=== PATIENT | female | born 1935 | race Caucasian/White ===

== ENCOUNTER 2018-02-02 09:24 | Inpatient (IN) | payer MEDICARE, BC ==
[2018-02-02] MEDS: Acetaminophen 500 MG Tab PO PRN (16:10)
[2018-02-02] MEDS ORDERED: traZODone 100 MG Tab PO SCH (21:00)
[2018-02-02] MEDS: Fluticasone Propionate Nasal Spray 16 GM Bottle NASBOTH SCH (21:22)
[2018-02-02] MEDS: Formoterol/Mometasone 200-5 MCG 8.8 GM Inhaler IH SCH (21:22)
[2018-02-03] MEDS: Acetaminophen 500 MG Tab PO PRN (05:30)
--- NOTE | 2018-02-03 08:58 | PCM.HP ---
H&P History of Present Illness - General Date of Service: 02/03/18 Admit Problem/Dx: Admission Diagnosis/Problem Admission Diagnosis/Problem Fracture of humerus - History of Present Illness Initial Comments - Free Text/Narative: Lily is a 82-year-old female who had a fracture of the right humerus last week.She was hospitalized and orthopedics was consulted at [place]. The treatment was conservative,with a sling. She had physical deconditioning and was admitted to swing bed for physical strengthening and rehabilitation for discharge.Her pain is well controlled. She has a history of COPD, stable hypertension, stable osteoporosis, stable and anemia with a hemoglobin of 9.2 at discharge with no acute blood loss. Right Shoulder Pain Score (Numeric/FACES): 0 right arm\shoulder Pain Score (Numeric/FACES): 7 - Related Data Allergies/Adverse Reactions: Allergies Allergy/AdvReac Type Severity Reaction Status Date / Time Penicillins Allergy Swelling Verified 06/02/15 13:59 Home Medications: Home Meds Budesonide/Formoterol [Symbicort 160-4.5 MCG] 2 puff INH BID 11/15/15 [History] Fluticasone Propionate 1 spray NASBOTH BID 11/15/15 [History] Losartan Potassium 25 mg PO DAILY 11/15/15 [History] Oxybutynin 2.5 mg PO TID PRN 11/15/15 [History] traZODone HCl [Trazodone HCl] 100 mg PO BEDTIME 11/15/15 [History] Acetaminophen 1,000 mg PO Q8H PRN 02/02/18 [History] Lidocaine 5% [Lidoderm 5%] 700 mg TOP DAILY 02/02/18 [History] Multivitamin [Daily Cory] 1 tab PO DAILY 02/02/18 [History] Sennosides/Docusate Sodium [Senna-S] 1 tab PO DAILY PRN 02/02/18 [History] atorvaSTATin [Lipitor] 20 mg PO DAILY 02/02/18 [History] hydroCHLOROthiazide [Hydrochlorothiazide] 12.5 mg PO DAILY 02/02/18 [History] Past Medical History HEENT History: Reports: Cataract, Other (See Below) Other HEENT History: Having some possible sinus problems recently, right side of head and face. Cardiovascular History: Reports: High Cholesterol, Hypertension Respiratory History: Reports: COPD, Other (See Below) Other Respiratory History: Uses CPAP at night. Genitourinary History: Reports: Other (See Below) Other Genitourinary History: Urinary frequency, has had for many years. 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 Broke head right shoulder/arm. Neurological History: Reports: Other (See Below) Other Neuro History: States she had an episode last summer with trouble speaking , nausea, and difficulty walking---this resolved in a short time. Psychiatric History: Reports: Other (See Below) Other Psychiatric History: Takes Trazodone. Endocrine/Metabolic History: Reports: Other (See Below) Other Endocrine/Metabolic History: States she is not a diabetic. Dermatologic History: Reports: None - Infectious Disease History Infectious Disease History: Reports: Other (See Below) Other Infectious Disease History: She is uncertain of her past diseases. - Past Surgical History HEENT Surgical History: Reports: Other (See Below) Social & Family History - Family History Family Medical History: Noncontributory - Tobacco Use Smoking Status *Q: Former Smoker Used Tobacco, but Quit: Yes Month/Year Tobacco Last Used: 2007 Second Hand Smoke Exposure: No - Caffeine Use Caffeine Use: Reports: None - Recreational Drug Use Recreational Drug Use: No H&P Review of Systems - Review of Systems: Review Of Systems: ROS reveals no pertinent complaints other than HPI. Exam - Exam Exam: See Below - Vital Signs Vital Signs: Last Vital Signs Temp 98.7 F 02/03/18 07:10 Pulse 68 02/03/18 07:10 Resp 18 02/03/18 07:10 BP 133/53 L 02/03/18 07:10 Pulse Ox 92 L 02/03/18 07:10 Weight: 60.373 kg - Exam General: Alert, Oriented, 4 HEENT: PERRLA, Hearing Intact, Mucosa Moist & Levan, Nares Patent, Normal Nasal Septum, Posterior Pharynx Clear, Conjunctiva Clear, EOMI, EACs Clear, TMs Clear Neck: Supple, Trachea Midline, 2 Lungs: Clear to Auscultation, Normal Respiratory Effort Cardiovascular: Regular Rate, Regular Rhythm GI/Abdominal Exam: Normal Bowel Sounds, Soft, Non-Tender, No Organomegaly, No Distention, No Abnormal Bruit, No Mass, Pelvis Stable (Female) Exam: Deferred Rectal (Female) Exam: Deferred Back Exam: Normal Inspection, Full Range of Motion, NT Extremities: Joint Swelling (R elbow.), Other (Rt elbow in a sling.Normal pulses peripherally) Skin: Warm, Dry, Intact Neurological: Cranial Nerves Intact, Reflexes Equal Bilateral Neuro Extensive - Mental Status: Alert, Oriented x3, Normal Mood/Affect, Normal Cognition Neuro Extensive - Motor, Sensory, Reflexes: CN II-XII Intact, Normal Gait, Normal Reflexes Psychiatric: Alert, Normal Affect, Normal Mood - Problem List (1) Humerus head fracture SNOMED Code(s): 700257019 ICD Code: S42.293A - OTH DISP FX OF UPPER END OF UNSP HUMERUS, INIT FOR CLOS FX Status: Acute Current Visit: Yes Qualifiers: Encounter type: subsequent encounter (2) HTN (hypertension) SNOMED Code(s): 52813443 ICD Code: I10 - ESSENTIAL (PRIMARY) HYPERTENSION Status: Chronic Current Visit: Yes Qualifiers: Hypertension type: essential hypertension Qualified Code(s): I10 - Essential (primary) hypertension (3) Anemia SNOMED Code(s): 859898930 ICD Code: D64.9 - ANEMIA, UNSPECIFIED Status: Chronic Current Visit: Yes (4) COPD (chronic obstructive pulmonary disease) SNOMED Code(s): 02066027 ICD Code: J44.9 - CHRONIC OBSTRUCTIVE PULMONARY DISEASE, UNSPECIFIED Status : Chronic Current Visit: Yes Qualifiers: COPD type: chronic bronchitis (5) Physical debility SNOMED Code(s): 18912456 ICD Code: R53.81 - OTHER MALAISE Status: Acute Current Visit: Yes (6) Insomnia SNOMED Code(s): 661690468 ICD Code: G47.00 - INSOMNIA, UNSPECIFIED Status: Acute Current Visit: Yes Qualifiers: Insomnia type: primary Qualified Code(s): F51.01 - Primary insomnia (7) Constipation SNOMED Code(s): 34796328 ICD Code: K59.00 - CONSTIPATION, UNSPECIFIED Status: Acute Current Visit : Yes Qualifiers: Constipation type: unspecified constipation type Qualified Code(s): K59.00 - Constipation, unspecified (8) HLD (hyperlipidemia) SNOMED Code(s): 56078883 ICD Code: E78.5 - HYPERLIPIDEMIA, UNSPECIFIED Status: Acute Current Visit : Yes Qualifiers: Hyperlipidemia type: unspecified Qualified Code(s): E78.5 - Hyperlipidemia , unspecified Problem List Initiated/Reviewed/Updated: Yes Orders Last 24hrs: Active Orders 24 hr Category Date Time Status Admission Status [Patient Status] [ADT] Routine ADT 02/02/18 12:10 Active Communication Order [RC] 08,16,00 Care 02/02/18 14:12 Active Communication Order [RC] 09 Care 02/03/18 06:22 Active Oxygen Therapy Adult [Oxygen Therapy] [RC] .PRN Care 02/02/18 16:07 Active OT Evaluation and Treatment [CONS] Routine Cons 02/02/18 13:24 Active PT Evaluation and Treatment [CONS] Routine Cons 02/02/18 13:24 Active Regular Diet [DIET] Diet 02/02/18 Dinner Active Acetaminophen [Tylenol Extra Strength] Med 02/02/18 13:33 Active 1,000 mg PO Q8H PRN Docusate Sodium/Sennosides [Senna Plus] Med 02/02/18 13:33 Active 1 tab PO DAILY PRN Fluticasone Propionate [Flonase] Med 02/02/18 21:00 Active 0 gm NASBOTH BID Lidocaine 5% [Lidoderm 5%] Med 02/03/18 09:00 Active 700 mg TOP DAILY Losartan [Cozaar] Med 02/03/18 09:00 Active 25 mg PO DAILY Mometasone/Formoterol [Dulera 200-5 MCG] Med 02/02/18 21:00 Active 2 puff IH BID Multivitamins [Tab-A-Cory] Med 02/03/18 09:00 Active 1 tab PO DAILY Oxybutynin Med 02/02/18 13:33 Active 2.5 mg PO TID PRN Remove Patch Med 02/02/18 21:00 Active 1 ea TRDERM BEDTIME atorvaSTATin [Lipitor] Med 02/03/18 09:00 Active 20 mg PO DAILY hydroCHLOROthiazide Med 02/03/18 09:00 Active 12.5 mg PO DAILY traZODone Med 02/02/18 21:00 Active 100 mg PO BEDTIME Code Status [Resuscitation Status] Routine Resus Stat 02/02/18 13:20 Ordered Medication Orders Acetaminophen (Tylenol Extra Strength) 1,000 mg PO Q8H PRN PRN Reason: mild pain Last Admin: 02/03/18 05:30 Dose: 1,000 mg Admin: 02/02/18 16:10 Dose: 1,000 mg Atorvastatin Calcium (Lipitor) 20 mg PO DAILY [facility] Fluticasone Propionate (Flonase) 0 gm NASBOTH BID [facility] Last Admin: 02/02/18 21:22 Dose: Not Given Hydrochlorothiazide (Hydrochlorothiazide) 12.5 mg PO DAILY [facility] Lidocaine (Lidoderm 5%) 700 mg TOP DAILY [facility] Losartan Potassium (Cozaar) 25 mg PO DAILY [facility] Miscellaneous Information (Remove Patch) 1 ea TRDERM BEDTIME [facility] Last Admin: 02/02/18 21:35 Dose: 1 ea Mometasone Furoate/Formoterol Fumar (Dulera 200-5 Mcg) 2 puff IH BID [facility] Last Admin: 02/02/18 21:22 Dose: 2 puff Multivitamins/Minerals/Vitamin C (Tab-A-Cory) 1 tab PO DAILY [facility] Oxybutynin Chloride (Oxybutynin) 2.5 mg PO TID PRN PRN Reason: overactive bladder Senna/Docusate Sodium (Senna Plus) 1 tab PO DAILY PRN PRN Reason: Constipation Trazodone HCl (Trazodone) 100 mg PO BEDTIME [facility] Last Admin: 02/02/18 22:57 Dose: 100 mg Assessment/Plan Comment:: Admit to swing bed, consult physical and occupational therapy. Pain is well controlled.Resume regular diet and home medications.
[2018-02-03] MEDS: Losartan 25 MG Tab PO SCH (10:19)
[2018-02-03] MEDS: Formoterol/Mometasone 200-5 MCG 8.8 GM Inhaler IH SCH ×2 (10:20→20:36)
[2018-02-03] MEDS: Fluticasone Propionate Nasal Spray 16 GM Bottle NASBOTH SCH ×2 (10:21→20:34)
[2018-02-03] MEDS: Hydrochlorothiazide 12.5 MG Cap PO SCH (10:22)
[2018-02-03] MEDS: atorvaSTATin 20 MG Tab PO SCH (10:23)
[2018-02-03] MEDS: Multivitamin Tab PO SCH (10:23)
[2018-02-03] MEDS: Lidocaine 5% 700 MG Patch TOP SCH (10:54)
[2018-02-03] MEDS: Ketorolac 10 MG Tab PO SCH ×3 (12:16→20:35)
[2018-02-04] MEDS ORDERED: traZODone 50 MG Tab ONE ×2 (00:04→00:08)
[2018-02-04] MEDS: traZODone 100 MG Tab PO SCH ×3 (00:09→23:26)
[2018-02-04] MEDS: Ketorolac 10 MG Tab PO SCH ×3 (07:39→20:54)
[2018-02-04] MEDS: Losartan 25 MG Tab PO SCH (09:19)
[2018-02-04] MEDS: Formoterol/Mometasone 200-5 MCG 8.8 GM Inhaler IH SCH ×2 (09:19→20:48)
[2018-02-04] MEDS: Fluticasone Propionate Nasal Spray 16 GM Bottle NASBOTH SCH ×2 (09:20→20:49)
[2018-02-04] MEDS: Lidocaine 5% 700 MG Patch TOP SCH (09:20)
[2018-02-04] MEDS: atorvaSTATin 20 MG Tab PO SCH (09:20)
[2018-02-04] MEDS: Hydrochlorothiazide 12.5 MG Cap PO SCH (09:20)
[2018-02-04] MEDS: Multivitamin Tab PO SCH (09:20)
[2018-02-05] MEDS: Ketorolac 10 MG Tab PO SCH ×3 (08:08→21:03)
[2018-02-05] MEDS: Hydrochlorothiazide 12.5 MG Cap PO SCH (09:18)
[2018-02-05] MEDS: atorvaSTATin 20 MG Tab PO SCH (09:19)
[2018-02-05] MEDS: Formoterol/Mometasone 200-5 MCG 8.8 GM Inhaler IH SCH ×2 (09:19→21:05)
[2018-02-05] MEDS: Losartan 25 MG Tab PO SCH (09:20)
[2018-02-05] MEDS: Multivitamin Tab PO SCH (09:20)
[2018-02-05] MEDS: Fluticasone Propionate Nasal Spray 16 GM Bottle NASBOTH SCH ×2 (09:22→21:05)
[2018-02-05] MEDS: Lidocaine 5% 700 MG Patch TOP SCH (09:25)
[2018-02-05] MEDS: traZODone 100 MG Tab PO SCH (22:47)
[2018-02-06] MEDS: Ketorolac 10 MG Tab PO SCH ×3 (08:24→21:21)
[2018-02-06] MEDS: Losartan 25 MG Tab PO SCH (08:25)
[2018-02-06] MEDS: Formoterol/Mometasone 200-5 MCG 8.8 GM Inhaler IH SCH ×2 (08:29→21:24)
[2018-02-06] MEDS: Multivitamin Tab PO SCH (08:29)
[2018-02-06] MEDS: Fluticasone Propionate Nasal Spray 16 GM Bottle NASBOTH SCH ×3 (08:29→22:43)
[2018-02-06] MEDS: Hydrochlorothiazide 12.5 MG Cap PO SCH (08:30)
[2018-02-06] MEDS: Lidocaine 5% 700 MG Patch TOP SCH (08:30)
[2018-02-06] MEDS: atorvaSTATin 20 MG Tab PO SCH (08:31)
[2018-02-06] MEDS: traZODone 100 MG Tab PO SCH (22:50)
[2018-02-07] MEDS: Ketorolac 10 MG Tab PO SCH ×3 (08:00→20:28)
[2018-02-07] MEDS: Losartan 25 MG Tab PO SCH (09:16)
[2018-02-07] MEDS: Hydrochlorothiazide 12.5 MG Cap PO SCH (09:19)
[2018-02-07] MEDS: Formoterol/Mometasone 200-5 MCG 8.8 GM Inhaler IH SCH ×2 (09:19→20:27)
[2018-02-07] MEDS: atorvaSTATin 20 MG Tab PO SCH (09:19)
[2018-02-07] MEDS: Lidocaine 5% 700 MG Patch TOP SCH (09:20)
[2018-02-07] MEDS: Fluticasone Propionate Nasal Spray 16 GM Bottle NASBOTH SCH ×2 (09:20→20:27)
[2018-02-07] MEDS: Multivitamin Tab PO SCH (09:20)
[2018-02-07] MEDS: traZODone 100 MG Tab PO SCH (22:52)
[2018-02-08] MEDS: Lidocaine 5% 700 MG Patch TOP SCH (08:05)
[2018-02-08] MEDS: Ketorolac 10 MG Tab PO SCH (08:06)
[2018-02-08] MEDS: Hydrochlorothiazide 12.5 MG Cap PO SCH (08:07)
[2018-02-08] MEDS: Losartan 25 MG Tab PO SCH (08:07)
[2018-02-08] MEDS: Multivitamin Tab PO SCH (08:08)
[2018-02-08] MEDS: Formoterol/Mometasone 200-5 MCG 8.8 GM Inhaler IH SCH ×3 (08:08→21:33)
[2018-02-08] MEDS: atorvaSTATin 20 MG Tab PO SCH (08:08)
[2018-02-08] MEDS: Fluticasone Propionate Nasal Spray 16 GM Bottle NASBOTH SCH ×2 (08:09→21:34)
--- NOTE | 2018-02-08 08:10 | PCM.PN ---
- General Info Date of Service: 02/08/18 Admission Dx/Problem (Free Text): Patient is doing well. Pain is controlled. Rehabilitation is going well. She has no concerns. - Patient Data Vitals - Most Recent: Last Vital Signs Temp 98.4 F 02/08/18 06:42 Pulse 91 02/08/18 06:42 Resp 16 02/08/18 06:42 BP 138/57 L 02/08/18 06:42 Pulse Ox 90 L 02/08/18 06:42 Weight - Most Recent: 116 lb 14.4 oz Med Orders - Current: Current Medications Acetaminophen (Tylenol Extra Strength) 1,000 mg PO Q8H PRN PRN Reason: mild pain Last Admin: 02/03/18 05:30 Dose: 1,000 mg Atorvastatin Calcium (Lipitor) 20 mg PO DAILY [facility] Last Admin: 02/08/18 08:08 Dose: 20 mg Fluticasone Propionate (Flonase) 0 gm NASBOTH BID [facility] Last Admin: 02/07/18 20:27 Dose: Not Given Hydrochlorothiazide (Hydrochlorothiazide) 12.5 mg PO DAILY [facility] Last Admin: 02/08/18 08:07 Dose: 12.5 mg Ketorolac Tromethamine (Toradol) 10 mg PO 08,, [facility] Stop: 02/08/18 11:29 Last Admin: 02/08/18 08:06 Dose: 10 mg Lidocaine (Lidoderm 5%) 700 mg TOP DAILY [facility] Last Admin: 02/08/18 08:05 Dose: 700 mg Losartan Potassium (Cozaar) 25 mg PO DAILY [facility] Last Admin: 02/08/18 08:07 Dose: 25 mg Miscellaneous Information (Remove Patch) 1 ea TRDERM BEDTIME [facility] Last Admin: 02/07/18 20:32 Dose: 1 ea Mometasone Furoate/Formoterol Fumar (Dulera 200-5 Mcg) 2 puff IH BID [facility] Last Admin: 02/08/18 08:08 Dose: Not Given Multivitamins/Minerals/Vitamin C (Tab-A-Cory) 1 tab PO DAILY [facility] Last Admin: 02/08/18 08:08 Dose: 1 tab Oxybutynin Chloride (Oxybutynin) 2.5 mg PO TID PRN PRN Reason: overactive bladder Senna/Docusate Sodium (Senna Plus) 1 tab PO DAILY PRN PRN Reason: Constipation Trazodone HCl (Trazodone) 100 mg PO DAILY@2300 [facility] Last Admin: 02/07/18 22:52 Dose: 100 mg Discontinued Medications Trazodone HCl (Trazodone) 100 mg PO BEDTIME [facility] Last Admin: 02/02/18 22:57 Dose: 100 mg Trazodone HCl (Trazodone) Confirm Administered Dose 50 mg .ROUTE .STK-MED ONE Stop: 02/04/18 00:05 Last Admin: 02/04/18 00:09 Dose: Not Given Trazodone HCl (Trazodone) Confirm Administered Dose 50 mg .ROUTE .STK-MED ONE Stop: 02/04/18 00:09 Last Admin: 02/04/18 00:15 Dose: Not Given - Exam General: Alert, Oriented, Cooperative Lungs: Normal Respiratory Effort Extremities: Other (Right arm in a sling. Minimal bruising. Did not palpate humorous.) - Problem List & Annotations (1) Humerus head fracture SNOMED Code(s): 480825546 Code(s): S42.293A - [facility] DISP FX OF UPPER END OF UNSP HUMERUS, INIT FOR CLOS FX Status: Acute Current Visit: Yes Qualifiers: Encounter type: subsequent encounter - Problem List Review Problem List Initiated/Reviewed/Updated: Yes - Plan Plan:: 1. Continue PT/OT.
[2018-02-08] MEDS: Acetaminophen 500 MG Tab PO PRN (18:04)
[2018-02-08] MEDS: traZODone 100 MG Tab PO SCH (22:33)
[2018-02-09] MEDS: Acetaminophen 500 MG Tab PO PRN (04:01)
[2018-02-09] MEDS: Formoterol/Mometasone 200-5 MCG 8.8 GM Inhaler IH SCH ×2 (08:06→22:12)
[2018-02-09] MEDS: Fluticasone Propionate Nasal Spray 16 GM Bottle NASBOTH SCH ×3 (08:06→20:33)
[2018-02-09] MEDS: Multivitamin Tab PO SCH (08:06)
[2018-02-09] MEDS: Hydrochlorothiazide 12.5 MG Cap PO SCH (08:06)
[2018-02-09] MEDS: Lidocaine 5% 700 MG Patch TOP SCH (08:07)
[2018-02-09] MEDS: atorvaSTATin 20 MG Tab PO SCH (08:07)
[2018-02-09] MEDS: Losartan 25 MG Tab PO SCH (08:07)
[2018-02-09] MEDS: traZODone 100 MG Tab PO SCH (22:12)
[2018-02-10] MEDS: Losartan 25 MG Tab PO SCH (08:40)
[2018-02-10] MEDS: Formoterol/Mometasone 200-5 MCG 8.8 GM Inhaler IH SCH ×2 (08:47→21:25)
[2018-02-10] MEDS: Hydrochlorothiazide 12.5 MG Cap PO SCH (08:48)
[2018-02-10] MEDS: Lidocaine 5% 700 MG Patch TOP SCH (08:48)
[2018-02-10] MEDS: Fluticasone Propionate Nasal Spray 16 GM Bottle NASBOTH SCH ×2 (08:48→21:25)
[2018-02-10] MEDS: atorvaSTATin 20 MG Tab PO SCH (08:49)
[2018-02-10] MEDS: Multivitamin Tab PO SCH (08:50)
[2018-02-10] MEDS: traZODone 100 MG Tab PO SCH (23:23)
[2018-02-11] MEDS: Formoterol/Mometasone 200-5 MCG 8.8 GM Inhaler IH SCH ×2 (08:06→20:54)
[2018-02-11] MEDS: Fluticasone Propionate Nasal Spray 16 GM Bottle NASBOTH SCH ×3 (08:06→20:59)
[2018-02-11] MEDS: Losartan 25 MG Tab PO SCH (08:06)
[2018-02-11] MEDS: Lidocaine 5% 700 MG Patch TOP SCH (08:07)
[2018-02-11] MEDS: atorvaSTATin 20 MG Tab PO SCH (08:07)
[2018-02-11] MEDS: Hydrochlorothiazide 12.5 MG Cap PO SCH (08:07)
[2018-02-11] MEDS: Multivitamin Tab PO SCH (08:08)
[2018-02-11] MEDS: Acetaminophen 500 MG Tab PO PRN (16:52)
[2018-02-11] MEDS: traMADol 50 MG Tab PO PRN (20:57)
[2018-02-11] MEDS: traZODone 100 MG Tab PO SCH (22:37)
[2018-02-12] MEDS ORDERED: Magnesium Hydroxide 400 MG/5 ML Susp 30 ML Cup PO ONE (07:55)
[2018-02-12] MEDS: traMADol 50 MG Tab PO PRN (07:56)
[2018-02-12] MEDS ORDERED: Alendronate 70 MG Tab PO SCH (08:30)
[2018-02-12] MEDS: Lidocaine 5% 700 MG Patch TOP SCH (09:06)
[2018-02-12] MEDS: Losartan 25 MG Tab PO SCH (09:07)
[2018-02-12] MEDS: Formoterol/Mometasone 200-5 MCG 8.8 GM Inhaler IH SCH ×2 (09:07→20:52)
[2018-02-12] MEDS: Cholecalciferol (Vitamin D3) 1,000 Unit Tab PO SCH ×2 (09:08→22:31)
[2018-02-12] MEDS: Multivitamin Tab PO SCH (09:08)
[2018-02-12] MEDS: Fluticasone Propionate Nasal Spray 16 GM Bottle NASBOTH SCH ×3 (09:08→20:55)
--- NOTE | 2018-02-12 11:37 | PN ---
DATE SEEN: 02/12/2018 SUBJECTIVE: Lily is an 82-year-old, resident of [place], who sustained a right humeral neck fracture on January 29, 2018, when she got up from the sofa, turned and lost her balance. She had evaluation at Orthopedics in [place] with a diagnosis of closed fracture of the right humeral head in adequate position. She was placed in a shoulder immobilizer with plans for immobilization for 6 weeks. She has been admitted to swing bed at [place] now for the past 10 days and is receiving physical therapy on the shoulder. She is still having a lot of pain in the shoulder and therapy is limited to the right hand. PAST MEDICAL HISTORY: 1. COPD from many years of cigarette smoking. 2. Osteoporosis. She sustained a TIA in 2016 with transient loss of speech and facial droop. This resolved without intervention. 3. Carotid angiography done by Dr. eRyes showed 20% internal carotid lesions and no carotid intervention was necessary. She has not had subsequent neurologic symptoms and does not believe this was a syncopal episode that caused her fall. 4. She has chronic essential hypertension. 5. Osteoarthritis. 6. Stress incontinence. 7. Primary insomnia. 8. She has been for approximately 14 years. REVIEW OF SYSTEMS: Negative for fever, chills, sweats, or symptoms of infection. No recent change in hearing or vision. No cough or dyspnea. She does report she uses overnight oxygen and has for the past 5 years for her COPD. No palpitations, chest pain, or abdominal pain. She states she has not had a bowel movement for the past 3 to 4 days. No joint inflammation, swelling, or skin rash. She does have bruising over the right shoulder and remains immobilized in the shoulder immobilizer. PHYSICAL EXAMINATION: GENERAL: She is alert, comfortable, and a good historian. VITAL SIGNS: Blood pressure 159/70, pulse 98 and regular, respirations normal, temperature 97.8. Weight 114 pounds. SKIN: Clear without rash. She has ecchymoses over the right shoulder. HEENT: Throat is clear. Mouth dry. LUNGS: Clear to the bases with distant breath sounds. HEART: Regular without murmur or gallop. ABDOMEN: Normal bowel sounds. Soft and nontender. EXTREMITIES: No edema. Right shoulder is immobilized. There is ecchymosis over the right shoulder. She has good hand cobbler mckay strength. ASSESSMENT: 1. Open reduction internal fixation, right shoulder, with underlying osteoporosis. 2. History of transient ischemic attack. 3. Chronic obstructive pulmonary disease, on nocturnal O2. 4. Chronic mixed incontinence. 5. Chronic essential hypertension. 6. Primary insomnia. PLAN: We will continue active physical therapy for generalized strengthening, anticipate steady healing in the shoulder. We will also consider telemetry monitoring because of her fall and her past history of TIA without diagnosis. Consider discontinue the atorvastatin and institution of bisphosphonate, calcium, and vitamin D. Follow up routinely at Swing Bed with plans for discharge to home under self care. /[id number] MARIS/MODL
[2018-02-12] MEDS: Acetaminophen 500 MG Tab PO PRN (12:42)
[2018-02-12] MEDS: Calcium Carbonate/Vitamin D3 1250 MG-200 Unit Tab PO SCH (17:29)
[2018-02-12] MEDS: traZODone 100 MG Tab PO SCH (22:31)
[2018-02-13] MEDS: traMADol 50 MG Tab PO PRN ×2 (08:03→14:03)
[2018-02-13] MEDS: Calcium Carbonate/Vitamin D3 1250 MG-200 Unit Tab PO SCH ×2 (08:05→17:58)
[2018-02-13] MEDS: Losartan 25 MG Tab PO SCH (08:06)
[2018-02-13] MEDS: Formoterol/Mometasone 200-5 MCG 8.8 GM Inhaler IH SCH ×2 (08:06→20:01)
[2018-02-13] MEDS: Lidocaine 5% 700 MG Patch TOP SCH (08:07)
[2018-02-13] MEDS: Fluticasone Propionate Nasal Spray 16 GM Bottle NASBOTH SCH ×2 (08:07→20:02)
[2018-02-13] MEDS: Multivitamin Tab PO SCH (08:08)
[2018-02-13] MEDS: Cholecalciferol (Vitamin D3) 1,000 Unit Tab PO SCH ×2 (08:08→20:07)
[2018-02-13] MEDS: traZODone 100 MG Tab PO SCH (22:18)
[2018-02-14] MEDS: traMADol 50 MG Tab PO PRN (07:52)
[2018-02-14] MEDS: Lidocaine 5% 700 MG Patch TOP SCH (09:21)
[2018-02-14] MEDS: Cholecalciferol (Vitamin D3) 1,000 Unit Tab PO SCH ×2 (09:22→20:20)
[2018-02-14] MEDS: Formoterol/Mometasone 200-5 MCG 8.8 GM Inhaler IH SCH ×2 (09:23→20:18)
[2018-02-14] MEDS: Losartan 25 MG Tab PO SCH (09:23)
[2018-02-14] MEDS: Fluticasone Propionate Nasal Spray 16 GM Bottle NASBOTH SCH ×2 (09:23→20:18)
[2018-02-14] MEDS: Calcium Carbonate/Vitamin D3 1250 MG-200 Unit Tab PO SCH ×2 (09:24→19:14)
[2018-02-14] MEDS: Multivitamin Tab PO SCH (09:25)
[2018-02-14] MEDS: Oxybutynin 5 MG Tab PO PRN (22:50)
[2018-02-14] MEDS: traZODone 100 MG Tab PO SCH (22:50)
[2018-02-15] MEDS: traMADol 50 MG Tab PO PRN (07:55)
[2018-02-15] MEDS: Calcium Carbonate/Vitamin D3 1250 MG-200 Unit Tab PO SCH ×2 (08:02→18:02)
[2018-02-15] MEDS: Cholecalciferol (Vitamin D3) 1,000 Unit Tab PO SCH ×2 (08:02→20:41)
[2018-02-15] MEDS: Losartan 25 MG Tab PO SCH (08:03)
[2018-02-15] MEDS: Multivitamin Tab PO SCH (08:04)
[2018-02-15] MEDS: Formoterol/Mometasone 200-5 MCG 8.8 GM Inhaler IH SCH ×2 (08:04→20:37)
[2018-02-15] MEDS: Fluticasone Propionate Nasal Spray 16 GM Bottle NASBOTH SCH ×2 (08:05→20:38)
[2018-02-15] MEDS: Lidocaine 5% 700 MG Patch TOP SCH (09:43)
[2018-02-15] MEDS: Oxybutynin 5 MG Tab PO PRN (23:04)
[2018-02-15] MEDS: traZODone 100 MG Tab PO SCH (23:04)
[2018-02-16] MEDS: Formoterol/Mometasone 200-5 MCG 8.8 GM Inhaler IH SCH ×2 (08:27→20:56)
[2018-02-16] MEDS: Losartan 25 MG Tab PO SCH (08:28)
[2018-02-16] MEDS: Cholecalciferol (Vitamin D3) 1,000 Unit Tab PO SCH ×2 (08:29→20:57)
[2018-02-16] MEDS: Lidocaine 5% 700 MG Patch TOP SCH (08:29)
[2018-02-16] MEDS: Multivitamin Tab PO SCH (08:29)
[2018-02-16] MEDS: Fluticasone Propionate Nasal Spray 16 GM Bottle NASBOTH SCH ×2 (08:30→20:57)
[2018-02-16] MEDS: Calcium Carbonate/Vitamin D3 1250 MG-200 Unit Tab PO SCH ×2 (09:02→18:26)
[2018-02-16] MEDS: traZODone 100 MG Tab PO SCH (22:51)
[2018-02-17 08:06] VITALS: BP 137/65
[2018-02-17] MEDS: Calcium Carbonate/Vitamin D3 1250 MG-200 Unit Tab PO SCH (08:31)
[2018-02-17] MEDS: Cholecalciferol (Vitamin D3) 1,000 Unit Tab PO SCH (08:32)
[2018-02-17] MEDS: Losartan 25 MG Tab PO SCH (08:32)
[2018-02-17] MEDS: Formoterol/Mometasone 200-5 MCG 8.8 GM Inhaler IH SCH (08:32)
[2018-02-17] MEDS: Fluticasone Propionate Nasal Spray 16 GM Bottle NASBOTH SCH (08:32)
[2018-02-17] MEDS: Multivitamin Tab PO SCH (08:32)
[2018-02-17] MEDS: traMADol 50 MG Tab PO PRN (12:31)
--- NOTE | 2018-02-18 07:43 | DISCH ---
DISCHARGE DATE: 02/17/2018 HOSPITAL COURSE: Lily is an 82-year-old woman from [place], [place], with a history of osteoporosis, hypertension, COPD, hyperlipidemia, and chronic stress incontinence. The patient fell and fractured her right humeral head on 01/29/2018. She was seen in Orthopedics at [facility] and placed in a shoulder immobilizer for non-operative treatment. She was then discharged to [facility] on 02/02/2018, where she has been receiving therapy, analgesia, and is recuperating. The patient denies a full syncopal episode during the fall, but she is a little bit confused as to how she fell. She did not note that she stumbled. She might have stepped wrong and might have gotten lightheaded. She had no prior history of syncope and described no palpitations. Because of the unclear nature of her fall, she was placed on telemetry monitoring for 72 hours. She had 2 to 3 runs of SVT at 140 per minute of about 6 to 7 beats. She was asymptomatic during this time and showed no sign of atrial fibrillation, heart block, etc. The patient's course through therapy was satisfactory. Her pain came under control. She had exercises to the hand and to the elbow, and remained otherwise immobilized at the right shoulder. By 02/17/2018, she was deemed recuperated enough to go to an assisted living facility. She is discharged to the [facility] to continue her occupational therapy and home health care as an outpatient. While hospitalized, she was started on alendronate. She was given tramadol for pain control. She was also started on vitamin D3, and her statin therapy was discontinued. DISCHARGE MEDICATIONS: 1. Tramadol 50 mg every 6 hours p.r.n. pain. 2. Vitamin D3 1000 units b.i.d. 3. Alendronate 70 mg weekly. 4. Tylenol 1000 mg every 8 hours and 650 mg intermittently p.r.n. 5. Trazodone 100 mg at bedtime. 6. Senna S one tab daily. 7. Multiple vitamin one daily. 8. Losartan 25 mg daily. 9. Flonase one squirt to each nares b.i.d. p.r.n. 10.Calcium 600 with D 400 two daily. 11.Symbicort 160/4.5 two puffs b.i.d. 12.Oxybutynin 2.5 mg at bedtime. FOLLOWUP: She is to have Orthopedic followup with an appointment scheduled for 03/16/2018 and have followup with Whitney Stokes, her regular provider, one month after that. She is to call should there be questions or problems. This patient still requires skilled care with home health and occupational therapy. Follow up for this is scheduled as well. /[id number] MARIS/KOSTAS
== END 2018-02-17 12:55 | disposition home health service (06) | DRG 948 ==
LOC: FB.MS 12:03
PROVIDERS: ADMIT Family Medicine; ATTEND Family Medicine
DX: R53.81 Other malaise (principal); Z66 Do not resuscitate; S42.293D Other displaced fracture of upper end of unspecified humerus, subsequent encounter for fracture with routine healing; M81.0 Age-related osteoporosis without current pathological fracture; I10 Essential (primary) hypertension; J44.9 Chronic obstructive pulmonary disease, unspecified; E78.5 Hyperlipidemia, unspecified; N39.3 Stress incontinence (female) (male); Z87.891 Personal history of nicotine dependence; Z88.0 Allergy status to penicillin
CPT/HCPCS: 36415; 80048; 97110-GO; 97161-GP; 97165-GO; 97530-GO; 97535-GO; A9270-GY

== ENCOUNTER 2018-12-18 15:08 | Emergency (ER) | payer MEDICARE, BC ==
--- NOTE | 2018-12-18 15:33 | EDM.PDOC ---
ED HPI GENERAL MEDICAL PROBLEM - General Stated Complaint: WEAK, DIZZINESS Time Seen by Provider: 12/18/18 15:30 Source of Information: Reports: Patient History Limitations: Reports: No Limitations - History of Present Illness INITIAL COMMENTS - FREE TEXT/NARRATIVE: 83-year-old female who reports that she was with a friend at the [employer] today and then when they were going home they stopped at a yard sale and the patient was walking around the yard sale, feeling well, and had sudden loss of vision and felt weak all over. She caught onto something and asked somebody for help and was taken to a chair so that she could sit down. Her symptoms persisted and the friend drove her to a local fire [place] and EMS was called. By the time EMS arrived, the patient was feeling somewhat improved in that her vision had come back and she felt less weak. She was noted to have a blood pressure in the 80 all like range by the fire [facility] staff and EMS found that her blood pressure was 100 systolic. Her blood sugar was noted to be 138. An IV was established and the patient was given IV normal saline and had received approximately 500 mL bolus time she arrived here. She was feeling much improved by this point and was conversant and had no vision rinses or areas of weakness. She did feel weak all over and tired. Pain. He did not have any chest pain, shortness of breath, nausea, vomiting, fever or abdominal pain with this episode. She has no pain right now. She rates her pain as a 0/10. She has had no dysuria or hematuria. She states she only had 2 cups of decaf coffee today. She states she normally has to urinate every hour and she has noted decreased urination. This episode occurred approximately 1:30 PM today. There are no other associated signs or symptoms. There are no other modifying factors. 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 Medication(s) (Given IV fluids by the EMS to arrival.) - Related Data Allergies Allergy/AdvReac Type Severity Reaction Status Date / Time Penicillins Allergy Swelling Verified 12/18/18 17:46 Home Meds: Home Meds Fluticasone Propionate 1 spray NASBOTH BID 11/15/15 [History] Losartan Potassium 25 mg PO DAILY 11/15/15 [History] traZODone HCl [Trazodone HCl] 100 mg PO BEDTIME 11/15/15 [History] Multivitamin [Daily Cory] 1 tab PO DAILY 02/02/18 [History] Sennosides/Docusate Sodium [Senna-S] 1 tab PO DAILY PRN 02/02/18 [History] Acetaminophen [Tylenol Extra Strength] 1,000 mg PO Q8H PRN tablet 02/17/18 [Rx] Budesonide/Formoterol Fumarate [Symbicort 160-4.5 Mcg Inhaler] 2 puff IH BID #1 canister 02/17/18 [Rx] Oxybutynin 2.5 mg PO BEDTIME #30 tab 02/17/18 [Rx] Alendronate Sodium 70 mg PO FR 12/18/18 [History] Cephalexin [Keflex] 500 mg PO TID 7 Days #21 capsule 12/18/18 [Rx] Cholecalciferol (Vitamin D3) [Vitamin D3] 1,000 units PO DAILY 12/18/18 [History ] atorvaSTATin Calcium [Lipitor] 20 mg PO BEDTIME 12/18/18 [History] hydroCHLOROthiazide [Hydrochlorothiazide] 12.5 mg DAILY 12/18/18 [History] Past Medical History HEENT History: Reports: Cataract, Other (See Below) Other HEENT History: Having some possible sinus problems recently, right side of head and face. Cardiovascular History: Reports: High Cholesterol, Hypertension Respiratory History: Reports: COPD, Other (See Below) Other Respiratory History: Uses CPAP at night. Genitourinary History: Reports: Other (See Below) Other Genitourinary History: Urinary frequency, has had for many years. Neurological History: Reports: TIA ([place]), Other (See Below) Other Neuro History: States she had an episode last summer with trouble speaking , nausea, and difficulty walking---this resolved in a short time. - Infectious Disease History Infectious Disease History: Reports: Other (See Below) Other Infectious Disease History: She is uncertain of her past diseases. - Past Surgical History Other Surgical History Comment: Denies any previous surgeries. Social & Family History - Tobacco Use Smoking Status *Q: Former Smoker (Nonsmoker 12 years) - Caffeine Use Caffeine Use: Reports: None - Alcohol Use Alcohol Use History: Yes Alcohol Use in Last Twelve Months: No Alcohol Use Comment: No alcohol use times the past 14 years. States she is in AA. ED ROS GENERAL - Review of Systems Review Of Systems: See Below Constitutional: Reports: Fatigue HEENT: Reports: Other (Somewhat dry mouth) Respiratory: Reports: No Symptoms Cardiovascular: Reports: No Symptoms GI/Abdominal: Reports: No Symptoms : Reports: Frequency (Chronic and unchanged) Musculoskeletal: Reports: No Symptoms Skin: Reports: No Symptoms Neurological: Reports: Other (Near syncopal episode with loss of vision and generalized weakness.) Hematologic/Lymphatic: Reports: No Symptoms Immunologic: Reports: No Symptoms ED EXAM, GENERAL - Physical Exam Exam: See Below Exam Limited By: No Limitations General Appearance: Alert, WD/WN, No Apparent Distress Eye Exam: Bilateral Eye: EOMI, Normal Inspection, PERRL Ears: Normal External Exam Ear Exam: Bilateral Ear: Auricle Normal Nose: Normal Inspection, Normal Mucosa, No Blood Throat/Mouth: Normal Voice, No Airway Compromise, Other (Mildly dry mucous membranes) Head: Atraumatic, Normocephalic Neck: Normal Inspection, Supple, Non-Tender, Full Range of Motion Respiratory/Chest: No Respiratory Distress, Lungs Clear, Normal Breath Sounds, No Accessory Muscle Use, Chest Non-Tender Cardiovascular: Normal Peripheral Pulses, Regular Rate, Rhythm, No JVD Peripheral Pulses: 2+: Radial (L), Radial (R), Dorsalis Pedis (L), Dorsalis Pedis (R) GI/Abdominal: Normal Bowel Sounds, Soft, Non-Tender, No Mass Back Exam: Normal Inspection. No: CVA Tenderness (R), CVA Tenderness (L) Extremities: Normal Inspection, Normal Range of Motion, Non-Tender, Normal Capillary Refill, No Pedal Edema Neurological: Alert, Oriented, CN II-XII Intact, Normal Cognition, No Motor/ Sensory Deficits Skin Exam: Warm, Dry, Intact, Normal Color, No Rash EKG INTERPRETATION EKG Date: 12/18/18 Time: 15:11 Rhythm: NSR Rate (Beats/Min): 67 Barry: Normal P-Wave: Present QRS: Normal ST-T: Normal QT: Normal Comparison: No Change (No change from EKG performed on 11/15/2015.) Course - Vital Signs Last Recorded V/S: Last Vital Signs Temp 36.8 C 12/18/18 15:08 Pulse 72 12/18/18 15:08 Resp 18 12/18/18 15:08 BP 118/53 L 12/18/18 15:08 Pulse Ox 96 12/18/18 15:08 - Orders/Labs/Meds Orders: Active Orders 24 hr Category Date Time Status EKG Documentation Completion [RC] ASDIRECTED Care 12/18/18 16:01 Active Head wo Cont [CT] Stat Exams 12/18/18 16:01 Taken CULTURE URINE [RM] Stat Lab 12/18/18 15:37 Received Sodium Chloride 0.9% [Saline Flush] Med 12/18/18 16:01 Active 10 ml FLUSH ASDIRECTED PRN Peripheral IV Insertion Adult [OM.PC] Routine Oth 12/18/18 16:01 Ordered EKG 12 Lead [EK] Routine Ther 12/18/18 16:01 Ordered Medication Orders Sodium Chloride (Saline Flush) 10 ml FLUSH ASDIRECTED PRN PRN Reason: Keep Vein Open Labs: Laboratory Tests 12/18/18 12/18/18 12/18/18 Range/Units 15:18 15:18 15:18 WBC 7.0 (4.5-12.0) X10-3/uL RBC 3.63 (3.23-5.20) x10(6)uL Hgb 11.7 (11.5-15.5) g/dL Hct 34.1 (30.0-51.3) % MCV 94.0 (80-96) fL MCH 32.2 (27.7-33.6) pg MCHC 34.3 (32.2-35.4) g/dL RDW 14.6 (11.5-15.5) % Plt Count 259 (125-369) X10(3)uL MPV 8.2 (7.4-10.4) fL Neut % (Auto) 75.8 (46-82) % Lymph % (Auto) 16.4 (13-37) % Alexandria % (Auto) 6.0 (4-12) % Eos % (Auto) 1 (1.0-5.0) % Baso % (Auto) 1 (0-2) % Neut # (Auto) 5.4 (1.6-8.3) # Lymph # (Auto) 1.1 (0.6-5.0) # Alexandria # (Auto) 0.4 (0.0-1.3) # Eos # (Auto) 0.1 (0.0-0.8) # Baso # (Auto) 0.0 (0.0-0.2) # Sodium 144 (135-145) mmol/L Potassium 3.9 (3.5-5.3) mmol/L Chloride 106 (100-110) mmol/L Carbon Dioxide 29 (21-32) mmol/L BUN 27 H D (7-18) mg/dL Creatinine 1.2 H (0.55-1.02) mg/dL Est Cr Clr Drug Dosing 27.00 mL/min Estimated GFR (MDRD) 43 L (>60) BUN/Creatinine Ratio 22.5 H (9-20) Glucose 115 (80-116) mg/dL Calcium 9.0 (8.6-10.2) mg/dL Magnesium (1.8-2.5) mg/dL Total Bilirubin 0.5 (0.1-1.3) mg/dL AST 17 (5-25) IU/L ALT 21 (12-36) U/L Alkaline Phosphatase 69 (56-112) IU/L Troponin I < 0.017 L (<0.017-0.056) ng/mL Total Protein 6.8 (6.0-8.0) g/dL Albumin 3.5 (3.2-4.6) g/dL Globulin 3.3 g/dL Albumin/Globulin Ratio 1.1 Urine Color (YELLOW) Urine Appearance (CLEAR) Urine pH (5.0-6.5) Ur Specific Ranson (1.010-1.025) Urine Protein (NEGATIVE) mg/dL Urine Glucose (UA) (NORMAL) mg/dL Urine Ketones (NEGATIVE) mg/dL Urine Occult Blood (NEGATIVE) Urine Nitrite (NEGATIVE) Urine Bilirubin (NEGATIVE) Urine Urobilinogen (NEGATIVE) mg/dL Ur Leukocyte Esterase (NEGATIVE) Urine RBC (0-5) Urine WBC (0-5) Ur Squamous Epith Cells (NS,R,O) Urine Bacteria (NS) 12/18/18 12/18/18 Range/Units 15:18 15:37 WBC (4.5-12.0) X10-3/uL RBC (3.23-5.20) x10(6)uL Hgb (11.5-15.5) g/dL Hct (30.0-51.3) % MCV (80-96) fL MCH (27.7-33.6) pg MCHC (32.2-35.4) g/dL RDW (11.5-15.5) % Plt Count (125-369) X10(3)uL MPV (7.4-10.4) fL Neut % (Auto) (46-82) % Lymph % (Auto) (13-37) % Alexandria % (Auto) (4-12) % Eos % (Auto) (1.0-5.0) % Baso % (Auto) (0-2) % Neut # (Auto) (1.6-8.3) # Lymph # (Auto) (0.6-5.0) # Alexandria # (Auto) (0.0-1.3) # Eos # (Auto) (0.0-0.8) # Baso # (Auto) (0.0-0.2) # Sodium (135-145) mmol/L Potassium (3.5-5.3) mmol/L Chloride (100-110) mmol/L Carbon Dioxide (21-32) mmol/L BUN (7-18) mg/dL Creatinine (0.55-1.02) mg/dL Est Cr Clr Drug Dosing mL/min Estimated GFR (MDRD) (>60) BUN/Creatinine Ratio (9-20) Glucose (80-116) mg/dL Calcium (8.6-10.2) mg/dL Magnesium 1.6 L (1.8-2.5) mg/dL Total Bilirubin (0.1-1.3) mg/dL AST (5-25) IU/L ALT (12-36) U/L Alkaline Phosphatase (56-112) IU/L Troponin I (<0.017-0.056) ng/mL Total Protein (6.0-8.0) g/dL Albumin (3.2-4.6) g/dL Globulin g/dL Albumin/Globulin Ratio Urine Color Yellow (YELLOW) Urine Appearance Clear (CLEAR) Urine pH 5.0 (5.0-6.5) Ur Specific Ranson 1.020 (1.010-1.025) Urine Protein Negative (NEGATIVE) mg/dL Urine Glucose (UA) Normal (NORMAL) mg/dL Urine Ketones Negative (NEGATIVE) mg/dL Urine Occult Blood Negative (NEGATIVE) Urine Nitrite Negative (NEGATIVE) Urine Bilirubin Negative (NEGATIVE) Urine Urobilinogen Normal (NEGATIVE) mg/dL Ur Leukocyte Esterase Negative (NEGATIVE) Urine RBC 0-5 (0-5) Urine WBC 0-5 (0-5) Ur Squamous Epith Cells Rare (NS,R,O) Urine Bacteria Few H (NS) Meds: Medications Generic Name Dose Route Start Last Admin Trade Name Freq PRN Reason Stop Dose Admin Sodium Chloride 10 ml 12/18/18 16:01 Saline Flush FLUSH ASDIRECTED PRN Keep Vein Open Discontinued Medications Generic Name Dose Route Start Last Admin Trade Name Freq PRN Reason Stop Dose Admin Cephalexin 500 mg 12/18/18 18:12 Keflex PO 12/18/18 18:13 ONETIME ONE Sodium Chloride 1,000 mls @ 999 mls/hr 12/18/18 16:02 12/18/18 16:25 Normal Saline IV 12/18/18 17:02 999 mls/hr .BOLUS ONE Administration - Re-Assessments/Exams Free Text/Narrative Re-Assessment/Exam: 12/18/18 17:00: Patient's laboratory tests are for the most part reassuring. Her BUN/creatinine were somewhat elevated, supporting that she is dehydrated/ volume depleted. Her urine also has some evidence of infection. This was a catheterized specimen. I did send this for culture. The CT scan of her head showed no acute abnormality. Her EKG was reassuring as well. I will give the patient additional IV fluids continue to monitor for now. 12/18/18 18:15: The patient's blood pressure has normalized. She feels much improved. No orthostatic changes on blood pressure and pulse. She has been able to take liquids without any problem. She has had no more feelings of dizziness or weakness. She has eaten a snack and has ambulated well without any problems. I will treat the patient with Keflex for suspected urinary tract infection. I will plan on discharging the patient home at this point. I have discussed this with her and with her family to have now arrived and they are in agreement with plans for discharge. Departure - Departure Time of Disposition: 18:25 Disposition: Home, Self-Care 01 Condition: Fair (Improved) Clinical Impression: Near syncope, Dehydration, Transient neurologic deficit UTI (urinary tract infection) Qualifiers: Urinary tract infection type: site unspecified Hematuria presence: without hematuria Qualified Code(s): N39.0 - Urinary tract infection, site not specified - Discharge Information Prescriptions: Cephalexin [Keflex] 500 mg PO TID 7 Days #21 capsule Instructions: Near-Syncope, Antibiotic Medicine, Adult, [id number], Urinary Tract Infection, Adult, [id number], Dehydration, Adult, [id number] Referrals: Whitney Stokes BLO[facility]YPER [Primary Care Provider] - Additional Instructions: You had what appears to be a near passout spell related to mild dehydration and possibly to a urinary tract infection. Your blood tests were reassuring except they did support you being somewhat dehydrated. Your EKG was normal. Your head CT was normal. Your urine test showed some evidence of infection. You improved with the IV fluids and we gave him in the emergency department. You should make sure you keep yourself well-hydrated in the future. Rest. Medication as prescribed ((Keflex 500 mg). You up with your primary doctor this next week. Back to the emergency department for recurrent weakness, fever, pass out spells , localized area of weakness or numbness or any other concerning sign or symptom. - My Orders Last 24 Hours: My Active Orders 12/18/18 15:37 CULTURE URINE [RM] Stat 12/18/18 16:01 EKG Documentation Completion [RC] ASDIRECTED Head wo Cont [CT] Stat Sodium Chloride 0.9% [Saline Flush] 10 ml FLUSH ASDIRECTED PRN Peripheral IV Insertion Adult [OM.PC] Routine EKG 12 Lead [EK] Routine - Assessment/Plan Last 24 Hours: My Active Orders 12/18/18 15:37 CULTURE URINE [RM] Stat 12/18/18 16:01 EKG Documentation Completion [RC] ASDIRECTED Head wo Cont [CT] Stat Sodium Chloride 0.9% [Saline Flush] 10 ml FLUSH ASDIRECTED PRN Peripheral IV Insertion Adult [OM.PC] Routine EKG 12 Lead [EK] Routine
[2018-12-18] MEDS ORDERED: Sodium Chloride 0.9% 10 ML Syringe FLUSH PRN (16:01)
[2018-12-18] MEDS ORDERED: Sodium Chloride 0.9% 1,000 ML IV ONE (16:02)
[2018-12-18] MEDS ORDERED: Cephalexin 500 MG Cap PO ONE (18:12)
[2018-12-18 20:53] VITALS: BP 145/81; PULSE 91
== END 2018-12-18 19:07 | disposition home or self-care (01) ==
LOC: FB.ED 15:08
DX: E86.0 Dehydration (principal); N39.0 Urinary tract infection, site not specified; R29.818 Other symptoms and signs involving the nervous system; R55 Syncope and collapse; E78.00 Pure hypercholesterolemia, unspecified; I10 Essential (primary) hypertension; J44.9 Chronic obstructive pulmonary disease, unspecified; Z88.0 Allergy status to penicillin; Z79.899 Other long term (current) drug therapy; Z87.891 Personal history of nicotine dependence
CPT/HCPCS: 36415; 70450; 80053; 81001; 83735; 84484; 85025; 87086; 93005; 96360; 99285; A9270; J7030; 93010; 99284

== ENCOUNTER 2019-04-08 14:21 | Inpatient (IN) | payer MEDICARE, BC ==
[2019-04-09] MEDS ORDERED: Enoxaparin 40 MG/0.4 ML Syringe SUBCUT SCH ×2 (16:00→16:35)
[2019-04-09] MEDS ORDERED: oxyCODONE 5 MG Tab PO PRN (16:36)
[2019-04-09] MEDS ORDERED: Bisacodyl 10 MG Supp RECTAL SCH (16:45)
[2019-04-09] MEDS ORDERED: traZODone 50 MG Tab ONE (21:07)
[2019-04-09] MEDS: Fluticasone Propionate Nasal Spray 16 GM Bottle NASRT SCH (21:21)
[2019-04-09] MEDS: Polyethylene Glycol 3350 Powder 17 GM Packet PO SCH (21:23)
[2019-04-09] MEDS: Magnesium Hydroxide 400 MG/5 ML Susp 30 ML Cup PO SCH (21:24)
[2019-04-09] MEDS: atorvaSTATin 20 MG Tab PO SCH (21:25)
[2019-04-09] MEDS: Oxybutynin 5 MG Tab PO SCH (21:26)
[2019-04-09] MEDS: traZODone 100 MG Tab PO SCH (21:28)
[2019-04-09] MEDS: Acetaminophen 325 MG Tab PO PRN (21:28)
[2019-04-10] MEDS ORDERED: Bisacodyl 10 MG Supp RECTAL PRN (08:35)
[2019-04-10] MEDS: Multivitamin Tab PO SCH (08:56)
[2019-04-10] MEDS: Enoxaparin 30 MG/0.3 ML Syringe SUBCUT SCH (08:56)
[2019-04-10] MEDS: Polyethylene Glycol 3350 Powder 17 GM Packet PO SCH ×2 (08:58→20:00)
[2019-04-10] MEDS: Magnesium Hydroxide 400 MG/5 ML Susp 30 ML Cup PO SCH ×2 (08:58→20:00)
[2019-04-10] MEDS: Fluticasone Propionate Nasal Spray 16 GM Bottle NASRT SCH ×2 (09:00→20:00)
[2019-04-10] MEDS ORDERED: Calcium Carbonate 500 MG Tablet PO SCH (09:00)
[2019-04-10] MEDS ORDERED: Losartan 50 MG Tab PO SCH (09:00)
[2019-04-10] MEDS ORDERED: Losartan 25 MG Tab PO SCH (09:00)
--- NOTE | 2019-04-10 10:54 | PN ---
DATE SEEN: 04/10/2019 HISTORY: Lily is an 84-year-old woman from [place], who was admitted to swing bed yesterday for therapy following intramedullary michelle, ORIF of left femur fracture. Yesterday, on admission, she was found to have a small area of redness on the right sacroiliac area of her back. This morning, she has developed 3 groups of vesicles in the same area suspicious for zoster. Lily has not had a zoster vaccination. She denies pain in the area. PHYSICAL EXAMINATION: Physical exam of the skin reveals 3 groups of small vesicles overlying the right lower lumbar area. No tenderness is noted and no sign of cellulitis. ASSESSMENT: Rash, suspicious for zoster. PLAN: We will plan viral culture followed by Zovirax orally. Continue other medications and cares. /[id number] MARIS/KOSTAS
[2019-04-10] MEDS: Acyclovir 400 MG Tab PO SCH ×2 (16:46→20:03)
[2019-04-10] MEDS ORDERED: traZODone 50 MG Tab ONE (19:42)
[2019-04-10] MEDS: atorvaSTATin 20 MG Tab PO SCH (20:00)
[2019-04-10] MEDS: Oxybutynin 5 MG Tab PO SCH (20:01)
[2019-04-10] MEDS: traZODone 100 MG Tab PO SCH (20:02)
[2019-04-10] MEDS ORDERED: Formoterol/Mometasone 200-5 MCG 8.8 GM Inhaler IH SCH (21:00)
[2019-04-11] MEDS ORDERED: Calcium Carbonate 500 MG Tablet PO SCH (09:00)
[2019-04-11] MEDS: Losartan 25 MG Tab PO SCH (09:10)
[2019-04-11] MEDS: Formoterol/Mometasone 200-5 MCG 8.8 GM Inhaler IH SCH ×2 (09:11→20:31)
[2019-04-11] MEDS: Fluticasone Propionate Nasal Spray 16 GM Bottle NASRT SCH ×2 (09:12→20:31)
[2019-04-11] MEDS: Magnesium Hydroxide 400 MG/5 ML Susp 30 ML Cup PO SCH ×2 (09:12→20:32)
[2019-04-11] MEDS: Enoxaparin 30 MG/0.3 ML Syringe SUBCUT SCH (09:12)
[2019-04-11] MEDS: Polyethylene Glycol 3350 Powder 17 GM Packet PO SCH ×2 (09:13→20:32)
[2019-04-11] MEDS: Multivitamin Tab PO SCH (09:14)
[2019-04-11] MEDS: Acetaminophen 325 MG Tab PO PRN ×2 (09:23→14:40)
[2019-04-11] MEDS: Calcium Carbonate 500 MG Tablet PO SCH (09:24)
--- NOTE | 2019-04-11 09:50 | HP ---
ADMISSION DATE: 04/09/2019 CHIEF COMPLAINT: Admission to swing bed for recuperation post ORIF, left femur fracture. HISTORY OF PRESENT ILLNESS: Ms. Knapp is an 84-year-old woman from [place], [place], with a history of osteoporosis, COPD, hypertension, urinary incontinence, and cataracts. She sustained a closed comminuted fracture of her left femur intertrochanteric area on 04/04/2019, when she was standing by the door of the [employer]. It caught a derek of wind and knocked her down. This was repaired at [facility] in [place] by Dr. Bacon with an intramedullary nail on 04/05/2019. Postoperatively, she required 1 unit of transfusion for blood loss. She required continuation of her nocturnal home O2 use for her COPD, and she states she did not progress much in physical therapy because of the left leg area pain. The patient is now admitted to [facility] for recuperation. PAST MEDICAL HISTORY: Also positive for chronic shoulder pain, hyperglycemia, hyperlipidemia, osteoarthritis. She also had a subcapital right humerus fracture in January of 2018 treated with initial immobilization followed by physical therapy. MEDICATIONS: 1. O2 of 1 L nasal cannula overnight daily. 2. Multivitamin 1 daily. 3. Flonase p.r.n. 4. Oxybutynin 2.5 mg at bedtime. 5. Symbicort 2 puffs b.i.d. 6. Fosamax 70 mg weekly. 7. Trazodone 100 mg at bedtime. 8. Lipitor 20 mg daily. 9. Calcium carbonate 1250 mg daily. 10.Vitamin D3 of 1000 units daily. 11.Oxycodone 5 mg every 4 hours p.r.n. pain. 12.Senokot S one b.i.d. 13.Albuterol inhaler p.r.n. 14.Hydrochlorothiazide 12.5 mg daily. 15.Losartan 25 mg daily. 16.Lovenox 30 mg daily, planned x28 days total, to end approximately 05/04/19. ALLERGIES: Penicillin caused swelling, date unknown. HABITS: Long history of cigarette smoking with COPD. Alcohol, occasional. FAMILY AND SOCIAL HISTORY: The patient lost her after many years in a detention with ALS. She lives by herself in [place]. REVIEW OF SYSTEMS: GENERAL: No seizure or syncope. She has lost weight over the past few years slowly and steadily. No chest pain or palpitations. No dyspnea. No abdominal pain, nausea, or diarrhea. She does have chronic urinary incontinence with overactive bladder. No swelling, skin rash, mood instability, or temperature intolerance. PHYSICAL EXAMINATION: GENERAL: She is alert, comfortable, and a fair historian. She is somewhat forgetful. VITAL SIGNS: Blood pressure 150/70, pulse 98, respirations 18, temperature 98.2, weight 117 pounds 8 ounces, O2 saturation 88% on room air. SKIN: Anicteric, warm, dry. There is a dry small abrasion over her left olecranon prominence. There are three postoperative surgical Band-Aids over small incisions; left greater trochanter area, left mid thigh, left distal thigh. HEENT: Show mouth to be dry. LUNGS: Clear with distant breath sounds. HEART: Regular with a soft rumbling systolic murmur over the precordium. ABDOMEN: Normal bowel sounds. Soft and nontender. EXTREMITIES: Show intact dorsalis pedis pulses. No edema. She does have discomfort with movement of the left lower extremity. ASSESSMENT: 1. An 84-year-old woman, now 1 week 4 days status post intramedullary nail for left femur fracture. 2. Osteoporosis. 3. History of right humeral fracture. 4. Chronic obstructive pulmonary disease with nocturnal oxygen. 5. Hypertension. 6. Hyperlipidemia. 7. Chronic mixed incontinence. 8. Osteoporosis. PLAN: She is admitted to swing bed for therapy. We will continue her medication treatments. Analgesia for the fracture. Continue to provide palliative care measures for her underlying medical illnesses and infirmities of aging. We will also continue her on nocturnal O2. /[id number] MARIS/JARETL
[2019-04-11] MEDS: Oxybutynin 5 MG Tab PO SCH (20:32)
[2019-04-11] MEDS: atorvaSTATin 20 MG Tab PO SCH (20:33)
[2019-04-11] MEDS: traZODone 100 MG Tab PO SCH (23:00)
[2019-04-12] MEDS: Acetaminophen 325 MG Tab PO PRN ×2 (03:24→17:13)
[2019-04-12] MEDS: Fluticasone Propionate Nasal Spray 16 GM Bottle NASRT SCH ×3 (09:05→20:20)
[2019-04-12] MEDS: Formoterol/Mometasone 200-5 MCG 8.8 GM Inhaler IH SCH ×2 (09:06→20:07)
[2019-04-12] MEDS: Multivitamin Tab PO SCH (09:08)
[2019-04-12] MEDS: Magnesium Hydroxide 400 MG/5 ML Susp 30 ML Cup PO SCH (09:08)
[2019-04-12] MEDS: Enoxaparin 30 MG/0.3 ML Syringe SUBCUT SCH (09:09)
[2019-04-12] MEDS: Losartan 25 MG Tab PO SCH (09:10)
[2019-04-12] MEDS: Calcium Carbonate 500 MG Tablet PO SCH (09:10)
[2019-04-12] MEDS: Polyethylene Glycol 3350 Powder 17 GM Packet PO SCH (09:11)
[2019-04-12] MEDS ORDERED: Polyethylene Glycol 3350 Powder 17 GM Packet PO PRN (11:00)
[2019-04-12] MEDS ORDERED: Magnesium Hydroxide 400 MG/5 ML Susp 30 ML Cup PO PRN (11:00)
[2019-04-12] MEDS: atorvaSTATin 20 MG Tab PO SCH (20:15)
[2019-04-12] MEDS: Oxybutynin 5 MG Tab PO SCH (20:16)
[2019-04-12] MEDS: traZODone 100 MG Tab PO SCH (21:52)
[2019-04-13] MEDS: Acetaminophen 325 MG Tab PO PRN ×3 (05:33→16:26)
[2019-04-13] MEDS: Formoterol/Mometasone 200-5 MCG 8.8 GM Inhaler IH SCH ×2 (08:48→20:14)
[2019-04-13] MEDS: Losartan 25 MG Tab PO SCH (08:49)
[2019-04-13] MEDS: Multivitamin Tab PO SCH (08:49)
[2019-04-13] MEDS: Calcium Carbonate 500 MG Tablet PO SCH (08:53)
[2019-04-13] MEDS: Enoxaparin 30 MG/0.3 ML Syringe SUBCUT SCH (08:54)
[2019-04-13] MEDS: Fluticasone Propionate Nasal Spray 16 GM Bottle NASRT SCH ×4 (08:55→20:18)
--- NOTE | 2019-04-13 13:43 | PN ---
DATE SEEN: 04/13/2019 HISTORY: Lily is an 84-year-old woman with a history of COPD, osteoporosis, hypertension, and a left femur fracture. She underwent ORIF of this fracture at [facility] in [place] on 04/05/2019. She required 1 unit of transfusion postop and oxygen use that she is on at home for COPD. She has been getting therapy and progressing slowly. She still complains of swelling in the leg, pain during therapy, but she is comfortable while not in therapy. PHYSICAL EXAMINATION: GENERAL: She is awake, alert, but appears slightly depressed. VITAL SIGNS: Blood pressure 99/53, pulse 104, respirations 12, O2 saturation 91% on room air, temperature 98. SKIN: Shows [address] overlying the left greater trochanter, one above this and one towards the distal femur laterally. She also has a 2.5 cm area of vesicles in left lumbar back with a single vesicle slightly distal to this. No other rashes noted. HEENT: Shows her mouth to be dry. LUNGS: Clear. HEART: Regular. ABDOMEN: Soft. EXTREMITIES: Show 1+ pitting edema at the ankle and tibia on the left, no edema on the right. NEUROLOGIC: Motor exam reveals her to have good dorsiflexion strength in the feet. She can lift both legs up off the bed, but does report pain with movement of the left lower extremity in the hip area. LABORATORY DATA: Hemoglobin was 8.3 on the . We will recheck it again tomorrow. ASSESSMENT: 1. Eight days postoperative, left intramedullary michelle open reduction and internal fixation for left hip fracture, stable. 2. Chronic obstructive pulmonary disease, stable. 3. Hypertension, controlled. 4. Skin rash, question zoster, on antiviral medication. 5. Osteoporosis. 6. Blood loss anemia. 7. Situational depression. PLAN: We will continue with her current medications. We will await herpes culture results, and if negative, discontinue her acyclovir. Continue therapy and I would anticipate another 1 to 2 weeks of therapy with plans to return home following that. /[id number] MARIS/KOSTAS
[2019-04-13] MEDS: atorvaSTATin 20 MG Tab PO SCH (20:15)
[2019-04-13] MEDS: Oxybutynin 5 MG Tab PO SCH (20:15)
[2019-04-13] MEDS: traZODone 100 MG Tab PO SCH (23:17)
[2019-04-14] MEDS: Ferrous Sulfate 325 MG Tab PO SCH (08:24)
[2019-04-14] MEDS: Calcium Carbonate 500 MG Tablet PO SCH (08:24)
[2019-04-14] MEDS: Multivitamin Tab PO SCH (08:24)
[2019-04-14] MEDS: Losartan 25 MG Tab PO SCH (08:24)
[2019-04-14] MEDS: Fluticasone Propionate Nasal Spray 16 GM Bottle NASRT SCH ×2 (08:25→20:14)
[2019-04-14] MEDS: Formoterol/Mometasone 200-5 MCG 8.8 GM Inhaler IH SCH ×2 (08:27→20:14)
[2019-04-14] MEDS: Enoxaparin 30 MG/0.3 ML Syringe SUBCUT SCH (08:27)
[2019-04-14] MEDS: Acetaminophen 325 MG Tab PO PRN (11:12)
[2019-04-14] MEDS: atorvaSTATin 20 MG Tab PO SCH (20:14)
[2019-04-14] MEDS: Oxybutynin 5 MG Tab PO SCH (20:14)
[2019-04-14] MEDS: traZODone 100 MG Tab PO SCH (23:21)
[2019-04-15] MEDS: Acetaminophen 325 MG Tab PO PRN (01:04)
[2019-04-15] MEDS: Ferrous Sulfate 325 MG Tab PO SCH (09:08)
[2019-04-15] MEDS: Losartan 25 MG Tab PO SCH (09:09)
[2019-04-15] MEDS: Formoterol/Mometasone 200-5 MCG 8.8 GM Inhaler IH SCH ×2 (09:09→21:20)
[2019-04-15] MEDS: Calcium Carbonate 500 MG Tablet PO SCH (09:10)
[2019-04-15] MEDS: Multivitamin Tab PO SCH (09:10)
[2019-04-15] MEDS: Fluticasone Propionate Nasal Spray 16 GM Bottle NASRT SCH ×3 (09:13→21:35)
[2019-04-15] MEDS: Enoxaparin 30 MG/0.3 ML Syringe SUBCUT SCH (09:15)
--- NOTE | 2019-04-15 09:25 | PCM.PN ---
- General Info Date of Service: 04/15/19 Admission Dx/Problem (Free Text): Patient states she has some skin problems with her tibia anteriorly bilaterally. She has wounds on her anterior tibial area covered up and she would like me to look at them. - Patient Data Vitals - Most Recent: Last Vital Signs Temp 98.3 F 04/14/19 16:00 Pulse 90 04/14/19 16:00 Resp 16 04/14/19 16:00 BP 120/60 04/15/19 09:09 Pulse Ox 93 L 04/14/19 21:00 Weight - Most Recent: 117 lb 8 oz Med Orders - Current: Current Medications Acetaminophen (Tylenol) 650 mg PO Q4H PRN PRN Reason: Pain Last Admin: 04/15/19 01:04 Dose: 650 mg Atorvastatin Calcium (Lipitor) 20 mg PO BEDTIME [facility] Last Admin: 04/14/19 20:14 Dose: 20 mg Bisacodyl (Dulcolax) 10 mg RECTAL DAILY PRN PRN Reason: Constipation Calcium Carbonate/Glycine (Oyster Shell Calcium) 1,000 mg PO DAILY [facility] Last Admin: 04/15/19 09:10 Dose: 1,000 mg Enoxaparin Sodium (Lovenox) 30 mg SUBCUT DAILY [facility] Stop: 05/02/19 01:00 Last Admin: 04/15/19 09:15 Dose: 30 mg Ferrous Sulfate (Ferrous Sulfate) 325 mg PO WITHBREAKFAST [facility] Last Admin: 04/15/19 09:08 Dose: 325 mg Fluticasone Propionate (Flonase) 0 gm NASRT BID [facility] Last Admin: 04/15/19 09:13 Dose: Not Given Losartan Potassium (Cozaar) 25 mg PO DAILY [facility] Last Admin: 04/15/19 09:09 Dose: 25 mg Magnesium Hydroxide (Milk Of Magnesia) 30 ml PO BID PRN PRN Reason: CONSTIPATION Mometasone Furoate/Formoterol Fumar (Dulera 200-5 Mcg) 0 puff IH BID [facility] Last Admin: 04/15/19 09:09 Dose: 1 inhalation Multivitamins/Minerals/Vitamin C (Tab-A-Cory) 1 tab PO DAILY [facility] Last Admin: 04/15/19 09:10 Dose: 1 tab Oxybutynin Chloride (Oxybutynin) 2.5 mg PO BEDTIME [facility] Last Admin: 04/14/19 20:14 Dose: 2.5 mg Oxycodone HCl (Oxycodone) 5 mg PO Q4H PRN PRN Reason: Pain (moderate 4-6) Last Admin: 04/13/19 18:05 Dose: 5 mg Polyethylene Glycol (Miralax) 17 gm PO BID PRN PRN Reason: CONSTIPATION Senna/Docusate Sodium (Senna Plus) 1 tab PO BID PRN PRN Reason: Constipation Senna/Docusate Sodium (Senna Plus) 2 tab PO BID [facility] Last Admin: 04/15/19 09:13 Dose: Not Given Trazodone HCl (Trazodone) 100 mg PO DAILY@2200 [facility] Last Admin: 04/14/19 23:21 Dose: 100 mg Discontinued Medications Acyclovir (Zovirax) 800 mg PO QID [facility] Stop: 04/15/19 23:59 Last Admin: 04/10/19 14:47 Dose: Not Given Acyclovir (Zovirax) 0 mg PO QID [facility] Stop: 04/15/19 23:59 Last Admin: 04/10/19 20:03 Dose: 800 mg Acyclovir (Zovirax) 800 mg PO QID [facility] Stop: 04/15/19 23:59 Last Admin: 04/14/19 08:24 Dose: 800 mg Bisacodyl (Dulcolax) 10 mg RECTAL ASDIRECTED [facility] Calcium Carbonate/Glycine (Oyster Shell Calcium) 1,250 mg PO DAILY [facility] Last Admin: 04/10/19 08:57 Dose: 1,250 mg Enoxaparin Sodium (Lovenox) 40 mg SUBCUT Q24H [facility] Last Admin: 04/09/19 16:56 Dose: Not Given Enoxaparin Sodium (Lovenox) 30 mg SUBCUT Q24H [facility] Last Admin: 04/09/19 16:56 Dose: Not Given Losartan Potassium (Cozaar) 25 mg PO DAILY [facility] Losartan Potassium (Cozaar) 25 mg PO DAILY [facility] Last Admin: 04/10/19 09:09 Dose: 25 mg Magnesium Hydroxide (Milk Of Magnesia) 30 ml PO BID [facility] Last Admin: 04/12/19 09:08 Dose: Not Given Mometasone Furoate/Formoterol Fumar (Dulera 200-5 Mcg) 0 puff IH BID [facility] Last Admin: 04/10/19 19:59 Dose: 2 puff Oxybutynin Chloride (Oxybutynin) 5 mg PO BEDTIME [facility] Last Admin: 04/11/19 20:32 Dose: 5 mg Polyethylene Glycol (Miralax) 17 gm PO BID [facility] Last Admin: 04/12/19 09:11 Dose: Not Given Trazodone HCl (Trazodone) 100 mg PO BEDTIME [facility] Last Admin: 04/10/19 20:02 Dose: 100 mg Trazodone HCl (Trazodone) Confirm Administered Dose 100 mg .ROUTE .STK-MED ONE Stop: 04/09/19 21:08 Last Admin: 04/09/19 21:27 Dose: Not Given Trazodone HCl (Trazodone) Confirm Administered Dose 100 mg .ROUTE .STK-MED ONE Stop: 04/10/19 19:43 Last Admin: 04/10/19 19:58 Dose: Not Given - Exam General: Alert, Oriented Skin: Other (Right anterior tibia she has about a quarter size ulcer that's down to the fat. The left anterior tibia she has an ulcer a little smaller than that and not down to the fat) - Problem List & Annotations (1) Hip fracture SNOMED Code(s): 636719839 Code(s): S72.009A - FRACTURE OF UNSP PART OF NECK OF UNSP FEMUR, INIT Status: Acute Current Visit: Yes (2) Rash SNOMED Code(s): 982705737 Code(s): R21 - RASH AND OTHER NONSPECIFIC SKIN ERUPTION Status: Acute Current Visit: Yes (3) Skin ulcer SNOMED Code(s): 44858556 Code(s): L98.499 - NON-PRESSURE CHRONIC ULCER OF SKIN OF SITES W UNSP SEVERITY Status: Acute Current Visit: Yes (4) Anemia SNOMED Code(s): 329256878 Code(s): D64.9 - ANEMIA, UNSPECIFIED Status: Chronic Current Visit: No (5) COPD (chronic obstructive pulmonary disease) SNOMED Code(s): 59751776 Code(s): J44.9 - CHRONIC OBSTRUCTIVE PULMONARY DISEASE, UNSPECIFIED Status : Chronic Current Visit: No - Problem List Review Problem List Initiated/Reviewed/Updated: Yes - Plan Plan:: 1. Continue current care as before. 2.For the ulcers and ulcer care. Consider consulting Elza Ortiz on. I think is on vacation right now
--- NOTE | 2019-04-15 14:28 | CONS ---
DATE OF CONSULTATION: 04/15/2019 HISTORY OF PRESENT ILLNESS: This 84-year-old female was seen in consultation from Dr. Rodriguez for evaluation of open sores on both her lower legs. The patient states these have been there for at least a year. She recently had a hip surgery in [place] and is in swing bed at [facility]. She had her legs looked at today and apparently she thinks these have become larger. She is not complaining of any pain or tenderness. She states that she has had some more leg swelling since her recent surgery. In reviewing her records, I do not see a history of arterial disease; however, she tells me that she is a former smoker and has had a previous small stroke and possible heart attack indicating that she likely has peripheral vascular disease. She has never had any varicose vein problems or venous insufficiency that she is aware of. PHYSICAL EXAMINATION: GENERAL: Reveals a pleasant lady sitting up and eating lunch and in no acute distress. VITAL SIGNS: Within normal limits. EXTREMITIES: Both of her legs are pink, warm, and dry. The toes and feet are warm and dorsalis pedis pulses palpable bilaterally. She does have open sores over both lower anterior shins. The left one measures approximately 2 cm in diameter, and the right one is up to 3 cm in diameter. These appeared to be consistent with noninfected venous stasis ulcers; however, there anterior location would be more concerning for arterial insufficiency. She does have 2+ pitting edema on the left and 1+ edema on the right. ASSESSMENT: Bilateral lower extremity ulcers. PLAN: I will have the patient keep these covered with a clean Telfa and Saul wrap to minimize the swelling. If these improve with compression, no further treatment should be necessary. If these do not make progress in the next couple of weeks, she should have studies done for arterial insufficiency. That study is not done at [facility], so would require her to go to [place] for that study. She can be followed up in the clinic at her local clinic for this. /[id number] [address]
[2019-04-15] MEDS: atorvaSTATin 20 MG Tab PO SCH (21:20)
[2019-04-15] MEDS: Oxybutynin 5 MG Tab PO SCH (21:21)
[2019-04-15] MEDS: traZODone 100 MG Tab PO SCH (21:22)
[2019-04-16] MEDS: Fluticasone Propionate Nasal Spray 16 GM Bottle NASRT SCH ×2 (08:55→20:27)
[2019-04-16] MEDS: Ferrous Sulfate 325 MG Tab PO SCH (08:58)
[2019-04-16] MEDS: Acetaminophen 325 MG Tab PO PRN ×2 (09:12→17:35)
[2019-04-16] MEDS: Enoxaparin 30 MG/0.3 ML Syringe SUBCUT SCH (09:15)
[2019-04-16] MEDS: Losartan 25 MG Tab PO SCH (09:15)
[2019-04-16] MEDS: Formoterol/Mometasone 200-5 MCG 8.8 GM Inhaler IH SCH ×2 (09:15→20:27)
[2019-04-16] MEDS: Calcium Carbonate 500 MG Tablet PO SCH (09:16)
[2019-04-16] MEDS: Multivitamin Tab PO SCH (09:16)
[2019-04-16] MEDS: Oxybutynin 5 MG Tab PO SCH (20:27)
[2019-04-16] MEDS: atorvaSTATin 20 MG Tab PO SCH (20:27)
[2019-04-16] MEDS: traZODone 100 MG Tab PO SCH (22:41)
[2019-04-17] MEDS: Ferrous Sulfate 325 MG Tab PO SCH (08:28)
[2019-04-17] MEDS: Formoterol/Mometasone 200-5 MCG 8.8 GM Inhaler IH SCH ×2 (08:43→20:25)
[2019-04-17] MEDS: Enoxaparin 30 MG/0.3 ML Syringe SUBCUT SCH (08:43)
[2019-04-17] MEDS: Fluticasone Propionate Nasal Spray 16 GM Bottle NASRT SCH ×2 (08:43→20:25)
[2019-04-17] MEDS: Calcium Carbonate 500 MG Tablet PO SCH (08:43)
[2019-04-17] MEDS: Acetaminophen 325 MG Tab PO PRN (08:44)
[2019-04-17] MEDS: Multivitamin Tab PO SCH (08:44)
[2019-04-17] MEDS: Losartan 25 MG Tab PO SCH (08:49)
[2019-04-17] MEDS: Oxybutynin 5 MG Tab PO SCH (20:25)
[2019-04-17] MEDS: atorvaSTATin 20 MG Tab PO SCH (20:25)
[2019-04-17] MEDS: traZODone 100 MG Tab PO SCH (23:31)
[2019-04-18] MEDS: Ferrous Sulfate 325 MG Tab PO SCH (08:09)
[2019-04-18] MEDS: Losartan 25 MG Tab PO SCH (08:09)
[2019-04-18] MEDS: Fluticasone Propionate Nasal Spray 16 GM Bottle NASRT SCH ×2 (08:10→21:07)
[2019-04-18] MEDS: Formoterol/Mometasone 200-5 MCG 8.8 GM Inhaler IH SCH ×2 (08:10→21:08)
[2019-04-18] MEDS: Enoxaparin 30 MG/0.3 ML Syringe SUBCUT SCH (08:10)
[2019-04-18] MEDS: Calcium Carbonate 500 MG Tablet PO SCH (08:11)
[2019-04-18] MEDS: Multivitamin Tab PO SCH (08:11)
[2019-04-18] MEDS: Acetaminophen 325 MG Tab PO PRN (08:14)
--- NOTE | 2019-04-18 08:26 | PCM.PN ---
- General Info Date of Service: 04/18/19 Admission Dx/Problem (Free Text): She states she's had a little headache this morning. Feels her left leg is heavy and still swollen. She doesn't little discomfort with pain. - Patient Data Vitals - Most Recent: Last Vital Signs Temp 98.1 F 04/17/19 08:00 Pulse 100 04/17/19 08:00 Resp 18 04/17/19 08:00 BP 128/63 04/18/19 08:09 Pulse Ox 98 04/17/19 21:00 Weight - Most Recent: 117 lb 8 oz Med Orders - Current: Current Medications Acetaminophen (Tylenol) 650 mg PO Q4H PRN PRN Reason: Pain Last Admin: 04/18/19 08:14 Dose: 650 mg Atorvastatin Calcium (Lipitor) 20 mg PO BEDTIME [facility] Last Admin: 04/17/19 20:25 Dose: 20 mg Bisacodyl (Dulcolax) 10 mg RECTAL DAILY PRN PRN Reason: Constipation Calcium Carbonate/Glycine (Oyster Shell Calcium) 1,000 mg PO DAILY [facility] Last Admin: 04/18/19 08:11 Dose: 1,000 mg Enoxaparin Sodium (Lovenox) 30 mg SUBCUT DAILY [facility] Stop: 05/02/19 01:00 Last Admin: 04/18/19 08:10 Dose: 30 mg Ferrous Sulfate (Ferrous Sulfate) 325 mg PO WITHBREAKFAST [facility] Last Admin: 04/18/19 08:09 Dose: 325 mg Fluticasone Propionate (Flonase) 0 gm NASRT BID [facility] Last Admin: 04/18/19 08:10 Dose: 1 spr Losartan Potassium (Cozaar) 25 mg PO DAILY [facility] Last Admin: 04/18/19 08:09 Dose: 25 mg Magnesium Hydroxide (Milk Of Magnesia) 30 ml PO BID PRN PRN Reason: CONSTIPATION Mometasone Furoate/Formoterol Fumar (Dulera 200-5 Mcg) 0 puff IH BID [facility] Last Admin: 04/18/19 08:10 Dose: 2 inhalation Multivitamins/Minerals/Vitamin C (Tab-A-Cory) 1 tab PO DAILY [facility] Last Admin: 04/18/19 08:11 Dose: 1 tab Oxybutynin Chloride (Oxybutynin) 2.5 mg PO BEDTIME [facility] Last Admin: 04/17/19 20:25 Dose: 2.5 mg Oxycodone HCl (Oxycodone) 5 mg PO Q4H PRN PRN Reason: Pain (moderate 4-6) Last Admin: 04/13/19 18:05 Dose: 5 mg Polyethylene Glycol (Miralax) 17 gm PO BID PRN PRN Reason: CONSTIPATION Senna/Docusate Sodium (Senna Plus) 1 tab PO BID PRN PRN Reason: Constipation Senna/Docusate Sodium (Senna Plus) 2 tab PO BID [facility] Last Admin: 04/18/19 08:11 Dose: Not Given Trazodone HCl (Trazodone) 100 mg PO DAILY@2200 [facility] Last Admin: 04/17/19 23:31 Dose: 100 mg Discontinued Medications Acyclovir (Zovirax) 800 mg PO QID [facility] Stop: 04/15/19 23:59 Last Admin: 04/10/19 14:47 Dose: Not Given Acyclovir (Zovirax) 0 mg PO QID [facility] Stop: 04/15/19 23:59 Last Admin: 04/10/19 20:03 Dose: 800 mg Acyclovir (Zovirax) 800 mg PO QID [facility] Stop: 04/15/19 23:59 Last Admin: 04/14/19 08:24 Dose: 800 mg Bisacodyl (Dulcolax) 10 mg RECTAL ASDIRECTED [facility] Calcium Carbonate/Glycine (Oyster Shell Calcium) 1,250 mg PO DAILY [facility] Last Admin: 04/10/19 08:57 Dose: 1,250 mg Enoxaparin Sodium (Lovenox) 40 mg SUBCUT Q24H [facility] Last Admin: 04/09/19 16:56 Dose: Not Given Enoxaparin Sodium (Lovenox) 30 mg SUBCUT Q24H [facility] Last Admin: 04/09/19 16:56 Dose: Not Given Losartan Potassium (Cozaar) 25 mg PO DAILY [facility] Losartan Potassium (Cozaar) 25 mg PO DAILY [facility] Last Admin: 04/10/19 09:09 Dose: 25 mg Magnesium Hydroxide (Milk Of Magnesia) 30 ml PO BID [facility] Last Admin: 04/12/19 09:08 Dose: Not Given Mometasone Furoate/Formoterol Fumar (Dulera 200-5 Mcg) 0 puff IH BID [facility] Last Admin: 10/27/19 19:59 Dose: 2 puff Oxybutynin Chloride (Oxybutynin) 5 mg PO BEDTIME [facility] Last Admin: 04/11/19 20:32 Dose: 5 mg Polyethylene Glycol (Miralax) 17 gm PO BID [facility] Last Admin: 04/12/19 09:11 Dose: Not Given Trazodone HCl (Trazodone) 100 mg PO BEDTIME [facility] Last Admin: 04/10/19 20:02 Dose: 100 mg Trazodone HCl (Trazodone) Confirm Administered Dose 100 mg .ROUTE .STK-MED ONE Stop: 04/09/19 21:08 Last Admin: 04/09/19 21:27 Dose: Not Given Trazodone HCl (Trazodone) Confirm Administered Dose 100 mg .ROUTE .STK-MED ONE Stop: 04/10/19 19:43 Last Admin: 04/10/19 19:58 Dose: Not Given - Exam General: Alert, Oriented Cardiovascular: Regular Rate, No Murmurs Extremities: Other (Left thigh possibly just a little swollen compared to the right. No pitting.) - Problem List & Annotations (1) Hip fracture SNOMED Code(s): 236540813 Code(s): S72.009A - FRACTURE OF UNSP PART OF NECK OF UNSP FEMUR, INIT Status: Acute Current Visit: Yes (2) Rash SNOMED Code(s): 431872810 Code(s): R21 - RASH AND OTHER NONSPECIFIC SKIN ERUPTION Status: Acute Current Visit: Yes (3) Skin ulcer SNOMED Code(s): 55504423 Code(s): L98.499 - NON-PRESSURE CHRONIC ULCER OF SKIN OF SITES W UNSP SEVERITY Status: Acute Current Visit: Yes (4) Anemia SNOMED Code(s): 699639374 Code(s): D64.9 - ANEMIA, UNSPECIFIED Status: Chronic Current Visit: No (5) COPD (chronic obstructive pulmonary disease) SNOMED Code(s): 34557447 Code(s): J44.9 - CHRONIC OBSTRUCTIVE PULMONARY DISEASE, UNSPECIFIED Status : Chronic Current Visit: No - Problem List Review Problem List Initiated/Reviewed/Updated: Yes - Plan Plan:: 1. Continue PT/OT. 2. When the patient is discharged she should see Dr. Bertrand for wound care. This is per Dr. Contreras recommendation.
[2019-04-18] MEDS: Oxybutynin 5 MG Tab PO SCH (21:07)
[2019-04-18] MEDS: atorvaSTATin 20 MG Tab PO SCH (21:07)
[2019-04-18] MEDS: traZODone 100 MG Tab PO SCH (21:08)
[2019-04-19] MEDS: Ferrous Sulfate 325 MG Tab PO SCH (08:16)
[2019-04-19] MEDS: Losartan 25 MG Tab PO SCH (08:16)
[2019-04-19] MEDS: Multivitamin Tab PO SCH (08:17)
[2019-04-19] MEDS: Fluticasone Propionate Nasal Spray 16 GM Bottle NASRT SCH ×2 (08:17→20:21)
[2019-04-19] MEDS: Formoterol/Mometasone 200-5 MCG 8.8 GM Inhaler IH SCH ×2 (08:17→20:21)
[2019-04-19] MEDS: Calcium Carbonate 500 MG Tablet PO SCH (08:17)
[2019-04-19] MEDS: Enoxaparin 30 MG/0.3 ML Syringe SUBCUT SCH (08:23)
[2019-04-19] MEDS: atorvaSTATin 20 MG Tab PO SCH (20:22)
[2019-04-19] MEDS: Oxybutynin 5 MG Tab PO SCH (20:22)
[2019-04-19] MEDS: Acetaminophen 325 MG Tab PO PRN (20:23)
[2019-04-19] MEDS: traZODone 100 MG Tab PO SCH (22:09)
[2019-04-20] MEDS: Calcium Carbonate 500 MG Tablet PO SCH (08:15)
[2019-04-20] MEDS: Ferrous Sulfate 325 MG Tab PO SCH (08:15)
[2019-04-20] MEDS: Formoterol/Mometasone 200-5 MCG 8.8 GM Inhaler IH SCH ×2 (08:16→20:56)
[2019-04-20] MEDS: Multivitamin Tab PO SCH (08:16)
[2019-04-20] MEDS: Losartan 25 MG Tab PO SCH (08:16)
[2019-04-20] MEDS: Fluticasone Propionate Nasal Spray 16 GM Bottle NASRT SCH ×2 (08:16→20:56)
[2019-04-20] MEDS: Enoxaparin 30 MG/0.3 ML Syringe SUBCUT SCH (08:17)
[2019-04-20] MEDS: Oxybutynin 5 MG Tab PO SCH (20:57)
[2019-04-20] MEDS: atorvaSTATin 20 MG Tab PO SCH (20:57)
[2019-04-20] MEDS: traZODone 100 MG Tab PO SCH (22:56)
[2019-04-20] MEDS: Acetaminophen 325 MG Tab PO PRN (23:54)
[2019-04-21] MEDS: Acetaminophen 325 MG Tab PO PRN (04:17)
[2019-04-21] MEDS: Ferrous Sulfate 325 MG Tab PO SCH (08:44)
[2019-04-21] MEDS: Calcium Carbonate 500 MG Tablet PO SCH (08:45)
[2019-04-21] MEDS: Formoterol/Mometasone 200-5 MCG 8.8 GM Inhaler IH SCH ×2 (08:45→20:31)
[2019-04-21] MEDS: Losartan 25 MG Tab PO SCH (08:45)
[2019-04-21] MEDS: Enoxaparin 30 MG/0.3 ML Syringe SUBCUT SCH (08:45)
[2019-04-21] MEDS: Multivitamin Tab PO SCH (08:46)
[2019-04-21] MEDS: Fluticasone Propionate Nasal Spray 16 GM Bottle NASRT SCH ×2 (08:55→20:31)
[2019-04-21] MEDS: atorvaSTATin 20 MG Tab PO SCH (20:30)
[2019-04-21] MEDS: Oxybutynin 5 MG Tab PO SCH (20:30)
[2019-04-21] MEDS: traZODone 100 MG Tab PO SCH (22:31)
[2019-04-22] MEDS: Ferrous Sulfate 325 MG Tab PO SCH (08:43)
[2019-04-22] MEDS: Losartan 25 MG Tab PO SCH (09:29)
[2019-04-22] MEDS: Formoterol/Mometasone 200-5 MCG 8.8 GM Inhaler IH SCH ×2 (09:30→21:22)
[2019-04-22] MEDS: Fluticasone Propionate Nasal Spray 16 GM Bottle NASRT SCH ×2 (09:31→21:21)
[2019-04-22] MEDS: Enoxaparin 30 MG/0.3 ML Syringe SUBCUT SCH (09:32)
[2019-04-22] MEDS: Calcium Carbonate 500 MG Tablet PO SCH (09:32)
[2019-04-22] MEDS: Multivitamin Tab PO SCH (09:33)
--- NOTE | 2019-04-22 12:27 | PCM.PN ---
- General Info Date of Service: 04/22/19 Admission Dx/Problem (Free Text): complaining of Insomnia, normally takes Trazodone 100 mg at bedtime(midnight usually) but getting at 10-11pm here but doesn't feel it is working anymore, wanted to know if she could have a dose increase. Also not having any pain due leg ulcer. healed on the left, scabbed over. - Patient Data Vitals - Most Recent: Last Vital Signs Temp 98.7 F 04/22/19 07:47 Pulse 89 04/22/19 07:47 Resp 16 04/22/19 07:47 BP 144/61 H 04/22/19 09:29 Pulse Ox 95 04/22/19 07:47 Weight - Most Recent: 117 lb 8 oz Med Orders - Current: Current Medications Acetaminophen (Tylenol) 650 mg PO Q4H PRN PRN Reason: Pain Last Admin: 04/21/19 04:17 Dose: 650 mg Atorvastatin Calcium (Lipitor) 20 mg PO BEDTIME [facility] Last Admin: 04/21/19 20:30 Dose: 20 mg Bisacodyl (Dulcolax) 10 mg RECTAL DAILY PRN PRN Reason: Constipation Calcium Carbonate/Glycine (Oyster Shell Calcium) 1,000 mg PO DAILY [facility] Last Admin: 04/22/19 09:32 Dose: 1,000 mg Enoxaparin Sodium (Lovenox) 30 mg SUBCUT DAILY [facility] Stop: 05/02/19 01:00 Last Admin: 04/22/19 09:32 Dose: 30 mg Ferrous Sulfate (Ferrous Sulfate) 325 mg PO WITHBREAKFAST [facility] Last Admin: 04/22/19 08:43 Dose: 325 mg Fluticasone Propionate (Flonase) 0 gm NASRT BID [facility] Last Admin: 04/22/19 09:31 Dose: Not Given Losartan Potassium (Cozaar) 25 mg PO DAILY [facility] Last Admin: 04/22/19 09:29 Dose: 25 mg Magnesium Hydroxide (Milk Of Magnesia) 30 ml PO BID PRN PRN Reason: CONSTIPATION Mometasone Furoate/Formoterol Fumar (Dulera 200-5 Mcg) 0 puff IH BID [facility] Last Admin: 04/22/19 09:30 Dose: 2 puff Multivitamins/Minerals/Vitamin C (Tab-A-Cory) 1 tab PO DAILY [facility] Last Admin: 04/22/19 09:33 Dose: 1 tab Oxybutynin Chloride (Oxybutynin) 2.5 mg PO BEDTIME [facility] Last Admin: 04/21/19 20:30 Dose: 2.5 mg Oxycodone HCl (Oxycodone) 5 mg PO Q4H PRN PRN Reason: Pain (moderate 4-6) Last Admin: 04/13/19 18:05 Dose: 5 mg Polyethylene Glycol (Miralax) 17 gm PO BID PRN PRN Reason: CONSTIPATION Senna/Docusate Sodium (Senna Plus) 1 tab PO BID PRN PRN Reason: Constipation Senna/Docusate Sodium (Senna Plus) 2 tab PO BID [facility] Last Admin: 04/22/19 09:33 Dose: Not Given Trazodone HCl (Trazodone) 150 mg PO DAILY@2200 [facility] Discontinued Medications Acyclovir (Zovirax) 800 mg PO QID [facility] Stop: 04/15/19 23:59 Last Admin: 04/10/19 14:47 Dose: Not Given Acyclovir (Zovirax) 0 mg PO QID [facility] Stop: 04/15/19 23:59 Last Admin: 04/10/19 20:03 Dose: 800 mg Acyclovir (Zovirax) 800 mg PO QID [facility] Stop: 04/15/19 23:59 Last Admin: 04/14/19 08:24 Dose: 800 mg Bisacodyl (Dulcolax) 10 mg RECTAL ASDIRECTED [facility] Calcium Carbonate/Glycine (Oyster Shell Calcium) 1,250 mg PO DAILY [facility] Last Admin: 04/10/19 08:57 Dose: 1,250 mg Enoxaparin Sodium (Lovenox) 40 mg SUBCUT Q24H [facility] Last Admin: 04/09/19 16:56 Dose: Not Given Enoxaparin Sodium (Lovenox) 30 mg SUBCUT Q24H [facility] Last Admin: 04/09/19 16:56 Dose: Not Given Losartan Potassium (Cozaar) 25 mg PO DAILY [facility] Losartan Potassium (Cozaar) 25 mg PO DAILY [facility] Last Admin: 04/10/19 09:09 Dose: 25 mg Magnesium Hydroxide (Milk Of Magnesia) 30 ml PO BID [facility] Last Admin: 04/12/19 09:08 Dose: Not Given Mometasone Furoate/Formoterol Fumar (Dulera 200-5 Mcg) 0 puff IH BID [facility] Last Admin: 04/10/19 19:59 Dose: 2 puff Oxybutynin Chloride (Oxybutynin) 5 mg PO BEDTIME [facility] Last Admin: 04/11/19 20:32 Dose: 5 mg Polyethylene Glycol (Miralax) 17 gm PO BID [facility] Last Admin: 04/12/19 09:11 Dose: Not Given Trazodone HCl (Trazodone) 100 mg PO BEDTIME [facility] Last Admin: 04/10/19 20:02 Dose: 100 mg Trazodone HCl (Trazodone) Confirm Administered Dose 100 mg .ROUTE .STK-MED ONE Stop: 04/09/19 21:08 Last Admin: 04/09/19 21:27 Dose: Not Given Trazodone HCl (Trazodone) Confirm Administered Dose 100 mg .ROUTE .STK-MED ONE Stop: 04/10/19 19:43 Last Admin: 04/10/19 19:58 Dose: Not Given Trazodone HCl (Trazodone) 100 mg PO DAILY@2200 [facility] Last Admin: 04/21/19 22:31 Dose: 100 mg - Exam General: Alert, Oriented, Cooperative Extremities: No Pedal Edema Peripheral Pulses: 1+: Posterior Tibial (L), Posterior Tibial (R), Dorsalis Pedis (L), Dorsalis Pedis (R) Skin: Warm, Dry Wound/Incisions: Dressing Dry and Intact (Dressing removed, 3 cm ulcer on RLE, moist, no warmth or erythma. LLE, scabbed over.), No Drainage - Problem List & Annotations (1) Insomnia SNOMED Code(s): 071710614 Code(s): G47.00 - INSOMNIA, UNSPECIFIED Status: Acute Current Visit: No Qualifiers: Insomnia type: primary Qualified Code(s): F51.01 - Primary insomnia (2) Skin ulcer SNOMED Code(s): 37872527 Code(s): L98.499 - NON-PRESSURE CHRONIC ULCER OF SKIN OF SITES W UNSP SEVERITY Status: Acute Current Visit: Yes (3) Hip fracture SNOMED Code(s): 356791658 Code(s): S72.009A - FRACTURE OF UNSP PART OF NECK OF UNSP FEMUR, INIT Status: Acute Current Visit: Yes (4) COPD (chronic obstructive pulmonary disease) SNOMED Code(s): 49328740 Code(s): J44.9 - CHRONIC OBSTRUCTIVE PULMONARY DISEASE, UNSPECIFIED Status : Chronic Current Visit: No (5) HTN (hypertension) SNOMED Code(s): 64823355 Code(s): I10 - ESSENTIAL (PRIMARY) HYPERTENSION Status: Chronic Current Visit: No Qualifiers: Hypertension type: essential hypertension Qualified Code(s): I10 - Essential (primary) hypertension - Problem List Review Problem List Initiated/Reviewed/Updated: Yes - My Orders Last 24 Hours: My Active Orders 04/22/19 12:12 Wound Care [RC] QSHIFT 04/22/19 22:00 traZODone 150 mg PO DAILY@2200 - Plan Plan:: 1. Continue PT/OT. 2. Increase Trazodone to 150 mg at bedtime, will adjust as needed. 3. LLE ulcer is healed, RLE is very moist, will leave open to air when in bed, covered with Kerlix when up for therapies, triple antibiotic ointment, thin layer at night. Will reassess over the weekend to make sure not getting infected.
[2019-04-22] MEDS: atorvaSTATin 20 MG Tab PO SCH (21:21)
[2019-04-22] MEDS: Oxybutynin 5 MG Tab PO SCH (21:21)
[2019-04-22] MEDS: traZODone 50 MG Tab PO SCH (22:01)
[2019-04-23] MEDS: Ferrous Sulfate 325 MG Tab PO SCH (08:56)
[2019-04-23] MEDS: Formoterol/Mometasone 200-5 MCG 8.8 GM Inhaler IH SCH ×2 (08:57→20:49)
[2019-04-23] MEDS: Fluticasone Propionate Nasal Spray 16 GM Bottle NASRT SCH ×2 (08:57→20:49)
[2019-04-23] MEDS: Losartan 25 MG Tab PO SCH (08:58)
[2019-04-23] MEDS: Calcium Carbonate 500 MG Tablet PO SCH (09:07)
[2019-04-23] MEDS: Multivitamin Tab PO SCH (09:07)
[2019-04-23] MEDS: Enoxaparin 30 MG/0.3 ML Syringe SUBCUT SCH (09:08)
[2019-04-23] MEDS: Oxybutynin 5 MG Tab PO SCH (20:49)
[2019-04-23] MEDS: atorvaSTATin 20 MG Tab PO SCH (20:49)
[2019-04-23] MEDS: traZODone 50 MG Tab PO SCH (22:04)
[2019-04-24] MEDS: Formoterol/Mometasone 200-5 MCG 8.8 GM Inhaler IH SCH ×2 (08:42→20:32)
[2019-04-24] MEDS: Enoxaparin 30 MG/0.3 ML Syringe SUBCUT SCH (08:42)
[2019-04-24] MEDS: Multivitamin Tab PO SCH (08:43)
[2019-04-24] MEDS: Losartan 25 MG Tab PO SCH (08:43)
[2019-04-24] MEDS: Calcium Carbonate 500 MG Tablet PO SCH (08:43)
[2019-04-24] MEDS: Ferrous Sulfate 325 MG Tab PO SCH (08:44)
[2019-04-24] MEDS: Fluticasone Propionate Nasal Spray 16 GM Bottle NASRT SCH ×2 (08:44→20:33)
[2019-04-24] MEDS ORDERED: Sodium Chloride 0.9% 250 ML IV ONE (08:45)
--- NOTE | 2019-04-24 08:52 | PCM.PN ---
- General Info Date of Service: 04/24/19 Admission Dx/Problem (Free Text): She is a little lightheaded this morning, states she does not drink much water though reports that she feels thirsty. She has had to have IV fluids in the past when she doesn't drink enough. Her right leg is healing up. Edema in left leg is improving per patient and nurse. Had a large bowel movement this morning , has not gone in a few days. No shortness of breath or chest pain. No abdominal pain. - Patient Data Vitals - Most Recent: Last Vital Signs Temp 98.7 F 04/24/19 08:00 Pulse 98 04/24/19 08:00 Resp 16 04/24/19 08:00 BP 86/44 L 04/24/19 08:43 Pulse Ox 96 04/24/19 08:00 Weight - Most Recent: 117 lb 8 oz Med Orders - Current: Current Medications Acetaminophen (Tylenol) 650 mg PO Q4H PRN PRN Reason: Pain Last Admin: 04/21/19 04:17 Dose: 650 mg Atorvastatin Calcium (Lipitor) 20 mg PO BEDTIME [facility] Last Admin: 04/23/19 20:49 Dose: 20 mg Bisacodyl (Dulcolax) 10 mg RECTAL DAILY PRN PRN Reason: Constipation Calcium Carbonate/Glycine (Oyster Shell Calcium) 1,000 mg PO DAILY [facility] Last Admin: 04/24/19 08:43 Dose: 1,000 mg Enoxaparin Sodium (Lovenox) 30 mg SUBCUT DAILY [facility] Stop: 05/02/19 01:00 Last Admin: 04/24/19 08:42 Dose: 30 mg Ferrous Sulfate (Ferrous Sulfate) 325 mg PO WITHBREAKFAST [facility] Last Admin: 04/24/19 08:44 Dose: 325 mg Fluticasone Propionate (Flonase) 0 gm NASRT BID [facility] Last Admin: 04/24/19 08:44 Dose: Not Given Sodium Chloride (Normal Saline) 250 mls @ 250 mls/hr IV BOLUS [facility] Sodium Chloride (Normal Saline) 1,000 mls @ 100 mls/hr IV ASDIRECTED [facility] Losartan Potassium (Cozaar) 25 mg PO DAILY [facility] Last Admin: 04/24/19 08:43 Dose: Not Given Magnesium Hydroxide (Milk Of Magnesia) 30 ml PO BID PRN PRN Reason: CONSTIPATION Mometasone Furoate/Formoterol Fumar (Dulera 200-5 Mcg) 0 puff IH BID [facility] Last Admin: 04/24/19 08:42 Dose: 2 puff Multivitamins/Minerals/Vitamin C (Tab-A-Cory) 1 tab PO DAILY [facility] Last Admin: 04/24/19 08:43 Dose: 1 tab Oxybutynin Chloride (Oxybutynin) 2.5 mg PO BEDTIME [facility] Last Admin: 04/23/19 20:49 Dose: 2.5 mg Polyethylene Glycol (Miralax) 17 gm PO BID PRN PRN Reason: CONSTIPATION Senna/Docusate Sodium (Senna Plus) 1 tab PO BID PRN PRN Reason: Constipation Senna/Docusate Sodium (Senna Plus) 2 tab PO BID [facility] Last Admin: 04/24/19 08:45 Dose: Not Given Sodium Chloride (Saline Flush) 10 ml FLUSH ASDIRECTED PRN PRN Reason: Keep Vein Open Trazodone HCl (Trazodone) 150 mg PO DAILY@2200 [facility] Last Admin: 04/23/19 22:04 Dose: 150 mg Discontinued Medications Acyclovir (Zovirax) 800 mg PO QID [facility] Stop: 04/15/19 23:59 Last Admin: 04/10/19 14:47 Dose: Not Given Acyclovir (Zovirax) 0 mg PO QID [facility] Stop: 04/15/19 23:59 Last Admin: 04/10/19 20:03 Dose: 800 mg Acyclovir (Zovirax) 800 mg PO QID [facility] Stop: 04/15/19 23:59 Last Admin: 04/14/19 08:24 Dose: 800 mg Bisacodyl (Dulcolax) 10 mg RECTAL ASDIRECTED [facility] Calcium Carbonate/Glycine (Oyster Shell Calcium) 1,250 mg PO DAILY [facility] Last Admin: 04/10/19 08:57 Dose: 1,250 mg Enoxaparin Sodium (Lovenox) 40 mg SUBCUT Q24H [facility] Last Admin: 04/09/19 16:56 Dose: Not Given Enoxaparin Sodium (Lovenox) 30 mg SUBCUT Q24H [facility] Last Admin: 04/09/19 16:56 Dose: Not Given Losartan Potassium (Cozaar) 25 mg PO DAILY [facility] Losartan Potassium (Cozaar) 25 mg PO DAILY [facility] Last Admin: 04/10/19 09:09 Dose: 25 mg Magnesium Hydroxide (Milk Of Magnesia) 30 ml PO BID [facility] Last Admin: 04/12/19 09:08 Dose: Not Given Mometasone Furoate/Formoterol Fumar (Dulera 200-5 Mcg) 0 puff IH BID [facility] Last Admin: 04/10/19 19:59 Dose: 2 puff Oxybutynin Chloride (Oxybutynin) 5 mg PO BEDTIME [facility] Last Admin: 04/11/19 20:32 Dose: 5 mg Oxycodone HCl (Oxycodone) 5 mg PO Q4H PRN PRN Reason: Pain (moderate 4-6) Last Admin: 04/13/19 18:05 Dose: 5 mg Polyethylene Glycol (Miralax) 17 gm PO BID [facility] Last Admin: 04/12/19 09:11 Dose: Not Given Trazodone HCl (Trazodone) 100 mg PO BEDTIME [facility] Last Admin: 04/10/19 20:02 Dose: 100 mg Trazodone HCl (Trazodone) Confirm Administered Dose 100 mg .ROUTE .STK-MED ONE Stop: 04/09/19 21:08 Last Admin: 04/09/19 21:27 Dose: Not Given Trazodone HCl (Trazodone) Confirm Administered Dose 100 mg .ROUTE .STK-MED ONE Stop: 04/10/19 19:43 Last Admin: 04/10/19 19:58 Dose: Not Given Trazodone HCl (Trazodone) 100 mg PO DAILY@2200 [facility] Last Admin: 04/21/19 22:31 Dose: 100 mg - Exam General: Alert, Oriented, Cooperative, No Acute Distress Lungs: Clear to Auscultation, Normal Respiratory Effort Cardiovascular: Regular Rate, Regular Rhythm GI/Abdominal Exam: Soft, Non-Tender, No Distention, Abnormal Bowel Sounds ( hyperactive). No: Guarding Extremities: No Pedal Edema (RLE), Pedal Edema (LLE) Skin: Warm, Dry Wound/Incisions: Healing Well (ulcer on RLE is healing, granulation starting, NT some dryness around edges), No Drainage, Erythema Improving - Problem List & Annotations (1) Insomnia SNOMED Code(s): 790327173 Code(s): G47.00 - INSOMNIA, UNSPECIFIED Status: Acute Current Visit: No Qualifiers: Insomnia type: primary Qualified Code(s): F51.01 - Primary insomnia (2) Skin ulcer SNOMED Code(s): 90947746 Code(s): L98.499 - NON-PRESSURE CHRONIC ULCER OF SKIN OF SITES W UNSP SEVERITY Status: Acute Current Visit: Yes Qualifiers: Non-pressure ulcer stage: limited to breakdown of skin Qualified Code(s): L98.491 - Non-pressure chronic ulcer of skin of other sites limited to breakdown of skin Annotation/Comment:: Right lower extremity (3) Hip fracture SNOMED Code(s): 043784229 Code(s): S72.009A - FRACTURE OF UNSP PART OF NECK OF UNSP FEMUR, INIT Status: Acute Current Visit: Yes (4) COPD (chronic obstructive pulmonary disease) SNOMED Code(s): 04595529 Code(s): J44.9 - CHRONIC OBSTRUCTIVE PULMONARY DISEASE, UNSPECIFIED Status : Chronic Current Visit: No (5) HTN (hypertension) SNOMED Code(s): 08098610 Code(s): I10 - ESSENTIAL (PRIMARY) HYPERTENSION Status: Chronic Current Visit: No Qualifiers: Hypertension type: essential hypertension Qualified Code(s): I10 - Essential (primary) hypertension - Problem List Review Problem List Initiated/Reviewed/Updated: Yes - My Orders Last 24 Hours: My Active Orders 04/24/19 08:44 Peripheral IV Care [RC] . DIRECTED Sodium Chloride 0.9% [Saline Flush] 10 ml FLUSH ASDIRECTED PRN Peripheral IV Insertion Adult [OM.PC] Routine 04/24/19 08:45 Sodium Chloride 0.9% [Normal Saline] 250 ml IV BOLUS 04/24/19 09:00 Sodium Chloride 0.9% [Normal Saline] 1,000 ml IV ASDIRECTED - Plan Plan:: 1. Continue PT/OT. 2. IV start, given NS 250 ml bolus and then rate at 100 ml/hr for 1 bag. Hold Cozaar today. Reassess tomorrow. 3. RLE is healing, starting to get some granulation, triple antibiotic ointment , thin layer bid, cover when doing therapies. Will reassess tomorrow. 4. Has not used oxycodone all week so will discontinue. Patient states she is having no pain from surgical site.
[2019-04-24] MEDS ORDERED: Sodium Chloride 0.9% 1,000 ML IV SCH (09:00)
[2019-04-24] MEDS: Sodium Chloride 0.9% 10 ML Syringe FLUSH PRN ×2 (09:17→10:50)
[2019-04-24] MEDS: Bacitracin/Neomycin/Polymyxin B Oint 0.9 GM U/D Packet TOP SCH ×2 (09:50→20:34)
[2019-04-24] MEDS: atorvaSTATin 20 MG Tab PO SCH (20:33)
[2019-04-24] MEDS: Oxybutynin 5 MG Tab PO SCH (20:34)
[2019-04-24] MEDS: traZODone 50 MG Tab PO SCH (22:24)
[2019-04-25] MEDS: Losartan 25 MG Tab PO SCH (09:16)
[2019-04-25] MEDS: Ferrous Sulfate 325 MG Tab PO SCH (09:16)
[2019-04-25] MEDS: Multivitamin Tab PO SCH (09:17)
[2019-04-25] MEDS: Enoxaparin 30 MG/0.3 ML Syringe SUBCUT SCH (09:17)
[2019-04-25] MEDS: Fluticasone Propionate Nasal Spray 16 GM Bottle NASRT SCH ×2 (09:17→20:24)
[2019-04-25] MEDS: Calcium Carbonate 500 MG Tablet PO SCH (09:17)
[2019-04-25] MEDS: Formoterol/Mometasone 200-5 MCG 8.8 GM Inhaler IH SCH ×2 (09:17→20:25)
[2019-04-25] MEDS: Bacitracin/Neomycin/Polymyxin B Oint 28.4 GM Tube TOP SCH ×2 (10:00→20:27)
[2019-04-25] MEDS: Oxybutynin 5 MG Tab PO SCH (20:26)
[2019-04-25] MEDS: atorvaSTATin 20 MG Tab PO SCH (20:28)
[2019-04-25] MEDS: traZODone 50 MG Tab PO SCH (21:43)
[2019-04-26] MEDS: Enoxaparin 30 MG/0.3 ML Syringe SUBCUT SCH (10:04)
[2019-04-26] MEDS: Calcium Carbonate 500 MG Tablet PO SCH (10:04)
[2019-04-26] MEDS: Formoterol/Mometasone 200-5 MCG 8.8 GM Inhaler IH SCH ×2 (10:05→20:18)
[2019-04-26] MEDS: Ferrous Sulfate 325 MG Tab PO SCH (10:05)
[2019-04-26] MEDS: Losartan 25 MG Tab PO SCH (10:05)
[2019-04-26] MEDS: Bacitracin/Neomycin/Polymyxin B Oint 28.4 GM Tube TOP SCH ×2 (10:06→20:18)
[2019-04-26] MEDS: Fluticasone Propionate Nasal Spray 16 GM Bottle NASRT SCH ×2 (10:06→20:18)
[2019-04-26] MEDS: Multivitamin Tab PO SCH (10:07)
[2019-04-26] MEDS: atorvaSTATin 20 MG Tab PO SCH (20:18)
[2019-04-26] MEDS: Oxybutynin 5 MG Tab PO SCH (20:18)
[2019-04-26] MEDS: traZODone 50 MG Tab PO SCH (22:40)
[2019-04-27] MEDS: Calcium Carbonate 500 MG Tablet PO SCH (09:12)
[2019-04-27] MEDS: Ferrous Sulfate 325 MG Tab PO SCH (09:12)
[2019-04-27] MEDS: Formoterol/Mometasone 200-5 MCG 8.8 GM Inhaler IH SCH ×2 (09:19→20:18)
[2019-04-27] MEDS: Multivitamin Tab PO SCH (09:19)
[2019-04-27] MEDS: Bacitracin/Neomycin/Polymyxin B Oint 28.4 GM Tube TOP SCH ×2 (09:19→20:20)
[2019-04-27] MEDS: Enoxaparin 30 MG/0.3 ML Syringe SUBCUT SCH (09:19)
[2019-04-27] MEDS: Losartan 25 MG Tab PO SCH (09:20)
[2019-04-27] MEDS: Fluticasone Propionate Nasal Spray 16 GM Bottle NASRT SCH ×3 (09:20→20:19)
[2019-04-27] MEDS: atorvaSTATin 20 MG Tab PO SCH (20:19)
[2019-04-27] MEDS: Oxybutynin 5 MG Tab PO SCH (20:19)
[2019-04-27] MEDS: traZODone 50 MG Tab PO SCH (22:43)
[2019-04-28] MEDS: Ferrous Sulfate 325 MG Tab PO SCH (07:31)
[2019-04-28] MEDS ORDERED: Losartan 25 MG Tab PO SCH (09:00)
--- NOTE | 2019-04-28 09:02 | PCM.DCSUM1 ---
Discharge Summary - Hospital Course HPI Initial Comments: Admission to swing bed for restorative therapies, status post left femur fracture 04/04/2019. Diagnosis: Stroke: No - Discharge Data Discharge Date: 04/28/19 Discharge Disposition: Home, W Home Health Agency 06 Condition: Good - Referral to Home Health Date of Face to Face Encounter: 04/28/19 Reason for Homebound Status: recent fracture, age, chronic hypertension, COPD Primary Care Physician: Whitney Stokes NP Skilled Need: PT/OT - Discharge Diagnosis/Problem(s) (1) Insomnia SNOMED Code(s): 383149468 ICD Code: G47.00 - INSOMNIA, UNSPECIFIED Status: Chronic Current Visit: No Qualifiers: Insomnia type: primary Qualified Code(s): F51.01 - Primary insomnia (2) Skin ulcer SNOMED Code(s): 79166049 ICD Code: L98.499 - NON-PRESSURE CHRONIC ULCER OF SKIN OF SITES W UNSP SEVERITY Status: Acute Current Visit: Yes Problem Details: Right lower extremity Qualifiers: Non-pressure ulcer stage: limited to breakdown of skin Qualified Code(s): L98.491 - Non-pressure chronic ulcer of skin of other sites limited to breakdown of skin (3) Hip fracture SNOMED Code(s): 616272722 ICD Code: S72.009A - FRACTURE OF UNSP PART OF NECK OF UNSP FEMUR, INIT Status: Acute Current Visit: Yes (4) COPD (chronic obstructive pulmonary disease) SNOMED Code(s): 24108460 ICD Code: J44.9 - CHRONIC OBSTRUCTIVE PULMONARY DISEASE, UNSPECIFIED Status : Chronic Current Visit: No (5) HTN (hypertension) SNOMED Code(s): 49749026 ICD Code: I10 - ESSENTIAL (PRIMARY) HYPERTENSION Status: Chronic Current Visit: No Qualifiers: Hypertension type: essential hypertension Qualified Code(s): I10 - Essential (primary) hypertension - Patient Summary/Data Consults: Consultations 04/09/19 16:00 OT Evaluation and Treatment [CONS] Routine Please Evaluate and Treat. OT Reason for Consult: ADL's This query below is only for informational purposes and is not editable. PT Evaluation and Treatment [CONS] Routine Please Evaluate and Treat. PT Reason for Consult: Strengthening This query below is only for informational purposes and is not editable. Hospital Course: Admitted for rehab therapies s/o left femur fracture 04/04/19. Progressed well with therapies. Had suspected Zoster rash and started on Acyclovir. Also bilateral lower leg ulcerations, Dr Contreras was consulted, see his report. Recommended follow up with Dr Bertrand as outpatient. Left lower leg had scabbed over and Right lower leg was improving. Had low blood pressure last weekend prior to discharge, had 1 liter of IV fluids, dose of Losartan cut back to 12.5 mg daily. Will need follow up with PCP for further dose adjustments per home blood pressure monitoring. 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 She will have someone staying with her for next couple weeks but Home health ordered on discharge. She has 3 more days of Lovenox treatment and has a friend that is a nurse who will administer her injections, will complete course on Thursday05/01/19. Also had trouble sleeping during her stay so increased dose of Trazodone to 150 mg which helped with her insomnia. At care conference on Thursday when discussing medications she would go home on, she felt she could go back to her home dose of Trazodone 100 mg rather than keeping the 150 mg dose. - Patient Instructions Diet: Regular Diet as Tolerated Activity: As Tolerated Showering/Bathing: May Shower Notify Provider of: Fever, Increased Pain, Swelling and Redness, Drainage, Nausea and/or Vomiting Other/Special Instructions: Follow up with Whitney Stokes in 1-2 weeks. Follow up with orthopedics as previously scheduled. Follow up with Dr Bertrand for right leg ulcer. - Discharge Plan *PRESCRIPTION DRUG MONITORING PROGRAM REVIEWED*: Not Applicable *COPY OF PRESCRIPTION DRUG MONITORING REPORT IN PATIENT FLORA: Not Applicable Prescriptions/Med Rec: Enoxaparin [Lovenox] 30 mg SQ DAILY 3 Days #3 syringe Losartan [Cozaar] 12.5 mg PO DAILY 30 Days #15 tablet Home Medications: Home Meds traZODone HCl [Trazodone HCl] 100 mg PO BEDTIME 11/15/15 [History] Multivitamin [Daily Cory] 1 tab PO DAILY 02/02/18 [History] Sennosides/Docusate Sodium [Senna-S] 1 tab PO BID 02/02/18 [History] atorvaSTATin Calcium [Lipitor] 20 mg PO BEDTIME 12/18/18 [History] Acetaminophen [Pain & Fever] 1,000 mg PO Q6HR PRN 04/09/19 [History] Albuterol Sulfate [Albuterol Sulfate Hfa] 2 puff IH Q4HR PRN 04/09/19 [History] Alendronate Sodium 70 mg PO FR 04/09/19 [History] Bisacodyl 10 mg RECTAL ASDIRECTED 04/09/19 [History] Budesonide/Formoterol [Symbicort 160-4.5 MCG] 2 puff INH BID 04/09/19 [History] Calcium Carbonate 1,250 mg PO DAILY 04/09/19 [History] Cholecalciferol (Vitamin D3) [Vitamin D3] 1,000 units DAILY 04/09/19 [History] Fluticasone Propionate [Flonase] 1 spray NASBOTH BID 04/09/19 [History] Magnesium Hydroxide [Milk of Magnesia] 30 ml PO BID PRN 04/09/19 [History] Oxybutynin 2.5 mg PO BEDTIME 04/09/19 [History] Polyethylene Glycol 3350 [MiraLAX] 17 gm PO BID PRN 04/09/19 [History] Bacitracin/Neomycin/Polymyxin [Triple Antibiotic Oint] 0 gm TOP BID tube [Rx] Enoxaparin [Lovenox] 30 mg SQ DAILY 3 Days #3 syringe 04/28/19 [Rx] Ferrous Sulfate 325 mg PO WITHBREAKFAST tablet 04/28/19 [Rx] Losartan [Cozaar] 12.5 mg PO DAILY 30 Days #15 tablet 04/28/19 [Rx] Patient Handouts: Venous Thromboembolism Prevention Forms: Take Home DC Nutrition Plan Referrals: Whitney Stokes NP [Primary Care Provider] - - Discharge Summary/Plan Comment DC Time >30 min.: No - General Info Date of Service: 04/28/19 Admission Dx/Problem (Free Text: Feeling good, ready to go home. She hasn't had bowel movement today but thinks if she takes prune juice she'll have one tomorrow. Grandson will be picking her up for discharge. - Review of Systems General: Reports: No Symptoms Pulmonary: Reports: No Symptoms Cardiovascular: Reports: No Symptoms Gastrointestinal: Reports: No Symptoms Genitourinary: Reports: No Symptoms - Patient Data Vitals - Most Recent: Last Vital Signs Temp 97.7 F 04/27/19 08:00 Pulse 98 04/27/19 08:00 Resp 12 04/27/19 08:00 BP 98/46 L 04/27/19 09:20 Pulse Ox 95 04/28/19 03:42 Weight - Most Recent: 107 lb 11.2 oz Med Orders - Current: Current Medications Acetaminophen (Tylenol) 650 mg PO Q4H PRN PRN Reason: Pain Last Admin: 04/21/19 04:17 Dose: 650 mg Atorvastatin Calcium (Lipitor) 20 mg PO BEDTIME [facility] Last Admin: 04/27/19 20:19 Dose: 20 mg Bisacodyl (Dulcolax) 10 mg RECTAL DAILY PRN PRN Reason: Constipation Calcium Carbonate/Glycine (Oyster Shell Calcium) 1,000 mg PO DAILY [facility] Last Admin: 04/27/19 09:12 Dose: 1,000 mg Enoxaparin Sodium (Lovenox) 30 mg SUBCUT DAILY [facility] Stop: 05/02/19 01:00 Last Admin: 04/27/19 09:19 Dose: 30 mg Ferrous Sulfate (Ferrous Sulfate) 325 mg PO WITHBREAKFAST [facility] Last Admin: 04/28/19 07:31 Dose: 325 mg Fluticasone Propionate (Flonase) 0 gm NASRT BID [facility] Last Admin: 04/27/19 20:19 Dose: Not Given Losartan Potassium (Cozaar) 12.5 mg PO DAILY [facility] Magnesium Hydroxide (Milk Of Magnesia) 30 ml PO BID PRN PRN Reason: CONSTIPATION Mometasone Furoate/Formoterol Fumar (Dulera 200-5 Mcg) 0 puff IH BID [facility] Last Admin: 04/27/19 20:18 Dose: 2 puff Multivitamins/Minerals/Vitamin C (Tab-A-Cory) 1 tab PO DAILY [facility] Last Admin: 04/27/19 09:19 Dose: 1 tab Neomycin/Polymyxin/Bacitracin (Triple Antibiotic Oint) 0 gm TOP BID [facility] Last Admin: 04/27/19 20:20 Dose: 1 applic Oxybutynin Chloride (Oxybutynin) 2.5 mg PO BEDTIME [facility] Last Admin: 04/27/19 20:19 Dose: 2.5 mg Polyethylene Glycol (Miralax) 17 gm PO BID PRN PRN Reason: CONSTIPATION Senna/Docusate Sodium (Senna Plus) 1 tab PO BID PRN PRN Reason: Constipation Sodium Chloride (Saline Flush) 10 ml FLUSH ASDIRECTED PRN PRN Reason: Keep Vein Open Last Admin: 04/24/19 10:50 Dose: 10 ml Trazodone HCl (Trazodone) 150 mg PO DAILY@2200 [facility] Last Admin: 04/27/19 22:43 Dose: 150 mg Discontinued Medications Acyclovir (Zovirax) 800 mg PO QID [facility] Stop: 04/15/19 23:59 Last Admin: 04/10/19 14:47 Dose: Not Given Acyclovir (Zovirax) 0 mg PO QID [facility] Stop: 04/15/19 23:59 Last Admin: 04/10/19 20:03 Dose: 800 mg Acyclovir (Zovirax) 800 mg PO QID [facility] Stop: 04/15/19 23:59 Last Admin: 04/14/19 08:24 Dose: 800 mg Bisacodyl (Dulcolax) 10 mg RECTAL ASDIRECTED [facility] Calcium Carbonate/Glycine (Oyster Shell Calcium) 1,250 mg PO DAILY [facility] Last Admin: 04/10/19 08:57 Dose: 1,250 mg Enoxaparin Sodium (Lovenox) 40 mg SUBCUT Q24H [facility] Last Admin: 04/09/19 16:56 Dose: Not Given Enoxaparin Sodium (Lovenox) 30 mg SUBCUT Q24H [facility] Last Admin: 04/09/19 16:56 Dose: Not Given Sodium Chloride (Normal Saline) 250 mls @ 250 mls/hr IV BOLUS [facility] Stop: 04/24/19 09:44 Last Admin: 04/24/19 09:15 Dose: 250 mls/hr Sodium Chloride (Normal Saline) 1,000 mls @ 100 mls/hr IV ASDIRECTED [facility] Stop: 04/24/19 18:59 Last Admin: 04/24/19 10:56 Dose: 100 mls/hr Losartan Potassium (Cozaar) 25 mg PO DAILY [facility] Losartan Potassium (Cozaar) 25 mg PO DAILY [facility] Last Admin: 04/10/19 09:09 Dose: 25 mg Losartan Potassium (Cozaar) 25 mg PO DAILY [facility] Last Admin: 04/27/19 09:20 Dose: Not Given Magnesium Hydroxide (Milk Of Magnesia) 30 ml PO BID [facility] Last Admin: 04/12/19 09:08 Dose: Not Given Mometasone Furoate/Formoterol Fumar (Dulera 200-5 Mcg) 0 puff IH BID [facility] Last Admin: 04/10/19 19:59 Dose: 2 puff Neomycin/Polymyxin/Bacitracin (Triple Antibiotic Oint) 1 each TOP BID [facility] Last Admin: 04/24/19 20:34 Dose: 1 each Oxybutynin Chloride (Oxybutynin) 5 mg PO BEDTIME [facility] Last Admin: 04/11/19 20:32 Dose: 5 mg Oxycodone HCl (Oxycodone) 5 mg PO Q4H PRN PRN Reason: Pain (moderate 4-6) Last Admin: 04/13/19 18:05 Dose: 5 mg Polyethylene Glycol (Miralax) 17 gm PO BID [facility] Last Admin: 04/12/19 09:11 Dose: Not Given Senna/Docusate Sodium (Senna Plus) 2 tab PO BID [facility] Last Admin: 04/26/19 10:36 Dose: Not Given Trazodone HCl (Trazodone) 100 mg PO BEDTIME [facility] Last Admin: 04/10/19 20:02 Dose: 100 mg Trazodone HCl (Trazodone) Confirm Administered Dose 100 mg .ROUTE .STK-MED ONE Stop: 04/09/19 21:08 Last Admin: 04/09/19 21:27 Dose: Not Given Trazodone HCl (Trazodone) Confirm Administered Dose 100 mg .ROUTE .STK-MED ONE Stop: 04/10/19 19:43 Last Admin: 04/10/19 19:58 Dose: Not Given Trazodone HCl (Trazodone) 100 mg PO DAILY@2200 [facility] Last Admin: 04/21/19 22:31 Dose: 100 mg - Exam General: Reports: Alert, Oriented, Cooperative, No Acute Distress Lungs: Reports: Clear to Auscultation, Normal Respiratory Effort Cardiovascular: Reports: Regular Rate, Regular Rhythm GI/Abdominal Exam: Normal Bowel Sounds, Soft, Non-Tender, No Organomegaly, No Distention Skin: Reports: Warm Psy/Mental Status: Reports: Normal Affect, Normal Mood
[2019-04-28] MEDS: Formoterol/Mometasone 200-5 MCG 8.8 GM Inhaler IH SCH (09:13)
[2019-04-28] MEDS: Calcium Carbonate 500 MG Tablet PO SCH (09:14)
[2019-04-28] MEDS: Enoxaparin 30 MG/0.3 ML Syringe SUBCUT SCH (09:14)
[2019-04-28] MEDS: Fluticasone Propionate Nasal Spray 16 GM Bottle NASRT SCH (09:14)
[2019-04-28] MEDS: Multivitamin Tab PO SCH (09:15)
[2019-04-28] MEDS: Bacitracin/Neomycin/Polymyxin B Oint 28.4 GM Tube TOP SCH (09:15)
[2019-04-28 09:20] VITALS: BP 123/70
[2019-04-28 11:00] VITALS: PULSE 102
== END 2019-04-28 12:20 | disposition home health service (06) | DRG 560 ==
LOC: FB.MS 04-09 14:52
PROVIDERS: ADMIT Family Medicine; ATTEND Family Medicine
DX: S72.142D Displaced intertrochanteric fracture of left femur, subsequent encounter for closed fracture with routine healing (principal); L97.929 Non-pressure chronic ulcer of unspecified part of left lower leg with unspecified severity; L97.911 Non-pressure chronic ulcer of unspecified part of right lower leg limited to breakdown of skin; E44.0 Moderate protein-calorie malnutrition; D62 Acute posthemorrhagic anemia; B02.9 Zoster without complications; X58.XXXD Exposure to other specified factors, subsequent encounter; Z51.5 Encounter for palliative care; J44.9 Chronic obstructive pulmonary disease, unspecified; I10 Essential (primary) hypertension; F51.01 Primary insomnia; M81.0 Age-related osteoporosis without current pathological fracture; R32 Unspecified urinary incontinence; M19.90 Unspecified osteoarthritis, unspecified site; F43.21 Adjustment disorder with depressed mood; E78.5 Hyperlipidemia, unspecified; N32.81 Overactive bladder; Z87.81 Personal history of (healed) traumatic fracture; Z87.891 Personal history of nicotine dependence; Z99.81 Dependence on supplemental oxygen; Z88.0 Allergy status to penicillin; Z79.899 Other long term (current) drug therapy
CPT/HCPCS: 36415; 80048; 85018; 85025; 87798; 94150; 94760; 97110-GO; 97110-GP; 97116-GP; 97161-GP; 97165-GO; 97530-GO; 97530-GP; 97535-GO; A9270-GY; J1650; J7030; J7050

== ENCOUNTER 2021-01-24 16:06 | Emergency (ER) | payer MEDICARE, BC ==
[2021-01-24 16:42] VITALS: BP 179/82; PULSE 70
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
== END 2021-01-24 18:13 | disposition home or self-care (01) ==
LOC: FB.ED 16:06
DX: I10 Essential (primary) hypertension (principal); N28.9 Disorder of kidney and ureter, unspecified; D64.9 Anemia, unspecified; E83.42 Hypomagnesemia; J44.9 Chronic obstructive pulmonary disease, unspecified; Z88.0 Allergy status to penicillin; Z87.891 Personal history of nicotine dependence; Z79.899 Other long term (current) drug therapy
CPT/HCPCS: 36415; 80053; 81001; 83735; 83880; 84443; 84484; 85025; 86140; 93005; 99285-25

== ENCOUNTER 2021-01-27 15:28 | Inpatient (IN) | payer MEDICARE, BC ==
[2021-01-27] MEDS ORDERED: Sodium Chloride 0.9% 500 ML IV ONE (15:46)
--- NOTE | 2021-01-27 15:59 | EDM.PDOC ---
ED HPI GENERAL MEDICAL PROBLEM - General Chief Complaint: Neurological Problem Stated Complaint: INCREASED CONFUSION Time Seen by Provider: 01/27/21 15:47 Source of Information: Reports: Patient, Other (friend) History Limitations: Reports: Altered Mental Status - History of Present Illness INITIAL COMMENTS - FREE TEXT/NARRATIVE: Patient states she has been feeling weak today, which she noticed on awakening at 0400. States she hasn't been able to walk today and in fact has been crawling to get around her home. Patient called her friend who brought her to the ED today. He noted her to be confused, and last saw her mentating normally on 01/25/21. Patient lives alone and states has not drank or eaten anything today. Denies pain. Patient was treated at [facility] ED on 01/24/21 for weakness and HTN, but was discharged home after a negative work up. She has two children, one resides in [place], the other in [place]. - Related Data Allergies Allergy/AdvReac Type Severity Reaction Status Date / Time Penicillins Allergy Swelling Verified 01/24/21 16:38 Home Meds: Home Meds traZODone HCl [Trazodone HCl] 100 mg PO BEDTIME 11/15/15 [History] atorvaSTATin Calcium [Lipitor] 20 mg PO BEDTIME 12/18/18 [History] Alendronate Sodium 70 mg PO FR 04/09/19 [History] Oxybutynin 5 mg PO BEDTIME 04/09/19 [History] Budesonide/Formoterol Fumarate [Symbicort 160-4.5 Mcg Inhaler] 2 puff INH BID 01/24/21 [History] Losartan [Cozaar] 25 mg PO DAILY 01/24/21 [History] Magnesium Oxide 400 mg PO ASDIRECTED #60 tab 01/24/21 [Rx] hydroCHLOROthiazide [Hydrochlorothiazide] 25 mg PO DAILY 01/24/21 [History] Past Medical History HEENT History: Reports: Cataract, Impaired Vision, Other (See Below) Other HEENT History: Having some possible sinus problems recently, right side of head and face. has chronic rhinitis. Cardiovascular History: Reports: High Cholesterol, Hypertension Respiratory History: Reports: COPD, Other (See Below) Other Respiratory History: Uses CPAP at night. states that she uses oxygen at night. former smoker and quit year 2006. Genitourinary History: Reports: Other (See Below) Other Genitourinary History: overactive bladder. 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 Broke head right shoulder/arm. L femure fracture and nailing at the L hip. Neurological History: Reports: TIA, Other (See Below) Other Neuro History: States she had an episode last summer with trouble speaking, nausea, and difficulty walking---this resolved in a short time. confused at times-baseline. Psychiatric History: Reports: Other (See Below) Other Psychiatric History: Takes Trazodone. Endocrine/Metabolic History: Reports: Other (See Below) Other Endocrine/Metabolic History: States she is not a diabetic. Hematologic History: Reports: Anemia, Other (See Below) Other Hematologic History: had acute anemia after hip surgery () Dermatologic History: Reports: None - Infectious Disease History Infectious Disease History: Reports: Other (See Below) Other Infectious Disease History: She is uncertain of her past diseases. - Past Surgical History HEENT Surgical History: Reports: Other (See Below) Other HEENT Surgeries/Procedures: bilat cataract GI Surgical History: Reports: Colonoscopy Social & Family History - Family History Family Medical History: No Pertinent Family History - Caffeine Use Caffeine Use: Reports: Coffee, Soda ED ROS GENERAL - Review of Systems Review Of Systems: Comprehensive ROS is negative, except as noted in HPI. - Physical Exam Exam: See Below Exam Limited By: No Limitations General Appearance: Alert, WD/WN, No Apparent Distress Eye Exam: Bilateral Eye: Abnormal EOM, PERRL Nose: Normal Inspection Throat/Mouth: No Airway Compromise Head Exam: Atraumatic, Normocephalic Neck: Supple, Full Range of Motion Respiratory/Chest: No Respiratory Distress, Lungs Clear, Normal Breath Sounds Cardiovascular: Regular Rate, Rhythm, No Murmur GI/Abdominal: Normal Bowel Sounds, Soft, Non-Tender, No Distention Neuro Exam (Abbreviated): Alert, CN II-XII Intact, No Motor/Sensory Deficits, Confused, Disoriented, Other (GCS=14. Non-focal exam) Extremities: Normal Range of Motion, No Pedal Edema Skin Exam: Warm, Dry, Intact #1 Interpretation EKG Date: 01/27/21 Time: 17:05 Rhythm: NSR Rate (Beats/Min): 86 [place]: Normal P-Wave: Present QRS: Normal ST-T: Normal Course - Vital Signs Last Recorded V/S: Last Vital Signs Temp 37.3 C 01/27/21 18:28 Pulse 81 01/27/21 18:28 Resp 14 01/27/21 18:28 BP 162/72 H 01/27/21 18:28 Pulse Ox 96 01/27/21 18:28 - Orders/Labs/Meds Orders: Active Orders 24 hr Category Date Time Status Admission Status [Patient Status] [ADT] Routine ADT 01/27/21 18:29 Active EKG Documentation Completion [RC] ASDIRECTED Care 01/27/21 15:40 Active CXR [Chest 1V Frontal] [CR] Stat Exams 01/27/21 15:41 Taken Chest Abdomen Pelvis w Cont [CT] Stat Exams 01/27/21 16:49 Taken Head wo Cont [CT] Stat Exams 01/27/21 15:41 Taken CULTURE BLOOD [BC] Urgent Lab 01/27/21 12:55 Received CULTURE BLOOD [BC] Urgent Lab 01/27/21 15:55 Received Sodium Chloride 0.9% [Saline Flush] Med 01/27/21 15:46 Active 10 ml FLUSH ASDIRECTED PRN Blood Culture x2 Reflex Set [OM.PC] Urgent Oth 01/27/21 15:40 Ordered Isolation [COMM] Routine Oth 01/27/21 15:44 Ordered Saline Lock Insert [OM.PC] Routine Oth 01/27/21 15:46 Ordered EKG 12 Lead [EK] Stat Ther 01/27/21 15:40 Ordered Medication Orders Sodium Chloride (Sodium Chloride 0.9% 10 Ml Syringe) 10 ml FLUSH ASDIRECTED PRN PRN Reason: Keep Vein Open Labs: Laboratory Tests 01/27/21 01/27/21 01/27/21 Range/Units 15:49 15:49 15:49 WBC 22.1 H (3.0-10.3) x10-3/uL RBC 3.97 (3.60-5.20) x10(6)uL Hgb 11.9 (11.4-15.5) g/dL Hct 36.8 (34.2-48.2) % MCV 92.7 (76.7-100.5) fL MCH 29.9 (23.9-33.9) pg MCHC 32.2 (31.9-34.8) g/dL RDW 15.0 (12.3-16.5) % Plt Count 233 (151-488) x10(3)uL MPV 7.5 (7.1-12.4) fL Add Manual Diff Yes Neutrophils % (Manual) 95 H (46-82) % Band Neutrophils % 2 (0-6) % Lymphocytes % (Manual) 1 L (13-37) % Monocytes % (Manual) 2 L (4-12) % PT 10.1 (9.0-11.1) sec INR 0.94 L (1.00-1.24) APTT 20.9 L (24.4-33.2) SECONDS Sodium 143 (135-145) mmol/L Potassium 3.8 (3.5-5.3) mmol/L Chloride 103 (100-110) mmol/L Carbon Dioxide 31 (21-32) mmol/L BUN 22 H (7-18) mg/dL Creatinine 1.2 H (0.55-1.02) mg/dL Est Cr Clr Drug Dosing TNP Estimated GFR (MDRD) 42 L (>60) BUN/Creatinine Ratio 18.3 (9-20) Glucose 119 H (80-116) mg/dL Lactic Acid (0.4-2.0) mmol/L Calcium 9.5 (8.6-10.2) mg/dL Total Bilirubin 0.9 (0.1-1.3) mg/dL AST 21 D (5-25) IU/L ALT 26 D (12-36) U/L Alkaline Phosphatase 71 (56-112) IU/L Troponin I (4.0-60.3) pg/mL Total Protein 7.5 (6.0-8.0) g/dL Albumin 4.0 (3.2-4.6) g/dL Globulin 3.5 g/dL Albumin/Globulin Ratio 1.1 Urine Color (YELLOW) Urine Appearance (CLEAR) Urine pH (5.0-6.5) Ur Specific [place] (1.010-1.025) Urine Protein (NEGATIVE) mg/dL Urine Glucose (UA) (NORMAL) mg/dL Urine Ketones (NEGATIVE) mg/dL Urine Occult Blood (NEGATIVE) Urine Nitrite (NEGATIVE) Urine Bilirubin (NEGATIVE) Urine Urobilinogen (NEGATIVE) mg/dL Ur Leukocyte Esterase (NEGATIVE) Urine RBC (0-5) Urine WBC (0-5) Ur Squamous Epith Cells (NS,R,O) Urine Bacteria (NS) SARS-CoV-2 RNA (RODRIGO) (NEGATIVE) 01/27/21 01/27/21 01/27/21 Range/Units 15:49 15:49 16:15 WBC (3.0-10.3) x10-3/uL RBC (3.60-5.20) x10(6)uL Hgb (11.4-15.5) g/dL Hct (34.2-48.2) % MCV (76.7-100.5) fL MCH (23.9-33.9) pg MCHC (31.9-34.8) g/dL RDW (12.3-16.5) % Plt Count (151-488) x10(3)uL MPV (7.1-12.4) fL Add Manual Diff Neutrophils % (Manual) (46-82) % Band Neutrophils % (0-6) % Lymphocytes % (Manual) (13-37) % Monocytes % (Manual) (4-12) % PT (9.0-11.1) sec INR (1.00-1.24) APTT (24.4-33.2) SECONDS Sodium (135-145) mmol/L Potassium (3.5-5.3) mmol/L Chloride (100-110) mmol/L Carbon Dioxide (21-32) mmol/L BUN (7-18) mg/dL Creatinine (0.55-1.02) mg/dL Est Cr Clr Drug Dosing Estimated GFR (MDRD) (>60) BUN/Creatinine Ratio (9-20) Glucose (80-116) mg/dL Lactic Acid 0.9 (0.4-2.0) mmol/L Calcium (8.6-10.2) mg/dL Total Bilirubin (0.1-1.3) mg/dL AST (5-25) IU/L ALT (12-36) U/L Alkaline Phosphatase (56-112) IU/L Troponin I 17.6 (4.0-60.3) pg/mL Total Protein (6.0-8.0) g/dL Albumin (3.2-4.6) g/dL Globulin g/dL Albumin/Globulin Ratio Urine Color (YELLOW) Urine Appearance (CLEAR) Urine pH (5.0-6.5) Ur Specific [place] (1.010-1.025) Urine Protein (NEGATIVE) mg/dL Urine Glucose (UA) (NORMAL) mg/dL Urine Ketones (NEGATIVE) mg/dL Urine Occult Blood (NEGATIVE) Urine Nitrite (NEGATIVE) Urine Bilirubin (NEGATIVE) Urine Urobilinogen (NEGATIVE) mg/dL Ur Leukocyte Esterase (NEGATIVE) Urine RBC (0-5) Urine WBC (0-5) Ur Squamous Epith Cells (NS,R,O) Urine Bacteria (NS) SARS-CoV-2 RNA (RODRIGO) Negative (NEGATIVE) 01/27/21 Range/Units 16:25 WBC (3.0-10.3) x10-3/uL RBC (3.60-5.20) x10(6)uL Hgb (11.4-15.5) g/dL Hct (34.2-48.2) % MCV (76.7-100.5) fL MCH (23.9-33.9) pg MCHC (31.9-34.8) g/dL RDW (12.3-16.5) % Plt Count (151-488) x10(3)uL MPV (7.1-12.4) fL Add Manual Diff Neutrophils % (Manual) (46-82) % Band Neutrophils % (0-6) % Lymphocytes % (Manual) (13-37) % Monocytes % (Manual) (4-12) % PT (9.0-11.1) sec INR (1.00-1.24) APTT (24.4-33.2) SECONDS Sodium (135-145) mmol/L Potassium (3.5-5.3) mmol/L Chloride (100-110) mmol/L Carbon Dioxide (21-32) mmol/L BUN (7-18) mg/dL Creatinine (0.55-1.02) mg/dL Est Cr Clr Drug Dosing Estimated GFR (MDRD) (>60) BUN/Creatinine Ratio (9-20) Glucose (80-116) mg/dL Lactic Acid (0.4-2.0) mmol/L Calcium (8.6-10.2) mg/dL Total Bilirubin (0.1-1.3) mg/dL AST (5-25) IU/L ALT (12-36) U/L Alkaline Phosphatase (56-112) IU/L Troponin I (4.0-60.3) pg/mL Total Protein (6.0-8.0) g/dL Albumin (3.2-4.6) g/dL Globulin g/dL Albumin/Globulin Ratio Urine Color Yellow (YELLOW) Urine Appearance Clear (CLEAR) Urine pH 7.0 H (5.0-6.5) Ur Specific [place] 1.005 L (1.010-1.025) Urine Protein 30 H (NEGATIVE) mg/dL Urine Glucose (UA) Normal (NORMAL) mg/dL Urine Ketones 15 H (NEGATIVE) mg/dL Urine Occult Blood Negative (NEGATIVE) Urine Nitrite Negative (NEGATIVE) Urine Bilirubin Negative (NEGATIVE) Urine Urobilinogen Normal (NEGATIVE) mg/dL Ur Leukocyte Esterase Negative (NEGATIVE) Urine RBC 0-5 (0-5) Urine WBC 0-5 (0-5) Ur Squamous Epith Cells Few H (NS,R,O) Urine Bacteria Few H (NS) SARS-CoV-2 RNA (RODRIGO) (NEGATIVE) Meds: Medications Generic Name Dose Route Start Last Admin Trade Name Freq PRN Reason Stop Dose Admin Sodium Chloride 10 ml 01/27/21 15:46 Sodium Chloride 0.9% 10 Ml Syringe FLUSH ASDIRECTED PRN Keep Vein Open Discontinued Medications Generic Name Dose Route Start Last Admin Trade Name Freq PRN Reason Stop Dose Admin Acetaminophen 650 mg 01/27/21 16:28 01/27/21 16:48 Acetaminophen 325 Mg Tab PO 01/27/21 16:29 650 mg NOW ONE Administration Sodium Chloride 500 mls @ 500 mls/hr 01/27/21 15:46 01/27/21 16:12 Normal Saline IV 01/27/21 16:45 500 mls/hr .BOLUS ONE Administration Iopamidol 75 ml 01/27/21 16:55 Iopamidol 755 Mg/Ml 75 Ml Bottle IV 01/27/21 16:56 ASDIRECTED ONE - Radiology Interpretation Free Text/Narrative:: CXR: No acute process. (ED provider interpretation) CT Head s/ contrast: Impression: No acute intracranial hemorrhage or mass. Fluid in left mastoid air cells. Dictated by Eugenia Cortez MD @ 01/27/2021 4:38:[address] Chest/Abd/Pelvis w/ IV contrast: Impression: 1. Mildly prominent fluid-filled small bowel loops in the pelvis no transition point seen findings could be on the basis of ileus or very low-grade obstruction. There is no acute findings in the abdomen or pelvis seen. No abscess. 2. Diverticulosis. 3. Prominent gallbladder. 4. Moderate emphysema. Probable focal centrilobular nodules in the right upper lobe could be seen with infectious inflammatory processes. Recommend follow-up. Dictated by Eugenia Cortez MD @ 01/27/2021 6:10:08 PM Departure - Departure Time of Disposition: 18:28 Disposition: Admitted As Inpatient 64 Condition: Fair Clinical Impression: Mastoiditis of left side Altered mental status Qualifiers: Altered mental status type: delirium Qualified Code(s): R41.0 - Disorientation, unspecified Leukocytosis Qualifiers: Leukocytosis type: other Qualified Code(s): D72.828 - Other elevated white blood cell count - Discharge Information *PRESCRIPTION DRUG MONITORING PROGRAM REVIEWED*: No *COPY OF PRESCRIPTION DRUG MONITORING REPORT IN PATIENT FLORA: Not Applicable Referrals: Whitney Stokes NP [Primary Care Provider] - Forms: ED Department Discharge Sepsis Event Note (ED) - Focused Exam Vital Signs: Vital Signs Temp Pulse Resp BP Pulse Ox 01/27/21 18:28 37.3 C 81 14 162/72 H 96 01/27/21 16:54 87 16 164/62 H 94 L 01/27/21 15:29 37.7 C 115 H 18 155/73 H 95 - My Orders Last 24 Hours: My Active Orders 01/27/21 12:55 CULTURE BLOOD [BC] Urgent 01/27/21 15:40 EKG Documentation Completion [RC] ASDIRECTED Blood Culture x2 Reflex Set [OM.PC] Urgent EKG 12 Lead [EK] Stat 01/27/21 15:41 CXR [Chest 1V Frontal] [CR] Stat Head wo Cont [CT] Stat 01/27/21 15:44 Isolation [COMM] Routine 01/27/21 15:46 Sodium Chloride 0.9% [Saline Flush] 10 ml FLUSH ASDIRECTED PRN Saline Lock Insert [OM.PC] Routine 01/27/21 15:55 CULTURE BLOOD [BC] Urgent 01/27/21 16:49 Chest Abdomen Pelvis w Cont [CT] Stat 01/27/21 18:29 Admission Status [Patient Status] [ADT] Routine - Assessment/Plan Last 24 Hours: My Active Orders 01/27/21 12:55 CULTURE BLOOD [BC] Urgent 01/27/21 15:40 EKG Documentation Completion [RC] ASDIRECTED Blood Culture x2 Reflex Set [OM.PC] Urgent EKG 12 Lead [EK] Stat 01/27/21 15:41 CXR [Chest 1V Frontal] [CR] Stat Head wo Cont [CT] Stat 01/27/21 15:44 Isolation [COMM] Routine 01/27/21 15:46 Sodium Chloride 0.9% [Saline Flush] 10 ml FLUSH ASDIRECTED PRN Saline Lock Insert [OM.PC] Routine 01/27/21 15:55 CULTURE BLOOD [BC] Urgent 01/27/21 16:49 Chest Abdomen Pelvis w Cont [CT] Stat 01/27/21 18:29 Admission Status [Patient Status] [ADT] Routine
[2021-01-27] MEDS ORDERED: Acetaminophen 325 MG Tab PO ONE (16:28)
[2021-01-27] MEDS ORDERED: Iopamidol 755 Mg/ML 75 ML Bottle IV ONE (16:55)
[2021-01-27] MEDS ORDERED: Levofloxacin/Dextrose 5%-Water 150 ML IV ONE (20:25)
[2021-01-27] MEDS: Levofloxacin/Dextrose 5%-Water 750 MG in Premix Bag 1 BAG IV SCH (20:26)
[2021-01-27] MEDS ORDERED: Oxybutynin 5 MG Tab PO SCH (21:00)
[2021-01-27] MEDS ORDERED: Formoterol/Mometasone 200-5 MCG 8.8 GM Inhaler IH SCH (21:00)
[2021-01-27] MEDS: Sodium Chloride 0.9% 10 ML Syringe FLUSH PRN (22:00)
[2021-01-27] MEDS: atorvaSTATin 20 MG Tab PO SCH (22:19)
[2021-01-28] MEDS ORDERED: traZODone 100 MG Tab PO ONE (00:03)
[2021-01-28] MEDS ORDERED: Docusate Sodium 250 MG Cap PO PRN (08:28)
[2021-01-28] MEDS ORDERED: Losartan 25 MG Tab PO SCH (09:00)
[2021-01-28] MEDS ORDERED: Acetaminophen 500 MG Tab PO PRN (09:29)
[2021-01-28] MEDS ORDERED: Ibuprofen 200 MG Tab PO PRN (09:29)
[2021-01-28] MEDS: Hydrochlorothiazide 25 MG Tab PO SCH (09:58)
[2021-01-28] MEDS: Formoterol/Mometasone 200-5 MCG 8.8 GM Inhaler IH SCH ×2 (09:59→20:37)
[2021-01-28] MEDS: Sodium Chloride 0.9% 1,000 ML IV SCH ×2 (10:00→22:52)
--- NOTE | 2021-01-28 10:32 | PCM.HP.2 ---
H&P History of Present Illness - General Date of Service: 01/28/21 Admit Problem/Dx: Admission Diagnosis/Problem Admission Diagnosis/Problem Altered mental status, leukocytosis, left mastoiditis Source of Information: Patient, Family (grandson), Provider (Dr Garcia note) - History of Present Illness Initial Comments - Free Text/Narative: Lily presented to ER yesterday after noticing she was more weak today after she woke up. She wasn't able to walk yesterday and was crawling on the floor at home. She was brought to ER by friend that she called. He noted that she was more confused, that she was normal on Thursday. She denied any pain in ER. She had not eaten or drank anything yesterday prior to arrival to ER. No fevers, chills, headache, ear or neck pain. No sore throat. No chest pain, shortness of breath, nausea, vomiting, diarrhea. States she has a BM every other day. She sometimes doesn't drink much because she doesn't want to get up to go to bathroom alot. She denies any dysuria, hematuria or frequency. Today she is complaining of left hip pain, that the michelle is poking her. She was treated at [facility] ED on 01/24/21 for weakness and HTN, but was discharged home after a negative work up, WBC was 6.2, CRP 0.2. She has two children, one resides in [place], the other in [place]. Her grandson lives locally. He states that she has hearing aids but seems to have problems with them, sometimes they are not charged. He stated her memory has gotten worse as her hearing has declined. She lives alone in an apartment, she has someone who helps her clean but doesn't not have Meals on Wheels or other services. ER: WBC 22.1, Hgb 11.9, Cr 1.2, Lactic acid 0.9, INR 0.94, LFTs within normal limits. EKG normal. CT head showed some fluid in left mastoid. Chest x-ray was negative for acute changes, COPD. CT chest/abdomen/pelvis: ileus vs low grade obstruction, diverticulosis but nothing acute. UA positive for ketones & protein but negative for nitrites, LE, WBC, few epithelials/bacteria. Blood culture obtained. - Related Data Allergies/Adverse Reactions: Allergies Allergy/AdvReac Type Severity Reaction Status Date / Time Penicillins Allergy Swelling Verified 01/24/21 16:38 Home Medications: Home Meds traZODone HCl [Trazodone HCl] 100 mg PO BEDTIME PRN 11/15/15 [History] atorvaSTATin Calcium [Lipitor] 20 mg PO BEDTIME 12/18/18 [History] Budesonide/Formoterol Fumarate [Symbicort 160-4.5 Mcg Inhaler] 2 puff INH BID 01/24/21 [History] Losartan [Cozaar] 25 mg PO DAILY 01/24/21 [History] hydroCHLOROthiazide [Hydrochlorothiazide] 25 mg PO DAILY 01/24/21 [History] Ascorbate Calcium [Vitamin C] 500 mg PO DAILY@139901/28/21 [History] Aspirin [Halfprin] 81 mg PO DAILY@139901/28/21 [History] Calcium Carb/Mag Ox/Zinc Sulf [Cqk-Idi-Upns 334-134-5 mg Tab] 1 tab PO DAILY@139901/28/21 [History] Cholecalciferol (Vitamin D3) [Vitamin D3] 1,000 unit PO DAILY@139901/28/21 [History] Cyanocobalamin (Vitamin B12) [Vitamin B12] 1,000 mcg PO DAILY@139901/28/21 [History] Docusate Sodium 250 mg PO DAILY PRN 01/28/21 [History] Magnesium Oxide/Mag AA Chelate [Magnesium] 300 mg PO DAILY@139901/28/21 [History] Multivit-Min/Iron/Folic/Lutein [Multivitamin Women 50 Plus Tab] 1 tab PO DAILY@139901/28/21 [History] Multivitamin with Minerals [Hair, Skin and Nails] 1 tab PO DAILY@139901/28/21 [History] Oxybutynin [Oxybutynin ER] 5 mg PO BEDTIME 01/28/21 [History] Valerian Root 500 mg PO DAILY PRN 01/28/21 [History] Vitamin E (Dl,Tocopheryl Acet) [Vitamin E] 180 mg PO DAILY@139901/28/21 [Histor y] Past Medical History HEENT History: Reports: Cataract, Impaired Vision, Other (See Below) Other HEENT History: Having some possible sinus problems recently, right side of head and face. Has chronic rhinitis. Cardiovascular History: Reports: High Cholesterol, Hypertension Respiratory History: Reports: COPD, Other (See Below) Other Respiratory History: Uses CPAP at night. States that she uses oxygen at night. Former smoker, quit year 2006. Genitourinary History: Reports: Other (See Below) Other Genitourinary History: Overactive bladder. 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 Left femur fracture and nailing at the left hip. Neurological History: Reports: TIA, Other (See Below) Other Neuro History: States she had an episode last summer with trouble speaking, nausea, and difficulty walking---this resolved in a short time. Confused at times-baseline. Psychiatric History: Reports: Other (See Below) Other Psychiatric History: Takes Trazodone. Endocrine/Metabolic History: Reports: Other (See Below) Other Endocrine/Metabolic History: States she is not a diabetic. Hematologic History: Reports: Anemia, Other (See Below) Other Hematologic History: Had acute anemia after hip surgery. Dermatologic History: Reports: None - Infectious Disease History Infectious Disease History: Reports: Other (See Below) Other Infectious Disease History: She is uncertain of her past diseases. - Past Surgical History HEENT Surgical History: Reports: Other (See Below) Other HEENT Surgeries/Procedures: Bilateral cataract. GI Surgical History: Reports: Colonoscopy Social & Family History - Family History Family Medical History: No Pertinent Family History - Tobacco Use Tobacco Use Status *Q: Unknown Ever Used Tobacco - Caffeine Use Caffeine Use: Reports: Coffee - Recreational Drug Use Recreational Drug Use: No H&P Review of Systems - Review of Systems: Review Of Systems: Comprehensive ROS is negative, except as noted in HPI. Exam - Exam Exam: See Below - Vital Signs Vital Signs: Last Vital Signs Temp 98.2 F 01/28/21 06:15 Pulse 74 01/28/21 06:15 Resp 16 01/28/21 06:15 BP 139/48 L 01/28/21 09:58 Pulse Ox 98 01/28/21 06:15 Weight: 112 lb 12.8 oz - Exam General: Alert, Oriented (person, place) HEENT: PERRLA, Conjunctiva Clear, EOMI, Mucosa Moist & [place], Normal Nasal Septum, TMs Clear, Other (bilateral mastoid: NT. No erythema.). No: Hearing Intact (CROW, no hearing aids present) Neck: Supple, Trachea Midline. No: Lymphadenopathy (anterior or posterior cervical) Lungs: Clear to Auscultation, Normal Respiratory Effort. No: Crackles, Wheezing Cardiovascular: Regular Rate, Regular Rhythm GI/Abdominal Exam: Normal Bowel Sounds, Soft, Non-Tender, No Distention (Female) Exam: Deferred Rectal (Female) Exam: Deferred Extremities: No Pedal Edema, Normal Capillary Refill Peripheral Pulses: 2+: Radial (L), Radial (R) Skin: Warm, Dry, Intact, Ecchymosis (right proximal ankle) Neurological: Cranial Nerves Intact, Normal Speech, Normal Tone Neuro Extensive - Mental Status: Disorientation to Time, Memory Loss-Recent Events - Patient Data Lab Results Last 24 hrs: Laboratory Results - last 24 hr 01/27/21 01/27/21 01/27/21 Range/Units 15:49 15:49 15:49 WBC 22.1 H (3.0-10.3) x10-3/uL RBC 3.97 (3.60-5.20) x10(6)uL Hgb 11.9 (11.4-15.5) g/dL Hct 36.8 (34.2-48.2) % MCV 92.7 (76.7-100.5) fL MCH 29.9 (23.9-33.9) pg MCHC 32.2 (31.9-34.8) g/dL RDW 15.0 (12.3-16.5) % Plt Count 233 (151-488) x10(3)uL MPV 7.5 (7.1-12.4) fL Add Manual Diff Yes Neutrophils % (Manual) 95 H (46-82) % Band Neutrophils % 2 (0-6) % Lymphocytes % (Manual) 1 L (13-37) % Monocytes % (Manual) 2 L (4-12) % PT 10.1 (9.0-11.1) sec INR 0.94 L (1.00-1.24) APTT 20.9 L (24.4-33.2) SECONDS Sodium 143 (135-145) mmol/L Potassium 3.8 (3.5-5.3) mmol/L Chloride 103 (100-110) mmol/L Carbon Dioxide 31 (21-32) mmol/L BUN 22 H (7-18) mg/dL Creatinine 1.2 H (0.55-1.02) mg/dL Est Cr Clr Drug Dosing TNP Estimated GFR (MDRD) 42 L (>60) BUN/Creatinine Ratio 18.3 (9-20) Glucose 119 H (80-116) mg/dL Lactic Acid (0.4-2.0) mmol/L Calcium 9.5 (8.6-10.2) mg/dL Total Bilirubin 0.9 (0.1-1.3) mg/dL AST 21 D (5-25) IU/L ALT 26 D (12-36) U/L Alkaline Phosphatase 71 (56-112) IU/L Troponin I (4.0-60.3) pg/mL C-Reactive Protein (0.5-0.9) mg/dL Total Protein 7.5 (6.0-8.0) g/dL Albumin 4.0 (3.2-4.6) g/dL Globulin 3.5 g/dL Albumin/Globulin Ratio 1.1 Urine Color (YELLOW) Urine Appearance (CLEAR) Urine pH (5.0-6.5) Ur Specific [place] (1.010-1.025) Urine Protein (NEGATIVE) mg/dL Urine Glucose (UA) (NORMAL) mg/dL Urine Ketones (NEGATIVE) mg/dL Urine Occult Blood (NEGATIVE) Urine Nitrite (NEGATIVE) Urine Bilirubin (NEGATIVE) Urine Urobilinogen (NEGATIVE) mg/dL Ur Leukocyte Esterase (NEGATIVE) Urine RBC (0-5) Urine WBC (0-5) Ur Squamous Epith Cells (NS,R,O) Urine Bacteria (NS) SARS-CoV-2 RNA (RODRIGO) (NEGATIVE) 01/27/21 01/27/21 01/27/21 Range/Units 15:49 15:49 16:15 WBC (3.0-10.3) x10-3/uL RBC (3.60-5.20) x10(6)uL Hgb (11.4-15.5) g/dL Hct (34.2-48.2) % MCV (76.7-100.5) fL MCH (23.9-33.9) pg MCHC (31.9-34.8) g/dL RDW (12.3-16.5) % Plt Count (151-488) x10(3)uL MPV (7.1-12.4) fL Add Manual Diff Neutrophils % (Manual) (46-82) % Band Neutrophils % (0-6) % Lymphocytes % (Manual) (13-37) % Monocytes % (Manual) (4-12) % PT (9.0-11.1) sec INR (1.00-1.24) APTT (24.4-33.2) SECONDS Sodium (135-145) mmol/L Potassium (3.5-5.3) mmol/L Chloride (100-110) mmol/L Carbon Dioxide (21-32) mmol/L BUN (7-18) mg/dL Creatinine (0.55-1.02) mg/dL Est Cr Clr Drug Dosing Estimated GFR (MDRD) (>60) BUN/Creatinine Ratio (9-20) Glucose (80-116) mg/dL Lactic Acid 0.9 (0.4-2.0) mmol/L Calcium (8.6-10.2) mg/dL Total Bilirubin (0.1-1.3) mg/dL AST (5-25) IU/L ALT (12-36) U/L Alkaline Phosphatase (56-112) IU/L Troponin I 17.6 (4.0-60.3) pg/mL C-Reactive Protein (0.5-0.9) mg/dL Total Protein (6.0-8.0) g/dL Albumin (3.2-4.6) g/dL Globulin g/dL Albumin/Globulin Ratio Urine Color (YELLOW) Urine Appearance (CLEAR) Urine pH (5.0-6.5) Ur Specific [place] (1.010-1.025) Urine Protein (NEGATIVE) mg/dL Urine Glucose (UA) (NORMAL) mg/dL Urine Ketones (NEGATIVE) mg/dL Urine Occult Blood (NEGATIVE) Urine Nitrite (NEGATIVE) Urine Bilirubin (NEGATIVE) Urine Urobilinogen (NEGATIVE) mg/dL Ur Leukocyte Esterase (NEGATIVE) Urine RBC (0-5) Urine WBC (0-5) Ur Squamous Epith Cells (NS,R,O) Urine Bacteria (NS) SARS-CoV-2 RNA (RODRIGO) Negative (NEGATIVE) 01/27/21 01/28/21 01/28/21 Range/Units 16:25 06:20 06:20 WBC 14.7 H (3.0-10.3) x10-3/uL RBC 3.40 L (3.60-5.20) x10(6)uL Hgb 10.3 L (11.4-15.5) g/dL Hct 31.7 L (34.2-48.2) % MCV 93.1 (76.7-100.5) fL MCH 30.4 (23.9-33.9) pg MCHC 32.6 (31.9-34.8) g/dL RDW 15.4 (12.3-16.5) % Plt Count 194 (151-488) x10(3)uL MPV 7.5 (7.1-12.4) fL Add Manual Diff Yes Neutrophils % (Manual) 91 H (46-82) % Band Neutrophils % (0-6) % Lymphocytes % (Manual) 5 L (13-37) % Monocytes % (Manual) 4 (4-12) % PT (9.0-11.1) sec INR (1.00-1.24) APTT (24.4-33.2) SECONDS Sodium 143 (135-145) mmol/L Potassium 3.8 (3.5-5.3) mmol/L Chloride 105 (100-110) mmol/L Carbon Dioxide 32 (21-32) mmol/L BUN 19 H (7-18) mg/dL Creatinine 1.1 H (0.55-1.02) mg/dL Est Cr Clr Drug Dosing 29.10 Estimated GFR (MDRD) 47 L (>60) BUN/Creatinine Ratio 17.3 (9-20) Glucose 82 (80-116) mg/dL Lactic Acid (0.4-2.0) mmol/L Calcium 9.0 (8.6-10.2) mg/dL Total Bilirubin (0.1-1.3) mg/dL AST (5-25) IU/L ALT (12-36) U/L Alkaline Phosphatase (56-112) IU/L Troponin I (4.0-60.3) pg/mL C-Reactive Protein (0.5-0.9) mg/dL Total Protein (6.0-8.0) g/dL Albumin (3.2-4.6) g/dL Globulin g/dL Albumin/Globulin Ratio Urine Color Yellow (YELLOW) Urine Appearance Clear (CLEAR) Urine pH 7.0 H (5.0-6.5) Ur Specific [place] 1.005 L (1.010-1.025) Urine Protein 30 H (NEGATIVE) mg/dL Urine Glucose (UA) Normal (NORMAL) mg/dL Urine Ketones 15 H (NEGATIVE) mg/dL Urine Occult Blood Negative (NEGATIVE) Urine Nitrite Negative (NEGATIVE) Urine Bilirubin Negative (NEGATIVE) Urine Urobilinogen Normal (NEGATIVE) mg/dL Ur Leukocyte Esterase Negative (NEGATIVE) Urine RBC 0-5 (0-5) Urine WBC 0-5 (0-5) Ur Squamous Epith Cells Few H (NS,R,O) Urine Bacteria Few H (NS) SARS-CoV-2 RNA (RODRIGO) (NEGATIVE) 01/28/21 Range/Units 06:20 WBC (3.0-10.3) x10-3/uL RBC (3.60-5.20) x10(6)uL Hgb (11.4-15.5) g/dL Hct (34.2-48.2) % MCV (76.7-100.5) fL MCH (23.9-33.9) pg MCHC (31.9-34.8) g/dL RDW (12.3-16.5) % Plt Count (151-488) x10(3)uL MPV (7.1-12.4) fL Add Manual Diff Neutrophils % (Manual) (46-82) % Band Neutrophils % (0-6) % Lymphocytes % (Manual) (13-37) % Monocytes % (Manual) (4-12) % PT (9.0-11.1) sec INR (1.00-1.24) APTT (24.4-33.2) SECONDS Sodium (135-145) mmol/L Potassium (3.5-5.3) mmol/L Chloride (100-110) mmol/L Carbon Dioxide (21-32) mmol/L BUN (7-18) mg/dL Creatinine (0.55-1.02) mg/dL Est Cr Clr Drug Dosing Estimated GFR (MDRD) (>60) BUN/Creatinine Ratio (9-20) Glucose (80-116) mg/dL Lactic Acid (0.4-2.0) mmol/L Calcium (8.6-10.2) mg/dL Total Bilirubin (0.1-1.3) mg/dL AST (5-25) IU/L ALT (12-36) U/L Alkaline Phosphatase (56-112) IU/L Troponin I (4.0-60.3) pg/mL C-Reactive Protein 8.4 H* (0.5-0.9) mg/dL Total Protein (6.0-8.0) g/dL Albumin (3.2-4.6) g/dL Globulin g/dL Albumin/Globulin Ratio Urine Color (YELLOW) Urine Appearance (CLEAR) Urine pH (5.0-6.5) Ur Specific [place] (1.010-1.025) Urine Protein (NEGATIVE) mg/dL Urine Glucose (UA) (NORMAL) mg/dL Urine Ketones (NEGATIVE) mg/dL Urine Occult Blood (NEGATIVE) Urine Nitrite (NEGATIVE) Urine Bilirubin (NEGATIVE) Urine Urobilinogen (NEGATIVE) mg/dL Ur Leukocyte Esterase (NEGATIVE) Urine RBC (0-5) Urine WBC (0-5) Ur Squamous Epith Cells (NS,R,O) Urine Bacteria (NS) SARS-CoV-2 RNA (RODRIGO) (NEGATIVE) Result Diagrams: 01/28/21 06:20 01/28/21 06:20 Amarjit Results Last 24 hrs: Microbiology 01/27/21 16:15 Influenza Type A Antigen Screen - Final Nasopharyngeal Swab NEGATIVE INFLUENZA A VIRUS AG REFERENCE RANGE: NEGATIVE Influenza Type B Antigen Screen - Final NEGATIVE INFLUENZA B VIRUS AG REFERENCE RANGE: NEGATIVE Imaging Impressions Last 24 hrs: see reports in chart, also refer to Dr Garcia's ER note. Sepsis Event Note - Evaluation Sepsis Screening Result: No Definite Risk - Focused Exam Vital Signs: Vital Signs Temp Pulse Resp BP BP Pulse Ox 01/28/21 09:58 139/48 L 01/28/21 06:15 98.2 F 74 16 132/51 L 98 01/28/21 00:00 98.6 F 82 16 132/57 L 100 01/27/21 22:50 98.9 F *Q Meaningful Use (ADM) - VTE *Q VTE Mechanical Contraindications *Q: At Risk for Falls - VTE Risk Assess *Q Each Risk Factor Represents 1 Point: Abnormal Pulmonary Function (COPD) Total Score 1 Point Risk Factors: 1 Each Risk Factor Represents 2 Points: None Total Score 2 Point Risk Factors: 0 Each Risk Factor Represents 3 Points: Age 75 Years or Greater Total Score 3 Point Risk Factors: 3 Each Risk Factor Represents 5 Points: None Total Score 5 Point Risk Factors: 0 Venous Thromboembolism Risk Factor Score *Q: 4 - Problem List (1) Weakness generalized SNOMED Code(s): 55370315 ICD Code: R53.1 - WEAKNESS Status: Acute Current Visit: Yes (2) Altered mental status SNOMED Code(s): 231907438 ICD Code: R41.82 - ALTERED MENTAL STATUS, UNSPECIFIED Status: Acute Current Visit: Yes Qualifiers: Altered mental status type: delirium Qualified Code(s): R41.0 - Disorientation, unspecified (3) Leukocytosis SNOMED Code(s): 491464310, 679616057 ICD Code: D72.829 - ELEVATED WHITE BLOOD CELL COUNT, UNSPECIFIED Status: Acute Current Visit: Yes Qualifiers: Leukocytosis type: other Qualified Code(s): D72.828 - Other elevated white blood cell count (4) Mastoiditis of left side SNOMED Code(s): 9242296830674799 ICD Code: H70.92 - UNSPECIFIED MASTOIDITIS, LEFT EAR Status: Acute Current Visit: Yes (5) Dehydration SNOMED Code(s): 59477659 ICD Code: E86.0 - DEHYDRATION Status: Acute Current Visit: No (6) Constipation SNOMED Code(s): 15527063 ICD Code: K59.00 - CONSTIPATION, UNSPECIFIED Status: Chronic Current Visit: No Qualifiers: Constipation type: unspecified constipation type Qualified Code(s): K59.00 - Constipation, unspecified (7) HLD (hyperlipidemia) SNOMED Code(s): 79920468 ICD Code: E78.5 - HYPERLIPIDEMIA, UNSPECIFIED Status: Chronic Current Visit: No Qualifiers: Hyperlipidemia type: unspecified Qualified Code(s): E78.5 - Hyperlipidemia, unspecified (8) Anemia SNOMED Code(s): 768155012 ICD Code: D64.9 - ANEMIA, UNSPECIFIED Status: Chronic Current Visit: No (9) COPD (chronic obstructive pulmonary disease) SNOMED Code(s): 77142112 ICD Code: J44.9 - CHRONIC OBSTRUCTIVE PULMONARY DISEASE, UNSPECIFIED Status: Chronic Current Visit: No (10) HTN (hypertension) SNOMED Code(s): 08382893 ICD Code: I10 - ESSENTIAL (PRIMARY) HYPERTENSION Status: Chronic Current Visit: No Qualifiers: Hypertension type: essential hypertension Qualified Code(s): I10 - Essential (primary) hypertension (11) Insomnia SNOMED Code(s): 224449091 ICD Code: G47.00 - INSOMNIA, UNSPECIFIED Status: Chronic Current Visit: No Qualifiers: Insomnia type: primary Qualified Code(s): F51.01 - Primary insomnia (12) Wears hearing aid Status: Chronic Current Visit: Yes (13) 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 SNOMED Code(s): 878561532 ICD Code: Z98.890 - OTHER SPECIFIED POSTPROCEDURAL STATES Status: Chronic Current Visit: Yes (14) History of hip fracture SNOMED Code(s): 602867527 ICD Code: Z87.81 - PERSONAL HISTORY OF (HEALED) TRAUMATIC FRACTURE Status: Chronic Current Visit: Yes (15) Osteoarthritis SNOMED Code(s): 309421177 ICD Code: M19.90 - UNSPECIFIED OSTEOARTHRITIS, UNSPECIFIED SITE Status: C hronic Current Visit: Yes Problem List Initiated/Reviewed/Updated: Yes Orders Last 24hrs: Active Orders 24 hr Category Date Time Status Admission Status [Patient Status] [ADT] Routine ADT 01/27/21 18:29 Active Ambulate [RC] .PRN Care 01/27/21 19:06 Active Height and Weight [RC] 06 Care 01/27/21 19:06 Active Intake and Output [RC] 06,14,22 Care 01/27/21 19:09 Active Notify Provider Vital Signs [RC] 00,08,16 Care 01/27/21 19:09 Active Oxygen Therapy [RC] .HS Care 01/27/21 19:06 Active Pulse Oximetry [RC] .PRN Care 01/27/21 19:09 Active Vital Signs [RC] 00,08,16 Care 01/27/21 19:06 Active OT Evaluation and Treatment [CONS] Routine Cons 01/28/21 09:25 Active PT Evaluation and Treatment [CONS] Routine Cons 01/28/21 09:25 Active Regular Diet [DIET] Diet 01/28/21 Breakfast Active CXR [Chest 1V Frontal] [CR] Stat Exams 01/27/21 15:41 Taken Chest Abdomen Pelvis w Cont [CT] Stat Exams 01/27/21 16:49 Taken Head wo Cont [CT] Stat Exams 01/27/21 15:41 Taken BASIC METABOLIC PANEL,BMP [CHEM] Routine Lab 01/29/21 06:00 Ordered CBC WITH AUTO DIFF [HEME] Routine Lab 01/29/21 06:00 Ordered CULTURE BLOOD [BC] Urgent Lab 01/27/21 12:55 Received CULTURE BLOOD [BC] Urgent Lab 01/27/21 15:55 Received Acetaminophen [Tylenol Extra Strength] Med 01/28/21 09:29 Active 500 mg PO Q6H PRN Ascorbic Acid [Vitamin C] Med 01/28/21 14:00 Active 500 mg PO DAILY@1400 Aspirin [Halfprin] Med 01/28/21 14:00 Active 81 mg PO DAILY@1400 Docusate Sodium [Dok] Med 01/28/21 08:28 Active 250 mg PO DAILY PRN Ibuprofen [Motrin] Med 01/28/21 09:29 Active 200 mg PO Q6H PRN Levofloxacin/Dextrose 5%-Water [Levaquin in D5W 750 MG/ Med 01/27/21 20:00 Active 150 ML] 750 mg Premix Bag 1 bag IV Q48H Losartan [Cozaar] Med 01/28/21 09:00 Active 25 mg PO DAILY Magnesium Oxide Med 01/28/21 14:00 Active 400 mg PO DAILY@1400 Mometasone/Formoterol [Dulera 200-5 MCG] Med 01/28/21 07:49 Active 2 puff IH BID Oxybutynin [Oxybutynin ER] Med 01/28/21 21:00 Active 5 mg PO BEDTIME Sodium Chloride 0.9% [Normal Saline] 1,000 ml Med 01/28/21 09:45 Active IV ASDIRECTED Sodium Chloride 0.9% [Saline Flush] Med 01/27/21 15:46 Active 10 ml FLUSH ASDIRECTED PRN atorvaSTATin [Lipitor] Med 01/27/21 21:00 Active 20 mg PO BEDTIME hydroCHLOROthiazide Med 01/28/21 09:00 Active 25 mg PO DAILY Antiembolic Hose [OM.PC] Per Unit Routine Oth 01/27/21 19:11 Ordered Blood Culture x2 Reflex Set [OM.PC] Urgent Oth 01/27/21 15:40 Ordered Isolation [COMM] Routine Oth 01/27/21 15:44 Ordered Saline Lock Insert [OM.PC] Routine Oth 01/27/21 15:46 Ordered Resuscitation Status Routine Resus Stat 01/27/21 19:06 Ordered EKG 12 Lead [EK] Stat Ther 01/27/21 15:40 Ordered Medication Orders Acetaminophen (Acetaminophen 500 Mg Tab) 500 mg PO Q6H PRN PRN Reason: Pain Ascorbic Acid (Ascorbic Acid 500 Mg Tab) 500 mg PO DAILY@1400 [facility] Aspirin (Aspirin 81 Mg Tab.Ec) 81 mg PO DAILY@1400 [facility] Atorvastatin Calcium (Atorvastatin 20 Mg Tab) 20 mg PO BEDTIME [facility] Last Admin: 01/27/21 22:19 Dose: 20 mg Documented by: JACQUELINE Docusate Sodium (Docusate Sodium 250 Mg Cap) 250 mg PO DAILY PRN PRN Reason: Constipation Hydrochlorothiazide (Hydrochlorothiazide 25 Mg Tab) 25 mg PO DAILY [facility] Last Admin: 01/28/21 09:58 Dose: 25 mg Documented by: HOMER Levofloxacin/Dextrose 750 mg/ (Premix) 150 mls @ 100 mls/hr IV Q48H [facility] Last Admin: 01/27/21 20:26 Dose: 100 mls/hr Documented by: JACQUELINE Sodium Chloride (Normal Saline) 1,000 mls @ 75 mls/hr IV ASDIRECTED [facility] Last Admin: 01/28/21 10:00 Dose: 75 mls/hr Documented by: HOMER Ibuprofen (Ibuprofen 200 Mg Tab) 200 mg PO Q6H PRN PRN Reason: Pain Losartan Potassium (Losartan 25 Mg Tab) 25 mg PO DAILY [facility] Last Admin: 01/28/21 09:58 Dose: 25 mg Documented by: HOMER Magnesium Oxide (Magnesium Oxide 400 Mg Tab) 400 mg PO DAILY@1400 [facility] Mometasone Furoate/Formoterol Fumar (Formoterol/Mometasone 200-5 Mcg 8.8 Gm Inhaler) 2 puff IH BID [facility] Last Admin: 01/28/21 09:59 Dose: 2 puff Documented by: HOMER Oxybutynin Chloride (Oxybutynin 5 Mg Tab.Er) 5 mg PO BEDTIME [facility] Sodium Chloride (Sodium Chloride 0.9% 10 Ml Syringe) 10 ml FLUSH ASDIRECTED PRN PRN Reason: Keep Vein Open Last Admin: 01/27/21 22:00 Dose: 10 ml Documented by: JACQUELINE Assessment/Plan Comment:: 1. Admit as inpatient for Leukocytosis, Left mastoiditis on CT, dehydration, weakness. 2. Leukocytosis/Left mastoiditis/altered mental status: mastoiditis on CT. Levofloxacin 750 mg q48h, would need 4 doses to complete 8 day course. CRP 8.4 which was normal on 01/24. WBC down to 14.7 today. Repeat CBC tomorrow. UA negative for infection, suggestive of dehydration. BC pending. 3. Dehydration: NS at 75 ml/hr, repeat BMP. Cr 1.1. 4. Osteoarthritis/s/p left hip fracture with ORIF: Tylenol & Ibuprofen 500 mg/200 mg q6h as needed. 5. HTN: Well controlled. Losartan/HCTZ continue home dose. 6. Weakness: PT/OT evaluate & treat. 7. Diet: Regular, room service with assistance as she is picky eater per family. 8. Activity: up to chair & with assistance. 9. DVT prophylaxis: TEDs BLE. 10. CODE STATUS: FULL. 11. Discharge planning: anticipate discharge Weds if continue to improve with IV fluids & antibiotics. - Mortality Measure Prognosis:: Poor
--- NOTE | 2021-01-28 11:23 | CR ---
INDICATION: Loss of consciousness. CHEST ONE VIEW: An AP upright portable view of the chest was obtained 01/27/[address] scan of the chest from 09/25/16. The heart appeared normal in size. The aorta is tortuous with calcification in the arch and descending portion. There is question of a mild dextroconcave scoliosis of the thoracic spine but this is accentuated by rotation to the right. Areas of heavy markings are noted in the right upper middle lung field and lower middle lung field which could represent minimal areas of patchy bronchopneumonia and/or fibrosis and should be correlated clinically. However, no gross consolidating pneumonia or definite effusion was seen. Hyperaeration and flattening of diaphragm leaves suggest COPD. IMPRESSION: 1. Difficult to exclude patchy bronchopneumonia areas in the upper middle and lower middle right lung field - correlate clinically as could be fibrotic in nature. 2. Probable COPD. 3. ASD aorta. MTDD
[2021-01-28] MEDS: Ascorbic Acid 500 MG Tab PO SCH (14:29)
[2021-01-28] MEDS: Aspirin 81 MG Tab.EC PO SCH (14:29)
[2021-01-28] MEDS: Magnesium Oxide 400 MG Tab PO SCH (14:29)
[2021-01-28] MEDS: atorvaSTATin 20 MG Tab PO SCH (20:37)
[2021-01-28] MEDS: Oxybutynin 5 MG Tab.ER PO SCH (20:37)
[2021-01-29] MEDS: LORazepam 0.5 MG Tab PO PRN ×2 (00:25→20:07)
[2021-01-29] MEDS ORDERED: traZODone 100 MG Tab PO PRN (07:58)
--- NOTE | 2021-01-29 09:04 | PCM.PN ---
- General Info Date of Service: 01/29/21 Subjective Update: Her left hip pain is controlled with Tylenol & Ibuprofen. She had some hallucinations yesterday evening and had trouble sleeping, received Ativan 0.25 mg which helped. She takes Trazodone at bedtime as needed at home, she usually takes every night if she is not asleep by midnight but states there are a few nights she doesn't have to take it. No pain behind left ear. No fevers or chills. OT assessed her yesterday and felt she would benefit from swing bed stay for strengthening and ADLs since she lives alone in an apartment. Her blood pressure spiked last night to 217/91, but down this morning 148/70. She was in ER on last week for blood pressures in 190s-200s but felt was white coat hypertension as it was right after she was seen by physician. - Patient Data Vitals - Most Recent: Last Vital Signs Temp 97.3 F 01/29/21 04:54 Pulse 60 01/29/21 04:54 Resp 16 01/29/21 04:54 BP 148/70 H 01/29/21 04:54 Pulse Ox 100 01/29/21 04:54 Weight - Most Recent: 114 lb I&O - Last 24 Hours: Intake & Output 01/28/21 01/29/21 01/29/21 22:59 06:59 14:59 Intake Total 630 903 Output Total 500 600 Balance 130 303 Lab Results Last 24 Hours: Laboratory Results - last 24 hr 01/28/21 01/29/21 01/29/21 Range/Units 06:20 06:15 06:15 WBC 10.6 H (3.0-10.3) x10-3/uL RBC 3.25 L (3.60-5.20) x10(6)uL Hgb 9.9 L (11.4-15.5) g/dL Hct 30.2 L (34.2-48.2) % MCV 92.9 (76.7-100.5) fL MCH 30.5 (23.9-33.9) pg MCHC 32.9 (31.9-34.8) g/dL RDW 15.3 (12.3-16.5) % Plt Count 184 (151-488) x10(3)uL MPV 7.6 (7.1-12.4) fL Neut % (Auto) 79.3 H (30.8-76.2) % Lymph % (Auto) 10.1 L (18.4-52.1) % [place] % (Auto) 8.3 (4.4-15.7) % Eos % (Auto) 1.7 (0.6-8.1) % Baso % (Auto) 0.6 (0.2-1.5) % Neut # (Auto) 8.4 H (1.5-6.3) x10-3/uL Lymph # (Auto) 1.1 (1.0-4.4) x10-3/uL [place] # (Auto) 0.9 (0.3-1.0) x10-3/uL Eos # (Auto) 0.2 (0.0-0.8) x10-3/uL Baso # (Auto) 0.1 (0.0-0.1) x10-3/uL Sodium 145 (135-145) mmol/L Potassium 3.8 (3.5-5.3) mmol/L Chloride 108 (100-110) mmol/L Carbon Dioxide 30 (21-32) mmol/L BUN 17 (7-18) mg/dL Creatinine 0.9 (0.55-1.02) mg/dL Est Cr Clr Drug Dosing 35.95 mL/min Estimated GFR (MDRD) 59 L (>60) BUN/Creatinine Ratio 18.9 (9-20) Glucose 85 (80-116) mg/dL Calcium 8.6 (8.6-10.2) mg/dL C-Reactive Protein 8.4 H* (0.5-0.9) mg/dL Amarjit Results Last 24 Hours: Microbiology 01/27/21 15:55 Aerobic Blood Culture - Preliminary Blood - Venous NO GROWTH AFTER 1 DAY Anaerobic Blood Culture - Preliminary NO GROWTH AFTER 1 DAY 01/27/21 12:55 Aerobic Blood Culture - Preliminary Blood - Venous - Lab Draw NO GROWTH AFTER 1 DAY Anaerobic Blood Culture - Preliminary NO GROWTH AFTER 1 DAY Med Orders - Current: Current Medications Acetaminophen (Acetaminophen 500 Mg Tab) 500 mg PO Q6H PRN PRN Reason: Pain Last Admin: 01/28/21 16:33 Dose: 500 mg Documented by: Ascorbic Acid (Ascorbic Acid 500 Mg Tab) 500 mg PO DAILY@1400 [facility] Last Admin: 01/28/21 14:29 Dose: 500 mg Documented by: Aspirin (Aspirin 81 Mg Tab.Ec) 81 mg PO DAILY@1400 [facility] Last Admin: 01/28/21 14:29 Dose: 81 mg Documented by: Atorvastatin Calcium (Atorvastatin 20 Mg Tab) 20 mg PO BEDTIME [facility] Last Admin: 01/28/21 20:37 Dose: 20 mg Documented by: Docusate Sodium (Docusate Sodium 250 Mg Cap) 250 mg PO DAILY PRN PRN Reason: Constipation Hydrochlorothiazide (Hydrochlorothiazide 25 Mg Tab) 25 mg PO DAILY [facility] Last Admin: 01/28/21 09:58 Dose: 25 mg Documented by: Levofloxacin/Dextrose 750 mg/ (Premix) 150 mls @ 100 mls/hr IV Q48H [facility] Last Admin: 01/27/21 20:26 Dose: 100 mls/hr Documented by: Ibuprofen (Ibuprofen 200 Mg Tab) 200 mg PO Q6H PRN PRN Reason: Pain Last Admin: 01/28/21 16:33 Dose: 200 mg Documented by: Lorazepam (Lorazepam 0.5 Mg Tab) 0.25 mg PO Q8H PRN PRN Reason: Agitation Last Admin: 01/29/21 00:25 Dose: 0.25 mg Documented by: Losartan Potassium (Losartan 50 Mg Tab) 50 mg PO DAILY [facility] Magnesium Oxide (Magnesium Oxide 400 Mg Tab) 400 mg PO DAILY@1400 [facility] Last Admin: 01/28/21 14:29 Dose: 400 mg Documented by: Mometasone Furoate/Formoterol Fumar (Formoterol/Mometasone 200-5 Mcg 8.8 Gm Inhaler) 2 puff IH BID [facility] Last Admin: 01/28/21 20:37 Dose: 2 puff Documented by: Oxybutynin Chloride (Oxybutynin 5 Mg Tab.Er) 5 mg PO BEDTIME [facility] Last Admin: 01/28/21 20:37 Dose: 5 mg Documented by: Sodium Chloride (Sodium Chloride 0.9% 10 Ml Syringe) 10 ml FLUSH ASDIRECTED PRN PRN Reason: Keep Vein Open Last Admin: 01/27/21 22:00 Dose: 10 ml Documented by: Trazodone HCl (Trazodone 100 Mg Tab) 100 mg PO BEDTIME PRN PRN Reason: Sleep Discontinued Medications Acetaminophen (Acetaminophen 325 Mg Tab) 650 mg PO NOW ONE Stop: 01/27/21 16:29 Last Admin: 01/27/21 16:48 Dose: 650 mg Documented by: Sodium Chloride (Normal Saline) 500 mls @ 500 mls/hr IV .BOLUS ONE Stop: 01/27/21 16:45 Last Admin: 01/27/21 16:12 Dose: 500 mls/hr Documented by: Levofloxacin/Dextrose (Levaquin In D5w 750 Mg/150 Ml) Confirm Administered Dose 150 mls @ as directed IV .STK-MED ONE Stop: 01/27/21 20:26 Last Admin: 01/27/21 20:36 Dose: Not Given Documented by: Sodium Chloride (Normal Saline) 1,000 mls @ 75 mls/hr IV ASDIRECTED [facility] Last Admin: 01/28/21 22:52 Dose: 75 mls/hr Documented by: Iopamidol (Iopamidol 755 Mg/Ml 75 Ml Bottle) 75 ml IV ASDIRECTED ONE Stop: 01/27/21 16:56 Last Admin: 01/27/21 16:55 Dose: 75 ml Documented by: Losartan Potassium (Losartan 25 Mg Tab) 25 mg PO DAILY [facility] Last Admin: 01/28/21 09:58 Dose: 25 mg Documented by: Mometasone Furoate/Formoterol Fumar (Formoterol/Mometasone 200-5 Mcg 8.8 Gm Inhaler) 2 puff IH BID [facility] Last Admin: 01/27/21 22:19 Dose: 2 puff Documented by: Oxybutynin Chloride (Oxybutynin 5 Mg Tab) 5 mg PO BEDTIME [facility] Last Admin: 01/27/21 22:20 Dose: 5 mg Documented by: Trazodone HCl (Trazodone 100 Mg Tab) 100 mg PO BEDTIME ONE Stop: 01/28/21 00:04 Last Admin: 01/28/21 00:30 Dose: 100 mg Documented by: - Exam Quality Assessment: No: Supplemental Oxygen General: Alert, Oriented, Cooperative, No Acute Distress Lungs: Clear to Auscultation, Normal Respiratory Effort Cardiovascular: Regular Rate, Regular Rhythm GI/Abdominal Exam: Normal Bowel Sounds, Soft, Non-Tender, No Distention Extremities: No Pedal Edema Peripheral Pulses: 2+: Radial (L), Radial (R) - Patient Data Lab Results Last 24 hrs: Laboratory Results - last 24 hr 01/28/21 01/29/21 01/29/21 Range/Units 06:20 06:15 06:15 WBC 10.6 H (3.0-10.3) x10-3/uL RBC 3.25 L (3.60-5.20) x10(6)uL Hgb 9.9 L (11.4-15.5) g/dL Hct 30.2 L (34.2-48.2) % MCV 92.9 (76.7-100.5) fL MCH 30.5 (23.9-33.9) pg MCHC 32.9 (31.9-34.8) g/dL RDW 15.3 (12.3-16.5) % Plt Count 184 (151-488) x10(3)uL MPV 7.6 (7.1-12.4) fL Neut % (Auto) 79.3 H (30.8-76.2) % Lymph % (Auto) 10.1 L (18.4-52.1) % [place] % (Auto) 8.3 (4.4-15.7) % Eos % (Auto) 1.7 (0.6-8.1) % Baso % (Auto) 0.6 (0.2-1.5) % Neut # (Auto) 8.4 H (1.5-6.3) x10-3/uL Lymph # (Auto) 1.1 (1.0-4.4) x10-3/uL [place] # (Auto) 0.9 (0.3-1.0) x10-3/uL Eos # (Auto) 0.2 (0.0-0.8) x10-3/uL Baso # (Auto) 0.1 (0.0-0.1) x10-3/uL Sodium 145 (135-145) mmol/L Potassium 3.8 (3.5-5.3) mmol/L Chloride 108 (100-110) mmol/L Carbon Dioxide 30 (21-32) mmol/L BUN 17 (7-18) mg/dL Creatinine 0.9 (0.55-1.02) mg/dL Est Cr Clr Drug Dosing 35.95 mL/min Estimated GFR (MDRD) 59 L (>60) BUN/Creatinine Ratio 18.9 (9-20) Glucose 85 (80-116) mg/dL Calcium 8.6 (8.6-10.2) mg/dL C-Reactive Protein 8.4 H* (0.5-0.9) mg/dL Result Diagrams: 01/29/21 06:15 01/29/21 06:15 Amarjit Results Last 24 hrs: Microbiology 01/27/21 15:55 Aerobic Blood Culture - Preliminary Blood - Venous NO GROWTH AFTER 1 DAY Anaerobic Blood Culture - Preliminary NO GROWTH AFTER 1 DAY 01/27/21 12:55 Aerobic Blood Culture - Preliminary Blood - Venous - Lab Draw NO GROWTH AFTER 1 DAY Anaerobic Blood Culture - Preliminary NO GROWTH AFTER 1 DAY Sepsis Event Note - Evaluation Sepsis Screening Result: Possible Sepsis Risk - Focused Exam Vital Signs: Vital Signs Temp Temp Pulse Resp BP Pulse Ox 01/29/21 04:54 97.3 F 60 16 148/70 H 100 01/29/21 00:22 98.7 F 80 16 178/69 H 99 - Problem List & Annotations (1) Weakness generalized SNOMED Code(s): 41074774 Code(s): R53.1 - WEAKNESS Status: Acute Current Visit: Yes (2) Mastoiditis of left side SNOMED Code(s): 7684610147571524 Code(s): H70.92 - UNSPECIFIED MASTOIDITIS, LEFT EAR Status: Acute Current Visit: Yes (3) HTN (hypertension) SNOMED Code(s): 29226569 Code(s): I10 - ESSENTIAL (PRIMARY) HYPERTENSION Status: Chronic Current Visit: No Qualifiers: Hypertension type: essential hypertension Qualified Code(s): I10 - Essential (primary) hypertension Annotation/Comment:: Labile (4) Constipation SNOMED Code(s): 75718445 Code(s): K59.00 - CONSTIPATION, UNSPECIFIED Status: Chronic Current Visit: No Qualifiers: Constipation type: unspecified constipation type Qualified Code(s): K59.00 - Constipation, unspecified (5) HLD (hyperlipidemia) SNOMED Code(s): 49990759 Code(s): E78.5 - HYPERLIPIDEMIA, UNSPECIFIED Status: Chronic Current Visit: No Qualifiers: Hyperlipidemia type: unspecified Qualified Code(s): E78.5 - Hyperlipidemia, unspecified (6) Anemia SNOMED Code(s): 857745442 Code(s): D64.9 - ANEMIA, UNSPECIFIED Status: Chronic Current Visit: No (7) COPD (chronic obstructive pulmonary disease) SNOMED Code(s): 65958078 Code(s): J44.9 - CHRONIC OBSTRUCTIVE PULMONARY DISEASE, UNSPECIFIED Status: Chronic Current Visit: No Annotation/Comment:: Keep O2 between 88-92% (8) Insomnia SNOMED Code(s): 179763318 Code(s): G47.00 - INSOMNIA, UNSPECIFIED Status: Chronic Current Visit: No Qualifiers: Insomnia type: primary Qualified Code(s): F51.01 - Primary insomnia (9) Wears hearing aid Status: Chronic Current Visit: Yes (10) 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 SNOMED Code(s): 936495153 Code(s): Z98.890 - OTHER SPECIFIED POSTPROCEDURAL STATES Status: Chronic Current Visit: Yes (11) History of hip fracture SNOMED Code(s): 224025390 Code(s): Z87.81 - PERSONAL HISTORY OF (HEALED) TRAUMATIC FRACTURE Status: Chronic Current Visit: Yes (12) Osteoarthritis SNOMED Code(s): 773948741 Code(s): M19.90 - UNSPECIFIED OSTEOARTHRITIS, UNSPECIFIED SITE Status: Chronic Current Visit: Yes (13) Leukocytosis SNOMED Code(s): 545213938, 102681998 Code(s): D72.829 - ELEVATED WHITE BLOOD CELL COUNT, UNSPECIFIED Status: Resolved Current Visit: Yes Qualifiers: Leukocytosis type: other Qualified Code(s): D72.828 - Other elevated white blood cell count (14) Dehydration SNOMED Code(s): 19306849 Code(s): E86.0 - DEHYDRATION Status: Resolved Current Visit: No (15) Altered mental status SNOMED Code(s): 232397846 Code(s): R41.82 - ALTERED MENTAL STATUS, UNSPECIFIED Status: Resolved Current Visit: Yes Qualifiers: Altered mental status type: delirium Qualified Code(s): R41.0 - Disorientation, unspecified - Problem List Review Problem List Initiated/Reviewed/Updated: Yes - My Orders Last 24 Hours: My Active Orders 01/28/21 08:28 Docusate Sodium [Dok] 250 mg PO DAILY PRN 01/28/21 09:25 OT Evaluation and Treatment [CONS] Routine PT Evaluation and Treatment [CONS] Routine 01/28/21 09:29 Acetaminophen [Tylenol Extra Strength] 500 mg PO Q6H PRN Ibuprofen [Motrin] 200 mg PO Q6H PRN 01/28/21 14:00 Ascorbic Acid [Vitamin C] 500 mg PO DAILY@1400 Aspirin [Halfprin] 81 mg PO DAILY@1400 01/28/21 17:31 LORazepam [Ativan] 0.25 mg PO Q8H PRN 01/28/21 21:00 Oxybutynin [Oxybutynin ER] 5 mg PO BEDTIME 01/29/21 07:58 traZODone 100 mg PO BEDTIME PRN 01/29/21 08:05 Convert IV to Peripheral Lock [Convert IV to Saline Lock] [OM.PC] Routine 01/29/21 09:00 Losartan [Cozaar] 50 mg PO DAILY - Plan Plan:: 1. Left mastoiditis: mastoiditis on CT. Levofloxacin 750 mg q48h, 2nd dose today. WBC down to 10.6 today. BC pending. CBC & CRP repeat tomorrow. 2. Dehydration: Resolved. Cr 0.9. 3. Osteoarthritis/s/p left hip fracture with ORIF: Tylenol & Ibuprofen 500 mg/200 mg q6h as needed. 4. HTN: Labile. Increase Losartan to 50 mg daily. Continue to monitor and adjust as needed. 5. Weakness: PT/OT. 6. Discharge planning: Therapy has recommended swing bed placement for further strengthening & ADLs. Discharge to home.
[2021-01-29] MEDS: Formoterol/Mometasone 200-5 MCG 8.8 GM Inhaler IH SCH ×2 (09:35→20:06)
[2021-01-29] MEDS: Losartan 50 MG Tab PO SCH (09:35)
[2021-01-29] MEDS: Hydrochlorothiazide 25 MG Tab PO SCH (09:35)
[2021-01-29] MEDS: Aspirin 81 MG Tab.EC PO SCH (13:47)
[2021-01-29] MEDS: Ascorbic Acid 500 MG Tab PO SCH (13:47)
[2021-01-29] MEDS: Magnesium Oxide 400 MG Tab PO SCH (13:47)
[2021-01-29] MEDS: Levofloxacin/Dextrose 5%-Water 750 MG in Premix Bag 1 BAG IV SCH (20:01)
[2021-01-29] MEDS: atorvaSTATin 20 MG Tab PO SCH (20:06)
[2021-01-29] MEDS: Oxybutynin 5 MG Tab.ER PO SCH (20:06)
[2021-01-29] MEDS: Sodium Chloride 0.9% 10 ML Syringe FLUSH PRN (21:25)
[2021-01-29] MEDS ORDERED: traZODone 50 MG Tab ONE (22:10)
[2021-01-29] MEDS ORDERED: traZODone 50 MG Tab PO PRN (23:00)
[2021-01-30] MEDS ORDERED: traZODone 100 MG Tab PO PRN (07:44)
[2021-01-30 07:51] VITALS: BP 142/64; PULSE 70
[2021-01-30] MEDS: Losartan 50 MG Tab PO SCH (09:27)
[2021-01-30] MEDS: Formoterol/Mometasone 200-5 MCG 8.8 GM Inhaler IH SCH (09:57)
[2021-01-30] MEDS: Hydrochlorothiazide 25 MG Tab PO SCH (09:57)
--- NOTE | 2021-01-30 10:13 | PCM.DCSUM1 ---
Discharge Summary - Hospital Course HPI Initial Comments: Lily presented to ER yesterday after noticing she was more weak today after she woke up. She wasn't able to walk yesterday and was crawling on the floor at home. She was brought to ER by friend that she called. He noted that she was more confused, that she was normal on Thursday. She denied any pain in ER. She had not eaten or drank anything yesterday prior to arrival to ER. No fevers, chills, headache, ear or neck pain. No sore throat. No chest pain, shortness of breath, nausea, vomiting, diarrhea. States she has a BM every other day. She sometimes doesn't drink much because she doesn't want to get up to go to bathroom alot. She denies any dysuria, hematuria or frequency. Today she is complaining of left hip pain, that the michelle is poking her. She was treated at [facility] ED on 01/24/21 for weakness and HTN, but was discharged home after a negative work up, WBC was 6.2, CRP 0.2. She has two children, one resides in [place], the other in [place]. Her grandson lives locally. He states that she has hearing aids but seems to have problems with them, sometimes they are not charged. He stated her memory has gotten worse as her hearing has declined. She lives alone in an apartment, she has someone who helps her clean but doesn't not have Meals on Wheels or other services. ER: WBC 22.1, Hgb 11.9, Cr 1.2, Lactic acid 0.9, INR 0.94, LFTs within normal limits. EKG normal. CT head showed some fluid in left mastoid. Chest x-ray was negative for acute changes, COPD. CT chest/abdomen/pelvis: ileus vs low grade obstruction, diverticulosis but nothing acute. UA positive for ketones & protein but negative for nitrites, LE, WBC, few epithelials/bacteria. Blood culture obtained. Diagnosis: Stroke: No - Discharge Data Discharge Date: 01/30/21 Discharge Disposition: DC/Tfer W/I Hosp To Swing 61 Condition: Good - Referral to Home Health Primary Care Physician: Whitney Stokes NP - Discharge Diagnosis/Problem(s) (1) Weakness generalized SNOMED Code(s): 33292855 ICD Code: R53.1 - WEAKNESS Status: Acute Current Visit: Yes (2) Mastoiditis of left side SNOMED Code(s): 4778327975870685 ICD Code: H70.92 - UNSPECIFIED MASTOIDITIS, LEFT EAR Status: Acute Current Visit: Yes (3) HTN (hypertension) SNOMED Code(s): 45011311 ICD Code: I10 - ESSENTIAL (PRIMARY) HYPERTENSION Status: Chronic Current Visit: No Problem Details: Labile Qualifiers: Hypertension type: essential hypertension Qualified Code(s): I10 - Essential (primary) hypertension (4) Constipation SNOMED Code(s): 33652713 ICD Code: K59.00 - CONSTIPATION, UNSPECIFIED Status: Chronic Current Visit: No Qualifiers: Constipation type: unspecified constipation type Qualified Code(s): K59.00 - Constipation, unspecified (5) HLD (hyperlipidemia) SNOMED Code(s): 43626600 ICD Code: E78.5 - HYPERLIPIDEMIA, UNSPECIFIED Status: Chronic Current Visit: No Qualifiers: Hyperlipidemia type: unspecified Qualified Code(s): E78.5 - Hyperlipidemia, unspecified (6) Anemia SNOMED Code(s): 591632672 ICD Code: D64.9 - ANEMIA, UNSPECIFIED Status: Chronic Current Visit: No (7) COPD (chronic obstructive pulmonary disease) SNOMED Code(s): 85790135 ICD Code: J44.9 - CHRONIC OBSTRUCTIVE PULMONARY DISEASE, UNSPECIFIED Status: Chronic Current Visit: No Problem Details: Keep O2 between 88-92% (8) Insomnia SNOMED Code(s): 949718082 ICD Code: G47.00 - INSOMNIA, UNSPECIFIED Status: Chronic Current Visit: No Qualifiers: Insomnia type: primary Qualified Code(s): F51.01 - Primary insomnia (9) Wears hearing aid Status: Chronic Current Visit: Yes (10) 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 SNOMED Code(s): 856253100 ICD Code: Z98.890 - OTHER SPECIFIED POSTPROCEDURAL STATES Status: Chronic Current Visit: Yes (11) History of hip fracture SNOMED Code(s): 139806196 ICD Code: Z87.81 - PERSONAL HISTORY OF (HEALED) TRAUMATIC FRACTURE Status: Chronic Current Visit: Yes (12) Osteoarthritis SNOMED Code(s): 462591917 ICD Code: M19.90 - UNSPECIFIED OSTEOARTHRITIS, UNSPECIFIED SITE Status: Chronic Current Visit: Yes (13) Leukocytosis SNOMED Code(s): 593685894, 665501041 ICD Code: D72.829 - ELEVATED WHITE BLOOD CELL COUNT, UNSPECIFIED Status: Resolved Current Visit: Yes Qualifiers: Leukocytosis type: other Qualified Code(s): D72.828 - Other elevated white blood cell count (14) Dehydration SNOMED Code(s): 30076628 ICD Code: E86.0 - DEHYDRATION Status: Resolved Current Visit: No (15) Altered mental status SNOMED Code(s): 111067360 ICD Code: R41.82 - ALTERED MENTAL STATUS, UNSPECIFIED Status: Resolved Current Visit: Yes Qualifiers: Altered mental status type: delirium Qualified Code(s): R41.0 - Disorientation, unspecified - Patient Summary/Data Consults: Consultations 01/28/21 09:25 OT Evaluation and Treatment [CONS] Routine Please Evaluate and Treat. OT Reason for Consult: ADL's This query below is only for informational purposes and is not editable. Admission Diagnosis/Problem: Altered mental status PT Evaluation and Treatment [CONS] Routine Please Evaluate and Treat. PT Reason for Consult: Ambulation Special Instructions: c/o weakness, crawling on floor that she couldn't walk This query below is only for informational purposes and is not editable. Admission Diagnosis/Problem: Altered mental status 01/29/21 09:46 Consult to Dietary [Consult to Machinist] [CONS] Routine Comment: Physician Instructions: Quantity: Hospital Course: Admitted for treatment of left mastoiditis, WBC was 22.1 then came down to 14.7 next morning, 10.6 yesterday and 8.1 today. CRP went from 8.4 to 2.7 today. She received 2 doses of Levofloxacin as they are every 48 hours. She was on IV fluids on admission for mild dehydration, she was saline locked yesterday. She has had elevated blood pressures in the evenings around 5220-7954 then trends down without intervention, one evening she was 217/91 and last night was 180/90 but then was in 130-140 by sulfur burner, increased her Losartan to 50 mg daily, had improvement in evening pressures with this. PT/OT evaluated her and recommended further therapy in swing bed to improve her strength and ADLs. Family has also been in discussion about her going to [facility] rather than back to her apartment. She had a desaturation with therapy down to 85%, history of COPD, they put on oxygen, she came back up to 98%, advised to keep her oxygen between 88-92% due to her COPD and oxygen was removed and she was saturating in the 92-93% on room air. - Patient Instructions Diet: Regular Diet as Tolerated Activity: As Tolerated Other/Special Instructions: Transfer to swing bed - Discharge Plan *PRESCRIPTION DRUG MONITORING PROGRAM REVIEWED*: No *COPY OF PRESCRIPTION DRUG MONITORING REPORT IN PATIENT FLORA: Not Applicable Home Medications: Home Meds traZODone HCl [Trazodone HCl] 100 mg PO BEDTIME PRN 11/15/15 [History] atorvaSTATin Calcium [Lipitor] 20 mg PO BEDTIME 12/18/18 [History] Budesonide/Formoterol Fumarate [Symbicort 160-4.5 Mcg Inhaler] 2 puff INH BID 01/24/21 [History] hydroCHLOROthiazide [Hydrochlorothiazide] 25 mg PO DAILY 01/24/21 [History] Ascorbate Calcium [Vitamin C] 500 mg PO DAILY@139901/28/21 [History] Aspirin [Halfprin] 81 mg PO DAILY@139901/28/21 [History] Calcium Carb/Mag Ox/Zinc Sulf [Hse-Uxg-Kvvr 334-134-5 mg Tab] 1 tab PO DAILY@139901/28/21 [History] Cholecalciferol (Vitamin D3) [Vitamin D3] 1,000 unit PO DAILY@139901/28/21 [History] Cyanocobalamin (Vitamin B12) [Vitamin B12] 1,000 mcg PO DAILY@139901/28/21 [History] Docusate Sodium 250 mg PO DAILY PRN 01/28/21 [History] Magnesium Oxide/Mag AA Chelate [Magnesium] 300 mg PO DAILY@139901/28/21 [History] Multivit-Min/Iron/Folic/Lutein [Multivitamin Women 50 Plus Tab] 1 tab PO DAILY@139901/28/21 [History] Multivitamin with Minerals [Hair, Skin and Nails] 1 tab PO DAILY@139901/28/21 [History] Oxybutynin [Oxybutynin ER] 5 mg PO BEDTIME 01/28/21 [History] Valerian Root 500 mg PO DAILY PRN 01/28/21 [History] Vitamin E (Dl,Tocopheryl Acet) [Vitamin E] 180 mg PO DAILY@1400 01/28/21 [History] Acetaminophen [Tylenol Extra Strength] 500 mg PO Q6H PRN tablet 01/30/21 [Rx] Ibuprofen [Motrin] 200 mg PO Q6H PRN tablet 01/30/21 [Rx] LORazepam [Ativan] 0.25 mg PO Q8H PRN tablet 01/30/21 [Rx] Losartan [Cozaar] 50 mg PO DAILY tablet 01/30/21 [Rx] Magnesium Oxide 400 mg PO DAILY@1400 tablet 01/30/21 [Rx] Oxygen Therapy Mode: Room Air Oxygen Flow Rate (L/min): 1 (1-2 at bedtime as needed) Maintain SPO2% less than: 92 Maintain SpO2% greater than: 88 Forms: ED Department Discharge Referrals: Whitney Stokes NP [Primary Care Provider] - - Discharge Summary/Plan Comment DC Time >30 min.: No Total # of Minutes for Discharge Time: 20 - General Info Date of Service: 01/30/21 Subjective Update: She states she is feeling better not as weak. No complaints of pain this morning. States she was urinating a lot yesterday but better today, asked if she got a pill, that was started 2 weeks ago that she changed to every other day because it made her pee more. Pharmacy reviewed her medications with her, she filled all her medications 2 weeks ago but no new medication was started then, she had a dose increase of her HCTZ in November. Her blood pressure was 179/87 at 1830 and 180/90 at 2000 last night then she came down to 144/58 at 0200 and 142/64 at 0930. Her Losartan was increased yesterday to 50 mg daily. No headaches. - Patient Data Vitals - Most Recent: Last Vital Signs Temp 98.2 F 01/30/21 07:30 Pulse 70 01/30/21 07:30 Resp 16 01/30/21 07:30 BP 142/64 H 01/30/21 09:27 Pulse Ox 94 L 01/30/21 07:30 Weight - Most Recent: 110 lb Lab Results - Last 24 hrs: Laboratory Results - last 24 hr 01/30/21 01/30/21 Range/Units 05:50 05:50 WBC 8.1 (3.0-10.3) x10-3/uL RBC 3.67 (3.60-5.20) x10(6)uL Hgb 11.1 L (11.4-15.5) g/dL Hct 33.9 L (34.2-48.2) % MCV 92.3 (76.7-100.5) fL MCH 30.2 (23.9-33.9) pg MCHC 32.7 (31.9-34.8) g/dL RDW 14.9 (12.3-16.5) % Plt Count 219 (151-488) x10(3)uL MPV 7.6 (7.1-12.4) fL Neut % (Auto) 73.7 (30.8-76.2) % Lymph % (Auto) 13.5 L (18.4-52.1) % [place] % (Auto) 9.8 (4.4-15.7) % Eos % (Auto) 2.4 (0.6-8.1) % Baso % (Auto) 0.6 (0.2-1.5) % Neut # (Auto) 6.0 (1.5-6.3) x10-3/uL Lymph # (Auto) 1.1 (1.0-4.4) x10-3/uL [place] # (Auto) 0.8 (0.3-1.0) x10-3/uL Eos # (Auto) 0.2 (0.0-0.8) x10-3/uL Baso # (Auto) 0.1 (0.0-0.1) x10-3/uL C-Reactive Protein 2.7 H* (0.5-0.9) mg/dL THEO Results - Last 24 hrs: Microbiology 01/27/21 15:55 Aerobic Blood Culture - Preliminary Blood - Venous NO GROWTH AFTER 2 DAYS Anaerobic Blood Culture - Preliminary NO GROWTH AFTER 2 DAYS 01/27/21 12:55 Aerobic Blood Culture - Preliminary Blood - Venous - Lab Draw NO GROWTH AFTER 2 DAYS Anaerobic Blood Culture - Preliminary NO GROWTH AFTER 2 DAYS Med Orders - Current: Current Medications Acetaminophen (Acetaminophen 500 Mg Tab) 500 mg PO Q6H PRN PRN Reason: Pain Last Admin: 01/28/21 16:33 Dose: 500 mg Documented by: Ascorbic Acid (Ascorbic Acid 500 Mg Tab) 500 mg PO DAILY@1400 [facility] Last Admin: 01/29/21 13:47 Dose: 500 mg Documented by: Aspirin (Aspirin 81 Mg Tab.Ec) 81 mg PO DAILY@1400 [facility] Last Admin: 01/29/21 13:47 Dose: 81 mg Documented by: Atorvastatin Calcium (Atorvastatin 20 Mg Tab) 20 mg PO BEDTIME [facility] Last Admin: 01/29/21 20:06 Dose: 20 mg Documented by: Docusate Sodium (Docusate Sodium 250 Mg Cap) 250 mg PO DAILY PRN PRN Reason: Constipation Hydrochlorothiazide (Hydrochlorothiazide 25 Mg Tab) 25 mg PO DAILY [facility] Last Admin: 01/30/21 09:57 Dose: 25 mg Documented by: Levofloxacin/Dextrose 750 mg/ (Premix) 150 mls @ 100 mls/hr IV Q48H [facility] Last Admin: 01/29/21 20:01 Dose: 100 mls/hr Documented by: Ibuprofen (Ibuprofen 200 Mg Tab) 200 mg PO Q6H PRN PRN Reason: Pain Last Admin: 01/28/21 16:33 Dose: 200 mg Documented by: Lorazepam (Lorazepam 0.5 Mg Tab) 0.25 mg PO Q8H PRN PRN Reason: Agitation Last Admin: 01/29/21 20:07 Dose: 0.25 mg Documented by: Losartan Potassium (Losartan 50 Mg Tab) 50 mg PO DAILY [facility] Last Admin: 01/30/21 09:27 Dose: 50 mg Documented by: Magnesium Oxide (Magnesium Oxide 400 Mg Tab) 400 mg PO DAILY@1400 [facility] Last Admin: 01/29/21 13:47 Dose: 400 mg Documented by: Mometasone Furoate/Formoterol Fumar (Formoterol/Mometasone 200-5 Mcg 8.8 Gm Inhaler) 2 puff IH BID [facility] Last Admin: 01/30/21 09:57 Dose: 2 puff Documented by: Oxybutynin Chloride (Oxybutynin 5 Mg Tab.Er) 5 mg PO BEDTIME [facility] Last Admin: 01/29/21 20:06 Dose: 5 mg Documented by: Sodium Chloride (Sodium Chloride 0.9% 10 Ml Syringe) 10 ml FLUSH ASDIRECTED PRN PRN Reason: Keep Vein Open Last Admin: 01/29/21 21:25 Dose: 10 ml Documented by: Trazodone HCl (Trazodone 100 Mg Tab) 100 mg PO BEDTIME PRN PRN Reason: Sleep Discontinued Medications Acetaminophen (Acetaminophen 325 Mg Tab) 650 mg PO NOW ONE Stop: 01/27/21 16:29 Last Admin: 01/27/21 16:48 Dose: 650 mg Documented by: Sodium Chloride (Normal Saline) 500 mls @ 500 mls/hr IV .BOLUS ONE Stop: 01/27/21 16:45 Last Admin: 01/27/21 16:12 Dose: 500 mls/hr Documented by: Levofloxacin/Dextrose (Levaquin In D5w 750 Mg/150 Ml) Confirm Administered Dose 150 mls @ as directed IV .STK-MED ONE Stop: 01/27/21 20:26 Last Admin: 01/27/21 20:36 Dose: Not Given Documented by: Sodium Chloride (Normal Saline) 1,000 mls @ 75 mls/hr IV ASDIRECTED [facility] Last Admin: 01/28/21 22:52 Dose: 75 mls/hr Documented by: Iopamidol (Iopamidol 755 Mg/Ml 75 Ml Bottle) 75 ml IV ASDIRECTED ONE Stop: 01/27/21 16:56 Last Admin: 01/27/21 16:55 Dose: 75 ml Documented by: Losartan Potassium (Losartan 25 Mg Tab) 25 mg PO DAILY [facility] Last Admin: 01/28/21 09:58 Dose: 25 mg Documented by: Mometasone Furoate/Formoterol Fumar (Formoterol/Mometasone 200-5 Mcg 8.8 Gm Inhaler) 2 puff IH BID [facility] Last Admin: 01/27/21 22:19 Dose: 2 puff Documented by: Oxybutynin Chloride (Oxybutynin 5 Mg Tab) 5 mg PO BEDTIME [facility] Last Admin: 01/27/21 22:20 Dose: 5 mg Documented by: Trazodone HCl (Trazodone 100 Mg Tab) 100 mg PO BEDTIME ONE Stop: 01/28/21 00:04 Last Admin: 01/28/21 00:30 Dose: 100 mg Documented by: Trazodone HCl (Trazodone 100 Mg Tab) 100 mg PO BEDTIME PRN PRN Reason: Sleep Trazodone HCl (Trazodone 50 Mg Tab) Confirm Administered Dose 100 mg .ROUTE .STK-MED ONE Stop: 01/29/21 22:11 Last Admin: 01/29/21 22:12 Dose: Not Given Documented by: Trazodone HCl (Trazodone 50 Mg Tab) 100 mg PO BEDTIME PRN PRN Reason: Sleep Last Admin: 01/29/21 22:15 Dose: 100 mg Documented by: - Exam Quality Assessment: Reports: Supplemental Oxygen (at night) General: Reports: Alert, Oriented (person, place), Cooperative, No Acute Distress Lungs: Reports: Clear to Auscultation, Normal Respiratory Effort Cardiovascular: Reports: Regular Rate, Regular Rhythm GI/Abdominal Exam: Normal Bowel Sounds, Soft, Non-Tender, No Distention (Female) Exam: Deferred Rectal (Female) Exam: Deferred Extremities: No Pedal Edema *Q Meaningful Use (DIS) - VTE *Q VTE Mechanical Contraindications *Q: At Risk for Falls
[2021-02-01] MEDS ORDERED: Alendronate 70 MG Tab PO SCH (19:16)
== END 2021-01-30 10:05 | disposition swing bed (61) | DRG 153 ==
LOC: FB.ED 15:28 → FB.MS 18:44
PROVIDERS: ADMIT Family Medicine; ATTEND Family Medicine
DX: R41.0 Disorientation, unspecified (principal); D72.828 Other elevated white blood cell count; H70.92 Unspecified mastoiditis, left ear; E86.0 Dehydration; M16.12 Unilateral primary osteoarthritis, left hip; I10 Essential (primary) hypertension; Z87.81 Personal history of (healed) traumatic fracture; Z87.891 Personal history of nicotine dependence; Z98.890 Other specified postprocedural states; F51.01 Primary insomnia; J44.9 Chronic obstructive pulmonary disease, unspecified; Z88.0 Allergy status to penicillin; E78.5 Hyperlipidemia, unspecified; Z79.51 Long term (current) use of inhaled steroids; Z79.899 Other long term (current) drug therapy; K59.00 Constipation, unspecified; Z20.822 Contact with and (suspected) exposure to COVID-19; H54.7 Unspecified visual loss; E78.00 Pure hypercholesterolemia, unspecified; Z99.81 Dependence on supplemental oxygen; N32.81 Overactive bladder; Z86.73 Personal history of transient ischemic attack (TIA), and cerebral infarction without residual deficits; D64.9 Anemia, unspecified; Z98.41 Cataract extraction status, right eye; Z98.42 Cataract extraction status, left eye
CPT/HCPCS: 36415; 70450; 71045; 71260; 74177; 80048; 80053; 81001; 83605; 84484; 85025; 85610; 85730; 86140; 87040; 87804; 87804-59; 93005; 97161-GP; 97166-GO; 97530-GO; 97535-GO; 99285-25; A9270-GY; J1956; J7030; J7040; Q9967; U0002

== ENCOUNTER 2021-01-30 10:49 | Inpatient (IN) | payer MEDICARE, BC ==
[2021-01-30] MEDS ORDERED: Docusate Sodium 250 MG Cap PO PRN (10:57)
[2021-01-30] MEDS ORDERED: Ibuprofen 200 MG Tab PO PRN (10:57)
[2021-01-30] MEDS ORDERED: LORazepam 0.5 MG Tab PO PRN (10:57)
[2021-01-30] MEDS ORDERED: Acetaminophen 500 MG Tab PO PRN (10:57)
--- NOTE | 2021-01-30 11:05 | PCM.HP.2 ---
H&P History of Present Illness - General Date of Service: 01/30/21 Admit Problem/Dx: Admission Diagnosis/Problem Admission Diagnosis/Problem Weakness - History of Present Illness Initial Comments - Free Text/Narative: ACUTE HPI: Lily presented to ER yesterday after noticing she was more weak today after she woke up. She wasn't able to walk yesterday and was crawling on the floor at home. She was brought to ER by friend that she called. He noted that she was more confused, that she was normal on Thursday. She denied any pain in ER. She had not eaten or drank anything yesterday prior to arrival to ER. No fevers, chills, headache, ear or neck pain. No sore throat. No chest pain, shortness of breath, nausea, vomiting, diarrhea. States she has a BM every other day. She sometimes doesn't drink much because she doesn't want to get up to go to bathroom alot. She denies any dysuria, hematuria or frequency. Today she is complaining of left hip pain, that the michelle is poking her. She was treated at [facility] on 01/24/21 for weakness and HTN, but was discharged home after a negative work up, WBC was 6.2, CRP 0.2. She has two children, one resides in [place], the other in [place]. Her grandson lives locally. He states that she has hearing aids but seems to have problems with them, sometimes they are not charged. He stated her memory has gotten worse as her hearing has declined. She lives alone in an apartment, she has someone who helps her clean but doesn't not have Meals on Wheels or other services. ER: WBC 22.1, Hgb 11.9, Cr 1.2, Lactic acid 0.9, INR 0.94, LFTs within normal limits. EKG normal. CT head showed some fluid in left mastoid. Chest x-ray was negative for acute changes, COPD. CT chest/abdomen/pelvis: ileus vs low grade obstruction, diverticulosis but nothing acute. UA positive for ketones & protein but negative for nitrites, LE, WBC, few epithelials/bacteria. Blood culture obtained. HOSPITAL COURSE: Admitted for treatment of left mastoiditis, WBC was 22.1 then came down to 14.7 next morning, 10.6 yesterday and 8.1 today. CRP went from 8.4 to 2.7 today. She received 2 doses of Levofloxacin as they are every 48 hours. She was on IV fluids on admission for mild dehydration, she was saline locked yesterday. She has had elevated blood pressures in the evenings around [id number] then trends down without intervention, one evening she was 217/91 and last night was 180/90 but then was in 130-140 by cash applications representative, increased her Losartan to 50 mg daily, had improvement in evening pressures with this. PT/OT evaluated her and recommended further therapy in swing bed to improve her strength and ADLs. Family has also been in discussion about her going to [facility] rather than back to her apartment. She had a desaturation with therapy down to 85%, history of COPD, they put on oxygen, she came back up to 98%, advised to keep her oxygen between 88-92% due to her COPD and oxygen was removed and she was saturating in the 92-93% on room air. - Related Data Allergies/Adverse Reactions: Allergies Allergy/AdvReac Type Severity Reaction Status Date / Time Penicillins Allergy Swelling Verified 01/24/21 16:38 Home Medications: Home Meds traZODone HCl [Trazodone HCl] 100 mg PO BEDTIME PRN 11/15/15 [History] atorvaSTATin Calcium [Lipitor] 20 mg PO BEDTIME 12/18/18 [History] Budesonide/Formoterol Fumarate [Symbicort 160-4.5 Mcg Inhaler] 2 puff INH BID 01/24/21 [History] hydroCHLOROthiazide [Hydrochlorothiazide] 25 mg PO DAILY 01/24/21 [History] Ascorbate Calcium [Vitamin C] 500 mg PO DAILY@139901/28/21 [History] Aspirin [Halfprin] 81 mg PO DAILY@139901/28/21 [History] Calcium Carb/Mag Ox/Zinc Sulf [Llr-Xyq-Cgtj 334-134-5 mg Tab] 1 tab PO DAILY@139901/28/21 [History] Cholecalciferol (Vitamin D3) [Vitamin D3] 1,000 unit PO DAILY@139901/28/21 [History] Cyanocobalamin (Vitamin B12) [Vitamin B12] 1,000 mcg PO DAILY@139901/28/21 [History] Docusate Sodium 250 mg PO DAILY PRN 01/28/21 [History] Magnesium Oxide/Mag AA Chelate [Magnesium] 300 mg PO DAILY@1400 01/28/21 [History] Multivit-Min/Iron/Folic/Lutein [Multivitamin Women 50 Plus Tab] 1 tab PO DAILY@1400 01/28/21 [History] Multivitamin with Minerals [Hair, Skin and Nails] 1 tab PO DAILY@1400 01/28/21 [History] Oxybutynin [Oxybutynin ER] 5 mg PO BEDTIME 01/28/21 [History] Valerian Root 500 mg PO DAILY PRN 01/28/21 [History] Vitamin E (Dl,Tocopheryl Acet) [Vitamin E] 180 mg PO DAILY@1400 01/28/21 [History] Acetaminophen [Tylenol Extra Strength] 500 mg PO Q6H PRN tablet 01/30/21 [Rx] Ibuprofen [Motrin] 200 mg PO Q6H PRN tablet 01/30/21 [Rx] LORazepam [Ativan] 0.25 mg PO Q8H PRN tablet 01/30/21 [Rx] Losartan [Cozaar] 50 mg PO DAILY tablet 01/30/21 [Rx] Magnesium Oxide 400 mg PO DAILY@1400 tablet 01/30/21 [Rx] Past Medical History HEENT History: Reports: Cataract, Impaired Vision, Other (See Below) Other HEENT History: Having some possible sinus problems recently, right side of head and face. Has chronic rhinitis. Cardiovascular History: Reports: High Cholesterol, Hypertension Respiratory History: Reports: COPD, Other (See Below) Other Respiratory History: Uses CPAP at night. States that she uses oxygen at night. Former smoker, quit year 2006. Genitourinary History: Reports: Other (See Below) Other Genitourinary History: Overactive bladder. [employer] History: Reports: Musculoskeletal History: Reports: Other (See Below) Other Musculoskeletal History: Broke head right shoulder/arm. Left femur fracture and nailing at the left hip. Neurological History: Reports: TIA, Other (See Below) Other Neuro History: States she had an episode last summer with trouble speaking, nausea, and difficulty walking---this resolved in a short time. Confused at times-baseline. Psychiatric History: Reports: Other (See Below) Other Psychiatric History: Takes Trazodone. Endocrine/Metabolic History: Reports: Other (See Below) Other Endocrine/Metabolic History: States she is not a diabetic. Hematologic History: Reports: Anemia, Other (See Below) Other Hematologic History: Had acute anemia after hip surgery. Dermatologic History: Reports: None - Infectious Disease History Infectious Disease History: Reports: Other (See Below) Other Infectious Disease History: She is uncertain of her past diseases. - Past Surgical History HEENT Surgical History: Reports: Other (See Below) Other HEENT Surgeries/Procedures: Bilateral cataract. GI Surgical History: Reports: Colonoscopy Social & Family History - Family History Family Medical History: No Pertinent Family History - Caffeine Use Caffeine Use: Reports: Coffee H&P Review of Systems - Review of Systems: Review Of Systems: Comprehensive ROS is negative, except as noted in HPI. Exam - Exam Exam: See Below - Exam General: Alert, Oriented, Cooperative HEENT: PERRLA, EOMI, Mucosa Moist & [place]. No: Hearing Intact Neck: Trachea Midline Lungs: Clear to Auscultation, Normal Respiratory Effort Cardiovascular: Regular Rate, Regular Rhythm GI/Abdominal Exam: Normal Bowel Sounds, Soft, Non-Tender, No Distention (Female) Exam: Deferred Rectal (Female) Exam: Deferred Extremities: No Pedal Edema, Normal Capillary Refill Peripheral Pulses: 2+: Radial (L), Radial (R) *Q Meaningful Use (ADM) - VTE *Q VTE Mechanical Contraindications *Q: At Risk for Falls - Problem List (1) Weakness generalized SNOMED Code(s): 29978907 ICD Code: R53.1 - WEAKNESS Status: Acute Current Visit: No (2) Mastoiditis of left side SNOMED Code(s): 8380399858091747 ICD Code: H70.92 - UNSPECIFIED MASTOIDITIS, LEFT EAR Status: Acute Current Visit: No (3) Anemia SNOMED Code(s): 689536369 ICD Code: D64.9 - ANEMIA, UNSPECIFIED Status: Chronic Current Visit: No (4) COPD (chronic obstructive pulmonary disease) SNOMED Code(s): 19156429 ICD Code: J44.9 - CHRONIC OBSTRUCTIVE PULMONARY DISEASE, UNSPECIFIED Status: Chronic Current Visit: No Problem Details: Keep O2 between 88-92% (5) Constipation SNOMED Code(s): 19514901 ICD Code: K59.00 - CONSTIPATION, UNSPECIFIED Status: Chronic Current Visit: No Qualifiers: Constipation type: unspecified constipation type Qualified Code(s): K59.00 - Constipation, unspecified (6) HLD (hyperlipidemia) SNOMED Code(s): 88145171 ICD Code: E78.5 - HYPERLIPIDEMIA, UNSPECIFIED Status: Chronic Current Visit: No Qualifiers: Hyperlipidemia type: unspecified Qualified Code(s): E78.5 - Hyperlipidemia, unspecified (7) HTN (hypertension) SNOMED Code(s): 33516577 ICD Code: I10 - ESSENTIAL (PRIMARY) HYPERTENSION Status: Chronic Current Visit: No Problem Details: Labile Qualifiers: Hypertension type: essential hypertension Qualified Code(s): I10 - Essential (primary) hypertension (8) History of hip fracture SNOMED Code(s): 668382110 ICD Code: Z87.81 - PERSONAL HISTORY OF (HEALED) TRAUMATIC FRACTURE Status: Chronic Current Visit: No (9) 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 SNOMED Code(s): 743286461 ICD Code: Z98.890 - OTHER SPECIFIED POSTPROCEDURAL STATES Status: Chronic Current Visit: No (10) Insomnia SNOMED Code(s): 119465219 ICD Code: G47.00 - INSOMNIA, UNSPECIFIED Status: Chronic Current Visit: No Qualifiers: Insomnia type: primary Qualified Code(s): F51.01 - Primary insomnia (11) Osteoarthritis SNOMED Code(s): 324196359 ICD Code: M19.90 - UNSPECIFIED OSTEOARTHRITIS, UNSPECIFIED SITE Status: Chronic Current Visit: No (12) Wears hearing aid Status: Chronic Current Visit: No Problem List Initiated/Reviewed/Updated: Yes Orders Last 24hrs: Active Orders 24 hr Category Date Time Status Patient Status [ADT] Routine ADT 01/30/21 10:55 Active Height and Weight [RC] WEEKLY Care 01/30/21 10:55 Active Oxygen Therapy [RC] PRN Care 01/30/21 10:55 Active Up With Assistance [RC] ASDIRECTED Care 01/30/21 10:55 Active Up to Chair [RC] ASDIRECTED Care 01/30/21 10:55 Active VTE/DVT Education [RC] Per Unit Routine Care 01/30/21 10:55 Active Vital Signs [RC] PER UNIT ROUTINE Care 01/30/21 10:55 Active OT Evaluation and Treatment [CONS] Routine Cons 01/30/21 10:55 Active PT Evaluation and Treatment [CONS] Routine Cons 01/30/21 10:55 Active Regular Diet [DIET] Diet 01/30/21 Lunch Active Acetaminophen [Tylenol Extra Strength] Med 01/30/21 10:57 Active 500 mg PO Q6H PRN Ascorbate Calcium [Vitamin C] Med 01/30/21 14:00 Ordered 500 mg PO DAILY@1400 Aspirin [Halfprin] Med 01/30/21 14:00 Active 81 mg PO DAILY@1400 Budesonide/Formoterol Fumarate [Symbicort 160-4.5 Mcg Med 01/30/21 21:00 Ordered Inhaler] 2 puff INH BID Docusate Sodium [Dok] Med 01/30/21 10:57 Active 250 mg PO DAILY PRN Ibuprofen [Motrin] Med 01/30/21 10:57 Active 200 mg PO Q6H PRN LORazepam [Ativan] Med 01/30/21 10:57 Active 0.25 mg PO Q8H PRN Losartan [Cozaar] Med 01/31/21 09:00 Ordered 50 mg PO DAILY Magnesium Oxide Med 01/30/21 14:00 Ordered 400 mg PO DAILY@1400 Multivitamin with Minerals [Hair, Skin and Nails] Med 01/30/21 14:00 Ordered 1 tab PO DAILY@1400 Oxybutynin [Oxybutynin ER] Med 01/30/21 21:00 Ordered 5 mg PO BEDTIME atorvaSTATin [Lipitor] Med 01/30/21 21:00 Active 20 mg PO BEDTIME hydroCHLOROthiazide Med 01/31/21 09:00 Active 25 mg PO DAILY levoFLOXacin [Levaquin] Med 01/31/21 20:00 Active 750 mg PO Q48H traZODone Med 01/30/21 10:57 Ordered 100 mg PO BEDTIME PRN Antiembolic Hose [OM.PC] Per Unit Routine Oth 01/30/21 10:56 Ordered Resuscitation Status Routine Resus Stat 01/30/21 10:55 Ordered Medication Orders Acetaminophen (Acetaminophen 500 Mg Tab) 500 mg PO Q6H PRN PRN Reason: Pain Aspirin (Aspirin 81 Mg Tab.Ec) 81 mg PO DAILY@1400 [facility] Atorvastatin Calcium (Atorvastatin 20 Mg Tab) 20 mg PO BEDTIME [facility] Docusate Sodium (Docusate Sodium 250 Mg Cap) 250 mg PO DAILY PRN PRN Reason: Constipation Hydrochlorothiazide (Hydrochlorothiazide 25 Mg Tab) 25 mg PO DAILY [facility] Ibuprofen (Ibuprofen 200 Mg Tab) 200 mg PO Q6H PRN PRN Reason: Pain Levofloxacin (Levofloxacin 750 Mg Tab) 750 mg PO Q48H [facility] Stop: 02/02/21 20:01 Lorazepam (Lorazepam 0.5 Mg Tab) 0.25 mg PO Q8H PRN PRN Reason: Agitation Losartan Potassium (Losartan 50 Mg Tab) 50 mg PO DAILY [facility] Magnesium Oxide (Magnesium Oxide 400 Mg Tab) 400 mg PO DAILY@1400 [facility] Non-Formulary Medication (Ascorbate Calcium [Vitamin C]) 500 mg PO DAILY@1400 [facility] Non-Formulary Medication (Budesonide/Formoterol Fumarate [Symbicort 160-4.5 Mcg Inhaler]) 2 puff INH BID [facility] Non-Formulary Medication (Multivitamin With Minerals [Hair, Skin And Nails]) 1 tab PO DAILY@1400 [facility] Oxybutynin Chloride (Oxybutynin 5 Mg Tab.Er) 5 mg PO BEDTIME [facility] Trazodone HCl (Trazodone 100 Mg Tab) 100 mg PO BEDTIME PRN PRN Reason: Sleep Assessment/Plan Comment:: 1. Admit to swing bed for continued therapy services for weakness. 2. Left mastoiditis: Levofloxacin 750 mg q48h, 2 more doses to complete 8 day course. Received 2 doses IV on acute stay. WBC today was 8.1, CRP 2.7 all improved from acute admission. 3. HTN: labile. Increased her Losartan yesterday to 50 mg daily and continue HCTZ 25 mg daily. Will continue to monitor and adjust as needed. 4. Insomnia: continue home Trazodone as needed. Ativan 0.25 mg as needed. 5. Weakness: PT/OT continue. 6. Activity: up to chair and with assistance. 7. CODE STATUS: DNR/DNI. 8. Discharge planning: family would like to look into [facility] for her. - Mortality Measure Prognosis:: Poor
[2021-01-30] MEDS ORDERED: Docusate Sodium 100 MG Cap PO PRN (11:10)
[2021-01-30] MEDS: Magnesium Oxide 400 MG Tab PO SCH (14:47)
[2021-01-30] MEDS: Ascorbic Acid 500 MG Tab PO SCH (14:47)
[2021-01-30] MEDS: Aspirin 81 MG Tab.EC PO SCH (14:47)
[2021-01-30] MEDS: Multivitamins with Iron/Calcium/Folic Acid/Minerals Tab PO SCH (14:47)
[2021-01-30] MEDS: Oxybutynin 5 MG Tab.ER PO SCH (20:45)
[2021-01-30] MEDS: atorvaSTATin 20 MG Tab PO SCH (20:45)
[2021-01-30] MEDS: Formoterol/Mometasone 200-5 MCG 8.8 GM Inhaler IH SCH (20:45)
[2021-01-30] MEDS: traZODone 100 MG Tab PO PRN (22:42)
[2021-01-31] MEDS ORDERED: Hydrochlorothiazide 25 MG Tab PO SCH (09:00)
[2021-01-31] MEDS: Losartan 50 MG Tab PO SCH (09:06)
[2021-01-31] MEDS: Formoterol/Mometasone 200-5 MCG 8.8 GM Inhaler IH SCH ×2 (09:06→20:02)
[2021-01-31] MEDS: Hydrochlorothiazide 12.5 MG Cap PO SCH (09:27)
[2021-01-31] MEDS: Magnesium Oxide 400 MG Tab PO SCH (13:28)
[2021-01-31] MEDS: Aspirin 81 MG Tab.EC PO SCH (13:28)
[2021-01-31] MEDS: Multivitamins with Iron/Calcium/Folic Acid/Minerals Tab PO SCH (13:29)
[2021-01-31] MEDS: Ascorbic Acid 500 MG Tab PO SCH (13:29)
[2021-01-31] MEDS: Levofloxacin 750 MG Tab PO SCH (20:02)
[2021-01-31] MEDS: atorvaSTATin 20 MG Tab PO SCH (20:03)
[2021-01-31] MEDS: Oxybutynin 5 MG Tab.ER PO SCH (20:04)
[2021-02-01] MEDS: Formoterol/Mometasone 200-5 MCG 8.8 GM Inhaler IH SCH ×2 (09:21→20:17)
[2021-02-01] MEDS: Losartan 50 MG Tab PO SCH (09:21)
[2021-02-01] MEDS: Hydrochlorothiazide 12.5 MG Cap PO SCH (09:21)
[2021-02-01] MEDS: Ascorbic Acid 500 MG Tab PO SCH (14:46)
[2021-02-01] MEDS: Multivitamins with Iron/Calcium/Folic Acid/Minerals Tab PO SCH (14:46)
[2021-02-01] MEDS: Aspirin 81 MG Tab.EC PO SCH (14:46)
[2021-02-01] MEDS: Magnesium Oxide 400 MG Tab PO SCH (14:46)
[2021-02-01] MEDS: Oxybutynin 5 MG Tab.ER PO SCH (20:18)
[2021-02-01] MEDS: atorvaSTATin 20 MG Tab PO SCH (20:18)
[2021-02-01] MEDS: traZODone 100 MG Tab PO PRN ×2 (23:19)
[2021-02-02] MEDS: traZODone 100 MG Tab PO PRN (00:10)
[2021-02-02] MEDS: Losartan 25 MG Tab PO SCH (09:24)
[2021-02-02] MEDS: Formoterol/Mometasone 200-5 MCG 8.8 GM Inhaler IH SCH ×2 (09:24→21:35)
[2021-02-02] MEDS: Hydrochlorothiazide 12.5 MG Cap PO SCH (09:24)
[2021-02-02] MEDS: Multivitamins with Iron/Calcium/Folic Acid/Minerals Tab PO SCH (13:25)
[2021-02-02] MEDS: Magnesium Oxide 400 MG Tab PO SCH (13:25)
[2021-02-02] MEDS: Ascorbic Acid 500 MG Tab PO SCH (13:25)
[2021-02-02] MEDS: Aspirin 81 MG Tab.EC PO SCH (13:25)
[2021-02-02] MEDS: Oxybutynin 5 MG Tab.ER PO SCH ×2 (21:03→21:35)
[2021-02-02] MEDS: Levofloxacin 750 MG Tab PO SCH (21:35)
[2021-02-02] MEDS: atorvaSTATin 20 MG Tab PO SCH (21:35)
[2021-02-03] MEDS: traZODone 100 MG Tab PO PRN ×2 (00:48→23:35)
[2021-02-03] MEDS: Losartan 25 MG Tab PO SCH (09:21)
[2021-02-03] MEDS: Formoterol/Mometasone 200-5 MCG 8.8 GM Inhaler IH SCH ×2 (09:22→21:07)
[2021-02-03] MEDS: Hydrochlorothiazide 12.5 MG Cap PO SCH (09:22)
[2021-02-03] MEDS: Aspirin 81 MG Tab.EC PO SCH (15:11)
[2021-02-03] MEDS: Ascorbic Acid 500 MG Tab PO SCH (15:11)
[2021-02-03] MEDS: Multivitamins with Iron/Calcium/Folic Acid/Minerals Tab PO SCH (15:11)
[2021-02-03] MEDS: Magnesium Oxide 400 MG Tab PO SCH (15:11)
[2021-02-03] MEDS: atorvaSTATin 20 MG Tab PO SCH (21:07)
[2021-02-04] MEDS: Losartan 25 MG Tab PO SCH (09:06)
[2021-02-04] MEDS: Formoterol/Mometasone 200-5 MCG 8.8 GM Inhaler IH SCH ×2 (09:07→19:59)
[2021-02-04] MEDS: Hydrochlorothiazide 12.5 MG Cap PO SCH (09:07)
[2021-02-04] MEDS: Magnesium Oxide 400 MG Tab PO SCH (14:14)
[2021-02-04] MEDS: Ascorbic Acid 500 MG Tab PO SCH (14:14)
[2021-02-04] MEDS: Multivitamins with Iron/Calcium/Folic Acid/Minerals Tab PO SCH (14:14)
[2021-02-04] MEDS: Aspirin 81 MG Tab.EC PO SCH (14:15)
[2021-02-04] MEDS: Fluticasone Propionate Nasal Spray 16 GM Bottle NASBOTH SCH (15:22)
[2021-02-04] MEDS: Oxybutynin 5 MG Tab.ER PO SCH (19:59)
[2021-02-04] MEDS: atorvaSTATin 20 MG Tab PO SCH (19:59)
[2021-02-05] MEDS: traZODone 100 MG Tab PO PRN (00:11)
[2021-02-05] MEDS: Losartan 25 MG Tab PO SCH (08:58)
[2021-02-05] MEDS: Formoterol/Mometasone 200-5 MCG 8.8 GM Inhaler IH SCH (08:58)
[2021-02-05] MEDS: Fluticasone Propionate Nasal Spray 16 GM Bottle NASBOTH SCH (08:58)
[2021-02-05 08:59] VITALS: BP 104/77
[2021-02-05] MEDS: Hydrochlorothiazide 12.5 MG Cap PO SCH (08:59)
[2021-02-05] MEDS ORDERED: Tuberculin, PPD 5 Units/0.1 ML 1 ML MDV IDERM ONE (09:00)
--- NOTE | 2021-02-05 09:13 | PCM.DCSUM1 ---
Discharge Summary - Hospital Course HPI Initial Comments: ACUTE HPI: Lily presented to ER yesterday after noticing she was more weak today after she woke up. She wasn't able to walk yesterday and was crawling on the floor at home. She was brought to ER by friend that she called. He noted that she was more confused, that she was normal on Thursday. She denied any pain in ER. She had not eaten or drank anything yesterday prior to arrival to ER. No fevers, chills, headache, ear or neck pain. No sore throat. No chest pain, shortness of breath, nausea, vomiting, diarrhea. States she has a BM every other day. She sometimes doesn't drink much because she doesn't want to get up to go to bathroom alot. She denies any dysuria, hematuria or frequency. Today she is complaining of left hip pain, that the michelle is poking her. She was treated at [facility] ED on 01/24/21 for weakness and HTN, but was discharged home after a negative work up, WBC was 6.2, CRP 0.2. She has two children, one resides in [place], the other in [place]. Her grandson lives locally. He states that she has hearing aids but seems to have problems with them, sometimes they are not charged. He stated her memory has gotten worse as her hearing has declined. She lives alone in an apartment, she has someone who helps her clean but doesn't not have Meals on Wheels or other services. ER: WBC 22.1, Hgb 11.9, Cr 1.2, Lactic acid 0.9, INR 0.94, LFTs within normal limits. EKG normal. CT head showed some fluid in left mastoid. Chest x-ray was negative for acute changes, COPD. CT chest/abdomen/pelvis: ileus vs low grade obstruction, diverticulosis but nothing acute. UA positive for ketones & protein but negative for nitrites, LE, WBC, few epithelials/bacteria. Blood culture obtained. ACUTE CARE HOSPITAL COURSE: Admitted for treatment of left mastoiditis, WBC was 22.1 then came down to 14.7 next morning, 10.6 yesterday and 8.1 today. CRP went from 8.4 to 2.7 today. She received 2 doses of Levofloxacin as they are every 48 hours. She was on IV fluids on admission for mild dehydration, she was saline locked yesterday. She has had elevated blood pressures in the evenings around [id number] then trends down without intervention, one evening she was 217/91 and last night was 180/90 but then was in 130-140 by apartment rental clerk, increased her Losartan to 50 mg daily, had improvement in evening pressures with this. PT/OT evaluated her and recommended further therapy in swing bed to improve her strength and ADLs. Family has also been in discussion about her going to [facility] rather than back to her apartment. She had a desaturation with therapy down to 85%, history of COPD, they put on oxygen, she came back up to 98%, advised to keep her oxygen between 88-92% due to her COPD and oxygen was removed and she was saturating in the 92-93% on room air. Diagnosis: Stroke: No - Discharge Data Discharge Date: 02/05/21 ([facility]) Discharge Disposition: Home, W Home Health Agency 06 Condition: Good - Referral to Home Health Date of Face to Face Encounter: 02/05/21 Reason for Homebound Status: [facility] admission Primary Care Physician: Whitney Stokes NP Skilled Need: [facility] for medications, PT/OT - Discharge Diagnosis/Problem(s) (1) Weakness generalized SNOMED Code(s): 57378312 ICD Code: R53.1 - WEAKNESS Status: Acute Current Visit: No (2) Mastoiditis of left side SNOMED Code(s): 3591913795412597 ICD Code: H70.92 - UNSPECIFIED MASTOIDITIS, LEFT EAR Status: Resolved Current Visit: No (3) Anemia SNOMED Code(s): 918967578 ICD Code: D64.9 - ANEMIA, UNSPECIFIED Status: Chronic Current Visit: No (4) COPD (chronic obstructive pulmonary disease) SNOMED Code(s): 83758468 ICD Code: J44.9 - CHRONIC OBSTRUCTIVE PULMONARY DISEASE, UNSPECIFIED Status: Chronic Current Visit: No Problem Details: Keep O2 between 88-92% (5) Constipation SNOMED Code(s): 59868086 ICD Code: K59.00 - CONSTIPATION, UNSPECIFIED Status: Chronic Current Visit: No Qualifiers: Constipation type: unspecified constipation type Qualified Code(s): K59.00 - Constipation, unspecified (6) HLD (hyperlipidemia) SNOMED Code(s): 66027487 ICD Code: E78.5 - HYPERLIPIDEMIA, UNSPECIFIED Status: Chronic Current Visit: No Qualifiers: Hyperlipidemia type: unspecified Qualified Code(s): E78.5 - Hyperlipidemia, unspecified (7) HTN (hypertension) SNOMED Code(s): 87132489 ICD Code: I10 - ESSENTIAL (PRIMARY) HYPERTENSION Status: Chronic Current Visit: No Problem Details: Labile Qualifiers: Hypertension type: essential hypertension (8) History of hip fracture SNOMED Code(s): 081583739 ICD Code: Z87.81 - PERSONAL HISTORY OF (HEALED) TRAUMATIC FRACTURE Status: Chronic Current Visit: No (9) 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 SNOMED Code(s): 161379034 ICD Code: Z98.890 - OTHER SPECIFIED POSTPROCEDURAL STATES Status: Chronic Current Visit: No (10) Insomnia SNOMED Code(s): 207327800 ICD Code: G47.00 - INSOMNIA, UNSPECIFIED Status: Chronic Current Visit: No Qualifiers: Insomnia type: primary Qualified Code(s): F51.01 - Primary insomnia (11) Osteoarthritis SNOMED Code(s): 657712242 ICD Code: M19.90 - UNSPECIFIED OSTEOARTHRITIS, UNSPECIFIED SITE Status: Chronic Current Visit: No (12) Wears hearing aid Status: Chronic Current Visit: No - Patient Summary/Data Consults: Consultations 01/30/21 10:55 OT Evaluation and Treatment [CONS] Routine Please Evaluate and Treat. OT Reason for Consult: ADL's This query below is only for informational purposes and is not editable. PT Evaluation and Treatment [CONS] Routine Please Evaluate and Treat. PT Reason for Consult: Strengthening This query below is only for informational purposes and is not editable. 01/31/21 08:18 Consult to Dietary [Consult to Operations Accountant] [CONS] Routine Comment: Physician Instructions: Quantity: Reason for Consult: weight loss Hospital Course: Lily has progressed well with therapy since Swing bed admission. Will go to [facility] with Home Health PT/OT for further rehab. Her blood pressures were high when she presented for acute care admission. Transferred to swing bed on Losartan 50 mg and HCTZ 25 mg, her blood pressures continued to trend down and got hypotensive last week at 101/44. Her HCTZ was decreased to 12.5 mg daily. Continued to be on the low side so decreased her Losartan to 25 mg daily. She has been well controlled with these doses in am and pm vital checks, 02/04: 143/61, 115/40, then 02/05: 104/77. She had been taking per retail pharmacy HCTZ 25 mg MWF, if she continues to trend down then will need further adjustment by Whitney Stokes NP. Question whether she has been taking her medications correctly at home. Had some ear fullness yesterday, started Flonase daily and she noted that it did help. MME on admission. - Patient Instructions Diet: Regular Diet as Tolerated Activity: As Tolerated Driving: Do Not Drive Showering/Bathing: May Shower Notify Provider of: Fever, Increased Pain, Nausea and/or Vomiting Other/Special Instructions: Follow up with Whitney Stokes NP in 1-2 weeks recheck your blood pressure and your ears since you had Left mastoiditis. - Discharge Plan *PRESCRIPTION DRUG MONITORING PROGRAM REVIEWED*: Not Applicable *COPY OF PRESCRIPTION DRUG MONITORING REPORT IN PATIENT FLORA: Not Applicable Prescriptions/Med Rec: LORazepam [Ativan] 0.25 mg PO Q8H PRN #14 tablet PRN Reason: Agitation Calcium Carb/Mag Ox/Zinc Sulf [Mka-Rqz-Ylik 334-134-5 mg Tab] 1 tab PO DAILY@1400 #100 tab Docusate Sodium 250 mg PO DAILY PRN #100 cap PRN Reason: Constipation Fluticasone Propionate [Flonase] 0 gm NASBOTH DAILY #1 bottle Multivitamin with Minerals [Hair, Skin and Nails] 1 tab PO DAILY@1400 #100 tab Aspirin [Halfprin] 81 mg PO DAILY@1400 #100 tab.ec hydroCHLOROthiazide [Hydrochlorothiazide] 25 mg PO DAILY #14 tab atorvaSTATin Calcium [Lipitor] 20 mg PO BEDTIME #14 tab Magnesium Oxide 400 mg PO DAILY@1400 #14 tablet Ibuprofen [Motrin] 200 mg PO Q6H PRN #100 tablet PRN Reason: Pain Multivit-Min/Iron/Folic/Lutein [Multivitamin Women 50 Plus Tab] 1 tab PO DAILY@1400 #100 tab Oxybutynin [Oxybutynin ER] 5 mg PO BEDTIME #14 tab Budesonide/Formoterol Fumarate [Symbicort 160-4.5 Mcg Inhaler] 2 puff INH BID #1 inhaler Acetaminophen [Tylenol Extra Strength] 500 mg PO Q6H PRN #100 tablet PRN Reason: Pain Valerian Root 500 mg PO DAILY PRN #100 tab PRN Reason: nerves/sleep Cyanocobalamin (Vitamin B12) [Vitamin B12] 1,000 mcg PO DAILY@1400 #100 tab Ascorbate Calcium [Vitamin C] 500 mg PO DAILY@1400 #100 tab Cholecalciferol (Vitamin D3) [Vitamin D3] 1,000 unit PO DAILY@1400 #100 cap Vitamin E (Dl,Tocopheryl Acet) [Vitamin E] 180 mg PO DAILY@1400 #100 tab Home Medications: Home Meds traZODone HCl [Trazodone HCl] 100 mg PO BEDTIME PRN 11/15/15 [History] Acetaminophen [Tylenol Extra Strength] 500 mg PO Q6H PRN #100 tablet 02/04/21 [Rx] Ascorbate Calcium [Vitamin C] 500 mg PO DAILY@1400 #100 tab 02/04/21 [Rx] Aspirin [Halfprin] 81 mg PO DAILY@1400 #100 tab.ec 02/04/21 [Rx] Budesonide/Formoterol Fumarate [Symbicort 160-4.5 Mcg Inhaler] 2 puff INH BID #1 inhaler 02/04/21 [Rx] Calcium Carb/Mag Ox/Zinc Sulf [Ssl-Ayk-Luyr 334-134-5 mg Tab] 1 tab PO DAILY@1400 #100 tab 02/04/21 [Rx] Cholecalciferol (Vitamin D3) [Vitamin D3] 1,000 unit PO DAILY@1400 #100 cap 02/04/21 [Rx] Cyanocobalamin (Vitamin B12) [Vitamin B12] 1,000 mcg PO DAILY@1400 #100 tab 02/04/21 [Rx] Docusate Sodium 250 mg PO DAILY PRN #100 cap 02/04/21 [Rx] Fluticasone Propionate [Flonase] 0 gm NASBOTH DAILY #1 bottle 02/04/21 [Rx] Ibuprofen [Motrin] 200 mg PO Q6H PRN #100 tablet 02/04/21 [Rx] LORazepam [Ativan] 0.25 mg PO Q8H PRN #14 tablet 02/04/21 [Rx] Losartan [Cozaar] 25 mg PO DAILY #0 tablet 02/04/21 [Rx] Magnesium Oxide 400 mg PO DAILY@1400 #14 tablet 02/04/21 [Rx] Multivit-Min/Iron/Folic/Lutein [Multivitamin Women 50 Plus Tab] 1 tab PO DAILY@1400 #100 tab 02/04/21 [Rx] Multivitamin with Minerals [Hair, Skin and Nails] 1 tab PO DAILY@1400 #100 tab 02/04/21 [Rx] Oxybutynin [Oxybutynin ER] 5 mg PO BEDTIME #14 tab 02/04/21 [Rx] Valerian Root 500 mg PO DAILY PRN #100 tab 02/04/21 [Rx] Vitamin E (Dl,Tocopheryl Acet) [Vitamin E] 180 mg PO DAILY@1400 #100 tab 02/04/21 [Rx] atorvaSTATin Calcium [Lipitor] 20 mg PO BEDTIME #14 tab 02/04/21 [Rx] hydroCHLOROthiazide [Hydrochlorothiazide] 12.5 mg PO DAILY #0 cap 02/04/21 [Rx] hydroCHLOROthiazide [Hydrochlorothiazide] 25 mg PO DAILY #14 tab 02/04/21 [Rx] Oxygen Flow Rate (L/min): 2 (at bedtime) Maintain SPO2% less than: 92 Maintain SpO2% greater than: 88 Referrals: Whitney Stokes NP [Primary Care Provider] - - Discharge Summary/Plan Comment DC Time >30 min.: No Total # of Minutes for Discharge Time: 20 min - General Info Date of Service: 02/05/21 Subjective Update: Lily stated the Flonase helped her ear pressure/fullness. She is feeling well this morning. Had some prunes. Having regular bowel movements. Urinating well, f eels too much. Blood pressures well controlled in am & pm. She was having highs in evening on acute care side. - Patient Data Vitals - Most Recent: Last Vital Signs Temp 98.0 F 02/04/21 20:00 Pulse 83 02/04/21 20:00 Resp 14 02/04/21 20:00 BP 104/77 02/05/21 08:58 Pulse Ox 94 L 02/04/21 20:00 Weight - Most Recent: 107 lb 11.2 oz Lab Results - Last 24 hrs: Laboratory Results - last 24 hr 02/05/21 Range/Units 05:50 SARS-CoV-2 RNA (RODRIGO) Negative (NEGATIVE) Med Orders - Current: Current Medications Acetaminophen (Acetaminophen 500 Mg Tab) 500 mg PO Q6H PRN PRN Reason: Pain Ascorbic Acid (Ascorbic Acid 500 Mg Tab) 500 mg PO DAILY@1400 [facility] Last Admin: 02/04/21 14:14 Dose: 500 mg Documented by: Aspirin (Aspirin 81 Mg Tab.Ec) 81 mg PO DAILY@1400 [facility] Last Admin: 02/04/21 14:15 Dose: 81 mg Documented by: Atorvastatin Calcium (Atorvastatin 20 Mg Tab) 20 mg PO BEDTIME [facility] Last Admin: 02/04/21 19:59 Dose: 20 mg Documented by: Docusate Sodium (Docusate Sodium 100 Mg Cap) 200 mg PO DAILY PRN PRN Reason: Constipation Fluticasone Propionate (Fluticasone Propionate Nasal [place] 16 Gm Bottle) 0 gm NASBOTH DAILY [facility] Last Admin: 02/05/21 08:58 Dose: 1 spray Documented by: Hydrochlorothiazide (Hydrochlorothiazide 12.5 Mg Cap) 12.5 mg PO DAILY [facility] Last Admin: 02/05/21 08:59 Dose: 12.5 mg Documented by: Ibuprofen (Ibuprofen 200 Mg Tab) 200 mg PO Q6H PRN PRN Reason: Pain Lorazepam (Lorazepam 0.5 Mg Tab) 0.25 mg PO Q8H PRN PRN Reason: Agitation Losartan Potassium (Losartan 25 Mg Tab) 25 mg PO DAILY [facility] Last Admin: 02/05/21 08:58 Dose: 25 mg Documented by: Magnesium Oxide (Magnesium Oxide 400 Mg Tab) 400 mg PO DAILY@1400 [facility] Last Admin: 02/04/21 14:14 Dose: 400 mg Documented by: Mometasone Furoate/Formoterol Fumar (Formoterol/Mometasone 200-5 Mcg 8.8 Gm Inhaler) 2 puff IH BID [facility] Last Admin: 02/05/21 08:58 Dose: 2 puff Documented by: Multivitamins/Minerals (Multivitamins With Iron/Calcium/Folic Acid/Minerals Tab) 1 tab PO DAILY@1400 [facility] Last Admin: 02/04/21 14:14 Dose: 1 tab Documented by: Oxybutynin Chloride (Oxybutynin 5 Mg Tab.Er) 5 mg PO BEDTIME [facility] Last Admin: 02/04/21 19:59 Dose: 5 mg Documented by: Trazodone HCl (Trazodone 100 Mg Tab) 100 mg PO BEDTIME PRN PRN Reason: Sleep Last Admin: 02/05/21 00:11 Dose: 100 mg Documented by: Discontinued Medications Docusate Sodium (Docusate Sodium 250 Mg Cap) 250 mg PO DAILY PRN PRN Reason: Constipation Hydrochlorothiazide (Hydrochlorothiazide 25 Mg Tab) 25 mg PO DAILY [facility] Last Admin: 01/31/21 09:47 Dose: Not Given Documented by: Levofloxacin (Levofloxacin 750 Mg Tab) 750 mg PO Q48H [facility] Stop: 02/02/21 20:01 Last Admin: 02/02/21 21:35 Dose: 750 mg Documented by: Losartan Potassium (Losartan 50 Mg Tab) 50 mg PO DAILY [facility] Last Admin: 02/01/21 09:21 Dose: 50 mg Documented by: Tuberculin PPD (Tuberculin, Ppd 5 Units/0.1 Ml 1 Ml Mdv) 5 unit IDERM ONETIME ONE Stop: 02/05/21 09:01 - Exam General: Reports: Alert, Oriented, Cooperative, No Acute Distress Lungs: Reports: Clear to Auscultation, Normal Respiratory Effort Cardiovascular: Reports: Regular Rate, Regular Rhythm GI/Abdominal Exam: Normal Bowel Sounds, Soft, Non-Tender, No Distention (Female) Exam: Deferred Rectal (Female) Exam: Deferred Extremities: No Pedal Edema, Normal Capillary Refill Skin: Reports: Warm, Dry, Intact *Q Meaningful Use (DIS) - VTE *Q VTE Mechanical Contraindications *Q: At Risk for Falls
[2021-02-05 10:45] VITALS: PULSE 88
== END 2021-02-05 10:37 | disposition home health service (06) | DRG 948 ==
LOC: FB.MS 10:49
PROVIDERS: ADMIT Family Medicine; ATTEND Family Medicine
DX: R53.1 Weakness (principal); H70.92 Unspecified mastoiditis, left ear; J44.9 Chronic obstructive pulmonary disease, unspecified; K59.00 Constipation, unspecified; E78.5 Hyperlipidemia, unspecified; I10 Essential (primary) hypertension; F51.01 Primary insomnia; M19.90 Unspecified osteoarthritis, unspecified site; H54.7 Unspecified visual loss; Z20.822 Contact with and (suspected) exposure to COVID-19; E78.00 Pure hypercholesterolemia, unspecified; D64.9 Anemia, unspecified; N32.81 Overactive bladder; Z66 Do not resuscitate; E86.0 Dehydration; R41.0 Disorientation, unspecified; Z87.81 Personal history of (healed) traumatic fracture; Z98.890 Other specified postprocedural states; Z88.0 Allergy status to penicillin; Z79.82 Long term (current) use of aspirin; Z79.899 Other long term (current) drug therapy; Z98.49 Cataract extraction status, unspecified eye; Z86.73 Personal history of transient ischemic attack (TIA), and cerebral infarction without residual deficits; Z98.41 Cataract extraction status, right eye; Z98.42 Cataract extraction status, left eye
CPT/HCPCS: 36415; 80048; 86580; 97110-GO; 97110-GP; 97116-GP; 97530-GO; 97535-GO; A9270-GY; U0002

== ENCOUNTER 2021-05-10 17:07 | Inpatient (IN) | payer MEDICARE, BC ==
--- NOTE | 2021-05-10 17:33 | EDM.PDOC ---
ED HPI GENERAL MEDICAL PROBLEM - General Stated Complaint: HIGH BP Time Seen by Provider: 05/10/21 17:25 Source of Information: Reports: Patient History Limitations: Reports: No Limitations - History of Present Illness INITIAL COMMENTS - FREE TEXT/NARRATIVE: 86-year-old female who presents to the emergency department via private vehicle by her son from the [facility] secondary to headache, dizziness and increased blood pressure. She apparently began to complain of some headache in her frontal area on 05/07/2021 and the pain was a dull and aching pain in her frontal head that seemed to come on in the afternoon and worsened until she was given some ibuprofen and the pain seemed to improve. She had no dizziness at this time and she had no shortness of breath or chest pain. She apparently had recurring headaches on the past 2 days as well and they both seem to come in the afternoon and then get worse until she was given medication for pain. Today was noted that her blood pressure was quite elevated and she was quite dizzy when all of this was occurring and it seemed to be worse when she was getting up and moving around. She is not really able to quantitate the pain other than to say i t was medium. She denied any vision problems. Her blood pressure is quite elevated now but according to the son her blood pressure was 80 systolic this morning and the patient was symptom-free with this low blood pressure. No chest pain. No shortness of breath. She has been eating and drinking per her normal. This was not very well today. There are no other associated signs or symptoms. There are no other modifying factors. 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 (Ibuprofen) frontal H/A Pain Score (Numeric/FACES): 5 - Related Data Allergies Allergy/AdvReac Type Severity Reaction Status Date / Time Penicillins Allergy Swelling Verified 01/24/21 16:38 Home Meds: Home Meds traZODone HCl [Trazodone HCl] 100 mg PO BEDTIME PRN 11/15/15 [History] Ascorbate Calcium [Vitamin C] 500 mg PO DAILY@1400 #100 tab 02/04/21 [Rx] Aspirin [Halfprin] 81 mg PO DAILY@1400 #100 tab.ec 02/04/21 [Rx] Budesonide/Formoterol Fumarate [Symbicort 160-4.5 Mcg Inhaler] 2 puff INH BID #1 inhaler 02/04/21 [Rx] Calcium Carb/Mag Ox/Zinc Sulf [Yub-Xgm-Ethy 334-134-5 mg Tab] 1 tab PO DAILY@1400 #100 tab 02/04/21 [Rx] Cholecalciferol (Vitamin D3) [Vitamin D3] 1,000 unit PO DAILY@1400 #100 cap 02/04/21 [Rx] Cyanocobalamin (Vitamin B12) [Vitamin B12] 1,000 mcg PO DAILY@1400 #100 tab 02/04/21 [Rx] Docusate Sodium 250 mg PO DAILY PRN #100 cap 02/04/21 [Rx] Ibuprofen [Motrin] 200 mg PO Q6H PRN #100 tablet 02/04/21 [Rx] LORazepam [Ativan] 0.25 mg PO Q8H PRN #14 tablet 02/04/21 [Rx] Losartan [Cozaar] 25 mg PO DAILY #0 tablet 02/04/21 [Rx] Magnesium Oxide 400 mg PO DAILY@1400 #14 tablet 02/04/21 [Rx] Multivit-Min/Iron/Folic/Lutein [Multivitamin Women 50 Plus Tab] 1 tab PO DAILY@1400 #100 tab 02/04/21 [Rx] Multivitamin with Minerals [Hair, Skin and Nails] 1 tab PO DAILY@1400 #100 tab 02/04/21 [Rx] Oxybutynin [Oxybutynin ER] 5 mg PO BEDTIME #14 tab 02/04/21 [Rx] Valerian Root 500 mg PO DAILY PRN #100 tab 02/04/21 [Rx] Vitamin E (Dl,Tocopheryl Acet) [Vitamin E] 180 mg PO DAILY@1400 #100 tab 02/04/21 [Rx] atorvaSTATin Calcium [Lipitor] 20 mg PO BEDTIME #14 tab 02/04/21 [Rx] hydroCHLOROthiazide [Hydrochlorothiazide] 12.5 mg PO DAILY #0 cap 02/04/21 [Rx] Acetaminophen [Tylenol Extra Strength] 500 mg PO Q6H PRN 05/10/21 [History] Acetaminophen [Tylenol] 650 mg PO Q4H PRN 05/10/21 [History] Bisacodyl [Laxative Suppository] 10 mg RECTAL ASDIRECTED 05/10/21 [History] Fluticasone Propionate [Flonase] 27 gm NASBOTH DAILY 05/10/21 [History] Loperamide HCl [Imodium A-D] 2 mg PO ASDIRECTED 05/10/21 [History] Mag Hydrox/Aluminum Hyd/Simeth [Mylanta Maximum Strength Pkt] 10 ml PO ASDIRECTED 05/10/21 [History] Magnesium Hydroxide [Milk of Magnesia] 30 ml PO DAILY PRN 05/10/21 [History] Past Medical History HEENT History: Reports: Cataract, Impaired Vision, Other (See Below) Other HEENT History: Having some possible sinus problems recently, right side of head and face. Has chronic rhinitis. Cardiovascular History: Reports: High Cholesterol, Hypertension Respiratory History: Reports: COPD, Other (See Below) Other Respiratory History: Uses CPAP at night. States that she uses oxygen at night. Former smoker, quit year 2006. Genitourinary History: Reports: Other (See Below) Other Genitourinary History: Overactive bladder. Musculoskeletal History: Reports: Other (See Below) Other Musculoskeletal History: Broke head right shoulder/arm. Left femur fracture and nailing at the left hip. Neurological History: Reports: TIA, Other (See Below) Other Neuro History: States she had an episode last summer with trouble speaking, nausea, and difficulty walking---this resolved in a short time. Confused at times-baseline. Endocrine/Metabolic History: Reports: Other (See Below) Other Endocrine/Metabolic History: States she is not a diabetic. Hematologic History: Reports: Anemia, Other (See Below) Other Hematologic History: Had acute anemia after hip surgery. - Infectious Disease History Infectious Disease History: Reports: Other (See Below) Other Infectious Disease History: She is uncertain of her past diseases. 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 - Living Situation & Occupation Living situation: Reports: Other (Living in the [facility] for the past 3 months.) ED ROS GENERAL - Review of Systems Review Of Systems: See Below Constitutional: Reports: Malaise. Denies: Fever, Chills HEENT: Denies: Dental Pain, Hearing Loss, Throat Swelling Respiratory: Denies: Shortness of Breath, Cough Cardiovascular: Denies: Chest Pain, Palpitations Endocrine: Denies: High Glucose GI/Abdominal: Denies: Abdominal Pain, Nausea, Vomiting : Denies: Dysuria Musculoskeletal: Denies: Neck Pain, Shoulder Pain Skin: Denies: Diaphoresis, Rash Neurological: Reports: Dizziness, Headache Psychiatric: Reports: Anxiety Hematologic/Lymphatic: Reports: No Symptoms. Denies: Easy Bleeding, Easy Bruising Immunologic: Reports: No Symptoms ED EXAM, GENERAL - Physical Exam Exam: See Below General Appearance: Alert, WD/WN, No Apparent Distress Eye Exam: Bilateral Eye: EOMI, Normal Inspection, PERRL Ears: Normal External Exam, Hearing Grossly Normal Ear Exam: Bilateral Ear: Auricle Normal Nose: Normal Inspection, Normal Mucosa, No Blood Throat/Mouth: Normal Voice, No Airway Compromise Head: Atraumatic, Normocephalic Neck: Normal Inspection, Supple, Non-Tender, Full Range of Motion Respiratory/Chest: No Respiratory Distress, Lungs Clear, Normal Breath Sounds, No Accessory Muscle Use, Chest Non-Tender Cardiovascular: Normal Peripheral Pulses, Regular Rate, Rhythm, No Edema Peripheral Pulses: 2+: Radial (L), Radial (R), Dorsalis Pedis (L), Dorsalis Pedis (R) GI/Abdominal: Normal Bowel Sounds, Soft, Non-Tender, No Mass Back Exam: Normal Inspection, Full Range of Motion Extremities: Normal Inspection, Normal Range of Motion, Non-Tender, Normal Capillary Refill Neurological: Alert, Oriented, CN II-XII Intact, No Motor/Sensory Deficits, Slow to Respond, Other (There is no asymmetry to her exam.) Psychiatric: Depressed Mood, Flat Affect Skin Exam: Warm, Dry, Intact, Normal Color, No Rash #1 Interpretation EKG Date: 05/10/21 Time: 18:12 Rhythm: NSR Rate (Beats/Min): 69 Ashley: Normal P-Wave: Enlarged (Left atrial enlargement) QRS: Other (LVH) ST-T: Normal QT: Normal Comparison: No Change (No change from an EKG performed on 01/17/2021.) Course - Vital Signs Last Recorded V/S: Last Vital Signs Temp 36.6 C 05/10/21 17:10 Pulse 66 05/10/21 20:30 Resp 16 05/10/21 20:30 BP 163/69 H 05/10/21 20:30 Pulse Ox 95 05/10/21 20:30 - Orders/Labs/Meds Orders: Active Orders 24 hr Category Date Time Status Chest 1V Frontal [CR] Stat Exams 05/10/21 17:52 Taken Head wo Cont [CT] Stat Exams 05/10/21 17:52 Taken EKG 12 Lead [EK] Routine Ther 05/10/21 17:52 Ordered Medication Orders Acetaminophen (Acetaminophen 325 Mg Tab) 650 mg PO Q4H PRN PRN Reason: Pain (Mild 1-3)/fever Last Admin: 05/10/21 23:06 Dose: 650 mg Documented by: SHAMEKA Sodium Chloride (Normal Saline) 1,000 mls @ 100 mls/hr IV ASDIRECTED [facility] Last Admin: 05/10/21 23:00 Dose: 100 mls/hr Documented by: SHAMEKA Ondansetron HCl (Ondansetron 4 Mg/2 Ml Sdv) 4 mg IV Q6H PRN PRN Reason: Nausea/Vomiting Labs: Laboratory Tests 05/10/21 05/10/21 05/10/21 Range/Units 17:55 18:05 18:05 WBC 7.0 (3.0-10.3) x10-3/uL RBC 3.87 (3.60-5.20) x10(6)uL Hgb 11.8 (11.4-15.5) g/dL Hct 35.2 (34.2-48.2) % MCV 90.8 (76.7-100.5) fL MCH 30.3 (23.9-33.9) pg MCHC 33.4 (31.9-34.8) g/dL RDW 14.9 (12.3-16.5) % Plt Count 253 (151-488) x10(3)uL MPV 6.7 L (7.1-12.4) fL Neut % (Auto) 64.9 (30.8-76.2) % Lymph % (Auto) 22.5 (18.4-52.1) % [place] % (Auto) 10.0 (4.4-15.7) % Eos % (Auto) 2.0 (0.6-8.1) % Baso % (Auto) 0.6 (0.2-1.5) % Neut # (Auto) 4.5 (1.5-6.3) x10-3/uL Lymph # (Auto) 1.6 (1.0-4.4) x10-3/uL [place] # (Auto) 0.7 (0.3-1.0) x10-3/uL Eos # (Auto) 0.1 (0.0-0.8) x10-3/uL Baso # (Auto) 0.0 (0.0-0.1) x10-3/uL Sodium 126 L D (135-145) mmol/L Potassium 3.8 (3.5-5.3) mmol/L Chloride 91 L D (100-110) mmol/L Carbon Dioxide 29 (21-32) mmol/L BUN 15 (7-18) mg/dL Creatinine 1.0 (0.55-1.02) mg/dL Est Cr Clr Drug Dosing TNP Estimated GFR (MDRD) 52 L (>60) BUN/Creatinine Ratio 15.0 (9-20) Glucose 86 (80-116) mg/dL Calcium 8.9 (8.6-10.2) mg/dL Magnesium 1.7 L (1.8-2.5) mg/dL Total Bilirubin 0.6 (0.1-1.3) mg/dL AST 22 (5-25) IU/L ALT 23 D (12-36) U/L Alkaline Phosphatase 87 (56-112) IU/L Troponin I (4.0-60.3) pg/mL Total Protein 7.1 (6.0-8.0) g/dL Albumin 3.8 (3.2-4.6) g/dL Globulin 3.3 g/dL Albumin/Globulin Ratio 1.2 Urine Color Yellow (YELLOW) Urine Appearance Clear (CLEAR) Urine pH 8.0 H (5.0-6.5) Ur Specific [place] 1.010 (1.010-1.025) Urine Protein Trace (NEGATIVE) mg/dL Urine Glucose (UA) Normal (NORMAL) mg/dL Urine Ketones Negative (NEGATIVE) mg/dL Urine Occult Blood Trace (NEGATIVE) Urine Nitrite Negative (NEGATIVE) Urine Bilirubin Negative (NEGATIVE) Urine Urobilinogen Normal (NEGATIVE) mg/dL Ur Leukocyte Esterase Negative (NEGATIVE) Urine RBC 0-5 (0-5) Urine WBC 0-5 (0-5) Ur Squamous Epith Cells Moderate H (NS,R,O) Urine Bacteria Few H (NS) SARS-CoV-2 RNA (RODRIGO) (NEGATIVE) 05/10/21 05/10/21 Range/Units 18:05 19:00 WBC (3.0-10.3) x10-3/uL RBC (3.60-5.20) x10(6)uL Hgb (11.4-15.5) g/dL Hct (34.2-48.2) % MCV (76.7-100.5) fL MCH (23.9-33.9) pg MCHC (31.9-34.8) g/dL RDW (12.3-16.5) % Plt Count (151-488) x10(3)uL MPV (7.1-12.4) fL Neut % (Auto) (30.8-76.2) % Lymph % (Auto) (18.4-52.1) % [place] % (Auto) (4.4-15.7) % Eos % (Auto) (0.6-8.1) % Baso % (Auto) (0.2-1.5) % Neut # (Auto) (1.5-6.3) x10-3/uL Lymph # (Auto) (1.0-4.4) x10-3/uL [place] # (Auto) (0.3-1.0) x10-3/uL Eos # (Auto) (0.0-0.8) x10-3/uL Baso # (Auto) (0.0-0.1) x10-3/uL Sodium (135-145) mmol/L Potassium (3.5-5.3) mmol/L Chloride (100-110) mmol/L Carbon Dioxide (21-32) mmol/L BUN (7-18) mg/dL Creatinine (0.55-1.02) mg/dL Est Cr Clr Drug Dosing Estimated GFR (MDRD) (>60) BUN/Creatinine Ratio (9-20) Glucose (80-116) mg/dL Calcium (8.6-10.2) mg/dL Magnesium (1.8-2.5) mg/dL Total Bilirubin (0.1-1.3) mg/dL AST (5-25) IU/L ALT (12-36) U/L Alkaline Phosphatase (56-112) IU/L Troponin I 12.0 (4.0-60.3) pg/mL Total Protein (6.0-8.0) g/dL Albumin (3.2-4.6) g/dL Globulin g/dL Albumin/Globulin Ratio Urine Color (YELLOW) Urine Appearance (CLEAR) Urine pH (5.0-6.5) Ur Specific [place] (1.010-1.025) Urine Protein (NEGATIVE) mg/dL Urine Glucose (UA) (NORMAL) mg/dL Urine Ketones (NEGATIVE) mg/dL Urine Occult Blood (NEGATIVE) Urine Nitrite (NEGATIVE) Urine Bilirubin (NEGATIVE) Urine Urobilinogen (NEGATIVE) mg/dL Ur Leukocyte Esterase (NEGATIVE) Urine RBC (0-5) Urine WBC (0-5) Ur Squamous Epith Cells (NS,R,O) Urine Bacteria (NS) SARS-CoV-2 RNA (RODRIGO) Negative (NEGATIVE) Meds: Medications Generic Name Dose Route Start Last Admin Trade Name Freq PRN Reason Stop Dose Admin Acetaminophen 650 mg 05/10/21 21:06 05/10/21 23:06 Acetaminophen 325 Mg Tab PO 650 mg Q4H PRN Administration Pain (Mild 1-3)/fever Sodium Chloride 1,000 mls @ 100 mls/hr 05/10/21 20:30 05/10/21 23:00 Normal Saline IV 100 mls/hr ASDIRECTED BAILEY Administration Ondansetron HCl 4 mg 05/10/21 21:06 Ondansetron 4 Mg/2 Ml Sdv IV Q6H PRN Nausea/Vomiting Discontinued Medications Generic Name Dose Route Start Last Admin Trade Name Freq PRN Reason Stop Dose Admin Sodium Chloride 500 mls @ 999 mls/hr 05/10/21 20:22 05/10/21 23:28 Normal Saline IV 05/10/21 20:52 Not Given .BOLUS ONE - Radiology Interpretation Free Text/Narrative:: Portable chest x-ray showed no acute disease per my reading. CT scan of the head showed no bleeding and no fractures and no stroke her the [facility] radiologist. - Re-Assessments/Exams Free Text/Narrative Re-Assessment/Exam: 05/10/21 18:45: White blood cell count is 7.0. Hemoglobin is 11.8. Platelet count is normal. Sodium is 126. Potassium is 3.8. Bicarbonate is 29. BUN is 15 and creatinine is 1.0. Glucose is 86. Anemia 1.7. LFTs are normal. Troponin is normal. Urinalysis was normal. The patient's blood pressure which was elevated when she came in has come down into the 150/80 range at times and sometimes has crept up but overall is much improved from when she arrived. She still is very flat affect and mostly nonverbal. She does not appear to be in any respiratory distress. There does not appear I will give the patient some normal saline as she does appear to be somewhat dehydrated as she has the hyponatremia. to be any asymmetry to her exam at this point. She is very weak though. It took maximal assistance from the nurses to get her to the bathroom and back and she seemed very unsteady on her feet. 05/10/21 19:25: CT scan of the head showed no acute abnormality. The chest x-ray showed no acute abnormality. The patient's glucose was somewhat low and the nursing staff attempted to feed the patient but she really a very low and also did not really want anything to drink. With the patient having the sodium of 126, her blood pressures being quite high and now in the 80s per the son this previous morning and with her weakness and unsteadiness, I will be admitting the patient. I will hydrate the patient with normal saline. I will monitor her blood pressure closely. Somewhat concerned that she could've had a subacute stroke even though the CT is negative. This may be something that needs to be further addressed with testing during this hospitalization. I discussed all this with the patient's son and the patient and they're in agreement with the plan for admission. Also discussed CODE STATUS with them and the patient is a DNR. 05/10/21 20:05: Patient's rapid Covid test was negative. I have placed admission orders for the patient and she is going to the floor now. Care the patient will go to Dr. Valenzuela at 7 a.m. on 05/11/2021. Patient is being placed on observation status for now. Departure - Departure Time of Disposition: 21:00 Disposition: Refer to Observation Condition: Fair Clinical Impression: Hypertension, uncontrolled, Rapidly progressive weakness, Hyponatremia Headache Qualifiers: Headache type: unspecified Headache chronicity pattern: acute headache Intractability: intractable Qualified Code(s): R51.9 - Headache, unspecified - Discharge Information Sepsis Event Note (ED) - Focused Exam Vital Signs: Vital Signs Temp Pulse Resp BP Pulse Ox 05/10/21 20:00 76 24 H 157/67 H 95 05/10/21 19:30 78 18 197/87 H 95 05/10/21 19:00 76 19 198/90 H 94 L 05/10/21 18:30 73 15 198/89 H 15 L 05/10/21 18:15 77 24 H 205/93 H 95 05/10/21 17:45 82 24 H 220/98 H 95 05/10/21 17:10 36.6 C 83 16 223/110 H 94 L - My Orders Last 24 Hours: My Active Orders 05/10/21 17:52 Chest 1V Frontal [CR] Stat Head wo Cont [CT] Stat EKG 12 Lead [EK] Routine - Assessment/Plan Last 24 Hours: My Active Orders 05/10/21 17:52 Chest 1V Frontal [CR] Stat Head wo Cont [CT] Stat EKG 12 Lead [EK] Routine
[2021-05-10] MEDS ORDERED: Sodium Chloride 0.9% 500 ML IV ONE (20:22)
[2021-05-10] MEDS ORDERED: Ondansetron 4 MG/2 ML SDV IV PRN (21:06)
[2021-05-10] MEDS: Sodium Chloride 0.9% 1,000 ML IV SCH (23:00)
[2021-05-10] MEDS: Acetaminophen 325 MG Tab PO PRN (23:06)
[2021-05-11] MEDS: Acetaminophen 325 MG Tab PO PRN (05:03)
[2021-05-11] MEDS: Sodium Chloride 0.9% 1,000 ML IV SCH ×2 (09:18→19:30)
[2021-05-11] MEDS ORDERED: Enalaprilat 1.25 MG/ML SDV IVPUSH ONE (09:28)
[2021-05-11] MEDS ORDERED: VALERIAN ROOT 500 MG PO PRN (09:28)
[2021-05-11] MEDS ORDERED: Ibuprofen 200 MG Tab PO PRN (09:28)
[2021-05-11] MEDS ORDERED: Magnesium Hydroxide 400 MG/5 ML Susp 30 ML Cup PO PRN (09:28)
[2021-05-11] MEDS ORDERED: Ketorolac 15 MG/ML SDV IVPUSH ONE (09:28)
[2021-05-11] MEDS ORDERED: Acetaminophen 500 MG Tab PO PRN (09:28)
[2021-05-11] MEDS ORDERED: Acetaminophen 325 MG Tab PO PRN (09:28)
[2021-05-11] MEDS ORDERED: Docusate Sodium 250 MG Cap PO PRN (09:28)
[2021-05-11] MEDS ORDERED: LORazepam 0.5 MG Tab PO PRN (09:28)
[2021-05-11] MEDS ORDERED: Loperamide 2 MG Cap PO PRN (09:30)
[2021-05-11] MEDS ORDERED: Bisacodyl 10 MG Supp RECTAL PRN (09:30)
[2021-05-11] MEDS ORDERED: Aluminum Hydroxide/Magnesium Hydroxide Susp 30 ML Cup PO PRN (09:30)
--- NOTE | 2021-05-11 09:40 | PCM.HP.2 ---
H&P History of Present Illness - General Date of Service: 05/11/21 Admit Problem/Dx: Admission Diagnosis/Problem Admission Diagnosis/Problem Hyponatremia Source of Information: Patient History Limitations: Reports: No Limitations - History of Present Illness Initial Comments - Free Text/Narative: Lily is an 86-year-old female came into the ER with generalized weakness, diz ziness and lightheadedness.. A duration 1-2 days. She was brought in by the family. She also complained of a headache, and was found to have a high BP and a low Sodium. CT of the chest and chest x-ray were done which were negative. Of note, she was here in January with a similar presentation of weakness. She now lives at the [facility] home. She did not having difficulty with speech or swallowing, and no focal deficits were noted or endorsed. She has a history of COPD, and uses oxygen at night. frontal H/A Pain Score (Numeric/FACES): 5 - Related Data Allergies/Adverse Reactions: Allergies Allergy/AdvReac Type Severity Reaction Status Date / Time Penicillins Allergy Swelling Verified 01/24/21 16:38 Home Medications: Home Meds traZODone HCl [Trazodone HCl] 100 mg PO BEDTIME PRN 11/15/15 [History] Ascorbate Calcium [Vitamin C] 500 mg PO DAILY@1400 #100 tab 02/04/21 [Rx] Aspirin [Halfprin] 81 mg PO DAILY@1400 #100 tab.ec 02/04/21 [Rx] Budesonide/Formoterol Fumarate [Symbicort 160-4.5 Mcg Inhaler] 2 puff INH BID #1 inhaler 02/04/21 [Rx] Calcium Carb/Mag Ox/Zinc Sulf [Znb-[id number]-Jqjt 334-134-5 mg Tab] 1 tab PO DAILY@1400 #100 tab 02/04/21 [Rx] Cholecalciferol (Vitamin D3) [Vitamin D3] 1,000 unit PO DAILY@1400 #100 cap 02/04/21 [Rx] Cyanocobalamin (Vitamin B12) [Vitamin B12] 1,000 mcg PO DAILY@1400 #100 tab 02/04/21 [Rx] Docusate Sodium 250 mg PO DAILY PRN #100 cap 02/04/21 [Rx] Ibuprofen [Motrin] 200 mg PO Q6H PRN #100 tablet 02/04/21 [Rx] LORazepam [Ativan] 0.25 mg PO Q8H PRN #14 tablet 02/04/21 [Rx] Losartan [Cozaar] 25 mg PO DAILY #0 tablet 02/04/21 [Rx] Magnesium Oxide 400 mg PO DAILY@1400 #14 tablet 02/04/21 [Rx] Multivit-Min/Iron/Folic/Lutein [Multivitamin Women 50 Plus Tab] 1 tab PO DAILY@1400 #100 tab 02/04/21 [Rx] Multivitamin with Minerals [Hair, Skin and Nails] 1 tab PO DAILY@1400 #100 tab 02/04/21 [Rx] Oxybutynin [Oxybutynin ER] 5 mg PO BEDTIME #14 tab 02/04/21 [Rx] Valerian Root 500 mg PO DAILY PRN #100 tab 02/04/21 [Rx] Vitamin E (Dl,Tocopheryl Acet) [Vitamin E] 180 mg PO DAILY@1400 #100 tab 02/04/21 [Rx] atorvaSTATin Calcium [Lipitor] 20 mg PO BEDTIME #14 tab 02/04/21 [Rx] hydroCHLOROthiazide [Hydrochlorothiazide] 12.5 mg PO DAILY #0 cap 02/04/21 [Rx] Acetaminophen [Tylenol Extra Strength] 500 mg PO Q6H PRN 05/10/21 [History] Acetaminophen [Tylenol] 650 mg PO Q4H PRN 05/10/21 [History] Bisacodyl [Laxative Suppository] 10 mg RECTAL ASDIRECTED 05/10/21 [History] Fluticasone Propionate [Flonase] 27 gm NASBOTH DAILY 05/10/21 [History] Loperamide HCl [Imodium A-D] 2 mg PO ASDIRECTED 05/10/21 [History] Mag Hydrox/Aluminum Hyd/Simeth [Mylanta Maximum Strength Pkt] 10 ml PO ASDIRECTED 05/10/21 [History] Magnesium Hydroxide [Milk of Magnesia] 30 ml PO DAILY PRN 05/10/21 [History] Past Medical History HEENT History: Reports: Cataract, Impaired Vision, Other (See Below) Other HEENT History: Having some possible sinus problems recently, right side of head and face. Has chronic rhinitis. Cardiovascular History: Reports: High Cholesterol, Hypertension Respiratory History: Reports: COPD, Other (See Below) Other Respiratory History: Uses CPAP at night. States that she uses oxygen at night. Former smoker, quit year 2006. Genitourinary History: Reports: Other (See Below) Other Genitourinary History: Overactive bladder. 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 Left femur fracture and nailing at the left hip. Neurological History: Reports: TIA, Other (See Below) Other Neuro History: States she had an episode last summer with trouble speaking, nausea, and difficulty walking---this resolved in a short time. Confused at times-baseline. Psychiatric History: Reports: Other (See Below) Other Psychiatric History: Takes Trazodone. Endocrine/Metabolic History: Reports: Other (See Below) Other Endocrine/Metabolic History: States she is not a diabetic. Hematologic History: Reports: Anemia, Other (See Below) Other Hematologic History: Had acute anemia after hip surgery. Dermatologic History: Reports: None - Infectious Disease History Infectious Disease History: Reports: Other (See Below) Other Infectious Disease History: She is uncertain of her past diseases. - Past Surgical History HEENT Surgical History: Reports: Cataract Surgery (Bilateral) Musculoskeletal Surgical History: Reports: ORIF (Left hip fracture) Social & Family History - Family History Family Medical History: No Pertinent Family History - Tobacco Use Tobacco Use Status *Q: Former Tobacco User (Quit about 19 years ago) Used Tobacco, but Quit: Yes Month/Year Tobacco Last Used: 1999 - Caffeine Use Caffeine Use: Reports: Coffee, Soda Other Caffeine Use: like Coke and drinks decaf coffee - Recreational Drug Use Recreational Drug Use: No - Living Situation & Occupation Living situation: Reports: Other (Living in the [facility] for the past 3 thus.) H&P Review of Systems - Review of Systems: Review Of Systems: Comprehensive ROS is negative, except as noted in HPI. Exam - Exam Exam: See Below - Vital Signs Vital Signs: Last Vital Signs Temp 97.5 F 05/11/21 07:54 Pulse 74 05/11/21 07:54 Resp 18 05/11/21 07:54 BP 175/73 H 05/11/21 07:54 Pulse Ox 93 L 05/11/21 07:54 Weight: 51.256 kg - Exam General: Lethargic HEENT: PERRLA, Hearing Intact, Mucosa Moist & [place], Nares Patent, Normal Nasal Septum, Posterior Pharynx Clear, Conjunctiva Clear, EOMI, EACs Clear, TMs Clear Neck: Supple, Trachea Midline, 2 Lungs: Clear to Auscultation, Normal Respiratory Effort Cardiovascular: Regular Rate, Regular Rhythm GI/Abdominal Exam: Normal Bowel Sounds, Soft, Non-Tender, No Organomegaly, No Distention, No Abnormal Bruit, No Mass, Pelvis Stable (Female) Exam: Deferred Rectal (Female) Exam: Deferred Back Exam: Normal Inspection, Full Range of Motion, NT Extremities: Normal Inspection, Normal Range of Motion, Non-Tender, No Pedal Edema, Normal Capillary Refill Skin: Warm, Dry, Intact Neurological: Cranial Nerves Intact, Reflexes Equal Bilateral Neuro Extensive - Mental Status: Alert, Oriented x3, Normal Mood/Affect, Normal Cognition Neuro Extensive - Motor, Sensory, Reflexes: CN II-XII Intact, Normal Gait, Normal Reflexes Psychiatric: Alert, Normal Affect, Normal Mood - Patient Data Lab Results Last 24 hrs: Laboratory Results - last 24 hr 05/10/21 05/10/21 05/10/21 Range/Units 17:55 18:05 18:05 WBC 7.0 (3.0-10.3) x10-3/uL RBC 3.87 (3.60-5.20) x10(6)uL Hgb 11.8 (11.4-15.5) g/dL Hct 35.2 (34.2-48.2) % MCV 90.8 (76.7-100.5) fL MCH 30.3 (23.9-33.9) pg MCHC 33.4 (31.9-34.8) g/dL RDW 14.9 (12.3-16.5) % Plt Count 253 (151-488) x10(3)uL MPV 6.7 L (7.1-12.4) fL Neut % (Auto) 64.9 (30.8-76.2) % Lymph % (Auto) 22.5 (18.4-52.1) % [place] % (Auto) 10.0 (4.4-15.7) % Eos % (Auto) 2.0 (0.6-8.1) % Baso % (Auto) 0.6 (0.2-1.5) % Neut # (Auto) 4.5 (1.5-6.3) x10-3/uL Lymph # (Auto) 1.6 (1.0-4.4) x10-3/uL [place] # (Auto) 0.7 (0.3-1.0) x10-3/uL Eos # (Auto) 0.1 (0.0-0.8) x10-3/uL Baso # (Auto) 0.0 (0.0-0.1) x10-3/uL Sodium 126 L D (135-145) mmol/L Potassium 3.8 (3.5-5.3) mmol/L Chloride 91 L D (100-110) mmol/L Carbon Dioxide 29 (21-32) mmol/L BUN 15 (7-18) mg/dL Creatinine 1.0 (0.55-1.02) mg/dL Est Cr Clr Drug Dosing TNP Estimated GFR (MDRD) 52 L (>60) BUN/Creatinine Ratio 15.0 (9-20) Glucose 86 (80-116) mg/dL Calcium 8.9 (8.6-10.2) mg/dL Magnesium 1.7 L (1.8-2.5) mg/dL Total Bilirubin 0.6 (0.1-1.3) mg/dL AST 22 (5-25) IU/L ALT 23 D (12-36) U/L Alkaline Phosphatase 87 (56-112) IU/L Troponin I (4.0-60.3) pg/mL Total Protein 7.1 (6.0-8.0) g/dL Albumin 3.8 (3.2-4.6) g/dL Globulin 3.3 g/dL Albumin/Globulin Ratio 1.2 Urine Color Yellow (YELLOW) Urine Appearance Clear (CLEAR) Urine pH 8.0 H (5.0-6.5) Ur Specific [place] 1.010 (1.010-1.025) Urine Protein Trace (NEGATIVE) mg/dL Urine Glucose (UA) Normal (NORMAL) mg/dL Urine Ketones Negative (NEGATIVE) mg/dL Urine Occult Blood Trace (NEGATIVE) Urine Nitrite Negative (NEGATIVE) Urine Bilirubin Negative (NEGATIVE) Urine Urobilinogen Normal (NEGATIVE) mg/dL Ur Leukocyte Esterase Negative (NEGATIVE) Urine RBC 0-5 (0-5) Urine WBC 0-5 (0-5) Ur Squamous Epith Cells Moderate H (NS,R,O) Urine Bacteria Few H (NS) SARS-CoV-2 RNA (RODRIGO) (NEGATIVE) 05/10/21 05/10/21 05/11/21 Range/Units 18:05 19:00 06:10 WBC 5.6 (3.0-10.3) x10-3/uL RBC 3.58 L (3.60-5.20) x10(6)uL Hgb 10.9 L (11.4-15.5) g/dL Hct 32.3 L (34.2-48.2) % MCV 90.3 (76.7-100.5) fL MCH 30.3 (23.9-33.9) pg MCHC 33.6 (31.9-34.8) g/dL RDW 14.7 (12.3-16.5) % Plt Count 256 (151-488) x10(3)uL MPV 6.9 L (7.1-12.4) fL Neut % (Auto) 63.9 (30.8-76.2) % Lymph % (Auto) 20.3 (18.4-52.1) % [place] % (Auto) 11.5 (4.4-15.7) % Eos % (Auto) 3.2 (0.6-8.1) % Baso % (Auto) 1.1 (0.2-1.5) % Neut # (Auto) 3.6 (1.5-6.3) x10-3/uL Lymph # (Auto) 1.1 (1.0-4.4) x10-3/uL [place] # (Auto) 0.6 (0.3-1.0) x10-3/uL Eos # (Auto) 0.2 (0.0-0.8) x10-3/uL Baso # (Auto) 0.1 (0.0-0.1) x10-3/uL Sodium (135-145) mmol/L Potassium (3.5-5.3) mmol/L Chloride (100-110) mmol/L Carbon Dioxide (21-32) mmol/L BUN (7-18) mg/dL Creatinine (0.55-1.02) mg/dL Est Cr Clr Drug Dosing Estimated GFR (MDRD) (>60) BUN/Creatinine Ratio (9-20) Glucose (80-116) mg/dL Calcium (8.6-10.2) mg/dL Magnesium (1.8-2.5) mg/dL Total Bilirubin (0.1-1.3) mg/dL AST (5-25) IU/L ALT (12-36) U/L Alkaline Phosphatase (56-112) IU/L Troponin I 12.0 (4.0-60.3) pg/mL Total Protein (6.0-8.0) g/dL Albumin (3.2-4.6) g/dL Globulin g/dL Albumin/Globulin Ratio Urine Color (YELLOW) Urine Appearance (CLEAR) Urine pH (5.0-6.5) Ur Specific [place] (1.010-1.025) Urine Protein (NEGATIVE) mg/dL Urine Glucose (UA) (NORMAL) mg/dL Urine Ketones (NEGATIVE) mg/dL Urine Occult Blood (NEGATIVE) Urine Nitrite (NEGATIVE) Urine Bilirubin (NEGATIVE) Urine Urobilinogen (NEGATIVE) mg/dL Ur Leukocyte Esterase (NEGATIVE) Urine RBC (0-5) Urine WBC (0-5) Ur Squamous Epith Cells (NS,R,O) Urine Bacteria (NS) SARS-CoV-2 RNA (RODRIGO) Negative (NEGATIVE) 05/11/21 Range/Units 06:10 WBC (3.0-10.3) x10-3/uL RBC (3.60-5.20) x10(6)uL Hgb (11.4-15.5) g/dL Hct (34.2-48.2) % MCV (76.7-100.5) fL MCH (23.9-33.9) pg MCHC (31.9-34.8) g/dL RDW (12.3-16.5) % Plt Count (151-488) x10(3)uL MPV (7.1-12.4) fL Neut % (Auto) (30.8-76.2) % Lymph % (Auto) (18.4-52.1) % [place] % (Auto) (4.4-15.7) % Eos % (Auto) (0.6-8.1) % Baso % (Auto) (0.2-1.5) % Neut # (Auto) (1.5-6.3) x10-3/uL Lymph # (Auto) (1.0-4.4) x10-3/uL [place] # (Auto) (0.3-1.0) x10-3/uL Eos # (Auto) (0.0-0.8) x10-3/uL Baso # (Auto) (0.0-0.1) x10-3/uL Sodium 129 L (135-145) mmol/L Potassium 4.0 (3.5-5.3) mmol/L Chloride 96 L D (100-110) mmol/L Carbon Dioxide 30 (21-32) mmol/L BUN 12 (7-18) mg/dL Creatinine 0.9 (0.55-1.02) mg/dL Est Cr Clr Drug Dosing 34.96 Estimated GFR (MDRD) 59 L (>60) BUN/Creatinine Ratio 13.3 (9-20) Glucose 82 (80-116) mg/dL Calcium 8.4 L (8.6-10.2) mg/dL Magnesium (1.8-2.5) mg/dL Total Bilirubin (0.1-1.3) mg/dL AST (5-25) IU/L ALT (12-36) U/L Alkaline Phosphatase (56-112) IU/L Troponin I (4.0-60.3) pg/mL Total Protein (6.0-8.0) g/dL Albumin (3.2-4.6) g/dL Globulin g/dL Albumin/Globulin Ratio Urine Color (YELLOW) Urine Appearance (CLEAR) Urine pH (5.0-6.5) Ur Specific [place] (1.010-1.025) Urine Protein (NEGATIVE) mg/dL Urine Glucose (UA) (NORMAL) mg/dL Urine Ketones (NEGATIVE) mg/dL Urine Occult Blood (NEGATIVE) Urine Nitrite (NEGATIVE) Urine Bilirubin (NEGATIVE) Urine Urobilinogen (NEGATIVE) mg/dL Ur Leukocyte Esterase (NEGATIVE) Urine RBC (0-5) Urine WBC (0-5) Ur Squamous Epith Cells (NS,R,O) Urine Bacteria (NS) SARS-CoV-2 RNA (RODRIGO) (NEGATIVE) Result Diagrams: 05/11/21 06:10 05/11/21 06:10 Sepsis Event Note - Evaluation Sepsis Screening Result: No Definite Risk - Focused Exam Vital Signs: Vital Signs Temp Pulse Resp BP Pulse Ox 05/11/21 07:54 97.5 F 74 18 175/73 H 93 L 05/11/21 04:59 97.8 F 68 16 163/62 H 98 05/11/21 01:00 97.5 F 64 20 170/67 H 95 - Problem List (1) Hyponatremia SNOMED Code(s): 08786957 ICD Code: E87.1 - HYPO-OSMOLALITY AND HYPONATREMIA Status: Acute Current Visit: Yes (2) Hypertension, uncontrolled SNOMED Code(s): 34674337, 59123605 ICD Code: I10 - ESSENTIAL (PRIMARY) HYPERTENSION Status: Acute Current Visit: Yes (3) Headache SNOMED Code(s): 74612159 ICD Code: R51.9 - HEADACHE, UNSPECIFIED Status: Acute Current Visit: Yes Qualifiers: Headache type: unspecified Headache chronicity pattern: acute headache Intractability: intractable Qualified Code(s): R51.9 - Headache, unspecified (4) Rapidly progressive weakness SNOMED Code(s): 71816753 ICD Code: R53.1 - WEAKNESS Status: Acute Current Visit: Yes (5) Physical debility SNOMED Code(s): 90813554 ICD Code: R53.81 - OTHER MALAISE Status: Acute Current Visit: No (6) COPD (chronic obstructive pulmonary disease) SNOMED Code(s): 75515477 ICD Code: J44.9 - CHRONIC OBSTRUCTIVE PULMONARY DISEASE, UNSPECIFIED Status: Chronic Current Visit: No Problem Details: Keep O2 between 88-92% (7) HLD (hyperlipidemia) SNOMED Code(s): 63977463 ICD Code: E78.5 - HYPERLIPIDEMIA, UNSPECIFIED Status: Chronic Current Visit: No Qualifiers: Hyperlipidemia type: unspecified Qualified Code(s): E78.5 - Hyperlipidemia, unspecified Problem List Initiated/Reviewed/Updated: Yes Orders Last 24hrs: Active Orders 24 hr Category Date Time Status Patient Status [ADT] Routine ADT 05/10/21 21:06 Active Cardiac Monitoring [RC] 08,16,00 Care 05/10/21 21:09 Active Height and Weight [RC] UPON Care 05/10/21 21:06 Active Intake and Output [RC] 06,14,22 Care 05/10/21 21:08 Active Oxygen Therapy [RC] 01 Care 05/10/21 21:06 Active Vital Signs [RC] 08,12,16,20,00,04 Care 05/10/21 21:06 Active Heart Healthy Diet [DIET] Diet 05/10/21 Dinner Active Chest 1V Frontal [CR] Stat Exams 05/10/21 17:52 Taken Head wo Cont [CT] Stat Exams 05/10/21 17:52 Taken Acetaminophen [TylenoL] Med 05/10/21 21:06 Active 650 mg PO Q4H PRN Acetaminophen [TylenoL] Med 05/11/21 09:28 Ordered 650 mg PO Q4H PRN Acetaminophen [Tylenol Extra Strength] Med 05/11/21 09:28 Ordered 500 mg PO Q6H PRN Ascorbate Calcium [Vitamin C] Med 05/11/21 14:00 Ordered 500 mg PO DAILY@1400 Aspirin [Halfprin] Med 05/11/21 14:00 Ordered 81 mg PO DAILY@1400 Budesonide/Formoterol Fumarate [Symbicort 160-4.5 Mcg Med 05/11/21 21:00 Ordered Inhaler] 2 puff INH BID Cyanocobalamin (Vitamin B12) [Vitamin B12] Med 05/11/21 14:00 Ordered 1,000 mcg PO DAILY@1400 Docusate Sodium [Dok] Med 05/11/21 09:28 Ordered 250 mg PO DAILY PRN Enalaprilat [Vasotec IV] Med 05/11/21 09:28 Once 1.25 mg IVPUSH ONETIME ONE Fluticasone Propionate [Flonase] Med 05/12/21 09:00 Ordered 27 gm NASBOTH DAILY Ibuprofen [Motrin] Med 05/11/21 09:28 Ordered 200 mg PO Q6H PRN Ketorolac [Toradol] Med 05/11/21 09:28 Once 15 mg IVPUSH ONETIME ONE LORazepam [Ativan] Med 05/11/21 09:28 Ordered 0.25 mg PO Q8H PRN Loperamide [Imodium] Med 05/11/21 09:30 Ordered 2 mg PO ASDIRECTED Losartan [Cozaar] Med 05/12/21 09:00 Ordered 50 mg PO DAILY Mag Hydrox/Aluminum Hyd/Simeth [Mylanta Maximum Med 05/11/21 09:30 Ordered Strength Pkt] 10 ml PO ASDIRECTED Magnesium Hydroxide [Milk of Magnesia] Med 05/11/21 09:28 Ordered 30 ml PO DAILY PRN Magnesium Oxide Med 05/11/21 14:00 Ordered 400 mg PO DAILY@1400 Multivit-Min/Iron/Folic/Lutein [Multivitamin Women 50 Med 05/11/21 14:00 Ordered Plus Tab] 1 tab PO DAILY@1400 Multivitamin with Minerals [Hair, Skin and Nails] Med 05/11/21 14:00 Ordered 1 tab PO DAILY@1400 Ondansetron [Zofran] Med 05/10/21 21:06 Active 4 mg IV Q6H PRN Oxybutynin [Oxybutynin ER] Med 05/11/21 21:00 Ordered 5 mg PO BEDTIME Sodium Chloride 0.9% [Normal Saline] 1,000 ml Med 05/10/21 20:30 Active IV ASDIRECTED Valerian Root [Valerian Root] Med 05/11/21 09:28 Ordered 500 mg PO DAILY PRN Vitamin E (Dl,Tocopheryl Acet) [Vitamin E] Med 05/11/21 14:00 Ordered 180 mg PO DAILY@1400 bisacodyL [Dulcolax] Med 05/11/21 09:30 Ordered 10 mg RECTAL ASDIRECTED traZODone Med 05/11/21 09:28 Ordered 100 mg PO BEDTIME PRN Resuscitation Status Routine Resus Stat 05/10/21 21:06 Ordered EKG 12 Lead [EK] Routine Ther 05/10/21 17:52 Ordered Medication Orders Acetaminophen (Acetaminophen 325 Mg Tab) 650 mg PO Q4H PRN PRN Reason: Pain (Mild 1-3)/fever Last Admin: 05/11/21 05:03 Dose: 650 mg Documented by: Admin: 05/10/21 23:06 Dose: 650 mg Documented by: SHAMEKA Acetaminophen (Acetaminophen 325 Mg Tab) 650 mg PO Q4H PRN PRN Reason: Pain Acetaminophen (Acetaminophen 500 Mg Tab) 500 mg PO Q6H PRN PRN Reason: Pain Aspirin (Aspirin 81 Mg Tab.Ec) 81 mg PO DAILY@1400 [facility] Bisacodyl (Bisacodyl 10 Mg Supp) 10 mg RECTAL ASDIRECTED [facility] Cyanocobalamin (Cyanocobalamin (Vitamin B12) 1,000 Mcg Tab) 1,000 mcg PO DAILY@1400 [facility] Docusate Sodium (Docusate Sodium 250 Mg Cap) 250 mg PO DAILY PRN PRN Reason: Constipation Enalaprilat (Enalaprilat 1.25 Mg/Ml Sdv) 1.25 mg IVPUSH ONETIME ONE Stop: 05/11/21 09:29 Fluticasone Propionate (Fluticasone Propionate Nasal [place] 16 Gm Bottle) 27 gm NASBOTH DAILY [facility] Sodium Chloride (Normal Saline) 1,000 mls @ 100 mls/hr IV ASDIRECTED [facility] Last Admin: 05/11/21 09:18 Dose: 100 mls/hr Documented by: Infusion: 05/11/21 09:00 Dose: 100 mls/hr Documented by: Admin: 05/10/21 23:00 Dose: 100 mls/hr Documented by: SHAMEKA Ibuprofen (Ibuprofen 200 Mg Tab) 200 mg PO Q6H PRN PRN Reason: Pain Ketorolac Tromethamine (Ketorolac 30 Mg/Ml Sdv) 15 mg IVPUSH ONETIME ONE Stop: 05/11/21 09:29 Loperamide HCl (Loperamide 2 Mg Cap) 2 mg PO ASDIRECTED [facility] Lorazepam (Lorazepam 0.5 Mg Tab) 0.25 mg PO Q8H PRN PRN Reason: Agitation Magnesium Hydroxide (Magnesium Hydroxide 400 Mg/5 Ml Susp 30 Ml Cup) 30 ml PO DAILY PRN PRN Reason: Constipation Magnesium Oxide (Magnesium Oxide 400 Mg Tab) 400 mg PO DAILY@1400 [facility] Non-Formulary Medication (Ascorbate Calcium [Vitamin C]) 500 mg PO DAILY@1400 [facility] Non-Formulary Medication (Budesonide/Formoterol Fumarate [Symbicort 160-4.5 Mcg Inhaler]) 2 puff INH BID [facility] Non-Formulary Medication (Mag Hydrox/Aluminum Hyd/Simeth [Mylanta Maximum Strength Pkt]) 10 ml PO ASDIRECTED [facility] Non-Formulary Medication (Multivit-Min/Iron/Folic/Lutein [Multivitamin Women 50 Plus Tab]) 1 tab PO DAILY@1400 [facility] Non-Formulary Medication (Multivitamin With Minerals [Hair, Skin And Nails]) 1 tab PO DAILY@1400 [facility] Non-Formulary Medication (Valerian Root [Valerian Root]) 500 mg PO DAILY PRN PRN Reason: nerves/sleep Non-Formulary Medication (Vitamin E (Dl,Tocopheryl Acet) [Vitamin E]) 180 mg PO DAILY@1400 [facility] Ondansetron HCl (Ondansetron 4 Mg/2 Ml Sdv) 4 mg IV Q6H PRN PRN Reason: Nausea/Vomiting Oxybutynin Chloride (Oxybutynin 5 Mg Tab.Er) 5 mg PO BEDTIME [facility] Trazodone HCl (Trazodone 100 Mg Tab) 100 mg PO BEDTIME PRN PRN Reason: Sleep Assessment/Plan Comment:: Hyponatremia is likely due to hypovolemia. I agree with IV fluid replacement, and I will stop hydrochlorothiazide. I will increase the ARB to 50 mg, and give 1 dose of IV Vasotec to control blood pressure. Will use NSAIDs when necessary for headache. Physical therapy consulted for strengthening.
[2021-05-11] MEDS: Multivitamins with Iron/Calcium/Folic Acid/Minerals Tab PO SCH (13:38)
[2021-05-11] MEDS: Aspirin 81 MG Tab.EC PO SCH (13:38)
[2021-05-11] MEDS: Ascorbic Acid 500 MG Tab PO SCH (13:38)
[2021-05-11] MEDS: Magnesium Oxide 400 MG Tab PO SCH (13:38)
[2021-05-11] MEDS: VITAMIN E 200 UNIT PO SCH (13:40)
[2021-05-11] MEDS: Cyanocobalamin (Vitamin B12) 1,000 MCG Tab PO SCH (13:40)
[2021-05-11] MEDS ORDERED: Losartan 50 MG Tab PO ONE (18:17)
[2021-05-11] MEDS ORDERED: cloNIDine 0.1 MG Tab PO ONE (18:22)
[2021-05-11] MEDS: Oxybutynin 5 MG Tab.ER PO SCH (22:10)
[2021-05-11] MEDS: Formoterol/Mometasone 200-5 MCG 8.8 GM Inhaler IH SCH (22:33)
[2021-05-11] MEDS: traZODone 100 MG Tab PO PRN (23:12)
[2021-05-12] MEDS: Formoterol/Mometasone 200-5 MCG 8.8 GM Inhaler IH SCH ×2 (08:09→22:13)
[2021-05-12] MEDS: Fluticasone Propionate Nasal Spray 16 GM Bottle NASBOTH SCH (08:09)
[2021-05-12] MEDS ORDERED: Losartan 50 MG Tab PO SCH (09:00)
--- NOTE | 2021-05-12 09:11 | PCM.PN ---
- General Info Date of Service: 05/12/21 Subjective Update: Lily reports feeling better today. Her headache has improved, blood pressure has improved and she got 1 dose of clonidine last night along with the Vasotec previously given morning. Functional Status: Reports: Pain Controlled, Tolerating Diet - Review of Systems General: Reports: Weakness HEENT: Reports: No Symptoms Pulmonary: Reports: No Symptoms Cardiovascular: Reports: No Symptoms Gastrointestinal: Reports: No Symptoms - Patient Data Vitals - Most Recent: Last Vital Signs Temp 98.4 F 05/11/21 20:00 Pulse 58 L 05/12/21 03:00 Resp 16 05/12/21 03:00 BP 169/62 H 05/12/21 08:08 Pulse Ox 99 05/12/21 03:00 Weight - Most Recent: 51.256 kg I&O - Last 24 Hours: Intake & Output 05/11/21 05/12/21 05/12/21 22:59 06:59 14:59 Intake Total 480 800 Output Total 450 Balance 480 350 Lab Results Last 24 Hours: Laboratory Results - last 24 hr 05/12/21 05/12/21 Range/Units 06:22 06:22 WBC 6.2 (3.0-10.3) x10-3/uL RBC 3.41 L (3.60-5.20) x10(6)uL Hgb 10.5 L (11.4-15.5) g/dL Hct 31.1 L (34.2-48.2) % MCV 91.1 (76.7-100.5) fL MCH 30.9 (23.9-33.9) pg MCHC 33.9 (31.9-34.8) g/dL RDW 14.9 (12.3-16.5) % Plt Count 232 (151-488) x10(3)uL MPV 7.3 (7.1-12.4) fL Neut % (Auto) 67.3 (30.8-76.2) % Lymph % (Auto) 18.2 L (18.4-52.1) % Stevens % (Auto) 9.5 (4.4-15.7) % Eos % (Auto) 3.8 (0.6-8.1) % Baso % (Auto) 1.2 (0.2-1.5) % Neut # (Auto) 4.2 (1.5-6.3) x10-3/uL Lymph # (Auto) 1.1 (1.0-4.4) x10-3/uL Stevens # (Auto) 0.6 (0.3-1.0) x10-3/uL Eos # (Auto) 0.2 (0.0-0.8) x10-3/uL Baso # (Auto) 0.1 (0.0-0.1) x10-3/uL Sodium 134 L (135-145) mmol/L Potassium 3.8 (3.5-5.3) mmol/L Chloride 100 (100-110) mmol/L Carbon Dioxide 27 (21-32) mmol/L BUN 12 (7-18) mg/dL Creatinine 0.9 (0.55-1.02) mg/dL Est Cr Clr Drug Dosing 34.96 mL/min Estimated GFR (MDRD) 59 L (>60) BUN/Creatinine Ratio 13.3 (9-20) Glucose 76 L (80-116) mg/dL Calcium 8.2 L (8.6-10.2) mg/dL Med Orders - Current: Current Medications Acetaminophen (Acetaminophen 325 Mg Tab) 650 mg PO Q4H PRN PRN Reason: Pain (Mild 1-3)/fever Last Admin: 05/11/21 05:03 Dose: 650 mg Documented by: Al Hydroxide/Mg Hydroxide (Aluminum Hydroxide/Magnesium Hydroxide Susp 30 Ml Cup ) 10 ml PO QID PRN PRN Reason: INDIGESTION Ascorbic Acid (Ascorbic Acid 500 Mg Tab) 500 mg PO DAILY@1400 [facility], [facility] Last Admin: 05/11/21 13:38 Dose: 500 mg Documented by: Aspirin (Aspirin 81 Mg Tab.Ec) 81 mg PO DAILY@1400 [facility], [facility]1983 Last Admin: 05/11/21 13:38 Dose: 81 mg Documented by: Bisacodyl (Bisacodyl 10 Mg Supp) 10 mg RECTAL DAILY PRN PRN Reason: CONSTIPATION Cyanocobalamin (Cyanocobalamin (Vitamin B12) 1,000 Mcg Tab) 1,000 mcg PO DAILY@1400 [facility], [facility] Last Admin: 05/11/21 13:40 Dose: 1,000 mcg Documented by: Docusate Sodium (Docusate Sodium 250 Mg Cap) 250 mg PO DAILY PRN PRN Reason: Constipation Fluticasone Propionate (Fluticasone Propionate Nasal [place] 16 Gm Bottle) 0 gm NASBOTH DAILY [facility], [facility] Last Admin: 05/12/21 08:09 Dose: 1 spray Documented by: Ibuprofen (Ibuprofen 200 Mg Tab) 200 mg PO Q6H PRN PRN Reason: Pain Last Admin: 05/11/21 16:02 Dose: 200 mg Documented by: Loperamide HCl (Loperamide 2 Mg Cap) 2 mg PO ASDIRECTED PRN PRN Reason: diarrhea Lorazepam (Lorazepam 0.5 Mg Tab) 0.25 mg PO Q8H PRN PRN Reason: Agitation Last Admin: 05/11/21 16:50 Dose: 0.25 mg Documented by: Losartan Potassium (Losartan 50 Mg Tab) 50 mg PO DAILY [facility] Last Admin: 05/12/21 08:08 Dose: 50 mg Documented by: Magnesium Hydroxide (Magnesium Hydroxide 400 Mg/5 Ml Susp 30 Ml Cup) 30 ml PO DAILY PRN PRN Reason: Constipation Magnesium Oxide (Magnesium Oxide 400 Mg Tab) 400 mg PO DAILY@1400 [facility] Last Admin: 05/11/21 13:38 Dose: 400 mg Documented by: Mometasone Furoate/Formoterol Fumar (Formoterol/Mometasone 200-5 Mcg 8.8 Gm Inhaler) 2 puff IH BID [facility], [facility] Last Admin: 05/12/21 08:09 Dose: 2 puff Documented by: Multivitamins/Minerals (Multivitamins With Iron/Calcium/Folic Acid/Minerals Tab) 1 tab PO DAILY@1400 [facility] Last Admin: 05/11/21 13:38 Dose: 1 tab Documented by: Ondansetron HCl (Ondansetron 4 Mg/2 Ml Sdv) 4 mg IV Q6H PRN PRN Reason: Nausea/Vomiting Oxybutynin Chloride (Oxybutynin 5 Mg Tab.Er) 5 mg PO BEDTIME [facility] Last Admin: 05/11/21 22:10 Dose: 5 mg Documented by: Trazodone HCl (Trazodone 100 Mg Tab) 100 mg PO BEDTIME PRN PRN Reason: Sleep Last Admin: 05/11/21 23:12 Dose: 100 mg Documented by: Vitamin E (Vitamin E 200 Unit Cap) 200 units PO DAILY@1400 [facility] Last Admin: 05/11/21 13:40 Dose: 200 units Documented by: Discontinued Medications Acetaminophen (Acetaminophen 325 Mg Tab) 650 mg PO Q4H PRN PRN Reason: Pain Acetaminophen (Acetaminophen 500 Mg Tab) 500 mg PO Q6H PRN PRN Reason: Pain Clonidine HCl (Clonidine 0.1 Mg Tab) 0.1 mg PO ONETIME ONE Stop: 05/11/21 18:23 Last Admin: 05/11/21 18:39 Dose: 0.1 mg Documented by: Enalaprilat (Enalaprilat 1.25 Mg/Ml Sdv) 1.25 mg IVPUSH ONETIME ONE Stop: 05/11/21 09:29 Last Admin: 05/11/21 09:55 Dose: 1.25 mg Documented by: Sodium Chloride (Normal Saline) 1,000 mls @ 100 mls/hr IV ASDIRECTED [facility] Last Admin: 05/11/21 19:30 Dose: 100 mls/hr Documented by: Sodium Chloride (Normal Saline) 500 mls @ 999 mls/hr IV .BOLUS ONE Stop: 05/10/21 20:52 Last Admin: 05/10/21 23:28 Dose: Not Given Documented by: Ketorolac Tromethamine (Ketorolac 15 Mg/Ml Sdv) 15 mg IVPUSH ONETIME ONE Stop: 05/11/21 09:29 Last Admin: 05/11/21 09:55 Dose: 15 mg Documented by: Losartan Potassium (Losartan 50 Mg Tab) 50 mg PO ONETIME ONE Stop: 05/11/21 18:18 Last Admin: 05/11/21 18:39 Dose: 50 mg Documented by: Non-Formulary Medication (Multivitamin With Minerals [Hair, Skin And Nails]) 1 tab PO DAILY@1400 [place] Non-Formulary Medication (Valerian Root [Valerian Root]) 500 mg PO DAILY PRN PRN Reason: nerves/sleep - Exam General: Alert, Lethargic HEENT: Pupils Equal Neck: Supple Lungs: Clear to Auscultation Cardiovascular: Regular Rate GI/Abdominal Exam: Normal Bowel Sounds - Patient Data Lab Results Last 24 hrs: Laboratory Results - last 24 hr 05/12/21 05/12/21 Range/Units 06:22 06:22 WBC 6.2 (3.0-10.3) x10-3/uL RBC 3.41 L (3.60-5.20) x10(6)uL Hgb 10.5 L (11.4-15.5) g/dL Hct 31.1 L (34.2-48.2) % MCV 91.1 (76.7-100.5) fL MCH 30.9 (23.9-33.9) pg MCHC 33.9 (31.9-34.8) g/dL RDW 14.9 (12.3-16.5) % Plt Count 232 (151-488) x10(3)uL MPV 7.3 (7.1-12.4) fL Neut % (Auto) 67.3 (30.8-76.2) % Lymph % (Auto) 18.2 L (18.4-52.1) % Stevens % (Auto) 9.5 (4.4-15.7) % Eos % (Auto) 3.8 (0.6-8.1) % Baso % (Auto) 1.2 (0.2-1.5) % Neut # (Auto) 4.2 (1.5-6.3) x10-3/uL Lymph # (Auto) 1.1 (1.0-4.4) x10-3/uL Stevens # (Auto) 0.6 (0.3-1.0) x10-3/uL Eos # (Auto) 0.2 (0.0-0.8) x10-3/uL Baso # (Auto) 0.1 (0.0-0.1) x10-3/uL Sodium 134 L (135-145) mmol/L Potassium 3.8 (3.5-5.3) mmol/L Chloride 100 (100-110) mmol/L Carbon Dioxide 27 (21-32) mmol/L BUN 12 (7-18) mg/dL Creatinine 0.9 (0.55-1.02) mg/dL Est Cr Clr Drug Dosing 34.96 mL/min Estimated GFR (MDRD) 59 L (>60) BUN/Creatinine Ratio 13.3 (9-20) Glucose 76 L (80-116) mg/dL Calcium 8.2 L (8.6-10.2) mg/dL Result Diagrams: 05/12/21 06:22 05/12/21 06:22 Sepsis Event Note - Evaluation Sepsis Screening Result: No Definite Risk - Focused Exam Vital Signs: Vital Signs Pulse Resp BP BP Pulse Ox 05/12/21 08:08 169/62 H 05/12/21 03:00 58 L 16 148/60 H 99 - Problem List & Annotations (1) Hyponatremia SNOMED Code(s): 47045854 Code(s): E87.1 - HYPO-OSMOLALITY AND HYPONATREMIA Status: Acute Current Visit: Yes (2) Hypertension, uncontrolled SNOMED Code(s): 54202844, 51307566 Code(s): I10 - ESSENTIAL (PRIMARY) HYPERTENSION Status: Acute Current Visit: Yes (3) Headache SNOMED Code(s): 44177298 Code(s): R51.9 - HEADACHE, UNSPECIFIED Status: Acute Current Visit: Yes Qualifiers: Headache type: unspecified Headache chronicity pattern: acute headache Intractability: intractable Qualified Code(s): R51.9 - Headache, unspecified (4) Rapidly progressive weakness SNOMED Code(s): 85807874 Code(s): R53.1 - WEAKNESS Status: Acute Current Visit: Yes (5) Physical debility SNOMED Code(s): 16664354 Code(s): R53.81 - OTHER MALAISE Status: Acute Current Visit: No (6) COPD (chronic obstructive pulmonary disease) SNOMED Code(s): 93160639 Code(s): J44.9 - CHRONIC OBSTRUCTIVE PULMONARY DISEASE, UNSPECIFIED Status: Chronic Current Visit: No Annotation/Comment:: Keep O2 between 88-92% (7) HLD (hyperlipidemia) SNOMED Code(s): 26190448 Code(s): E78.5 - HYPERLIPIDEMIA, UNSPECIFIED Status: Chronic Current Visit: No Qualifiers: Hyperlipidemia type: unspecified Qualified Code(s): E78.5 - Hyperlipidemia, unspecified - Problem List Review Problem List Initiated/Reviewed/Updated: Yes - My Orders Last 24 Hours: My Active Orders 05/11/21 09:28 Docusate Sodium [Dok] 250 mg PO DAILY PRN Ibuprofen [Motrin] 200 mg PO Q6H PRN LORazepam [Ativan] 0.25 mg PO Q8H PRN Magnesium Hydroxide [Milk of Magnesia] 30 ml PO DAILY PRN traZODone 100 mg PO BEDTIME PRN 05/11/21 09:30 Alum Hydroxide/Mag Hydroxide [Mag-Al Susp] 10 ml PO QID PRN Loperamide [Imodium] 2 mg PO ASDIRECTED PRN bisacodyL [Dulcolax] 10 mg RECTAL DAILY PRN 05/11/21 09:56 Admission Status [Patient Status] [ADT] Routine 05/11/21 14:00 Ascorbic Acid [Vitamin C] 500 mg PO DAILY@1400 Aspirin [Halfprin] 81 mg PO DAILY@1400 Cyanocobalamin (Vitamin B12) [Vitamin B12] 1,000 mcg PO DAILY@1400 Magnesium Oxide 400 mg PO DAILY@1400 Multivitamins w-Iron/Ca/FA/Min [Thera M Plus] 1 tab PO DAILY@1400 Vitamin E 200 units PO DAILY@1400 05/11/21 18:38 OT Evaluation and Treatment [CONS] Routine PT Evaluation and Treatment [CONS] Routine 05/11/21 21:00 Mometasone/Formoterol [Dulera 200-5 MCG] 2 puff IH BID Oxybutynin [Oxybutynin ER] 5 mg PO BEDTIME 05/12/21 09:00 Fluticasone Propionate [Flonase] 0 gm NASBOTH DAILY Losartan [Cozaar] 50 mg PO DAILY - Plan Plan:: DC IVF,sodium is better. Increase Losartan to 100 mg daily. PT/OT. Possible Discharge in AM.
[2021-05-12] MEDS ORDERED: Losartan 50 MG Tab PO ONE (09:30)
[2021-05-12] MEDS: Magnesium Oxide 400 MG Tab PO SCH (13:14)
[2021-05-12] MEDS: Multivitamins with Iron/Calcium/Folic Acid/Minerals Tab PO SCH (13:14)
[2021-05-12] MEDS: Ascorbic Acid 500 MG Tab PO SCH (13:14)
[2021-05-12] MEDS: Aspirin 81 MG Tab.EC PO SCH (13:14)
[2021-05-12] MEDS: VITAMIN E 200 UNIT PO SCH (14:50)
[2021-05-12] MEDS: Cyanocobalamin (Vitamin B12) 1,000 MCG Tab PO SCH (14:50)
[2021-05-12] MEDS: Oxybutynin 5 MG Tab.ER PO SCH (22:11)
[2021-05-12] MEDS: traZODone 100 MG Tab PO PRN (23:19)
[2021-05-13] MEDS ORDERED: Formoterol/Mometasone 200-5 MCG 8.8 GM Inhaler IH SCH (08:00)
[2021-05-13] MEDS: Fluticasone Propionate Nasal Spray 16 GM Bottle NASBOTH SCH (08:05)
[2021-05-13 08:17] VITALS: PULSE 82
[2021-05-13] MEDS ORDERED: Losartan 100 MG Tab PO SCH (09:00)
[2021-05-13 10:08] VITALS: BP 135/94
--- NOTE | 2021-05-13 22:44 | DISCH ---
DISCHARGE DATE: 05/13/2021 REASON FOR ADMISSION: 1. Uncontrolled hypertension. 2. Hyponatremia. 3. Headache. 4. Weakness. 5. Hyperlipidemia. 6. Chronic obstructive pulmonary disease. BRIEF HISTORY: This is an 86-year-old female who was admitted from the [facility] with generalized weakness and dizziness. She was also found to have lightheadedness for 1 to 2 days. She complains of feeling extremely fatigued and had a mild headache. Blood pressure was high on admission and sodium was 124. She was placed on IV fluids and given IV Vasotec to control the blood pressure. Clonidine was needed as well, and eventually a dose of 100 mg Cozaar controlled her blood pressure. Her sodium came up to 134. She feels ready to go back to the [facility] this morning. She will be discharged with home health if possible. The only change to her medications was to discontinue hydrochlorothiazide and increase the dose of losartan to 100 mg daily. I spent more than 35 minutes in the discharge of the patient. /[id number] ROBERTO/[place]
== END 2021-05-13 11:50 | disposition home health service (06) | DRG 641 ==
LOC: FB.ED 17:07 → UNDOADMOB 20:14 → FB.MS 20:14 → INTOOBSV 05-11 09:56 → OBSVTOIN 05-11 09:56 → FB.MS 05-11 18:38 → OBSVTOIN 05-11 18:38
PROVIDERS: ADMIT Family Medicine; ATTEND Family Medicine
DX: E87.1 Hypo-osmolality and hyponatremia (principal); I10 Essential (primary) hypertension; R53.1 Weakness; E86.1 Hypovolemia; R51.9 Headache, unspecified; Z20.822 Contact with and (suspected) exposure to COVID-19; J44.9 Chronic obstructive pulmonary disease, unspecified; E78.5 Hyperlipidemia, unspecified; Z66 Do not resuscitate; E78.00 Pure hypercholesterolemia, unspecified; H54.7 Unspecified visual loss; D64.9 Anemia, unspecified; Z88.0 Allergy status to penicillin; Z79.82 Long term (current) use of aspirin; Z79.899 Other long term (current) drug therapy; Z99.81 Dependence on supplemental oxygen; Z86.73 Personal history of transient ischemic attack (TIA), and cerebral infarction without residual deficits; Z87.891 Personal history of nicotine dependence
CPT/HCPCS: 36415 ×2; 70450; 71045; 80048; 80053; 81001; 83735; 84484; 85025 ×2; 93005; 99285; A9270 ×10; J1885; J7030 ×2; U0002

== ENCOUNTER 2021-06-04 12:00 | Emergency (ER) | payer MEDICARE, BC ==
--- NOTE | 2021-06-04 12:22 | EDM.PDOC ---
ED HPI GENERAL MEDICAL PROBLEM - General Stated Complaint: RIGHT SIDED WEAKNESS Time Seen by Provider: 06/04/21 12:20 Source of Information: Reports: Patient History Limitations: Reports: No Limitations - History of Present Illness INITIAL COMMENTS - FREE TEXT/NARRATIVE: 86-year-old female who reports this morning she developed right hand numbness and discoordination (she dropped her pen while she was writing) at approximately 11 AM today. She states that this seemed to slightly improve but then she developed some difficulty speaking and she felt that she could not get her words out. Following this she developed a global headache. She presents to the emergency department via facility van from the [facility] and she tells me that her symptoms have pretty much resolved. She still has some funny feeling in her hand. She denies any headache and in fact denies pain anywhere. She would rate her pain as a 0/10. She has had no nausea or vomiting. She states for the past 2 weeks she has noticed that she has been developing headaches in the afternoon and evening of pretty much every day. She also noted this morning that her blood pressure was elevated in the 170-190 systolic range. No leg weakness. No vision problems. There are no other associated signs or symptoms. There are no other modifying factors. Onset: Today (11 AM) Duration: Improving Quality: Reports: Ache, Pressure Severity: Moderate Improves with: Reports: None Worsens with: Reports: None Context: Reports: Other (As above.) Associated Symptoms: Reports: No Other Symptoms (Except as above.) Treatments [employer] CARE PLANNER: Reports: Other (see below) (Nothing.) - Related Data Allergies Allergy/AdvReac Type Severity Reaction Status Date / Time Penicillins Allergy Swelling Verified 06/04/21 12:36 Home Meds: Home Meds traZODone HCl [Trazodone HCl] 100 mg PO BEDTIME PRN 11/15/15 [History] Ascorbate Calcium [Vitamin C] 500 mg PO DAILY@1400 #100 tab 02/04/21 [Rx] Aspirin [Halfprin] 81 mg PO DAILY@1400 #100 tab.ec 02/04/21 [Rx] Budesonide/Formoterol Fumarate [Symbicort 160-4.5 Mcg Inhaler] 2 puff INH BID #1 inhaler 02/04/21 [Rx] Calcium Carb/Mag Ox/Zinc Sulf [Nke-Ewh-Qlva 334-134-5 mg Tab] 1 tab PO DAILY@1400 #100 tab 02/04/21 [Rx] Cholecalciferol (Vitamin D3) [Vitamin D3] 1,000 unit PO DAILY@1400 #100 cap 02/04/21 [Rx] Cyanocobalamin (Vitamin B12) [Vitamin B12] 1,000 mcg PO DAILY@1400 #100 tab 02/04/21 [Rx] Docusate Sodium 250 mg PO DAILY PRN #100 cap 02/04/21 [Rx] Ibuprofen [Motrin] 200 mg PO Q6H PRN #100 tablet 02/04/21 [Rx] LORazepam [Ativan] 0.25 mg PO Q8H PRN #14 tablet 02/04/21 [Rx] Magnesium Oxide 400 mg PO DAILY@1400 #14 tablet 02/04/21 [Rx] Multivit-Min/Iron/Folic/Lutein [Multivitamin Women 50 Plus Tab] 1 tab PO DAILY@ 1400 #100 tab 02/04/21 [Rx] Multivitamin with Minerals [Hair, Skin and Nails] 1 tab PO DAILY@1400 #100 tab 02/04/21 [Rx] Oxybutynin [Oxybutynin ER] 5 mg PO BEDTIME #14 tab 02/04/21 [Rx] Valerian Root 500 mg PO DAILY PRN #100 tab 02/04/21 [Rx] Vitamin E (Dl,Tocopheryl Acet) [Vitamin E] 180 mg PO DAILY@1400 #100 tab 02/04/21 [Rx] atorvaSTATin Calcium [Lipitor] 20 mg PO BEDTIME #14 tab 02/04/21 [Rx] Acetaminophen [Tylenol Extra Strength] 500 mg PO Q6H PRN 05/10/21 [History] Acetaminophen [Tylenol] 650 mg PO Q4H PRN 05/10/21 [History] Bisacodyl [Laxative Suppository] 10 mg RECTAL ASDIRECTED 05/10/21 [History] Fluticasone Propionate [Flonase] 27 gm NASBOTH DAILY 05/10/21 [History] Loperamide HCl [Imodium A-D] 2 mg PO ASDIRECTED 05/10/21 [History] Mag Hydrox/Aluminum Hyd/Simeth [Mylanta Maximum Strength Pkt] 10 ml PO ASDIRECTED 05/10/21 [History] Magnesium Hydroxide [Milk of Magnesia] 30 ml PO DAILY PRN 05/10/21 [History] Losartan [Cozaar] 100 mg PO DAILY #30 tablet 05/13/21 [Rx] Past Medical History HEENT History: Reports: Cataract, Impaired Vision, Other (See Below) Other HEENT History: Having some possible sinus problems recently, right side of head and face. Has chronic rhinitis. Cardiovascular History: Reports: High Cholesterol, Hypertension Respiratory History: Reports: COPD, Other (See Below) Other Respiratory History: Uses CPAP at night. States that she uses oxygen at night. Former smoker, quit year 2006. Genitourinary History: Reports: Other (See Below) Other Genitourinary History: Overactive bladder. Musculoskeletal History: Reports: Other (See Below) Other Musculoskeletal History: Broke head right shoulder/arm. Left femur fracture and nailing at the left hip. Neurological History: Reports: TIA, Other (See Below) Other Neuro History: States she had an episode last summer with trouble speaking, nausea, and difficulty walking---this resolved in a short time. Confused at times-baseline. Psychiatric History: Reports: Depression Endocrine/Metabolic History: Reports: Other (See Below) Hematologic History: Reports: Anemia, Other (See Below) Other Hematologic History: Had acute anemia after hip surgery. - Infectious Disease History Infectious Disease History: Reports: Other (See Below) Other Infectious Disease History: She is uncertain of her past diseases. - Past Surgical History HEENT Surgical History: Reports: Cataract Surgery (Bilateral) Musculoskeletal Surgical History: Reports: ORIF (Left hip fracture) Social & Family History - Tobacco Use Tobacco Use Status *Q: Former Tobacco User (Quit 15 years ago.) - Caffeine Use Caffeine Use: Reports: Coffee, Soda Other Caffeine Use: like Coke and drinks decaf coffee - Alcohol Use Alcohol Use History: No - Living Situation & Occupation Living situation: Reports: Assisted Living (Lives in the [facility]) ED ROS GENERAL - Review of Systems Review Of Systems: See Below Constitutional: Reports: Weakness. Denies: Fever, Chills, Malaise HEENT: Denies: Throat Pain, Throat Swelling Respiratory: Denies: Shortness of Breath, Cough Cardiovascular: Denies: Chest Pain, Palpitations Endocrine: Reports: Fatigue GI/Abdominal: Denies: Abdominal Pain, Nausea, Vomiting : Denies: Dysuria Musculoskeletal: Denies: Neck Pain, Back Pain Skin: Denies: Diaphoresis, Rash Neurological: Reports: Headache, Weakness (Right upper extremity weakness that has resolved.). Denies: Dizziness Hematologic/Lymphatic: Denies: Easy Bleeding, Easy Bruising ED EXAM, NEURO - Physical Exam Exam: See Below Exam Limited By: No Limitations General Appearance: Alert, Mild Distress, Thin Eye Exam: Bilateral Eye: EOMI, Normal Inspection (Sclera are anicteric.), Periorbital Changes Ears: Normal External Exam, Hearing Grossly Normal Nose: Normal Inspection, Normal Mucosa, No Blood Throat/Mouth: Normal Oropharynx, Normal Voice, No Airway Compromise Head Exam: Atraumatic, Normocephalic Neck: Normal Inspection, Supple, Non-Tender, Full Range of Motion Respiratory/Chest: No Respiratory Distress, Lungs Clear, Normal Breath Sounds, No Accessory Muscle Use, Chest Non-Tender Cardiovascular: Normal Peripheral Pulses, Regular Rate, Rhythm, No Murmur GI/Abdominal: Normal Bowel Sounds, Soft, Non-Tender, No Mass Neurological: Alert, Normal Dorsiflexion, CN II-XII Intact, Normal Plantar Flexion, Oriented x 3, Other (Right pronator drift, mild. Right hand point of care technician slightly decreased versus left hand point of care technician.) Back Exam: Normal Inspection Extremities: Normal Inspection, Normal Range of Motion, Non-Tender, No Pedal Edema, Normal Capillary Refill Psychiatric: Depressed Mood, Flat Affect Skin Exam: Warm, Dry, Intact, Normal Color, No Rash #1 Interpretation EKG Date: 06/04/21 Time: 12:14 Rhythm: NSR Rate (Beats/Min): 87 [place]: Normal P-Wave: Enlarged QRS: Normal ST-T: Other (LVH with changes) QT: Normal Comparison: No Change (No change from an EKG performed on 05/10/2021.) Course - Vital Signs Last Recorded V/S: Last Vital Signs Temp 36.6 C 06/04/21 12:00 Pulse 85 06/04/21 12:00 Resp 17 06/04/21 12:00 BP 175/79 H 06/04/21 12:00 Pulse Ox - Orders/Labs/Meds Orders: Active Orders 24 hr Category Date Time Status Head wo Cont [CT] Stat Exams 06/04/21 12:34 Taken INR,PT,PROTHROMBIN TIME [COAG] Stat Lab 06/04/21 14:27 Received PTT,PARTIAL THROMBOPLSTIN TIME [COAG] Stat Lab 06/04/21 14:27 Received Alteplase [Activase] 42.3 mg Med 06/04/21 14:21 Active Premix Bag 1 bag IV .INFUSION Sodium Chloride 0.9% [Normal Saline] 1,000 ml Med 06/04/21 15:00 Active IV ASDIRECTED Sodium Chloride 0.9% [Saline Flush] Med 06/04/21 12:40 Active 10 ml FLUSH ASDIRECTED PRN Peripheral IV Insertion Adult [OM.PC] Routine Oth 06/04/21 12:40 Ordered EKG 12 Lead [EK] Routine Ther 06/04/21 12:34 Ordered Medication Orders Alteplase, Recombinant 42.3 mg (/ Premix) 0 mls @ 0 mls/hr IV .INFUSION ONE Stop: 06/04/21 15:15 Last Admin: 06/04/21 14:25 Dose: 42.3 mls/hr Documented by: YOKO Cosigned by: ANA Sodium Chloride (Normal Saline) 1,000 mls @ 100 mls/hr IV ASDIRECTED BAILEY Sodium Chloride (Sodium Chloride 0.9% 10 Ml Syringe) 10 ml FLUSH ASDIRECTED PRN PRN Reason: Keep Vein Open Last Admin: 06/04/21 13:20 Dose: 10 ml Documented by: YOKO Labs: Laboratory Tests 06/04/21 06/04/21 06/04/21 Range/Units 12:43 13:15 13:15 WBC 7.3 (3.0-10.3) x10-3/uL RBC 3.79 (3.60-5.20) x10(6)uL Hgb 11.3 L (11.4-15.5) g/dL Hct 34.6 (34.2-48.2) % MCV 91.1 (76.7-100.5) fL MCH 29.9 (23.9-33.9) pg MCHC 32.8 (31.9-34.8) g/dL RDW 14.8 (12.3-16.5) % Plt Count 278 (151-488) x10(3)uL MPV 6.9 L (7.1-12.4) fL Neut % (Auto) 62.5 (30.8-76.2) % Lymph % (Auto) 19.0 (18.4-52.1) % [place] % (Auto) 12.2 (4.4-15.7) % Eos % (Auto) 5.3 (0.6-8.1) % Baso % (Auto) 1.0 (0.2-1.5) % Neut # (Auto) 4.5 (1.5-6.3) x10-3/uL Lymph # (Auto) 1.4 (1.0-4.4) x10-3/uL [place] # (Auto) 0.9 (0.3-1.0) x10-3/uL Eos # (Auto) 0.4 (0.0-0.8) x10-3/uL Baso # (Auto) 0.1 (0.0-0.1) x10-3/uL ESR 25 H (0-20) mm/hr Sodium 139 (135-145) mmol/L Potassium 4.1 (3.5-5.3) mmol/L Chloride 102 (100-110) mmol/L Carbon Dioxide 31 (21-32) mmol/L BUN 20 H (7-18) mg/dL Creatinine 1.1 H (0.55-1.02) mg/dL Est Cr Clr Drug Dosing 29.11 mL/min Estimated GFR (MDRD) 47 L (>60) BUN/Creatinine Ratio 18.2 (9-20) Glucose 90 (80-116) mg/dL Calcium 9.2 (8.6-10.2) mg/dL Magnesium 2.0 (1.8-2.5) mg/dL Total Bilirubin 0.5 (0.1-1.3) mg/dL AST 16 D (5-25) IU/L ALT 15 D (12-36) U/L Alkaline Phosphatase 97 (56-112) IU/L Troponin I (4.0-60.3) pg/mL Total Protein 7.3 (6.0-8.0) g/dL Albumin 3.5 (3.2-4.6) g/dL Globulin 3.8 g/dL Albumin/Globulin Ratio 0.9 SARS-CoV-2 RNA (RODRIGO) Negative (NEGATIVE) 06/04/21 Range/Units 13:15 WBC (3.0-10.3) x10-3/uL RBC (3.60-5.20) x10(6)uL Hgb (11.4-15.5) g/dL Hct (34.2-48.2) % MCV (76.7-100.5) fL MCH (23.9-33.9) pg MCHC (31.9-34.8) g/dL RDW (12.3-16.5) % Plt Count (151-488) x10(3)uL MPV (7.1-12.4) fL Neut % (Auto) (30.8-76.2) % Lymph % (Auto) (18.4-52.1) % [place] % (Auto) (4.4-15.7) % Eos % (Auto) (0.6-8.1) % Baso % (Auto) (0.2-1.5) % Neut # (Auto) (1.5-6.3) x10-3/uL Lymph # (Auto) (1.0-4.4) x10-3/uL [place] # (Auto) (0.3-1.0) x10-3/uL Eos # (Auto) (0.0-0.8) x10-3/uL Baso # (Auto) (0.0-0.1) x10-3/uL ESR (0-20) mm/hr Sodium (135-145) mmol/L Potassium (3.5-5.3) mmol/L Chloride (100-110) mmol/L Carbon Dioxide (21-32) mmol/L BUN (7-18) mg/dL Creatinine (0.55-1.02) mg/dL Est Cr Clr Drug Dosing mL/min Estimated GFR (MDRD) (>60) BUN/Creatinine Ratio (9-20) Glucose (80-116) mg/dL Calcium (8.6-10.2) mg/dL Magnesium (1.8-2.5) mg/dL Total Bilirubin (0.1-1.3) mg/dL AST (5-25) IU/L ALT (12-36) U/L Alkaline Phosphatase (56-112) IU/L Troponin I 7.5 (4.0-60.3) pg/mL Total Protein (6.0-8.0) g/dL Albumin (3.2-4.6) g/dL Globulin g/dL Albumin/Globulin Ratio SARS-CoV-2 RNA (RODRIGO) (NEGATIVE) Meds: Medications Generic Name Dose Route Start Last Admin Trade Name Freq PRN Reason Stop Dose Admin Alteplase, Recombinant 42.3 mg 0 mls @ 0 mls/hr 06/04/21 14:21 06/04/21 14:25 / Premix IV 06/04/21 15:15 42.3 mls/hr .INFUSION ONE Administration Sodium Chloride 1,000 mls @ 100 mls/hr 06/04/21 15:00 Normal Saline IV ASDIRECTED BAILEY Sodium Chloride 10 ml 06/04/21 12:40 06/04/21 13:20 Sodium Chloride 0.9% 10 Ml Syringe FLUSH 10 ml ASDIRECTED PRN Administration Keep Vein Open Discontinued Medications Generic Name Dose Route Start Last Admin Trade Name Freq PRN Reason Stop Dose Admin Alteplase, Recombinant 4.7 mg 06/04/21 14:14 06/04/21 14:24 Alteplase 100 Mg Vial IVPUSH 06/04/21 14:15 4.7 mg .BOLUS ONE Administration - Radiology Interpretation Free Text/Narrative:: CT scan of the head showed no bleeding and no acute changes per the [facility] radiologist. - Re-Assessments/Exams Free Text/Narrative Re-Assessment/Exam: 06/04/21 13:35: White blood cell count is 7.3. Hemoglobin is 11.3. Platelet count is normal. Sodium is 139. Potassium is 4.1. Bicarbonate is 31. BUN is 20 and creatinine is 1.1. Glucose is 90. Magnesium is 2.0. With the patient having the strokelike symptoms this morning that have improved but still with some right pronator drift and some mild, I we'll need to discuss the patient with the stroke neurologist at [facility] [place] (the patient is followed through the [facility] in [place]) she has given me permission to discuss her case with the doctors at [facility] [place]. I did call [facility] and they will be getting the stroke neurologist to call me back. 06/04/21 13:58: I received a call back from [facility] and I discussed the patient's case with Dr. Toledo and he felt if the patient had no contraindications that the patient should receive TPA if she was still having the right-sided symptoms. She does not have any absolute contraindications at this time. Therefore, I will discuss this with the patient and with her family. 06/04/21 14:10: I discussed all this with the patient and with her grandson. I outlined the risk and the benefits associated with TPA therapy. They have asked me to proceed with TPA therapy. I will have pharmacy staff help with the dosing and set up of this and we will give TPA via stroke protocol. This patient to be transferred to [facility] [place] for ongoing cares. I have discussed this with Dr. Toledo and he will accept the patient in transfer. The patient will be transferred to [facility] as a stroke code after the TPA has been instituted. The patient will be given the bolus IV and then the drip will be started and the patient then will be transferred via ALS ambulance service to [facility] [place] as above. Departure - Departure Time of Disposition: 14:50 Disposition: DC/Tfer to Acute Hospital 02 Condition: Critical Clinical Impression: CVA (cerebral vascular accident) Qualifiers: CVA mechanism: unspecified Qualified Code(s): I63.9 - Cerebral infarction, unspecified Hypertension Qualifiers: Hypertension type: unspecified Qualified Code(s): I10 - Essential (primary) hypertension - Discharge Information Sepsis Event Note (ED) - Focused Exam Vital Signs: Vital Signs Temp Pulse Resp BP 06/04/21 12:00 36.6 C 85 17 175/79 H - My Orders Last 24 Hours: My Active Orders 06/04/21 12:34 Head wo Cont [CT] Stat EKG 12 Lead [EK] Routine 06/04/21 12:40 Sodium Chloride 0.9% [Saline Flush] 10 ml FLUSH ASDIRECTED PRN Peripheral IV Insertion Adult [OM.PC] Routine 06/04/21 14:21 Alteplase [Activase] 42.3 mg Premix Bag 1 bag IV .INFUSION 06/04/21 14:27 INR,PT,PROTHROMBIN TIME [COAG] Stat PTT,PARTIAL THROMBOPLSTIN TIME [COAG] Stat 06/04/21 15:00 Sodium Chloride 0.9% [Normal Saline] 1,000 ml IV ASDIRECTED - Assessment/Plan Last 24 Hours: My Active Orders 06/04/21 12:34 Head wo Cont [CT] Stat EKG 12 Lead [EK] Routine 06/04/21 12:40 Sodium Chloride 0.9% [Saline Flush] 10 ml FLUSH ASDIRECTED PRN Peripheral IV Insertion Adult [OM.PC] Routine 06/04/21 14:21 Alteplase [Activase] 42.3 mg Premix Bag 1 bag IV .INFUSION 06/04/21 14:27 INR,PT,PROTHROMBIN TIME [COAG] Stat PTT,PARTIAL THROMBOPLSTIN TIME [COAG] Stat 06/04/21 15:00 Sodium Chloride 0.9% [Normal Saline] 1,000 ml IV ASDIRECTED
[2021-06-04 12:33] VITALS: BP 175/79; PULSE 85
[2021-06-04] MEDS ORDERED: Sodium Chloride 0.9% 10 ML Syringe FLUSH PRN (12:40)
[2021-06-04] MEDS ORDERED: ALTEPLASE IV ONE ×2 (14:16→14:21)
[2021-06-04] MEDS ORDERED: Sodium Chloride 0.9% 1,000 ML IV SCH (15:00)
== END 2021-06-04 14:50 ==
LOC: FB.ED 12:00
DX: I63.9 Cerebral infarction, unspecified (principal); I10 Essential (primary) hypertension; E78.00 Pure hypercholesterolemia, unspecified; J44.9 Chronic obstructive pulmonary disease, unspecified; Z87.891 Personal history of nicotine dependence; Z88.0 Allergy status to penicillin; Z79.82 Long term (current) use of aspirin; Z79.899 Other long term (current) drug therapy; Z20.822 Contact with and (suspected) exposure to COVID-19
CPT/HCPCS: 36415; 37195; 70450; 80053; 83735; 84484; 85025; 85610; 85651; 85730; 93005; 99285-25; J2997; U0002

== ENCOUNTER 2021-06-11 09:01 | Inpatient (IN) | payer MEDICARE, BC ==
[2021-06-11] MEDS ORDERED: Albuterol 8 GM Inhaler INH PRN (15:52)
[2021-06-11] MEDS: Acetaminophen 500 MG Tab PO PRN (16:37)
--- NOTE | 2021-06-11 18:48 | PCM.HP.2 ---
H&P History of Present Illness - General Date of Service: 06/11/21 Admit Problem/Dx: Admission Diagnosis/Problem Admission Diagnosis/Problem Weakness Source of Information: Patient, Old Records, Provider History Limitations: Reports: Other (Patient is very tired and has difficulty speaking) - History of Present Illness Initial Comments - Free Text/Narative: 86-year-old lady brought to this hospital for swing bed admission for continued physical and Occupational Therapy. 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 She was treated in the hospital and started on dual antiplatelet therapy and began PT/OT. She was transferred here to complete therapy with hope for discharge back to assisted living or to shelter. Note that at the time of my interview and physical exam for the admission and physical here the patient was very depressed. She found it difficult to talk and did not wish to participate fully in the interview and/or physical exam. BACK OF NECK AREA. Pain Score (Numeric/FACES): 8 - Related Data Allergies/Adverse Reactions: Allergies Allergy/AdvReac Type Severity Reaction Status Date / Time Penicillins Allergy Swelling Verified 06/11/21 15:04 Home Medications: Home Meds traZODone HCl [Trazodone HCl] 100 mg PO BEDTIME 11/15/15 [History] Budesonide/Formoterol Fumarate [Symbicort 160-4.5 Mcg Inhaler] 2 puff INH BID #1 inhaler 02/04/21 [Rx] Cholecalciferol (Vitamin D3) [Vitamin D3] 1,000 unit PO DAILY@1400 #100 cap 02/04/21 [Rx] Cyanocobalamin (Vitamin B12) [Vitamin B12] 1,000 mcg PO DAILY@1400 #100 tab 02/04/21 [Rx] Oxybutynin [Oxybutynin ER] 5 mg PO BEDTIME #14 tab 02/04/21 [Rx] Valerian Root 500 mg PO DAILY PRN #100 tab 02/04/21 [Rx] atorvaSTATin Calcium [Lipitor] 20 mg PO BEDTIME #14 tab 02/04/21 [Rx] Acetaminophen [Tylenol Extra Strength] 500 mg PO Q6H PRN 05/10/21 [History] Fluticasone Propionate [Flonase] 1 spray NASBOTH BID 05/10/21 [History] Albuterol [Ventolin HFA] 2 puff IN Q4H PRN 06/11/21 [History] Alendronate Sodium [Fosamax] 70 mg PO FR@0600 06/11/21 [History] Aspirin [Halfprin] 81 mg PO DAILY 06/11/21 [History] Calcium Carbonate [Calcium] 500 mg PO WITHBREAKFAST 06/11/21 [History] Clopidogrel [Plavix] 75 mg PO DAILY 06/11/21 [History] Losartan [Cozaar] 25 mg PO BID 06/11/21 [History] Menthol [Biofreeze] 1 applic TOP TID PRN 06/11/21 [History] Multivitamin 1 tab PO DAILY@1400 06/11/21 [History] Past Medical History HEENT History: Reports: Cataract, Impaired Vision, Other (See Below) Other HEENT History: Having some possible sinus problems recently, right side of head and face. Has chronic rhinitis. Cardiovascular History: Reports: High Cholesterol, Hypertension Respiratory History: Reports: COPD, SOB, Other (See Below) Other Respiratory History: Uses CPAP at night. States that she uses oxygen at night. Former smoker, quit year 2006. Genitourinary History: Reports: Urinary Incontinence, Other (See Below) Other Genitourinary History: Overactive bladder. [employer] History: Reports: Musculoskeletal History: Reports: Other (See Below) Other Musculoskeletal History: Broke head right shoulder/arm. Left femur fracture and nailing at the left hip. Neurological History: Reports: CVA, TIA, Other (See Below) Other Neuro History: States she had an episode last summer with trouble speaking, nausea, and difficulty walking---this resolved in a short time. Confused at times-baseline. CURRENT CVA IN 2020 Psychiatric History: Reports: Depression Other Psychiatric History: Takes Trazodone. Endocrine/Metabolic History: Reports: Other (See Below) Other Endocrine/Metabolic History: States she is not a diabetic. Hematologic History: Reports: Anemia, Other (See Below) Other Hematologic History: Had acute anemia after hip surgery. Dermatologic History: Reports: None - Infectious Disease History Infectious Disease History: Reports: Other (See Below) Other Infectious Disease History: She is uncertain of her past diseases. - Past Surgical History HEENT Surgical History: Reports: Cataract Surgery Other HEENT Surgeries/Procedures: Bilateral cataract. GI Surgical History: Reports: Colonoscopy Musculoskeletal Surgical History: Reports: ORIF Social & Family History - Family History Family Medical History: No Pertinent Family History - Tobacco Use Tobacco Use Status *Q: Never Tobacco User - Caffeine Use Caffeine Use: Reports: Coffee, Soda Other Caffeine Use: like Coke and drinks decaf coffee - Recreational Drug Use Recreational Drug Use: No - Living Situation & Occupation Living situation: Reports: Assisted Living (Lives in the [facility]) H&P Review of Systems - Review of Systems: Review Of Systems: See Below General: Reports: Malaise, Weakness HEENT: Reports: No Symptoms Pulmonary: Reports: No Symptoms Cardiovascular: Reports: No Symptoms Gastrointestinal: Reports: No Symptoms, Mucous in Stool Musculoskeletal: Reports: No Symptoms Skin: Reports: No Symptoms Psychiatric: Reports: Depression Neurological: Reports: Numbness, Paresthesia, Pre-Existing Deficit, Trouble Speaking, Difficulty Walking, Weakness, Gait Disturbance Hematologic/Lymphatic: Reports: No Symptoms Immunologic: Reports: No Symptoms Exam - Exam Exam: See Below - Vital Signs Vital Signs: Last Vital Signs Temp 36.6 C 06/11/21 11:50 Pulse 91 06/11/21 11:50 Resp 18 06/11/21 11:50 BP 101/43 L 06/11/21 11:50 Pulse Ox 93 L 06/11/21 11:50 Weight: 46.947 kg - Exam Quality Assessment: Supplemental Oxygen, DVT Prophylaxis General: Alert, Oriented, Lethargic HEENT: EOMI Neck: Supple Lungs: Clear to Auscultation Cardiovascular: Regular Rate, Regular Rhythm GI/Abdominal Exam: Normal Bowel Sounds, Soft, Non-Tender Back Exam: Normal Inspection Extremities: Normal Inspection Peripheral Pulses: 1+: Dorsalis Pedis (L), Dorsalis Pedis (R), 2+: Brachial (L), Brachial (R) Skin: Warm, Dry Neuro Extensive - Mental Status: Alert Psychiatric: Depressed Physical Exam Comments:: Physical exam is quite limited because of patient being very tired and weak. She did not want to fully participate. Sepsis Event Note - Evaluation Sepsis Screening Result: No Definite Risk - Focused Exam Vital Signs: Vital Signs Temp Pulse Resp BP Pulse Ox 06/11/21 11:50 36.6 C 91 18 101/43 L 93 L - Problem List (1) CVA (cerebral vascular accident) SNOMED Code(s): 974357699 ICD Code: I63.9 - CEREBRAL INFARCTION, UNSPECIFIED Status: Acute Current Visit: No Qualifiers: CVA mechanism: unspecified Qualified Code(s): I63.9 - Cerebral infarction, unspecified (2) PAD (peripheral artery disease) SNOMED Code(s): 509519616 ICD Code: I73.9 - PERIPHERAL VASCULAR DISEASE, UNSPECIFIED Status: Chronic Current Visit: Yes (3) Osteoporosis SNOMED Code(s): 51889160 ICD Code: M81.0 - AGE-RELATED OSTEOPOROSIS W/O CURRENT PATHOLOGICAL FRACTURE Status: Chronic Current Visit: Yes (4) Overactive bladder SNOMED Code(s): 458552954 ICD Code: N32.81 - OVERACTIVE BLADDER Status: Chronic Current Visit: Yes (5) Palliative care encounter SNOMED Code(s): 439828302, 156593974 ICD Code: Z51.5 - ENCOUNTER FOR PALLIATIVE CARE Status: Acute Current Visit: Yes (6) COPD (chronic obstructive pulmonary disease) SNOMED Code(s): 69731113 ICD Code: J44.9 - CHRONIC OBSTRUCTIVE PULMONARY DISEASE, UNSPECIFIED Status: Chronic Current Visit: No Problem Details: Keep O2 between 88-92% (7) HLD (hyperlipidemia) SNOMED Code(s): 29599026 ICD Code: E78.5 - HYPERLIPIDEMIA, UNSPECIFIED Status: Chronic Current Visit: No Qualifiers: Hyperlipidemia type: unspecified Qualified Code(s): E78.5 - Hyperlipidemia, unspecified (8) HTN (hypertension) SNOMED Code(s): 13256949 ICD Code: I10 - ESSENTIAL (PRIMARY) HYPERTENSION Status: Chronic Current Visit: No Problem Details: Labile Qualifiers: Hypertension type: unspecified Qualified Code(s): I10 - Essential (primary) hypertension Problem List Initiated/Reviewed/Updated: Yes Orders Last 24hrs: Active Orders 24 hr Category Date Time Status Patient Status [ADT] Routine ADT 06/11/21 12:39 Active Antiembolic Devices [RC] .Routine Care 06/11/21 12:40 Active Pulse Oximetry [RC] PRN Care 06/11/21 12:39 Active RT Aerosol Therapy [RC] ASDIRECTED Care 06/11/21 16:05 Active RT Post Treatment Assessment [RC] Click to Edit Care 06/11/21 16:05 Active VTE/DVT Education [RC] Click to Edit Care 06/11/21 12:40 Active Vaccine to be Administered/Admin Charge [RC] ASDIRECTED Care 06/11/21 15:34 Active Vital Signs [RC] 0900 Care 06/11/21 12:39 Active Consult to Speech Language Pathology [SCREEN ROLLER Evaluation Cons 06/11/21 14:37 Active and Treatment] [CONS] Routine OT Evaluation and Treatment [CONS] Routine Cons 06/11/21 12:43 Active PT Evaluation and Treatment [CONS] Routine Cons 06/11/21 12:43 Active Pureed Diet [DIET] Diet 06/11/21 Lunch Active Acetaminophen [Tylenol Extra Strength] Med 06/11/21 15:52 Active 500 mg PO Q6H PRN Albuterol [Ventolin HFA] Med 06/11/21 15:52 Active 0 gm INH Q4H PRN Alendronate [Fosamax] Med 06/14/21 06:00 Active 70 mg PO FR@0600 Aspirin [Halfprin] Med 06/12/21 09:00 Active 81 mg PO DAILY Calcium Carbonate [Oyster Shell Calcium] Med 06/12/21 08:00 Active 500 mg PO WITHBREAKFAST Cholecalciferol (Vitamin D3) [Vitamin D3] Med 06/12/21 14:00 Active 25 mcg PO DAILY@1400 Clopidogrel [Plavix] Med 06/12/21 09:00 Active 75 mg PO DAILY Cyanocobalamin (Vitamin B12) [Vitamin B12] Med 06/12/21 14:00 Active 1,000 mcg PO DAILY@1400 Fluticasone Propionate [Flonase] Med 06/11/21 21:00 Active 0 gm NASBOTH BID Losartan [Cozaar] Med 06/11/21 21:00 Active 25 mg PO BID Mometasone/Formoterol [Dulera 200-5 MCG] Med 06/11/21 21:00 Active 2 puff IH BID Oxybutynin [Oxybutynin ER] Med 06/12/21 21:00 Active 5 mg PO BEDTIME traZODone Med 06/11/21 21:00 Active 100 mg PO BEDTIME DVT/VTE Prophylaxis Reflex [OM.PC] Per Unit Routine Oth 06/11/21 12:39 Ordered Resuscitation Status Routine Resus Stat 06/11/21 12:39 Ordered Medication Orders Acetaminophen (Acetaminophen 500 Mg Tab) 500 mg PO Q6H PRN PRN Reason: Pain Last Admin: 06/11/21 16:37 Dose: 500 mg Documented by: SHAHEED Albuterol (Albuterol 8 Gm Inhaler) 0 gm INH Q4H PRN PRN Reason: Shortness of Breath Alendronate Sodium (Alendronate 70 Mg Tab) 70 mg PO FR@0600 [facility] Aspirin (Aspirin 81 Mg Tab.Ec) 81 mg PO DAILY [facility] Calcium Carbonate/Glycine (Calcium Carbonate 500 Mg Tablet) 500 mg PO WITHBREAKFAST [facility] Cholecalciferol (Cholecalciferol (Vitamin D3) 25 Mcg Tab) 25 mcg PO DAILY@1400 [facility] Clopidogrel Bisulfate (Clopidogrel 75 Mg Tab) 75 mg PO DAILY [facility] Cyanocobalamin (Cyanocobalamin (Vitamin B12) 1,000 Mcg Tab) 1,000 mcg PO DAILY@1400 [facility] Fluticasone Propionate (Fluticasone Propionate Nasal [place] 16 Gm Bottle) 0 gm NASBOTH BID [facility] Losartan Potassium (Losartan 25 Mg Tab) 25 mg PO BID [facility] Mometasone Furoate/Formoterol Fumar (Formoterol/Mometasone 200-5 Mcg 8.8 Gm Inhaler) 2 puff IH BID [facility] Oxybutynin Chloride (Oxybutynin 5 Mg Tab.Er) 5 mg PO BEDTIME [facility] Trazodone HCl (Trazodone 100 Mg Tab) 100 mg PO BEDTIME [facility] Assessment/Plan Comment:: Admit patient to swing bed OT/PT/speech evaluation and treatment. Patient will be started on pured diet secondary to speech therapy with swallow study and follow future recommendations Restart patient's home medications including EliquisDVT prophylaxis Plavix, 81 mg aspirinfor 90 days status post acute CVA Restart home medications for osteoporosis, overactive bladder, hypertension Consider treatment for depression
[2021-06-11] MEDS: Losartan 25 MG Tab PO SCH (20:02)
[2021-06-11] MEDS: Formoterol/Mometasone 200-5 MCG 8.8 GM Inhaler IH SCH (20:02)
[2021-06-11] MEDS: Fluticasone Propionate Nasal Spray 16 GM Bottle NASBOTH SCH (20:03)
[2021-06-11] MEDS: traZODone 100 MG Tab PO SCH (20:04)
[2021-06-12] MEDS: Clopidogrel 75 MG Tab PO SCH (08:07)
[2021-06-12] MEDS: Aspirin 81 MG Tab.EC PO SCH (08:07)
[2021-06-12] MEDS: Calcium Carbonate 500 MG Tablet PO SCH (08:07)
[2021-06-12] MEDS: Formoterol/Mometasone 200-5 MCG 8.8 GM Inhaler IH SCH ×2 (08:08→20:48)
[2021-06-12] MEDS: Fluticasone Propionate Nasal Spray 16 GM Bottle NASBOTH SCH ×2 (08:09→20:49)
[2021-06-12] MEDS: Losartan 25 MG Tab PO SCH ×2 (08:19→20:50)
[2021-06-12] MEDS: Cholecalciferol (Vitamin D3) 25 MCG Tab PO SCH (13:52)
[2021-06-12] MEDS: Cyanocobalamin (Vitamin B12) 1,000 MCG Tab PO SCH (13:52)
[2021-06-12] MEDS: atorvaSTATin 20 MG Tab PO SCH (20:50)
[2021-06-12] MEDS: traZODone 100 MG Tab PO SCH (20:51)
[2021-06-12] MEDS: Oxybutynin 5 MG Tab.ER PO SCH (20:51)
[2021-06-13] MEDS: Acetaminophen 500 MG Tab PO PRN ×2 (07:12→20:25)
[2021-06-13] MEDS: Calcium Carbonate 500 MG Tablet PO SCH (08:38)
[2021-06-13] MEDS: Losartan 25 MG Tab PO SCH ×2 (08:38→20:23)
[2021-06-13] MEDS: Formoterol/Mometasone 200-5 MCG 8.8 GM Inhaler IH SCH ×2 (08:39→20:23)
[2021-06-13] MEDS: Clopidogrel 75 MG Tab PO SCH (08:40)
[2021-06-13] MEDS: Aspirin 81 MG Tab.EC PO SCH (08:40)
[2021-06-13] MEDS: Fluticasone Propionate Nasal Spray 16 GM Bottle NASBOTH SCH ×2 (08:40→20:23)
[2021-06-13] MEDS: Cholecalciferol (Vitamin D3) 25 MCG Tab PO SCH (13:20)
[2021-06-13] MEDS: Cyanocobalamin (Vitamin B12) 1,000 MCG Tab PO SCH (13:20)
[2021-06-13] MEDS: atorvaSTATin 20 MG Tab PO SCH (20:24)
[2021-06-13] MEDS: traZODone 100 MG Tab PO SCH (20:24)
[2021-06-13] MEDS: Oxybutynin 5 MG Tab.ER PO SCH (20:24)
[2021-06-14] MEDS ORDERED: Alendronate 70 MG Tab PO SCH (06:00)
[2021-06-14] MEDS: Acetaminophen 500 MG Tab PO PRN (06:07)
[2021-06-14] MEDS: Formoterol/Mometasone 200-5 MCG 8.8 GM Inhaler IH SCH ×2 (08:11→20:14)
[2021-06-14] MEDS: Fluticasone Propionate Nasal Spray 16 GM Bottle NASBOTH SCH ×2 (08:11→20:14)
[2021-06-14] MEDS: Calcium Carbonate 500 MG Tablet PO SCH (08:11)
[2021-06-14] MEDS: Losartan 25 MG Tab PO SCH ×2 (08:12→20:15)
[2021-06-14] MEDS: Aspirin 81 MG Tab.EC PO SCH (08:12)
[2021-06-14] MEDS: Clopidogrel 75 MG Tab PO SCH (08:15)
[2021-06-14] MEDS: Cyanocobalamin (Vitamin B12) 1,000 MCG Tab PO SCH (15:22)
[2021-06-14] MEDS: Cholecalciferol (Vitamin D3) 25 MCG Tab PO SCH (15:22)
[2021-06-14] MEDS: traZODone 100 MG Tab PO SCH (20:15)
[2021-06-14] MEDS: atorvaSTATin 20 MG Tab PO SCH (20:15)
[2021-06-14] MEDS: Oxybutynin 5 MG Tab.ER PO SCH (20:15)
[2021-06-15] MEDS: Calcium Carbonate 500 MG Tablet PO SCH (08:03)
[2021-06-15] MEDS: Aspirin 81 MG Tab.EC PO SCH (08:04)
[2021-06-15] MEDS: Clopidogrel 75 MG Tab PO SCH (08:04)
[2021-06-15] MEDS: Losartan 25 MG Tab PO SCH ×2 (08:04→20:24)
[2021-06-15] MEDS: Formoterol/Mometasone 200-5 MCG 8.8 GM Inhaler IH SCH ×2 (08:05→20:25)
[2021-06-15] MEDS: Fluticasone Propionate Nasal Spray 16 GM Bottle NASBOTH SCH ×3 (08:05→20:28)
[2021-06-15] MEDS: Mupirocin Oint 22 GM Tube TOP SCH ×2 (14:34→20:23)
[2021-06-15] MEDS: Cholecalciferol (Vitamin D3) 25 MCG Tab PO SCH (14:34)
[2021-06-15] MEDS: Cyanocobalamin (Vitamin B12) 1,000 MCG Tab PO SCH (14:35)
[2021-06-15] MEDS: traZODone 100 MG Tab PO SCH (20:25)
[2021-06-15] MEDS: atorvaSTATin 20 MG Tab PO SCH (20:25)
[2021-06-15] MEDS: Oxybutynin 5 MG Tab.ER PO SCH (20:25)
[2021-06-16] MEDS: Formoterol/Mometasone 200-5 MCG 8.8 GM Inhaler IH SCH ×2 (08:28→20:05)
[2021-06-16] MEDS: Fluticasone Propionate Nasal Spray 16 GM Bottle NASBOTH SCH ×2 (08:28→20:06)
[2021-06-16] MEDS: Aspirin 81 MG Tab.EC PO SCH (08:29)
[2021-06-16] MEDS: Calcium Carbonate 500 MG Tablet PO SCH (08:29)
[2021-06-16] MEDS: Clopidogrel 75 MG Tab PO SCH (08:30)
[2021-06-16] MEDS: Losartan 25 MG Tab PO SCH ×2 (08:32→20:06)
[2021-06-16] MEDS: Mupirocin Oint 22 GM Tube TOP SCH ×4 (08:32→21:00)
[2021-06-16] MEDS: Cholecalciferol (Vitamin D3) 25 MCG Tab PO SCH (13:09)
[2021-06-16] MEDS: Cyanocobalamin (Vitamin B12) 1,000 MCG Tab PO SCH (13:09)
[2021-06-16] MEDS: atorvaSTATin 20 MG Tab PO SCH (20:05)
[2021-06-16] MEDS: Oxybutynin 5 MG Tab.ER PO SCH (20:06)
[2021-06-16] MEDS: traZODone 100 MG Tab PO SCH (20:06)
[2021-06-17] MEDS: Calcium Carbonate 500 MG Tablet PO SCH (08:37)
[2021-06-17] MEDS: Formoterol/Mometasone 200-5 MCG 8.8 GM Inhaler IH SCH ×2 (08:40→19:59)
[2021-06-17] MEDS: Fluticasone Propionate Nasal Spray 16 GM Bottle NASBOTH SCH ×2 (08:41→20:00)
[2021-06-17] MEDS: Losartan 25 MG Tab PO SCH ×2 (09:55→20:00)
[2021-06-17] MEDS: Aspirin 81 MG Tab.EC PO SCH (09:56)
[2021-06-17] MEDS: Clopidogrel 75 MG Tab PO SCH (09:56)
[2021-06-17] MEDS: Mupirocin Oint 22 GM Tube TOP SCH ×3 (11:37→19:59)
[2021-06-17] MEDS: Cholecalciferol (Vitamin D3) 25 MCG Tab PO SCH (13:05)
[2021-06-17] MEDS: Cyanocobalamin (Vitamin B12) 1,000 MCG Tab PO SCH (13:05)
[2021-06-17] MEDS: atorvaSTATin 20 MG Tab PO SCH (20:01)
[2021-06-17] MEDS: Oxybutynin 5 MG Tab.ER PO SCH (20:01)
[2021-06-17] MEDS: traZODone 100 MG Tab PO SCH (20:02)
[2021-06-18] MEDS: Calcium Carbonate 500 MG Tablet PO SCH (08:05)
[2021-06-18] MEDS: Losartan 25 MG Tab PO SCH ×2 (08:06→19:59)
[2021-06-18] MEDS: Fluticasone Propionate Nasal Spray 16 GM Bottle NASBOTH SCH ×2 (08:06→19:59)
[2021-06-18] MEDS: Formoterol/Mometasone 200-5 MCG 8.8 GM Inhaler IH SCH ×2 (08:06→19:59)
[2021-06-18] MEDS: Aspirin 81 MG Tab.EC PO SCH (08:07)
[2021-06-18] MEDS: Clopidogrel 75 MG Tab PO SCH (08:07)
[2021-06-18] MEDS: Mupirocin Oint 22 GM Tube TOP SCH ×3 (08:08→19:59)
[2021-06-18] MEDS: Cyanocobalamin (Vitamin B12) 1,000 MCG Tab PO SCH (14:07)
[2021-06-18] MEDS: Cholecalciferol (Vitamin D3) 25 MCG Tab PO SCH (14:07)
[2021-06-18] MEDS: traZODone 100 MG Tab PO SCH (20:00)
[2021-06-18] MEDS: atorvaSTATin 20 MG Tab PO SCH (20:00)
[2021-06-18] MEDS: Oxybutynin 5 MG Tab.ER PO SCH (20:00)
[2021-06-19 07:17] LABS: CORONAVIRUS COVID-19 NAA NEGATIVE (NEGATIVE)
[2021-06-19] MEDS: Mupirocin Oint 22 GM Tube TOP SCH (08:27)
[2021-06-19] MEDS: Fluticasone Propionate Nasal Spray 16 GM Bottle NASBOTH SCH (08:27)
[2021-06-19] MEDS: Calcium Carbonate 500 MG Tablet PO SCH (08:28)
[2021-06-19] MEDS: Aspirin 81 MG Tab.EC PO SCH (08:28)
[2021-06-19] MEDS: Losartan 25 MG Tab PO SCH (08:28)
[2021-06-19] MEDS: Formoterol/Mometasone 200-5 MCG 8.8 GM Inhaler IH SCH (08:28)
[2021-06-19] MEDS: Clopidogrel 75 MG Tab PO SCH (08:28)
[2021-06-19 08:35] VITALS: BP 103/43
[2021-06-19 08:36] VITALS: PULSE 92
--- NOTE | 2021-06-19 09:02 | DISCH ---
DISCHARGE DATE: 06/19/2021 REASON FOR ADMISSION: 1. CVA. 2. Overactive bladder. 3. Generalized weakness. 4. Osteoporosis. 5. Peripheral artery disease. 6. COPD. 7. Hyperlipidemia. 8. Hypertension. BRIEF HISTORY AND HOSPITAL COURSE: An 86-year-old female brought in from a hospital in [place] where she had a left hemispheric CVA with weakness and aphasia. She improved after she was started on dual antiplatelet therapy. She was transferred here to complete PT and OT. She is ready to go to the [facility] today. The only new medication will be the antiplatelet, Plavix. She will go home with home health to assist with therapy, medications, nursing. /[id number] ROBERTO/KOSTAS
== END 2021-06-19 10:45 | disposition home health service (06) | DRG 57 ==
LOC: FB.MS 11:31
PROVIDERS: ADMIT Student in an Organized Health Care Education/Training Program; ATTEND Family Medicine
DX: I69.351 Hemiplegia and hemiparesis following cerebral infarction affecting right dominant side (principal); E87.1 Hypo-osmolality and hyponatremia; N32.81 Overactive bladder; M81.0 Age-related osteoporosis without current pathological fracture; I73.9 Peripheral vascular disease, unspecified; J44.9 Chronic obstructive pulmonary disease, unspecified; Z66 Do not resuscitate; Z20.822 Contact with and (suspected) exposure to COVID-19; E78.5 Hyperlipidemia, unspecified; I10 Essential (primary) hypertension; H54.7 Unspecified visual loss; E78.00 Pure hypercholesterolemia, unspecified; F32.A Depression, unspecified; D64.9 Anemia, unspecified; Z88.0 Allergy status to penicillin; Z79.82 Long term (current) use of aspirin; Z79.899 Other long term (current) drug therapy; Z51.5 Encounter for palliative care
CPT/HCPCS: 90686; 92526-GN; 92610-GN; 97110-GO; 97112-GO; 97112-GP; 97116-GP; 97161-GP; 97166-GO; 97530-GO; 97530-GP; 97535-GO; A9270-GY; G0008; U0002

== ENCOUNTER 2021-07-15 17:34 | Observation (INO) | payer MEDICARE, BC ==
[2021-07-15] MEDS ORDERED: cloNIDine 0.1 MG Tab PO ONE (17:53)
[2021-07-15] MEDS ORDERED: Sodium Chloride 0.9% 1,000 ML IV SCH (18:45)
[2021-07-15] MEDS ORDERED: LORazepam 1 MG Tab PO ONE (20:12)
[2021-07-15] MEDS ORDERED: Ibuprofen 400 MG Tab PO ONE (20:12)
[2021-07-15] MEDS ORDERED: Acetaminophen 500 MG Tab PO ONE (20:12)
[2021-07-15] MEDS ORDERED: Acetaminophen 325 MG Tab PO PRN (22:00)
[2021-07-15] MEDS ORDERED: Ondansetron 4 MG/2 ML SDV IV PRN (22:00)
[2021-07-15] MEDS ORDERED: Magnesium Hydroxide 400 MG/5 ML Susp 30 ML Cup PO PRN (22:00)
[2021-07-15] MEDS ORDERED: traZODone 100 MG Tab PO ONE ×2 (22:49→23:30)
[2021-07-15] MEDS ORDERED: Losartan 25 MG Tab PO ONE (22:52)
[2021-07-15] MEDS ORDERED: Losartan 25 MG Tab PO SCH (23:00)
[2021-07-15] MEDS ORDERED: Albuterol 8 GM Inhaler INH PRN (23:06)
[2021-07-15] MEDS ORDERED: LORazepam 0.5 MG Tab PO PRN (23:06)
[2021-07-15] MEDS ORDERED: Fluticasone Propionate Nasal Spray 16 GM Bottle NASBOTH PRN (23:06)
[2021-07-16 06:37] VITALS: PULSE 94
[2021-07-16] MEDS ORDERED: Formoterol/Mometasone 200-5 MCG 8.8 GM Inhaler IH SCH (09:00)
[2021-07-16] MEDS ORDERED: Clopidogrel 75 MG Tab PO SCH (09:00)
[2021-07-16] MEDS ORDERED: Aspirin 81 MG Tab.EC PO SCH (09:00)
[2021-07-16 11:29] VITALS: BP 156/76
[2021-07-16] MEDS ORDERED: Multivitamin Tab PO SCH (14:00)
[2021-07-16] MEDS ORDERED: traZODone 100 MG Tab PO SCH (21:00)
== END 2021-07-16 10:10 | disposition home health service (06) ==
LOC: FB.ED 17:34 → FB.MS 20:25
PROVIDERS: ADMIT Family Medicine; ATTEND Family Medicine
DX: I10 Essential (primary) hypertension (principal); R42 Dizziness and giddiness; R51.9 Headache, unspecified; F41.9 Anxiety disorder, unspecified; E78.00 Pure hypercholesterolemia, unspecified; J44.9 Chronic obstructive pulmonary disease, unspecified; N32.81 Overactive bladder; F32.A Depression, unspecified; E87.1 Hypo-osmolality and hyponatremia; D64.9 Anemia, unspecified; E78.5 Hyperlipidemia, unspecified; Z88.0 Allergy status to penicillin; Z79.899 Other long term (current) drug therapy; Z79.82 Long term (current) use of aspirin; Z86.73 Personal history of transient ischemic attack (TIA), and cerebral infarction without residual deficits; Z98.890 Other specified postprocedural states; Z87.891 Personal history of nicotine dependence
CPT/HCPCS: 36415; 80048; 80053; 81001; 84484; 85025; 86140; 93005; 99285; A9270; G0378; J7030; U0002

== ENCOUNTER 2021-09-03 17:50 | Emergency (ER) | payer MEDICARE, BC ==
[2021-09-03 20:32] VITALS: PULSE 71
[2021-09-03 20:33] VITALS: BP 167/76
== END 2021-09-03 19:39 | disposition home or self-care (01) ==
LOC: FB.ED 17:50
DX: F41.9 Anxiety disorder, unspecified (principal); I10 Essential (primary) hypertension; E78.00 Pure hypercholesterolemia, unspecified; J44.9 Chronic obstructive pulmonary disease, unspecified; Z86.73 Personal history of transient ischemic attack (TIA), and cerebral infarction without residual deficits; Z88.0 Allergy status to penicillin; Z79.899 Other long term (current) drug therapy; Z79.02 Long term (current) use of antithrombotics/antiplatelets; Z79.82 Long term (current) use of aspirin; Z87.891 Personal history of nicotine dependence
CPT/HCPCS: 36415; 80053; 84484; 85025; 99283

== ENCOUNTER 2021-11-24 20:36 | Emergency (ER) | payer MEDICARE, BC ==
[2021-11-24] MEDS ORDERED: Diphtheria,Pertussis(Acell),Tetanus Vaccine 0.5 ML Syringe IM ONE (20:56)
[2021-11-24 21:08] VITALS: BP 170/78; PULSE 92
== END 2021-11-24 22:04 ==
LOC: FB.ED 20:36
DX: S01.81XA Laceration without foreign body of other part of head, initial encounter (principal); E78.00 Pure hypercholesterolemia, unspecified; I10 Essential (primary) hypertension; J44.9 Chronic obstructive pulmonary disease, unspecified; Z86.73 Personal history of transient ischemic attack (TIA), and cerebral infarction without residual deficits; Z88.0 Allergy status to penicillin; Z79.899 Other long term (current) drug therapy; Z79.82 Long term (current) use of aspirin; Z79.02 Long term (current) use of antithrombotics/antiplatelets; Z23 Encounter for immunization; W18.09XA Striking against other object with subsequent fall, initial encounter
CPT/HCPCS: 12001; 12011; 70450; 73060-RT; 90471; 90715; 99281; 99284-25

== ENCOUNTER 2022-02-05 11:32 | Inpatient (IN) | payer MEDICARE, BC ==
[2022-02-12] MEDS ORDERED: LORazepam 0.5 MG Tab PO PRN (13:18)
[2022-02-12] MEDS ORDERED: Albuterol 8 GM Inhaler INH PRN (13:18)
[2022-02-12] MEDS ORDERED: Docusate Sodium 250 MG Cap PO PRN (13:18)
[2022-02-12] MEDS: Carvedilol 6.25 MG Tab PO SCH (18:03)
[2022-02-12] MEDS: Calcium Carbonate 500 MG Tablet PO SCH (18:03)
[2022-02-12] MEDS: Acetaminophen 325 MG Tab PO PRN (18:04)
[2022-02-12] MEDS: Losartan 25 MG Tab PO SCH (20:53)
[2022-02-12] MEDS: Fluticasone NASAL Spray 16 GM Bottle NASBOTH SCH (20:53)
[2022-02-12] MEDS: Magnesium Oxide 400 MG Tab PO SCH (20:53)
[2022-02-12] MEDS: atorvaSTATin 20 MG Tab PO SCH (20:53)
[2022-02-12] MEDS: traZODone 100 MG Tab PO SCH (20:53)
[2022-02-12] MEDS: Oxybutynin 5 MG Tab.ER PO SCH (20:53)
[2022-02-12] MEDS: Formoterol/Mometasone 200-5 MCG 8.8 GM Inhaler IH SCH (20:54)
[2022-02-13] MEDS: Formoterol/Mometasone 200-5 MCG 8.8 GM Inhaler IH SCH ×2 (08:35→21:02)
[2022-02-13] MEDS: Escitalopram 10 MG Tab PO SCH (08:36)
[2022-02-13] MEDS: Levofloxacin 750 MG Tab PO SCH (08:36)
[2022-02-13] MEDS: amLODIPine 10 MG Tab PO SCH (08:36)
[2022-02-13] MEDS: Clopidogrel 75 MG Tab PO SCH (08:37)
[2022-02-13] MEDS: Aspirin 81 MG Tab.EC PO SCH (08:37)
[2022-02-13] MEDS: Carvedilol 6.25 MG Tab PO SCH ×2 (08:37→17:52)
[2022-02-13] MEDS: Losartan 25 MG Tab PO SCH ×2 (08:38→21:02)
[2022-02-13] MEDS: Fluticasone NASAL Spray 16 GM Bottle NASBOTH SCH ×2 (08:38→21:06)
[2022-02-13] MEDS: Magnesium Oxide 400 MG Tab PO SCH ×2 (12:21→21:02)
[2022-02-13] MEDS: Calcium Carbonate 500 MG Tablet PO SCH (17:52)
[2022-02-13] MEDS: Oxybutynin 5 MG Tab.ER PO SCH (21:06)
[2022-02-13] MEDS: traZODone 100 MG Tab PO SCH (21:07)
[2022-02-13] MEDS: atorvaSTATin 20 MG Tab PO SCH (21:08)
[2022-02-14] MEDS: Alendronate 70 MG Tab PO SCH (05:11)
[2022-02-14] MEDS: Losartan 25 MG Tab PO SCH ×2 (10:22→20:44)
[2022-02-14] MEDS: Carvedilol 6.25 MG Tab PO SCH ×3 (10:22→16:59)
[2022-02-14] MEDS: amLODIPine 10 MG Tab PO SCH (10:23)
[2022-02-14] MEDS: Aspirin 81 MG Tab.EC PO SCH (10:23)
[2022-02-14] MEDS: Formoterol/Mometasone 200-5 MCG 8.8 GM Inhaler IH SCH ×2 (10:23→20:41)
[2022-02-14] MEDS: Escitalopram 10 MG Tab PO SCH (10:23)
[2022-02-14] MEDS: Fluticasone NASAL Spray 16 GM Bottle NASBOTH SCH ×2 (10:24→20:41)
[2022-02-14] MEDS: Clopidogrel 75 MG Tab PO SCH (10:29)
[2022-02-14] MEDS: Magnesium Oxide 400 MG Tab PO SCH ×2 (13:00→20:41)
[2022-02-14] MEDS: Calcium Carbonate 500 MG Tablet PO SCH (16:59)
[2022-02-14] MEDS: atorvaSTATin 20 MG Tab PO SCH (20:40)
[2022-02-14] MEDS: traZODone 100 MG Tab PO SCH (20:40)
[2022-02-14] MEDS: Oxybutynin 5 MG Tab.ER PO SCH (20:41)
[2022-02-15] MEDS: Carvedilol 6.25 MG Tab PO SCH ×2 (08:23→18:51)
[2022-02-15] MEDS: Losartan 25 MG Tab PO SCH (08:26)
[2022-02-15] MEDS: Formoterol/Mometasone 200-5 MCG 8.8 GM Inhaler IH SCH ×2 (08:26→20:07)
[2022-02-15] MEDS: Fluticasone NASAL Spray 16 GM Bottle NASBOTH SCH ×2 (08:27→20:07)
[2022-02-15] MEDS: Aspirin 81 MG Tab.EC PO SCH (08:31)
[2022-02-15] MEDS: Levofloxacin 750 MG Tab PO SCH (08:32)
[2022-02-15] MEDS: Escitalopram 10 MG Tab PO SCH (08:32)
[2022-02-15] MEDS: Clopidogrel 75 MG Tab PO SCH (08:32)
[2022-02-15] MEDS: Magnesium Oxide 400 MG Tab PO SCH (12:28)
[2022-02-15] MEDS: Calcium Carbonate 500 MG Tablet PO SCH (18:50)
[2022-02-15] MEDS: atorvaSTATin 20 MG Tab PO SCH (20:08)
[2022-02-15] MEDS: traZODone 100 MG Tab PO SCH (20:08)
[2022-02-15] MEDS: Oxybutynin 5 MG Tab.ER PO SCH (20:08)
[2022-02-16] MEDS: Carvedilol 6.25 MG Tab PO SCH ×2 (08:21→18:56)
[2022-02-16] MEDS: Aspirin 81 MG Tab.EC PO SCH (08:22)
[2022-02-16] MEDS: Escitalopram 10 MG Tab PO SCH (08:22)
[2022-02-16] MEDS: Clopidogrel 75 MG Tab PO SCH (08:22)
[2022-02-16] MEDS: Fluticasone NASAL Spray 16 GM Bottle NASBOTH SCH ×2 (09:50→20:25)
[2022-02-16] MEDS: Formoterol/Mometasone 200-5 MCG 8.8 GM Inhaler IH SCH ×2 (09:50→20:24)
[2022-02-16] MEDS: Magnesium Oxide 400 MG Tab PO SCH (11:45)
[2022-02-16] MEDS: Calcium Carbonate 500 MG Tablet PO SCH (18:56)
[2022-02-16] MEDS: Oxybutynin 5 MG Tab.ER PO SCH (20:24)
[2022-02-16] MEDS: traZODone 100 MG Tab PO SCH (20:24)
[2022-02-16] MEDS: atorvaSTATin 20 MG Tab PO SCH (20:24)
[2022-02-17] MEDS: Carvedilol 6.25 MG Tab PO SCH ×2 (07:57→18:12)
[2022-02-17] MEDS: Aspirin 81 MG Tab.EC PO SCH (08:01)
[2022-02-17] MEDS: Fluticasone NASAL Spray 16 GM Bottle NASBOTH SCH ×2 (08:01→20:20)
[2022-02-17] MEDS: Formoterol/Mometasone 200-5 MCG 8.8 GM Inhaler IH SCH ×2 (08:01→20:19)
[2022-02-17] MEDS: Clopidogrel 75 MG Tab PO SCH (08:02)
[2022-02-17] MEDS: Escitalopram 10 MG Tab PO SCH (08:02)
[2022-02-17] MEDS: Levofloxacin 750 MG Tab PO SCH (08:12)
[2022-02-17] MEDS: Magnesium Oxide 400 MG Tab PO SCH (13:47)
[2022-02-17] MEDS: Calcium Carbonate 500 MG Tablet PO SCH (18:11)
[2022-02-17] MEDS: traZODone 100 MG Tab PO SCH (20:21)
[2022-02-17] MEDS: atorvaSTATin 20 MG Tab PO SCH (20:21)
[2022-02-17] MEDS: Oxybutynin 5 MG Tab.ER PO SCH (20:21)
[2022-02-17] MEDS: Acetaminophen 325 MG Tab PO PRN (23:37)
[2022-02-18] MEDS: Formoterol/Mometasone 200-5 MCG 8.8 GM Inhaler IH SCH ×2 (08:13→20:18)
[2022-02-18] MEDS: Fluticasone NASAL Spray 16 GM Bottle NASBOTH SCH ×2 (08:14→20:18)
[2022-02-18] MEDS: Escitalopram 10 MG Tab PO SCH (08:14)
[2022-02-18] MEDS: Aspirin 81 MG Tab.EC PO SCH (08:14)
[2022-02-18] MEDS: Clopidogrel 75 MG Tab PO SCH (08:15)
[2022-02-18] MEDS: Carvedilol 6.25 MG Tab PO SCH ×2 (09:19→18:18)
[2022-02-18] MEDS: Magnesium Oxide 400 MG Tab PO SCH (12:41)
[2022-02-18] MEDS: Calcium Carbonate 500 MG Tablet PO SCH (18:46)
[2022-02-18] MEDS: Oxybutynin 5 MG Tab.ER PO SCH (20:19)
[2022-02-18] MEDS: atorvaSTATin 20 MG Tab PO SCH (20:19)
[2022-02-18] MEDS: traZODone 100 MG Tab PO SCH (20:19)
[2022-02-19] MEDS: Formoterol/Mometasone 200-5 MCG 8.8 GM Inhaler IH SCH ×2 (08:38→21:05)
[2022-02-19] MEDS: Carvedilol 6.25 MG Tab PO SCH ×2 (08:38→18:18)
[2022-02-19] MEDS: Fluticasone NASAL Spray 16 GM Bottle NASBOTH SCH ×2 (08:38→21:06)
[2022-02-19] MEDS: Aspirin 81 MG Tab.EC PO SCH (08:38)
[2022-02-19] MEDS: Escitalopram 10 MG Tab PO SCH (08:38)
[2022-02-19] MEDS: Clopidogrel 75 MG Tab PO SCH (08:38)
[2022-02-19] MEDS: Magnesium Oxide 400 MG Tab PO SCH (11:29)
[2022-02-19] MEDS: Calcium Carbonate 500 MG Tablet PO SCH (18:18)
[2022-02-19] MEDS: atorvaSTATin 20 MG Tab PO SCH (21:05)
[2022-02-19] MEDS: Oxybutynin 5 MG Tab.ER PO SCH (21:05)
[2022-02-19] MEDS: traZODone 100 MG Tab PO SCH (21:07)
[2022-02-20] MEDS: Carvedilol 6.25 MG Tab PO SCH ×2 (07:57→17:52)
[2022-02-20] MEDS: Escitalopram 10 MG Tab PO SCH (08:00)
[2022-02-20] MEDS: Clopidogrel 75 MG Tab PO SCH (08:00)
[2022-02-20] MEDS: Formoterol/Mometasone 200-5 MCG 8.8 GM Inhaler IH SCH ×2 (08:00→20:00)
[2022-02-20] MEDS: Aspirin 81 MG Tab.EC PO SCH (08:00)
[2022-02-20] MEDS: Fluticasone NASAL Spray 16 GM Bottle NASBOTH SCH ×2 (08:00→20:00)
[2022-02-20] MEDS: Magnesium Oxide 400 MG Tab PO SCH (11:48)
[2022-02-20] MEDS: Calcium Carbonate 500 MG Tablet PO SCH (17:52)
[2022-02-20] MEDS: Oxybutynin 5 MG Tab.ER PO SCH (20:00)
[2022-02-20] MEDS: traZODone 100 MG Tab PO SCH (20:00)
[2022-02-20] MEDS: atorvaSTATin 20 MG Tab PO SCH (20:00)
[2022-02-21] MEDS: Alendronate 70 MG Tab PO SCH (05:37)
[2022-02-21] MEDS: Carvedilol 6.25 MG Tab PO SCH (08:32)
[2022-02-21] MEDS: Formoterol/Mometasone 200-5 MCG 8.8 GM Inhaler IH SCH ×2 (08:33→20:14)
[2022-02-21] MEDS: Aspirin 81 MG Tab.EC PO SCH (08:34)
[2022-02-21] MEDS: Fluticasone NASAL Spray 16 GM Bottle NASBOTH SCH ×2 (08:34→20:14)
[2022-02-21] MEDS: Escitalopram 10 MG Tab PO SCH (08:34)
[2022-02-21] MEDS: Clopidogrel 75 MG Tab PO SCH (08:34)
[2022-02-21] MEDS: Magnesium Oxide 400 MG Tab PO SCH (12:50)
[2022-02-21] MEDS: Carvedilol 3.125 MG Tab PO SCH (18:05)
[2022-02-21] MEDS: Calcium Carbonate 500 MG Tablet PO SCH (18:06)
[2022-02-21] MEDS: traZODone 100 MG Tab PO SCH (20:13)
[2022-02-21] MEDS: atorvaSTATin 20 MG Tab PO SCH (20:13)
[2022-02-21] MEDS: Oxybutynin 5 MG Tab.ER PO SCH (20:13)
[2022-02-22] MEDS: Formoterol/Mometasone 200-5 MCG 8.8 GM Inhaler IH SCH ×2 (08:41→20:28)
[2022-02-22] MEDS: Carvedilol 3.125 MG Tab PO SCH ×2 (08:41→18:29)
[2022-02-22] MEDS: Aspirin 81 MG Tab.EC PO SCH (08:42)
[2022-02-22] MEDS: Clopidogrel 75 MG Tab PO SCH (08:42)
[2022-02-22] MEDS: Fluticasone NASAL Spray 16 GM Bottle NASBOTH SCH ×2 (08:42→20:28)
[2022-02-22] MEDS: Escitalopram 10 MG Tab PO SCH (08:42)
[2022-02-22] MEDS: Magnesium Oxide 400 MG Tab PO SCH (11:53)
[2022-02-22] MEDS: Calcium Carbonate 500 MG Tablet PO SCH (18:29)
[2022-02-22] MEDS: atorvaSTATin 20 MG Tab PO SCH (20:29)
[2022-02-22] MEDS: Oxybutynin 5 MG Tab.ER PO SCH (20:30)
[2022-02-22] MEDS: traZODone 100 MG Tab PO SCH (20:31)
[2022-02-23] MEDS: Formoterol/Mometasone 200-5 MCG 8.8 GM Inhaler IH SCH ×2 (08:30→20:26)
[2022-02-23] MEDS: Fluticasone NASAL Spray 16 GM Bottle NASBOTH SCH ×2 (08:31→20:27)
[2022-02-23] MEDS: Carvedilol 3.125 MG Tab PO SCH ×2 (08:32→17:46)
[2022-02-23] MEDS: Aspirin 81 MG Tab.EC PO SCH (08:36)
[2022-02-23] MEDS: Escitalopram 10 MG Tab PO SCH (08:36)
[2022-02-23] MEDS: Clopidogrel 75 MG Tab PO SCH (08:37)
[2022-02-23] MEDS: Magnesium Oxide 400 MG Tab PO SCH (12:00)
[2022-02-23] MEDS: Calcium Carbonate 500 MG Tablet PO SCH (17:46)
[2022-02-23] MEDS: atorvaSTATin 20 MG Tab PO SCH (20:27)
[2022-02-23] MEDS: Oxybutynin 5 MG Tab.ER PO SCH (20:28)
[2022-02-23] MEDS: traZODone 100 MG Tab PO SCH (20:29)
[2022-02-24] MEDS: Carvedilol 3.125 MG Tab PO SCH ×2 (08:49→18:16)
[2022-02-24] MEDS: Formoterol/Mometasone 200-5 MCG 8.8 GM Inhaler IH SCH ×2 (08:49→20:21)
[2022-02-24] MEDS: Aspirin 81 MG Tab.EC PO SCH (08:50)
[2022-02-24] MEDS: Escitalopram 10 MG Tab PO SCH (08:50)
[2022-02-24] MEDS: Fluticasone NASAL Spray 16 GM Bottle NASBOTH SCH ×2 (08:50→20:22)
[2022-02-24] MEDS: Clopidogrel 75 MG Tab PO SCH (08:51)
[2022-02-24] MEDS: Magnesium Oxide 400 MG Tab PO SCH (14:52)
[2022-02-24] MEDS: Calcium Carbonate 500 MG Tablet PO SCH (18:16)
[2022-02-24] MEDS: atorvaSTATin 20 MG Tab PO SCH (20:21)
[2022-02-24] MEDS: traZODone 100 MG Tab PO SCH (20:21)
[2022-02-24] MEDS: Oxybutynin 5 MG Tab.ER PO SCH (20:21)
[2022-02-25] MEDS: Carvedilol 3.125 MG Tab PO SCH ×2 (09:01→17:05)
[2022-02-25] MEDS: Formoterol/Mometasone 200-5 MCG 8.8 GM Inhaler IH SCH ×2 (09:02→20:33)
[2022-02-25] MEDS: Fluticasone NASAL Spray 16 GM Bottle NASBOTH SCH ×2 (09:02→20:34)
[2022-02-25] MEDS: Aspirin 81 MG Tab.EC PO SCH (09:03)
[2022-02-25] MEDS: Clopidogrel 75 MG Tab PO SCH (09:04)
[2022-02-25] MEDS: Escitalopram 10 MG Tab PO SCH (09:04)
[2022-02-25] MEDS: Magnesium Oxide 400 MG Tab PO SCH (11:39)
[2022-02-25] MEDS: Calcium Carbonate 500 MG Tablet PO SCH (17:08)
[2022-02-25] MEDS: Oxybutynin 5 MG Tab.ER PO SCH (20:35)
[2022-02-25] MEDS: atorvaSTATin 20 MG Tab PO SCH (20:35)
[2022-02-25] MEDS: traZODone 100 MG Tab PO SCH (21:45)
[2022-02-26] MEDS: Carvedilol 3.125 MG Tab PO SCH (08:02)
[2022-02-26] MEDS: Formoterol/Mometasone 200-5 MCG 8.8 GM Inhaler IH SCH (08:03)
[2022-02-26] MEDS: Fluticasone NASAL Spray 16 GM Bottle NASBOTH SCH (08:03)
[2022-02-26] MEDS: Escitalopram 10 MG Tab PO SCH (08:04)
[2022-02-26] MEDS: Clopidogrel 75 MG Tab PO SCH (08:04)
[2022-02-26] MEDS: Aspirin 81 MG Tab.EC PO SCH (08:04)
[2022-02-26 08:05] VITALS: BP 174/67; PULSE 84
== END 2022-02-26 09:40 | disposition home health service (06) | DRG 57 ==
LOC: FB.MS 02-12 12:20 → UNDODISIN 02-12 13:17
PROVIDERS: ADMIT Student in an Organized Health Care Education/Training Program; ATTEND Family Medicine
DX: I69.351 Hemiplegia and hemiparesis following cerebral infarction affecting right dominant side (principal); Z51.5 Encounter for palliative care; I69.322 Dysarthria following cerebral infarction; Z20.822 Contact with and (suspected) exposure to COVID-19; I95.9 Hypotension, unspecified; E78.2 Mixed hyperlipidemia; I65.29 Occlusion and stenosis of unspecified carotid artery; M81.0 Age-related osteoporosis without current pathological fracture; H54.7 Unspecified visual loss; E78.00 Pure hypercholesterolemia, unspecified; F41.9 Anxiety disorder, unspecified; D64.9 Anemia, unspecified; I10 Essential (primary) hypertension; F32.A Depression, unspecified; R91.8 Other nonspecific abnormal finding of lung field; J44.9 Chronic obstructive pulmonary disease, unspecified; R32 Unspecified urinary incontinence; N32.81 Overactive bladder; Z98.41 Cataract extraction status, right eye; Z87.891 Personal history of nicotine dependence; Z88.0 Allergy status to penicillin; Z79.82 Long term (current) use of aspirin; Z79.899 Other long term (current) drug therapy; Z79.02 Long term (current) use of antithrombotics/antiplatelets; Z98.42 Cataract extraction status, left eye
CPT/HCPCS: 97110-GO; 97110-GP; 97116-GP; 97162-GP; 97165-GO; 97530-GO; 97530-GP; 97535-GO; 99305; 99308; 99315; A9270-GY; U0002

== ENCOUNTER 2022-10-06 18:22 | Emergency (ER) | payer MEDICARE, BC ==
[2022-10-06 19:16] VITALS: BP 208/98; PULSE 88
[2022-10-06] MEDS ORDERED: Sodium Chloride 0.9% 10 ML Syringe FLUSH PRN (19:28)
[2022-10-06] MEDS ORDERED: Albuterol/Ipratropium 3.0-0.5 MG/3 ML Neb Soln NEB ONE (19:30)
[2022-10-06] MEDS ORDERED: methylPREDNISolone Sodium Succinate 125 MG/2 ML SDV IVPUSH ONE (19:30)
[2022-10-06 19:58] LABS: ESTIMATED GFR 70 mL/min (>60)
[2022-10-06] MEDS ORDERED: Labetalol 20 MG/4 ML Syringe IVPUSH ONE (19:59)
== END 2022-10-06 21:21 | disposition home or self-care (01) ==
LOC: FB.ED 18:22
DX: I16.9 Hypertensive crisis, unspecified (principal); J44.1 Chronic obstructive pulmonary disease with (acute) exacerbation; I10 Essential (primary) hypertension; J44.9 Chronic obstructive pulmonary disease, unspecified; G45.9 Transient cerebral ischemic attack, unspecified; E78.00 Pure hypercholesterolemia, unspecified; Z87.891 Personal history of nicotine dependence; Z88.0 Allergy status to penicillin; Z79.02 Long term (current) use of antithrombotics/antiplatelets; Z79.82 Long term (current) use of aspirin
CPT/HCPCS: 36415; 71045; 80053; 83880; 84484; 85025; 93005; 94640; 96374; 96375; 99285; J2930; J3490; 99283; J7620